=== PATIENT | female | born 1950 | race Caucasian/White ===

== ENCOUNTER 2017-10-01 03:01 | Emergency (ER) | payer MEDICARE, MEDICAID ==
[2017-10-01 03:30] VITALS: BP 116/72
--- NOTE | 2017-10-01 03:47 | EDM.PDOC ---
ED HPI GENERAL MEDICAL PROBLEM - General Chief Complaint: Skin Complaint Stated Complaint: ALL OVER BODY ITCH Time Seen by Provider: 10/01/17 03:34 Source of Information: Reports: Patient, RN Notes Reviewed History Limitations: Reports: No Limitations - History of Present Illness INITIAL COMMENTS - FREE TEXT/NARRATIVE: 67-year-old female presents emergency department day complaint of rash, she states she's had this rash for several months has been quite itchy she was doing a sleep study at night but during the sleep study she felt she could not take it anymore and wanted to see a doctor so she presented to the emergency department for further evaluation denies pain Pain Score (Numeric/FACES): 0 - Related Data Allergies Allergy/AdvReac Type Severity Reaction Status Date / Time diclofenac potassium Allergy unsure Verified 10/01/17 03:10 [From Cataflam] dicyclomine HCl [From Bentyl] Allergy unsure Verified 10/01/17 03:10 paroxetine HCl [From Paxil] Allergy unsure Verified 10/01/17 03:10 Home Meds: Home Meds Aspirin [Ashley Chewable] 81 mg PO DAILY 07/26/13 [History] Calcium Carbonate [Calci-Chew] 500 mg PO BID 07/26/13 [History] Escitalopram [Lexapro] 30 mg PO DAILY 07/26/13 [History] Ibuprofen [Ibuprofen] 800 mg PO DAILY PRN 07/26/13 [History] Multivitamin [Multi Vitamin Daily] 1 each PO DAILY 07/26/13 [History] QUEtiapine Fumarate [Quetiapine Fumarate] 50 mg PO DAILY 07/26/13 [History] QUEtiapine Fumarate [Quetiapine Fumarate] 200 mg PO BEDTIME 07/26/13 [History] metFORMIN [Glucophage] 500 mg PO BID 07/26/13 [History] rOPINIRole HCl [Ropinirole HCl] 2 mg PO QID 07/26/13 [History] busPIRone [Buspar] 20 mg PO TID 02/12/15 [History] Triamcinolone Acetonide [Triamcinolone Acetonide 0.1% Crm] 15 gm TOP TID PRN 01/27 [History] Vitamin E 400 unit PO DAILY 03/18/15 [History] Albuterol Sulfate [Proair Hfa] 2 puff IH Q4H PRN 06/26/16 [History] Moxifloxacin [Vigamox 0.5% Ophth Soln] 1 drop EYEBOTH TID 06/26/16 [History] valACYclovir HCl [Valacyclovir] 500 mg PO DAILY 06/26/16 [History] Past Medical History HEENT History: Reports: Impaired Vision Other HEENT History: dry eyes Cardiovascular History: Reports: Other (See Below) Other Cardiovascular History: hx stress test normal Respiratory History: Reports: COPD Other Respiratory History: uses boyfriends inhaler Gastrointestinal History: Reports: Irritable Bowel Syndrome Genitourinary History: Reports: Urinary Incontinence, UTI, Recurrent 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 OB/BYN History: cysts Musculoskeletal History: Reports: Arthritis, Other (See Below) Other Musculoskeletal History: hip pain Neurological History: Reports: Other (See Below) Other Neuro History: restless legs Psychiatric History: Reports: Addiction, Anxiety, Bipolar, Depression, Panic Attack, Schizophrenia Endocrine/Metabolic History: Reports: Diabetes, Type II Immunologic History: Reports: Other (See Below) Other Immunologic History: rectal herpes Dermatologic History: Reports: Urticaria - Infectious Disease History Infectious Disease History: Reports: Chicken Pox, Measles, Mumps - Past Surgical History Female Surgical History: Reports: Hysterectomy, Salpingo-Oophorectomy Social & Family History - Family History Family Medical History: Noncontributory - Tobacco Use Smoking Status *Q: Current Every Day Smoker Years of Tobacco use: 54 Packs/Tins Daily: 0.7 - Caffeine Use Caffeine Use: Reports: Coffee - Alcohol Use Days Per Week of Alcohol Use: 1 Number of Drinks Per Day: 1 Total Drinks Per Week: 1 - Recreational Drug Use Recreational Drug Use: No ED ROS GENERAL - Review of Systems Review Of Systems: See Below Constitutional: Reports: No Symptoms Respiratory: Reports: No Symptoms Cardiovascular: Reports: No Symptoms Skin: Reports: Pruritis, Rash ED EXAM, SKIN/RASH Exam: See Below Exam Limited By: No Limitations General Appearance: Alert, WD/WN, No Apparent Distress Skin: Warm, Dry, Intact, Normal Color, No Rash Course - Vital Signs Last Recorded V/S: Last Vital Signs Temp 98.0 F 10/01/17 03:29 Pulse 84 10/01/17 03:29 Resp 18 10/01/17 03:29 BP 116/72 10/01/17 03:29 Pulse Ox 92 L 10/01/17 03:29 Departure - Departure Time of Disposition: 03:47 Disposition: Home, Self-Care 01 Condition: Poor Clinical Impression: Rash and nonspecific skin eruption - Discharge Information Referrals: Kwaku Kang MD [Primary Care Provider] - Additional Instructions: Take full course of prednisone, Please followup with your primary care provider in 3-5 days if not better, please call return to the emergency department with worsening of symptoms. - Assessment/Plan Plan: Assessment Acuity = acute Site and laterality = nonspecific rash Etiology = unclear etiology Manifestations = none Location of injury = Home Lab values = none Plan Try prednisone 20 mg once day 5 days follow-up primary care in 3-5 days for reevaluation This note was dictated using [employer] voice recognition software please call with any questions on syntax or fer.
== END 2017-10-01 03:51 | disposition home or self-care (01) ==
LOC: JP.ED 03:01
DX: R21 Rash and other nonspecific skin eruption (principal); J44.9 Chronic obstructive pulmonary disease, unspecified; F41.0 Panic disorder [episodic paroxysmal anxiety]; F31.9 Bipolar disorder, unspecified; E11.9 Type 2 diabetes mellitus without complications; F17.210 Nicotine dependence, cigarettes, uncomplicated; Z79.82 Long term (current) use of aspirin; Z79.899 Other long term (current) drug therapy; Z79.1 Long term (current) use of non-steroidal anti-inflammatories (NSAID); Z79.84 Long term (current) use of oral hypoglycemic drugs; Z88.8 Allergy status to other drugs, medicaments and biological substances
CPT/HCPCS: 99283

== ENCOUNTER 2018-03-04 07:48 | Day surgery (SDC) | payer MEDICARE, MEDICAID ==
[~2018-03-04 07:48] MED LIST: Midazolam 1 MG/ML 2 ML SDV ONE; Propofol 200 MG/20 ML SDV ONE; fentaNYL 100 MCG/2 ML SDV ONE
[2018-03-04] MEDS ORDERED: Lactated Ringers 1,000 ML IV SCH (08:15)
[2018-03-04 12:09] VITALS: BP 121/63
--- NOTE | 2018-03-04 13:16 | OR ---
DATE OF PROCEDURE: 03/04/2018 PREOPERATIVE DIAGNOSIS: Colon cancer screening. POSTOPERATIVE DIAGNOSIS: Unremarkable colonoscopy. PROCEDURE PERFORMED: Colonoscopy to the cecum. SURGEON: Damon Brian MD. ANESTHESIA: IV anesthesia with monitored anesthesia care. INDICATION: This 67-year-old white female is referred for a colonoscopy for colon cancer screening. She says her last colonoscopic exam was done 10 years ago. I counseled her for the procedure including risks and alternatives, and she gave her informed consent to proceed. DESCRIPTION OF PROCEDURE: The patient was placed in the left lateral decubitus position. IV anesthesia was administered by the Anesthesia Service. Time-out was held. A rectal exam was performed, which was unremarkable. The flexible video Olympus colonoscope was introduced through her anus, up her rectum, and out her colon all the way to the cecum. To accomplish this, we did have to apply some abdominal compression. Once the cecum was reached, the scope was slowly withdrawn, examining the mucosa throughout. No mucosal abnormalities were noted. The scope was retroflexed in the rectum with the distal rectum appearing unremarkable. The scope was straightened and removed. She tolerated the procedure well. Damon Brian MD /[id number]
== END 2018-03-04 12:40 | disposition home or self-care (01) ==
LOC: JP.SDS 07:48
PROVIDERS: ATTEND Surgery
DX: Z12.11 Encounter for screening for malignant neoplasm of colon (principal); J44.9 Chronic obstructive pulmonary disease, unspecified; F17.200 Nicotine dependence, unspecified, uncomplicated; F20.9 Schizophrenia, unspecified; Z88.7 Allergy status to serum and vaccine; Z88.8 Allergy status to other drugs, medicaments and biological substances
CPT/HCPCS: G0121; J2250; J2704; J3010; J7120

== ENCOUNTER 2018-12-07 23:08 | Emergency (ER) | payer MEDICARE, MEDICAID ==
--- NOTE | 2018-12-07 23:31 | EDM.PDOC ---
ED HPI GENERAL MEDICAL PROBLEM - General Chief Complaint: ENT Problem Stated Complaint: MED [facility] Time Seen by Provider: 12/07/18 23:24 Source of Information: Reports: Patient, RN Notes Reviewed History Limitations: Reports: No Limitations - History of Present Illness INITIAL COMMENTS - FREE TEXT/NARRATIVE: 68-year-old female presents emergency department today with complaint of nosebleed she does have a history of nosebleed usually in the winter time she was unable to get this stopped denies any lightheadedness Treatments HEALTH CONSULTANT: Reports: Other (see below) Other Treatments HEALTH CONSULTANT: none - Related Data Allergies Allergy/AdvReac Type Severity Reaction Status Date / Time diclofenac potassium Allergy unsure Verified 12/07/18 23:14 [From Cataflam] dicyclomine HCl [From Bentyl] Allergy unsure Verified 12/07/18 23:14 paroxetine HCl [From Paxil] Allergy unsure Verified 12/07/18 23:14 Home Meds: Home Meds Aspirin [Ashley Chewable] 81 mg PO DAILY 07/26/13 [History] Calcium Carbonate [Calci-Chew] 500 mg PO BID 07/26/13 [History] Escitalopram [Lexapro] 30 mg PO DAILY 07/26/13 [History] Ibuprofen 800 mg PO DAILY PRN 07/26/13 [History] Multivitamin [Multi Vitamin Daily] 1 each PO DAILY 07/26/13 [History] QUEtiapine Fumarate [Quetiapine Fumarate] 50 mg PO DAILY 07/26/13 [History] QUEtiapine Fumarate [Quetiapine Fumarate] 200 mg PO BEDTIME 07/26/13 [History] metFORMIN [Glucophage] 500 mg PO BID 07/26/13 [History] rOPINIRole HCl [Ropinirole HCl] 2 mg PO QID 07/26/13 [History] busPIRone [Buspar] 20 mg PO TID 02/12/15 [History] Triamcinolone Acetonide [Triamcinolone Acetonide 0.1% Crm] 15 gm TOP TID PRN 01/27 [History] Vitamin E 400 unit PO DAILY 03/18/15 [History] Albuterol Sulfate [Proair Hfa] 2 puff IH Q4H PRN 06/26/16 [History] Albuterol [Ventolin HFA] 2 puff IH Q4HR PRN 02/28/18 [History] Acetaminophen/HYDROcodone [[place] 325-5 MG] 1 - 2 tab PO Q4H PRN #20 tab [Rx] Calcitonin,[place],Synthetic [Miacalcin] 3.7 ml NS DAILY #1 spray.pump 10/10/18 [ Rx] Past Medical History HEENT History: Reports: Impaired Vision Other HEENT History: dry eyes Cardiovascular History: Reports: Other (See Below) Other Cardiovascular History: hx stress test normal Respiratory History: Reports: COPD Other Respiratory History: uses boyfriends inhaler Gastrointestinal History: Reports: Irritable Bowel Syndrome Genitourinary History: Reports: Urinary Incontinence, UTI, Recurrent 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 Musculoskeletal History: Reports: Arthritis Other Musculoskeletal History: hip pain Neurological History: Reports: Other (See Below) Other Neuro History: restless legs Psychiatric History: Reports: Addiction, Anxiety, Bipolar, Depression, Panic Attack, Schizophrenia Endocrine/Metabolic History: Reports: Diabetes, Type II Immunologic History: Reports: Other (See Below) Other Immunologic History: herpes Dermatologic History: Reports: Urticaria - Infectious Disease History Infectious Disease History: Reports: Chicken Pox - Past Surgical History Female Surgical History: Reports: Hysterectomy, Salpingo-Oophorectomy Social & Family History - Family History Family Medical History: Noncontributory - Tobacco Use Smoking Status *Q: Current Every Day Smoker Years of Tobacco use: 40 Packs/Tins Daily: 1 Second Hand Smoke Exposure: Yes - Caffeine Use Caffeine Use: Reports: Coffee - Recreational Drug Use Recreational Drug Use: No ED ROS ENT - Review of Systems Review Of Systems: See Below HEENT: Reports: Nosebleed Respiratory: Reports: No Symptoms Cardiovascular: Reports: No Symptoms ED EXAM, ENT - Physical Exam Exam: See Below Exam Limited By: No Limitations General Appearance: Alert, WD/WN, No Apparent Distress Nose: Active Bleeding, Dried Blood Mouth/Throat: Normal Gums, Normal Lips, Bleeding ED ENT PROCEDURES - Epistaxis Procedure Indication: Epistaxis Recent anticoagulants/antiplatlets: No Uncontrolled HTN: No Recent septal/nasal surgery: No Site of bleeding: Right Nare Clearing of clots: Patient Blew Nose Anterior Packing: Inflatable Nasal Tampon Posterior packing: Long Nasal Tampon Local Anesthetic Volume: 5cc Complications: No Course - Vital Signs Last Recorded V/S: Last Vital Signs Temp 96.8 F 12/07/18 23:10 Pulse 86 12/07/18 23:10 Resp 12 12/07/18 23:10 BP 130/86 12/07/18 23:10 Pulse Ox 91 L 12/07/18 23:10 Departure - Departure Time of Disposition: 01:49 Disposition: Home, Self-Care 01 Condition: Fair Clinical Impression: Epistaxis - Discharge Information Referrals: PCP,None [Primary Care Provider] - Forms: ED Department Discharge Additional Instructions: Take full course of antibiotics, please follow-up with your primary care in the next 2-3 days for reevaluation and removal of the Rhino Rocket call return to the emergency department worsening of symptoms - Assessment/Plan Plan: Assessment Acuity = acute Site and laterality = epistaxis status post placement of Rhino Rocket Etiology = unknown etiology Manifestations = none Location of injury = Home Lab values = none Plan Placed on prophylactic antibiotics of cephalexin 500 mg by mouth 4 times a day follow-up primary care 2- 3 days for reevaluation This note was dictated using [employer] voice recognition software please call with any questions on syntax or grammar.
[2018-12-07 23:43] VITALS: BP 130/86
== END 2018-12-08 02:30 | disposition home or self-care (01) ==
LOC: JP.ED 23:08
DX: R04.0 Epistaxis (principal); J44.0 Chronic obstructive pulmonary disease with (acute) lower respiratory infection; F31.9 Bipolar disorder, unspecified; F41.9 Anxiety disorder, unspecified; E11.9 Type 2 diabetes mellitus without complications; F17.210 Nicotine dependence, cigarettes, uncomplicated; Z88.8 Allergy status to other drugs, medicaments and biological substances; Z79.82 Long term (current) use of aspirin; Z79.84 Long term (current) use of oral hypoglycemic drugs; Z79.899 Other long term (current) drug therapy
CPT/HCPCS: 30901; 30903; 30905; 99283; 99284-25

== ENCOUNTER → 2019-04-02 | Outpatient (CLI) | payer MEDICARE, MEDICAID ==
[2019-04-02] MEDS: Gadoteridol 279.3 MG/ML 20 ML SDV IV SCH (15:11)
--- NOTE | 2019-04-04 09:58 | CRLMR ---
INDICATION: Abdominal pain. Cirrhosis. Common bile duct dilation. COMPARISON: CT scan of the abdomen and pelvis dated 09 January 2019. TECHNIQUE: Abdominal MRI with T1 in- and out of phase, T2, diffusion weighted, and progressively delayed post-contrast images. Intravenous gadolinium administered. Heavily T2 weighted 2D and 3D MRCP images also performed. FINDINGS: No fatty infiltration of the liver. Nodularity of the liver representing cirrhosis. No focal liver lesions identified. Mild splenomegaly. No focal abnormalities identified in the visualized portions of the spleen, pancreas, adrenal glands, and kidneys. No hydronephrosis. A few prominent lymph nodes in the portacaval and jasbir hepatis regions are unchanged. Dilation of the common bile duct measuring 1.0 cm. No intrahepatic bile duct dilation. No filling defects in the biliary system. Normal size of the main pancreatic duct. Mild edema in the jasbir hepatis is unchanged. IMPRESSION: 1. Cirrhosis. No focal liver lesions identified. 2. A few prominent lymph nodes in the portacaval and jasbir hepatis regions along with mild edema in the jasbir hepatis are unchanged. Recommend follow-up MRI in 6 months to assess for stability. 3. Dilation of the common bile duct which could be secondary to a previously passed stone. No current choledocholithiasis. Dictated by Michael Armenta MD @ Apr 04 2019 9:41AM Signed by Dr. Michael Armenta @ Apr 04 2019 9:58AM
== END ==
LOC: JP.MRI 11:25
PROVIDERS: ATTEND Nurse Practitioner Family
DX: R10.9 Unspecified abdominal pain (principal); K74.69 Other cirrhosis of liver; K76.6 Portal hypertension; R59.9 Enlarged lymph nodes, unspecified; R60.9 Edema, unspecified; K83.8 Other specified diseases of biliary tract
CPT/HCPCS: 74183; A9576; A9579

== ENCOUNTER 2019-07-11 07:21 | Emergency (ER) | payer MEDICARE, MEDICAID ==
[2019-07-11] MEDS ORDERED: Sodium Chloride 0.9% 10 ML Syringe FLUSH PRN (07:44)
[2019-07-11] MEDS ORDERED: Acetaminophen/HYDROcodone 325-5 MG Tab PO ONE (07:44)
[2019-07-11] MEDS ORDERED: Ketorolac 30 MG/ML SDV IVPUSH ONE (07:44)
[2019-07-11] MEDS ORDERED: Albuterol/Ipratropium 3.0-0.5 MG/3 ML Neb Soln NEB ONE (07:46)
--- NOTE | 2019-07-11 07:52 | EDM.PDOC ---
ED HPI GENERAL MEDICAL PROBLEM - General Chief Complaint: Respiratory Problem Stated Complaint: SHORTNESS OF BREATH Time Seen by Provider: 07/11/19 07:40 Source of Information: Reports: Patient, EMS, Old Records History Limitations: Reports: Other (poor historian) - History of Present Illness INITIAL COMMENTS - FREE TEXT/NARRATIVE: 69 yo female smoker presents via EMS today with several days of SOB, pleuritic R anterior chest wall pain and pain in her extrems. She has not seen Dr. Kang , her primary for any of this. Lives alone here in town. Is on home oxygen, she does not know the flow rate. EMS said she was smoking unfiltered cigarettes on their arrival. Does not recall any injury to her chest. Denies or is unaware of a fever at home. Recently finished an antibiotic for a UTI, does not know what it was. Says she has a hx of Hep C, which is why she quit drinking. Onset: Gradual Duration: Day(s):, Constant Location: Reports: Chest, Upper Extremity, Left, Upper Extremity, Right, Lower Extremity, Left, Lower Extremity, Right Quality: Reports: Ache (extrems), Sharp (R ant chest) Severity: Moderate Improves with: Reports: Medication (Take [place] for pain.) Worsens with: Reports: Other (unknown cause) Context: Reports: Other (Has AODM and is a current daily smoker. ) Associated Symptoms: Reports: Chest Pain (R ant chest wall), Shortness of Breath (acute on chronic). 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: Reports: Other (see below) (Takes [place] prn) Generalized Pain Score (Numeric/FACES): 10 - Related Data Allergies Allergy/AdvReac Type Severity Reaction Status Date / Time diclofenac potassium Allergy unsure Verified 07/11/19 07:49 [From Cataflam] dicyclomine HCl [From Bentyl] Allergy unsure Verified 07/11/19 07:49 paroxetine HCl [From Paxil] Allergy unsure Verified 07/11/19 07:49 Home Meds: Home Meds Aspirin [Ashley Chewable] 81 mg PO DAILY 07/26/13 [History] Calcium Carbonate [Calci-Chew] 500 mg PO BID 07/26/13 [History] Escitalopram [Lexapro] 30 mg PO DAILY 07/26/13 [History] Ibuprofen 800 mg PO DAILY PRN 07/26/13 [History] Multivitamin [Multi Vitamin Daily] 1 each PO DAILY 07/26/13 [History] QUEtiapine Fumarate [Quetiapine Fumarate] 50 mg PO DAILY 07/26/13 [History] QUEtiapine Fumarate [Quetiapine Fumarate] 200 mg PO BEDTIME 07/26/13 [History] metFORMIN [Glucophage] 500 mg PO BID 07/26/13 [History] rOPINIRole HCl [Ropinirole HCl] 2 mg PO QID 07/26/13 [History] busPIRone [Buspar] 20 mg PO TID 02/12/15 [History] Triamcinolone Acetonide [Triamcinolone Acetonide 0.1% Crm] 15 gm TOP TID PRN 01/27 [History] Vitamin E 400 unit PO DAILY 03/18/15 [History] Albuterol Sulfate [Proair Hfa] 2 puff IH Q4H PRN 06/26/16 [History] Albuterol [Ventolin HFA] 2 puff IH Q4HR PRN 02/28/18 [History] Acetaminophen/HYDROcodone [[place] 325-5 MG] 1 - 2 tab PO Q4H PRN #20 tab [Rx] Calcitonin,[place],Synthetic [Miacalcin] 3.7 ml NS DAILY #1 spray.pump 10/10/18 [ Rx] Past Medical History HEENT History: Reports: Impaired Vision Other HEENT History: dry eyes Cardiovascular History: Reports: Other (See Below) Other Cardiovascular History: hx stress test normal Respiratory History: Reports: COPD Other Respiratory History: uses boyfriends inhaler Gastrointestinal History: Reports: Irritable Bowel Syndrome Genitourinary History: Reports: Urinary Incontinence, UTI, Recurrent SECURITY ROVER History: Reports: Other SECURITY ROVER History: cysts Musculoskeletal History: Reports: Arthritis Other Musculoskeletal History: hip pain Neurological History: Reports: Other (See Below) Other Neuro History: restless legs Psychiatric History: Reports: Addiction, Anxiety, Bipolar, Depression, Panic Attack, Schizophrenia Endocrine/Metabolic History: Reports: Diabetes, Type II Immunologic History: Reports: Other (See Below) Other Immunologic History: herpes Dermatologic History: Reports: Urticaria - Infectious Disease History Infectious Disease History: Reports: Chicken Pox - Past Surgical History Female Surgical History: Reports: Hysterectomy, Salpingo-Oophorectomy Social & Family History - Family History Family Medical History: Noncontributory - Caffeine Use Caffeine Use: Reports: Coffee ED ROS GENERAL - Review of Systems Review Of Systems: See Below Constitutional: Reports: No Symptoms HEENT: Reports: No Symptoms Respiratory: Reports: Shortness of Breath (acute on chronic), Pleuritic Chest Pain (just below the R breast). Denies: Wheezing, Cough, Sputum, Hemoptysis Cardiovascular: Reports: No Symptoms Endocrine: Reports: No Symptoms GI/Abdominal: Reports: No Symptoms : Reports: No Symptoms Musculoskeletal: Reports: No Symptoms Skin: Reports: No Symptoms Neurological: Reports: Other (hands and feet all hurt) Psychiatric: Reports: No Symptoms ED EXAM, GENERAL - Physical Exam Exam: See Below Exam Limited By: No Limitations General Appearance: Alert, WD/WN, Mild Distress Eye Exam: Bilateral Eye: Normal Inspection Ears: Normal External Exam, Normal Canal, Hearing Grossly Normal, Normal TMs Ear Exam: Bilateral Ear: Auricle Normal, Canal Normal, TM normal Nose: Normal Inspection, No Blood Throat/Mouth: Normal Inspection, Normal Lips, Normal Oropharynx, Normal Voice, No Airway Compromise. No: Normal Teeth (edentulous) Head: Atraumatic, Normocephalic Neck: Normal Inspection Respiratory/Chest: Decreased Breath Sounds, Other (mild tachypnea). No: Chest Non-Tender (tenderness just below the R breast on palpation. ), Wheezing Cardiovascular: Regular Rate, Rhythm, No Edema GI/Abdominal: Normal Bowel Sounds, Non-Tender, No Distention, Other (firm to palpation) Back Exam: Normal Inspection Extremities: Normal Inspection, Normal Range of Motion, No Pedal Edema Neurological: Alert, Oriented, CN II-XII Intact, Normal Cognition, No Motor/ Sensory Deficits Psychiatric: Normal Affect, Anxious Skin Exam: Warm, Dry, Intact, Normal Color, No Rash Course - Vital Signs Last Recorded V/S: Last Vital Signs Temp 36.3 C 07/11/19 07:45 Pulse 96 07/11/19 10:16 Resp 16 07/11/19 10:16 BP 129/71 07/11/19 10:16 Pulse Ox 93 L 07/11/19 10:16 - Orders/Labs/Meds Orders: Active Orders 24 hr Category Date Time Status Oxygen Therapy Adult [Oxygen Therapy, ED] [RC] Care 07/11/19 07:47 Active ASDIRECTED RT Aerosol Therapy [RC] ASDIRECTED Care 07/11/19 07:46 Active Sodium Chloride 0.9% [Normal Saline] 1,000 ml Med 07/11/19 08:45 Active IV ASDIRECTED Sodium Chloride 0.9% [Saline Flush] Med 07/11/19 07:44 Active 10 ml FLUSH ASDIRECTED PRN Saline Lock Insert [OM.PC] Routine Oth 07/11/19 07:44 Ordered Medication Orders Sodium Chloride (Normal Saline) 1,000 mls @ 150 mls/hr IV ASDIRECTED ETTA Last Infusion: 07/11/19 09:33 Dose: 999 mls/hr Admin: 07/11/19 09:04 Dose: 150 mls/hr Sodium Chloride (Saline Flush) 10 ml FLUSH ASDIRECTED PRN PRN Reason: Keep Vein Open Last Admin: 07/11/19 09:37 Dose: 10 ml Labs: Laboratory Tests 07/11/19 07/11/19 07/11/19 Range/Units 07:58 07:58 07:58 WBC 8.5 (4.5-11.0) K/uL RBC 4.00 (3.30-5.50) M/uL Hgb 13.6 (12.0-15.0) g/dL Hct 39.5 (36.0-48.0) % MCV 99 H (80-98) fL MCH 34 H (27-31) pg MCHC 34 (32-36) % Plt Count 101 L (150-400) K/uL D-Dimer, Quantitative 767 H (0.0-400.0) ng/mL Sodium 134 L (140-148) mmol/L Potassium 4.1 (3.6-5.2) mmol/L Chloride 103 (100-108) mmol/L Carbon Dioxide 21 (21-32) mmol/L Anion Gap 14.1 H (5.0-14.0) mmol/L BUN 13 (7-18) mg/dL Creatinine 0.8 (0.6-1.0) mg/dL Est Cr Clr Drug Dosing 54.90 mL/min Estimated GFR (MDRD) > 60 (>60) Glucose 150 H (74-106) mg/dL Calcium 8.8 (8.5-10.1) mg/dL Troponin I (0.000-0.056) ng/mL Urine Color (YELLOW) Urine Appearance (CLEAR) Urine pH (5.0-8.0) Ur Specific [place] (1.008-1.030) Urine Protein (NEGATIVE) mg/dL Urine Glucose (UA) (NEGATIVE) mg/dL Urine Ketones (NEGATIVE) mg/dL Urine Occult Blood (NEGATIVE) Urine Nitrite (NEGATIVE) Urine Bilirubin (NEGATIVE) Urine Urobilinogen (0.2-1.0) EU/dL Ur Leukocyte Esterase (NEGATIVE) Urine RBC (0-5) Urine WBC (0-5) Ur Epithelial Cells Amorphous Sediment Urine Bacteria Urine Mucus 07/11/19 07/11/19 Range/Units 08:16 08:43 WBC (4.5-11.0) K/uL RBC (3.30-5.50) M/uL Hgb (12.0-15.0) g/dL Hct (36.0-48.0) % MCV (80-98) fL MCH (27-31) pg MCHC (32-36) % Plt Count (150-400) K/uL D-Dimer, Quantitative (0.0-400.0) ng/mL Sodium (140-148) mmol/L Potassium (3.6-5.2) mmol/L Chloride (100-108) mmol/L Carbon Dioxide (21-32) mmol/L Anion Gap (5.0-14.0) mmol/L BUN (7-18) mg/dL Creatinine (0.6-1.0) mg/dL Est Cr Clr Drug Dosing mL/min Estimated GFR (MDRD) (>60) Glucose (74-106) mg/dL Calcium (8.5-10.1) mg/dL Troponin I < 0.017 (0.000-0.056) ng/mL Urine Color Yellow (YELLOW) Urine Appearance Slightly cloudy A (CLEAR) Urine pH 5.5 (5.0-8.0) Ur Specific [place] >= 1.030 (1.008-1.030) Urine Protein Negative (NEGATIVE) mg/dL Urine Glucose (UA) Negative (NEGATIVE) mg/dL Urine Ketones Negative (NEGATIVE) mg/dL Urine Occult Blood Trace-intact H (NEGATIVE) Urine Nitrite Negative (NEGATIVE) Urine Bilirubin Negative (NEGATIVE) Urine Urobilinogen 0.2 (0.2-1.0) EU/dL Ur Leukocyte Esterase Negative (NEGATIVE) Urine RBC Not seen (0-5) Urine WBC 0-5 (0-5) Ur Epithelial Cells Few Amorphous Sediment Rare Urine Bacteria Moderate Urine Mucus Many Meds: Medications Generic Name Dose Route Start Last Admin Trade Name Freq PRN Reason Stop Dose Admin Sodium Chloride 1,000 mls @ 150 mls/hr 07/11/19 08:45 07/11/19 09:33 Normal Saline IV 999 mls/hr ASDIRECTED ETTA Infusion Sodium Chloride 10 ml 07/11/19 07:44 07/11/19 09:37 Saline Flush FLUSH 10 ml ASDIRECTED PRN Administration Keep Vein Open Discontinued Medications Generic Name Dose Route Start Last Admin Trade Name Freq PRN Reason Stop Dose Admin Hydrocodone Bitart/Acetaminophen 1 tab 07/11/19 07:44 07/11/19 08:06 [place] 325-5 Mg PO 07/11/19 07:45 1 tab ONETIME ONE Administration Albuterol/Ipratropium 3 ml 07/11/19 07:46 07/11/19 08:12 Duoneb 3.0-0.5 Mg/3 Ml NEB 07/11/19 07:47 3 ml ONETIME ONE Administration Ketorolac Tromethamine 15 mg 07/11/19 07:44 07/11/19 08:11 Toradol IVPUSH 07/11/19 07:45 15 mg ONETIME ONE Administration - Radiology Interpretation Free Text/Narrative:: CXR-IMPRESSION: New mild patchy and linear bibasilar infiltrates, consistent with atelectasis. Crowding of lung markings throughout the rest of the chest from shallow inspiration. Dictated by Osmel Dowell MD @ Jul 11 2019 8:29AM (Electronic Signature) - Re-Assessments/Exams Free Text/Narrative Re-Assessment/Exam: 07/11/19 08:44 Breathing slightly better after her neb. Free Text/Narrative Re-Assessment/Exam: 07/11/19 09:33 Pain less after IV Toradol and [place] 1 po, refusing admission. Will give her a fluid bolus of 1000 ml of NS due to concentrated urine and then if she can get a ride will discharge to home. Departure - Departure Time of Disposition: 10:39 Disposition: Home, Self-Care 01 Condition: Fair Clinical Impression: Rib pain on right side, Tobacco abuse - Discharge Information *PRESCRIPTION DRUG MONITORING PROGRAM REVIEWED*: No *COPY OF PRESCRIPTION DRUG MONITORING REPORT IN PATIENT JEN: No Referrals: PCP,None [Primary Care Provider] - Forms: ED Department Discharge Additional Instructions: Take ibuprofen 400 mg every 6 hrs with food as needed for rib pain. Add [place] if additional pain relief is needed. NO SMOKING. See Dr. Kang for recheck on Sunday, call for an appt. - My Orders Last 24 Hours: My Active Orders 07/11/19 07:44 Sodium Chloride 0.9% [Saline Flush] 10 ml FLUSH ASDIRECTED PRN Saline Lock Insert [OM.PC] Routine 07/11/19 07:46 RT Aerosol Therapy [RC] ASDIRECTED 07/11/19 07:47 Oxygen Therapy Adult [Oxygen Therapy, ED] [RC] ASDIRECTED 07/11/19 08:45 Sodium Chloride 0.9% [Normal Saline] 1,000 ml IV ASDIRECTED - Assessment/Plan Last 24 Hours: My Active Orders 07/11/19 07:44 Sodium Chloride 0.9% [Saline Flush] 10 ml FLUSH ASDIRECTED PRN Saline Lock Insert [OM.PC] Routine 07/11/19 07:46 RT Aerosol Therapy [RC] ASDIRECTED 07/11/19 07:47 Oxygen Therapy Adult [Oxygen Therapy, ED] [RC] ASDIRECTED 07/11/19 08:45 Sodium Chloride 0.9% [Normal Saline] 1,000 ml IV ASDIRECTED
--- NOTE | 2019-07-11 08:35 | CRLCR ---
INDICATION: Shortness of breath COMPARISON: 04/21/2015 FINDINGS: PA and lateral views of the chest were obtained. There is new mild patchy and linear bilateral basilar infiltrates, consistent with atelectasis. The rest of the chest has crowding of lung markings related to shallow inspiration, but no additional infiltrate. There is no sign of a pleural effusion. The heart remains top normal in size. The mediastinum is normal in appearance. The osseous structures are normal in appearance for the patient`s age. IMPRESSION: New mild patchy and linear bibasilar infiltrates, consistent with atelectasis. Crowding of lung markings throughout the rest of the chest from shallow inspiration. Dictated by Osmel Dowell MD @ Jul 11 2019 8:29AM Signed by Dr. Osmel Dowell @ Jul 11 2019 8:34AM
[2019-07-11] MEDS ORDERED: Sodium Chloride 0.9% 1,000 ML IV SCH (08:45)
[2019-07-11 10:17] VITALS: BP 129/71; PULSE 96
== END 2019-07-11 10:47 | disposition home or self-care (01) ==
LOC: JP.ED 07:21
DX: R07.81 Pleurodynia (principal); J45.909 Unspecified asthma, uncomplicated; E11.9 Type 2 diabetes mellitus without complications; F41.9 Anxiety disorder, unspecified; F32.9 Major depressive disorder, single episode, unspecified; F17.210 Nicotine dependence, cigarettes, uncomplicated; Z79.84 Long term (current) use of oral hypoglycemic drugs; Z88.8 Allergy status to other drugs, medicaments and biological substances; Z79.899 Other long term (current) drug therapy; Z79.82 Long term (current) use of aspirin; Z90.710 Acquired absence of both cervix and uterus
CPT/HCPCS: 36415; 71046; 80048; 81001; 84484; 85027; 85379; 94640; 96361; 96374; 99283; 99285-25; A9270-GY; J1885; J7030; J7620-GY

== ENCOUNTER 2019-07-12 15:01 | Inpatient (IN) | payer MEDICARE, MEDICAID ==
--- NOTE | 2019-07-12 19:09 | EDM.PDOC ---
ED HPI GENERAL MEDICAL PROBLEM - General Chief Complaint: General Stated Complaint: GENERAL WEAKNESS, PAIN IN SIDE Time Seen by Provider: 07/12/19 18:51 Source of Information: Reports: Patient, Old Records, RN Notes Reviewed History Limitations: Reports: No Limitations - History of Present Illness INITIAL COMMENTS - FREE TEXT/NARRATIVE: 69-year-old female presents emergency department today complaint of shortness of breath and body aches, she was in the emergency department yesterday for evaluation per her report they wanted to admit her however she declined. Thought to have COPD exacerbation. She states she did get some help from the [facility] provided she admits that she has run out of oxygen at home. Denies any fevers denies any tick exposure - Related Data Allergies Allergy/AdvReac Type Severity Reaction Status Date / Time diclofenac potassium Allergy unsure Verified 07/12/19 18:59 [From Cataflam] dicyclomine HCl [From Bentyl] Allergy unsure Verified 07/12/19 18:59 paroxetine HCl [From Paxil] Allergy unsure Verified 07/12/19 18:59 Home Meds: Home Meds Aspirin [Ashley Chewable] 81 mg PO DAILY 07/26/13 [History] Calcium Carbonate [Calci-Chew] 500 mg PO BID 07/26/13 [History] Escitalopram [Lexapro] 30 mg PO DAILY 07/26/13 [History] Ibuprofen 800 mg PO DAILY PRN 07/26/13 [History] Multivitamin [Multi Vitamin Daily] 1 each PO DAILY 07/26/13 [History] QUEtiapine Fumarate [Quetiapine Fumarate] 50 mg PO DAILY 07/26/13 [History] QUEtiapine Fumarate [Quetiapine Fumarate] 200 mg PO BEDTIME 07/26/13 [History] metFORMIN [Glucophage] 500 mg PO BID 07/26/13 [History] rOPINIRole HCl [Ropinirole HCl] 2 mg PO QID 07/26/13 [History] busPIRone [Buspar] 20 mg PO TID 02/12/15 [History] Triamcinolone Acetonide [Triamcinolone Acetonide 0.1% Crm] 15 gm TOP TID PRN 01/27 [History] Vitamin E 400 unit PO DAILY 03/18/15 [History] Albuterol Sulfate [Proair Hfa] 2 puff IH Q4H PRN 06/26/16 [History] Albuterol [Ventolin HFA] 2 puff IH Q4HR PRN 02/28/18 [History] Acetaminophen/HYDROcodone [Foster 325-5 MG] 1 - 2 tab PO Q4H PRN #20 tab [Rx] Calcitonin,[place],Synthetic [Miacalcin] 3.7 ml NS DAILY #1 spray.pump 10/10/18 [ Rx] Past Medical History HEENT History: Reports: Impaired Vision Other HEENT History: dry eyes Cardiovascular History: Reports: Other (See Below) Other Cardiovascular History: hx stress test normal Respiratory History: Reports: COPD Other Respiratory History: uses boyfriends inhaler Gastrointestinal History: Reports: Hepatitis, Irritable Bowel Syndrome Genitourinary History: Reports: Urinary Incontinence, UTI, Recurrent [employer] [address] [employer] History: Reports: Other [employer] [address] [address] [employer] History: cysts Musculoskeletal History: Reports: Arthritis Other Musculoskeletal History: hip pain Neurological History: Reports: Other (See Below) Other Neuro History: restless legs Psychiatric History: Reports: Addiction, Anxiety, Bipolar, Depression, Panic Attack, Schizophrenia Endocrine/Metabolic History: Reports: Diabetes, Type II Immunologic History: Reports: Other (See Below) Other Immunologic History: herpes Dermatologic History: Reports: Urticaria - Infectious Disease History Infectious Disease History: Reports: Hepatitis C - Past Surgical History Female Surgical History: Reports: Hysterectomy, Salpingo-Oophorectomy Social & Family History - Family History Family Medical History: Noncontributory - Tobacco Use Smoking Status *Q: Current Every Day Smoker Years of Tobacco use: 56 Packs/Tins Daily: 0.5 - Caffeine Use Caffeine Use: Reports: Coffee - Recreational Drug Use Recreational Drug Use: No ED ROS GENERAL - Review of Systems Review Of Systems: See Below Constitutional: Reports: Weakness, Fatigue. Denies: Fever, Chills HEENT: Reports: No Symptoms Respiratory: Reports: Shortness of Breath, Cough. Denies: Sputum Cardiovascular: Reports: Chest Pain, Dyspnea on Exertion GI/Abdominal: Reports: No Symptoms : Reports: No Symptoms Musculoskeletal: Reports: Shoulder Pain, Back Pain Skin: Reports: No Symptoms Neurological: Reports: No Symptoms ED EXAM, GENERAL - Physical Exam Exam: See Below Free Text/Narrative:: General: Female, ill-appearing, alert and oriented x3 HEENT: head is atraumatic normocephalic, eyes pupils equal round reactive to light, sclera clear no conjunctivitis appreciated. Ears tympanic membranes clear and gallardo landmarks and light reflex are present bilaterally canals are clear. Nose no septal deviation, nares are clear, no blood present. Mouth mucosa is dry and pink no erythema or exudate noted in soft palate, tongue is midline uvula is midline, dentition is intact. Neck: Supple no thyromegaly no tracheal deviation. Nodes: Cervical nodes subclavicular nodes nontender no palpable lymphadenopathy noted. Lungs: clear to auscultation bilaterally with symmetrical respirations, no adventitious noise appreciated. CV: Regular rate and rhythm S1 and S2 appreciated no murmurs rubs or gallops noted. Abdomen: Soft, nontender, no palpable masses or organomegaly appreciated, no distention no guarding bowel sounds are present, Neuro: GCS 15 Skin: Warm and dry, intact, petechial lesions appreciated on the feet bilaterally Extremities: +1 pitting edema bilaterally, pedal pulse is +2. Course - Vital Signs Last Recorded V/S: Last Vital Signs Temp 99.1 F 07/12/19 18:58 Pulse 95 07/12/19 18:58 Resp 25 H 07/12/19 18:58 BP 184/85 H 07/12/19 18:58 Pulse Ox 87 L 07/12/19 18:58 - Orders/Labs/Meds Orders: Active Orders 24 hr Category Date Time Status RT Aerosol Therapy [RC] ASDIRECTED Care 07/12/19 19:21 Active Vital Signs [RC] Q1H Care 07/12/19 19:19 Active CULTURE BLOOD [BC] Urgent Lab 07/12/19 19:30 Received CULTURE BLOOD [BC] Urgent Lab 07/12/19 19:35 Received UA W/MICROSCOPIC [URIN] Urgent Lab 07/12/19 19:19 Ordered Iopamidol [Isovue-370 (76%)] Med 07/12/19 19:45 Active 44 ml IV . DIRECTED Lactated Ringers [Ringers, Lactated] 1,000 ml Med 07/12/19 19:30 Active IV ASDIRECTED Sodium Chloride 0.9% [Normal Saline] 74 ml Med 07/12/19 19:45 Active IV ASDIRECTED Blood Culture x2 Reflex Set [OM.PC] Urgent Oth 07/12/19 19:19 Ordered Medication Orders Lactated Ringer's (Ringers, Lactated) 1,000 mls @ 999 mls/hr IV ASDIRECTED [facility] Last Admin: 07/12/19 19:36 Dose: 999 mls/hr Sodium Chloride (Normal Saline) 74 mls @ 3 mls/sec IV ASDIRECTED [facility] Last Admin: 07/12/19 20:43 Dose: 3 mls/sec Iopamidol (Isovue-370 (76%)) 44 ml IV . DIRECTED [facility] Last Admin: 07/12/19 20:44 Dose: 90 ml Labs: Laboratory Tests 07/12/19 07/12/19 07/12/19 Range/Units 19:19 19:19 19:19 WBC 8.2 (4.5-11.0) K/uL RBC 3.88 (3.30-5.50) M/uL Hgb 13.3 (12.0-15.0) g/dL Hct 38.5 (36.0-48.0) % MCV 99 H (80-98) fL MCH 34 H (27-31) pg MCHC 35 (32-36) % Plt Count 105 L (150-400) K/uL Neut % (Auto) 69 H (36-66) % Lymph % (Auto) 20 L (24-44) % [place] % (Auto) 10 H (2-6) % Eos % (Auto) 1 L (2-4) % Baso % (Auto) 0 (0-1) % Puncture Site ABG pH (7.350-7.450) ABG pCO2 (35.0-42.0) mmHg ABG pO2 (75.0-100.0) mmHg ABG HCO3 (22.0-26.0) mmol/L ABG Total CO2 (21.0-25.0) mmol/L ABG O2 Saturation (95.0-98.0) % ABG O2 Content (15.0-23.0) %vol ABG Base Excess mm/L ABG Hemoglobin (12.0-16.0) g/dL ABG Oxyhemoglobin % ABG Carboxyhemoglobin (0.0-1.6) % ABG Methemoglobin % Micky Test O2 Delivery Device Oxygen Flow Rate L Sodium 135 L (140-148) mmol/L Potassium 4.0 (3.6-5.2) mmol/L Chloride 105 (100-108) mmol/L Carbon Dioxide 20 L (21-32) mmol/L Anion Gap 14.0 (5.0-14.0) mmol/L BUN 14 (7-18) mg/dL Creatinine 0.7 (0.6-1.0) mg/dL Est Cr Clr Drug Dosing 41.28 mL/min Estimated GFR (MDRD) > 60 (>60) Glucose 133 H (74-106) mg/dL Lactic Acid 1.8 (0.4-2.0) mmol/L Calcium 8.6 (8.5-10.1) mg/dL Total Bilirubin 1.7 H (0.2-1.0) mg/dL AST 43 H (15-37) U/L ALT 11 L (12-78) U/L Alkaline Phosphatase 123 H (46-116) U/L Troponin I (0.000-0.056) ng/mL C-Reactive Protein 4.44 H (0.0-0.3) mg/dL Total Protein 6.9 (6.4-8.2) g/dL Albumin 3.2 L (3.4-5.0) g/dL Globulin 3.7 H (2.3-3.5) g/dL Albumin/Globulin Ratio 0.9 L (1.2-2.2) Procalcitonin 0.09 ng/mL 07/12/19 07/12/19 Range/Units 19:22 19:24 WBC (4.5-11.0) K/uL RBC (3.30-5.50) M/uL Hgb (12.0-15.0) g/dL Hct (36.0-48.0) % MCV (80-98) fL MCH (27-31) pg MCHC (32-36) % Plt Count (150-400) K/uL Neut % (Auto) (36-66) % Lymph % (Auto) (24-44) % [place] % (Auto) (2-6) % Eos % (Auto) (2-4) % Baso % (Auto) (0-1) % Puncture Site Rt.radial ABG pH 7.448 (7.350-7.450) ABG pCO2 28.0 L (35.0-42.0) mmHg ABG pO2 64.2 L (75.0-100.0) mmHg ABG HCO3 19.1 L (22.0-26.0) mmol/L ABG Total CO2 16.8 L (21.0-25.0) mmol/L ABG O2 Saturation 93.0 L (95.0-98.0) % ABG O2 Content 16.9 (15.0-23.0) %vol ABG Base Excess -3.3 mm/L ABG Hemoglobin 13.3 (12.0-16.0) g/dL ABG Oxyhemoglobin 90.0 % ABG Carboxyhemoglobin 2.7 H (0.0-1.6) % ABG Methemoglobin 0.5 % Micky Test Passed O2 Delivery Device Nasal cannula Oxygen Flow Rate 3 L Sodium (140-148) mmol/L Potassium (3.6-5.2) mmol/L Chloride (100-108) mmol/L Carbon Dioxide (21-32) mmol/L Anion Gap (5.0-14.0) mmol/L BUN (7-18) mg/dL Creatinine (0.6-1.0) mg/dL Est Cr Clr Drug Dosing mL/min Estimated GFR (MDRD) (>60) Glucose (74-106) mg/dL Lactic Acid (0.4-2.0) mmol/L Calcium (8.5-10.1) mg/dL Total Bilirubin (0.2-1.0) mg/dL AST (15-37) U/L ALT (12-78) U/L Alkaline Phosphatase (46-116) U/L Troponin I 0.017 (0.000-0.056) ng/mL C-Reactive Protein (0.0-0.3) mg/dL Total Protein (6.4-8.2) g/dL Albumin (3.4-5.0) g/dL Globulin (2.3-3.5) g/dL Albumin/Globulin Ratio (1.2-2.2) Procalcitonin ng/mL Meds: Medications Generic Name Dose Route Start Last Admin Trade Name Freq PRN Reason Stop Dose Admin Lactated Ringer's 1,000 mls @ 999 mls/hr 07/12/19 19:30 07/12/19 19:36 Ringers, Lactated IV 999 mls/hr ASDIRECTED ETTA Administration Sodium Chloride 74 mls @ 3 mls/sec 07/12/19 19:45 07/12/19 20:43 Normal Saline IV 3 mls/sec ASDIRECTED ETTA Administration Iopamidol 44 ml 07/12/19 19:45 07/12/19 20:44 Isovue-370 (76%) IV 90 ml . DIRECTED ETTA Administration Discontinued Medications Generic Name Dose Route Start Last Admin Trade Name Nicole PRN Reason Stop Dose Admin Albuterol/Ipratropium 3 ml 07/12/19 19:21 07/12/19 19:36 Duoneb 3.0-0.5 Mg/3 Ml NEB 07/12/19 19:22 3 ml ONETIME ONE Administration Ketorolac Tromethamine 30 mg 07/12/19 19:21 07/12/19 19:36 Toradol IVPUSH 07/12/19 19:22 30 mg ONETIME ONE Administration Sodium Chloride 10 ml 07/12/19 19:34 07/12/19 20:43 Saline Flush FLUSH 07/12/19 19:35 10 ml ONETIME ONE Administration Departure - Departure Time of Disposition: 21:43 Disposition: Admitted As Inpatient 66 Condition: Fair Clinical Impression: COPD exacerbation CAP (community acquired pneumonia) Qualifiers: Laterality: right Lung location: lower lobe of lung Qualified Code(s): J18.1 - Lobar pneumonia, unspecified organism - Discharge Information Referrals: Kwaku Kang MD [Primary Care Provider] - Forms: ED Department Discharge - Problem List Review Problem List Initiated/Reviewed/Updated: Yes - My Orders Last 24 Hours: My Active Orders 07/12/19 19:19 Vital Signs [RC] Q1H UA W/MICROSCOPIC [URIN] Urgent Blood Culture x2 Reflex Set [OM.PC] Urgent 07/12/19 19:21 RT Aerosol Therapy [RC] ASDIRECTED 07/12/19 19:30 CULTURE BLOOD [BC] Urgent Lactated Ringers [Ringers, Lactated] 1,000 ml IV ASDIRECTED 07/12/19 19:35 CULTURE BLOOD [BC] Urgent 07/12/19 19:45 Iopamidol [Isovue-370 (76%)] 44 ml IV . DIRECTED Sodium Chloride 0.9% [Normal Saline] 74 ml IV ASDIRECTED - Assessment/Plan Last 24 Hours: My Active Orders 07/12/19 19:19 Vital Signs [RC] Q1H UA W/MICROSCOPIC [URIN] Urgent Blood Culture x2 Reflex Set [OM.PC] Urgent 07/12/19 19:21 RT Aerosol Therapy [RC] ASDIRECTED 07/12/19 19:30 CULTURE BLOOD [BC] Urgent Lactated Ringers [Ringers, Lactated] 1,000 ml IV ASDIRECTED 07/12/19 19:35 CULTURE BLOOD [BC] Urgent 07/12/19 19:45 Iopamidol [Isovue-370 (76%)] 44 ml IV . DIRECTED Sodium Chloride 0.9% [Normal Saline] 74 ml IV ASDIRECTED Plan: Assessment Acuity = acute Site and laterality = COPD exacerbation with right sided pneumonia Etiology = probable bacterial cause Manifestations = hypoxia, dyspnea Location of injury = Home Lab values = CBC unremarkable pH 7.45 PCO2 28.0 PO2 64 bicarbonate 19.1 consistent with chronic primary respiratory alkalosis, sodium low at 135 consistent hyponatremia, lactic acid normal 1.8 total bilirubin elevated 1.7 consistent hyperbilirubinemia AST elevated 43 LT low at 11 a troponin was negative CRP elevated 4.44 pro calcitonin low at 0.09 CT scan was negative for any acute pulmonary embolism however infiltrates are appreciated Plan called an discussed the case with hospitalist at 20:00 kindly agreed to come to the Ed and evaluate the patient for admission This note was dictated using Droplet voice recognition software please call with any questions on syntax or grammar.
[2019-07-12] MEDS ORDERED: Ketorolac 30 MG/ML SDV IVPUSH ONE (19:21)
[2019-07-12] MEDS ORDERED: Albuterol/Ipratropium 3.0-0.5 MG/3 ML Neb Soln NEB ONE (19:21)
[2019-07-12] MEDS ORDERED: Lactated Ringers 1,000 ML IV SCH (19:30)
[2019-07-12] MEDS ORDERED: Iopamidol 755 Mg/ML 100 ML Bottle IV SCH (19:45)
[2019-07-12] MEDS: Sodium Chloride 0.9% 10 ML Syringe FLUSH ONE ×2 (20:18→20:43)
--- NOTE | 2019-07-12 21:20 | CRLCT ---
INDICATION: Hypoxia; elevated D-dimer; abnormal chest x-ray. COMPARISON: Chest radiograph July 11, 2019 and April 21, 2015. TECHNIQUE: CT chest with intravenous contrast; coronal and sagittal reformats. FINDINGS: No CT evidence of pulmonary thromboembolism. Evidence of right-sided pleural effusion. Evidence of pulmonary congestion with thickened interlobular septa bilateral. Infiltrates both lower lobes more on the right . Atelectatic changes and are infiltrates right middle lobe. Abnormal mediastinal and right hilar lymphadenopathy; rule out reactive lymphadenopathy; followup is needed. Limited CT study through the upper abdomen reveals evidence of cirrhotic morphology of the liver and splenomegaly. IMPRESSION: 1. No CT evidence of pulmonary thromboembolism. 2. Pulmonary and infiltrates both lower lobes and right middle lobe. 3. Small right-sided pleural effusion. 4. Mild pulmonary congestion 5. Abnormal mediastinal and right hilar lymphadenopathy; rule out reactive lymphadenopathy. 6. Enlarged cardiac silhouette. 7. Cirrhotic morphology of the liver and splenomegaly. Please note that all CT scans at this facility use dose modulation, iterative reconstruction, and/or weight-based dosing when appropriate to reduce radiation dose to as low as reasonably achievable. Dictated by Maile Briscoe MD @ Jul 12 2019 9:14PM Signed by Dr. Maile Briscoe @ Jul 12 2019 9:18PM
--- NOTE | 2019-07-12 21:46 | PCM.HP.2 ---
H&P History of Present Illness - General Date of Service: 07/12/19 Admit Problem/Dx: Admission Diagnosis/Problem Admission Diagnosis/Problem Pneumonia Source of Information: Patient, Provider History Limitations: Reports: No Limitations - History of Present Illness Initial Comments - Free Text/Narative: CC: I'm weak HPI: Snehal presents to the emergency room today with progressive weakness as well as increasing shortness of breath, cough and subjective fevers. She reports her weakness has been progressing over several weeks but has been more profound over the past several days. She reports feeling short of breath for quite some time but has been more and more shortness of breath over the past few days as well. She is short of breath with any activity and even short of breath at rest. She has been coughing more than usual but has not had much sputum. She reports episodes of chilling as well as some subjective feelings of warmth which she thinks might be fevers but has not measured any temperatures. Appetite has been stable. As far as her weakness is concerned, she feels weak all over the place. Nighttime seems to be the worst for her. Mornings are better but as she goes through the day she becomes more and more week. She's not able to go up and down stairs anymore so she has not been doing her laundry recently. She is not aware of any sick contacts. She did just recently have a urinary tract infection and was on antibiotics for one week. She does complain of intermittent diarrhea but says that it only happens when she takes her lactulose. If she skips the medication she does not have diarrhea. Workup in the emergency room revealed a reassuring laboratory studies. Her C- reactive protein is elevated at 4.48. A CT scan of the chestDid not reveal any evidence for pulmonary embolism. There were infiltrates in the lower lungs as well as the right middle lobe. She has a small right-sided pleural effusion. She will be admitted for management of pneumonia with a COPD exacerbation, hypoxic respiratory failure and weakness. - Related Data Allergies/Adverse Reactions: Allergies Allergy/AdvReac Type Severity Reaction Status Date / Time diclofenac potassium Allergy unsure Verified 07/12/19 18:59 [From Cataflam] dicyclomine HCl [From Bentyl] Allergy unsure Verified 07/12/19 18:59 paroxetine HCl [From Paxil] Allergy unsure Verified 07/12/19 18:59 Home Medications: Home Meds Aspirin [Ashley Chewable] 81 mg PO DAILY 07/26/13 [History] Calcium Carbonate [Calci-Chew] 500 mg PO BID 07/26/13 [History] Escitalopram [Lexapro] 30 mg PO DAILY 07/26/13 [History] Ibuprofen 800 mg PO DAILY PRN 07/26/13 [History] Multivitamin [Multi Vitamin Daily] 1 each PO DAILY 07/26/13 [History] QUEtiapine Fumarate [Quetiapine Fumarate] 50 mg PO DAILY 07/26/13 [History] QUEtiapine Fumarate [Quetiapine Fumarate] 200 mg PO BEDTIME 07/26/13 [History] metFORMIN [Glucophage] 500 mg PO BID 07/26/13 [History] rOPINIRole HCl [Ropinirole HCl] 2 mg PO QID 07/26/13 [History] busPIRone [Buspar] 20 mg PO TID 02/12/15 [History] Triamcinolone Acetonide [Triamcinolone Acetonide 0.1% Crm] 15 gm TOP TID PRN 01/27 [History] Vitamin E 400 unit PO DAILY 03/18/15 [History] Albuterol Sulfate [Proair Hfa] 2 puff IH Q4H PRN 06/26/16 [History] Albuterol [Ventolin HFA] 2 puff IH Q4HR PRN 02/28/18 [History] Acetaminophen/HYDROcodone [[place] 325-5 MG] 1 - 2 tab PO Q4H PRN #20 tab [Rx] Calcitonin,[place],Synthetic [Miacalcin] 3.7 ml NS DAILY #1 spray.pump 10/10/18 [ Rx] Past Medical History HEENT History: Reports: Impaired Vision Other HEENT History: dry eyes Cardiovascular History: Reports: Other (See Below) Other Cardiovascular History: hx stress test normal Respiratory History: Reports: COPD Other Respiratory History: uses boyfriends inhaler Gastrointestinal History: Reports: Hepatitis, Irritable Bowel Syndrome Genitourinary History: Reports: Urinary Incontinence, UTI, Recurrent [employer] History: Reports: Other OB/BYN History: cysts Musculoskeletal History: Reports: Arthritis Other Musculoskeletal History: hip pain Neurological History: Reports: Other (See Below) Other Neuro History: restless legs Psychiatric History: Reports: Addiction, Anxiety, Bipolar, Depression, Panic Attack, Schizophrenia Endocrine/Metabolic History: Reports: Diabetes, Type II Immunologic History: Reports: Other (See Below) Other Immunologic History: herpes Dermatologic History: Reports: Urticaria - Infectious Disease History Infectious Disease History: Reports: Hepatitis C - Past Surgical History Female Surgical History: Reports: Hysterectomy, Salpingo-Oophorectomy Social & Family History - Family History Oncologic: Reports: Breast (sister and mother), Pancreatic (mother), Prostate ( dad and brother) - Tobacco Use Smoking Status *Q: Current Every Day Smoker Years of Tobacco use: 56 Packs/Tins Daily: 0.5 - Caffeine Use Caffeine Use: Reports: Coffee - Alcohol Use Alcohol Use History: No - Recreational Drug Use Recreational Drug Use: No H&P Review of Systems - Review of Systems: Review Of Systems: See Below Free Text/Narrative: A complete 12 point review of systems was obtained. Pertinent positives and negatives are noted in the history of present illness. All other systems were reviewed and were negative except as noted. Exam - Exam Exam: See Below - Vital Signs Vital Signs: Last Vital Signs Temp 37.3 C 07/12/19 18:58 Pulse 95 07/12/19 18:58 Resp 25 H 07/12/19 18:58 BP 184/85 H 07/12/19 18:58 Pulse Ox 87 L 07/12/19 18:58 Weight: 34.473 kg - Exam Quality Assessment: Supplemental Oxygen General: Alert, Oriented, Cooperative. No: Mild Distress HEENT: Conjunctiva Clear. No: Mucosa Moist & [place] (dry), Scleral Icterus Neck: Supple, Trachea Midline. No: Lymphadenopathy, Thyromegaly Lungs: Normal Respiratory Effort, Crackles (both lower lungs), Wheezing (mild to moderate expiratory wheezing and lower lung lopez) Cardiovascular: Regular Rate, Regular Rhythm. No: Systolic Murmur GI/Abdominal Exam: Normal Bowel Sounds, Soft, Non-Tender, No Distention, No Mass. No: Hepatomegaly, Splenomegaly Extremities: No Pedal Edema (on the right), Pedal Edema (mild pitting edema on the left). No: Increased Warmth Peripheral Pulses: 2+: Dorsalis Pedis (L), Dorsalis Pedis (R) Skin: Warm, Dry, Ecchymosis (small bruises scattered across her feet) Neuro Extensive - Mental Status: Alert, Oriented x3, Nl Response to Commands Neuro Extensive - Motor, Sensory, Reflexes: No: Dysarthria, Abnormal Motor, Tremor Psychiatric: Alert, Normal Affect - Patient Data Lab Results Last 24 hrs: Laboratory Results - last 24 hr 07/12/19 07/12/19 07/12/19 Range/Units 19:19 19:19 19:19 WBC 8.2 (4.5-11.0) K/uL RBC 3.88 (3.30-5.50) M/uL Hgb 13.3 (12.0-15.0) g/dL Hct 38.5 (36.0-48.0) % MCV 99 H (80-98) fL MCH 34 H (27-31) pg MCHC 35 (32-36) % Plt Count 105 L (150-400) K/uL Neut % (Auto) 69 H (36-66) % Lymph % (Auto) 20 L (24-44) % [place] % (Auto) 10 H (2-6) % Eos % (Auto) 1 L (2-4) % Baso % (Auto) 0 (0-1) % Puncture Site ABG pH (7.350-7.450) ABG pCO2 (35.0-42.0) mmHg ABG pO2 (75.0-100.0) mmHg ABG HCO3 (22.0-26.0) mmol/L ABG Total CO2 (21.0-25.0) mmol/L ABG O2 Saturation (95.0-98.0) % ABG O2 Content (15.0-23.0) %vol ABG Base Excess mm/L ABG Hemoglobin (12.0-16.0) g/dL ABG Oxyhemoglobin % ABG Carboxyhemoglobin (0.0-1.6) % ABG Methemoglobin % Micky Test O2 Delivery Device Oxygen Flow Rate L Sodium 135 L (140-148) mmol/L Potassium 4.0 (3.6-5.2) mmol/L Chloride 105 (100-108) mmol/L Carbon Dioxide 20 L (21-32) mmol/L Anion Gap 14.0 (5.0-14.0) mmol/L BUN 14 (7-18) mg/dL Creatinine 0.7 (0.6-1.0) mg/dL Est Cr Clr Drug Dosing 41.28 mL/min Estimated GFR (MDRD) > 60 (>60) Glucose 133 H (74-106) mg/dL Lactic Acid 1.8 (0.4-2.0) mmol/L Calcium 8.6 (8.5-10.1) mg/dL Total Bilirubin 1.7 H (0.2-1.0) mg/dL AST 43 H (15-37) U/L ALT 11 L (12-78) U/L Alkaline Phosphatase 123 H (46-116) U/L Troponin I (0.000-0.056) ng/mL C-Reactive Protein 4.44 H (0.0-0.3) mg/dL Total Protein 6.9 (6.4-8.2) g/dL Albumin 3.2 L (3.4-5.0) g/dL Globulin 3.7 H (2.3-3.5) g/dL Albumin/Globulin Ratio 0.9 L (1.2-2.2) Procalcitonin 0.09 ng/mL 07/12/19 07/12/19 Range/Units 19:22 19:24 WBC (4.5-11.0) K/uL RBC (3.30-5.50) M/uL Hgb (12.0-15.0) g/dL Hct (36.0-48.0) % MCV (80-98) fL MCH (27-31) pg MCHC (32-36) % Plt Count (150-400) K/uL Neut % (Auto) (36-66) % Lymph % (Auto) (24-44) % [place] % (Auto) (2-6) % Eos % (Auto) (2-4) % Baso % (Auto) (0-1) % Puncture Site Rt.radial ABG pH 7.448 (7.350-7.450) ABG pCO2 28.0 L (35.0-42.0) mmHg ABG pO2 64.2 L (75.0-100.0) mmHg ABG HCO3 19.1 L (22.0-26.0) mmol/L ABG Total CO2 16.8 L (21.0-25.0) mmol/L ABG O2 Saturation 93.0 L (95.0-98.0) % ABG O2 Content 16.9 (15.0-23.0) %vol ABG Base Excess -3.3 mm/L ABG Hemoglobin 13.3 (12.0-16.0) g/dL ABG Oxyhemoglobin 90.0 % ABG Carboxyhemoglobin 2.7 H (0.0-1.6) % ABG Methemoglobin 0.5 % Micky Test Passed O2 Delivery Device Nasal cannula Oxygen Flow Rate 3 L Sodium (140-148) mmol/L Potassium (3.6-5.2) mmol/L Chloride (100-108) mmol/L Carbon Dioxide (21-32) mmol/L Anion Gap (5.0-14.0) mmol/L BUN (7-18) mg/dL Creatinine (0.6-1.0) mg/dL Est Cr Clr Drug Dosing mL/min Estimated GFR (MDRD) (>60) Glucose (74-106) mg/dL Lactic Acid (0.4-2.0) mmol/L Calcium (8.5-10.1) mg/dL Total Bilirubin (0.2-1.0) mg/dL AST (15-37) U/L ALT (12-78) U/L Alkaline Phosphatase (46-116) U/L Troponin I 0.017 (0.000-0.056) ng/mL C-Reactive Protein (0.0-0.3) mg/dL Total Protein (6.4-8.2) g/dL Albumin (3.4-5.0) g/dL Globulin (2.3-3.5) g/dL Albumin/Globulin Ratio (1.2-2.2) Procalcitonin ng/mL Result Diagrams: 07/12/19 19:19 07/12/19 19:19 Alexx Results Last 24 hrs: Microbiology 07/12/19 19:23 Influenza Type A Antigen Screen - Final Nasal Aspirate, Unspecified NEGATIVE INFLUENZA A VIRUS AG REFERENCE RANGE: NEGATIVE Influenza Type B Antigen Screen - Final NEGATIVE INFLUENZA B VIRUS AG REFERENCE RANGE: NEGATIVE Imaging Impressions Last 24 hrs: CT scan of the chest - images personally reviewed - no evidence for pulmonary embolism. She does have bilateral lower lobe and right middle lobe infiltrates. she has a small right pleural effusion. She does have some mediastinal lymphadenopathy. No obvious mass. *Q Meaningful Use (ADM) - VTE Risk Assess *Q Each Risk Factor Represents 1 Point: Swollen Legs, Current, Obesity ( BMI > 25 kg/m2), Serious lung disease including pneumonia, Abnormal Pulmonary Function ( COPD) Total Score 1 Point Risk Factors: 4 Each Risk Factor Represents 2 Points: Age 60 - 74 Years Total Score 2 Point Risk Factors: 2 Each Risk Factor Represents 3 Points: None Total Score 3 Point Risk Factors: 0 Each Risk Factor Represents 5 Points: None Total Score 5 Point Risk Factors: 0 Venous Thromboembolism Risk Factor Score *Q: 6 - Problem List (1) CAP (community acquired pneumonia) SNOMED Code(s): 326772020 ICD Code: J18.9 - PNEUMONIA, UNSPECIFIED ORGANISM Status: Acute Current Visit: Yes Qualifiers: Laterality: unspecified laterality Qualified Code(s): J18.9 - Pneumonia, unspecified organism (2) COPD exacerbation SNOMED Code(s): 654452892 ICD Code: J44.1 - CHRONIC OBSTRUCTIVE PULMONARY DISEASE W (ACUTE) EXACERBATION Status: Acute Current Visit: Yes (3) Acute respiratory failure with hypoxia SNOMED Code(s): 31838521, 611223492 ICD Code: J96.01 - ACUTE RESPIRATORY FAILURE WITH HYPOXIA Status: Acute Current Visit: Yes (4) Diabetes mellitus type 2 in obese SNOMED Code(s): 90475061 ICD Code: E11.69 - TYPE 2 DIABETES MELLITUS WITH OTHER SPECIFIED COMPLICATION ; E66.9 - OBESITY, UNSPECIFIED Status: Chronic Current Visit: Yes (5) Tobacco abuse SNOMED Code(s): 584556142 ICD Code: Z72.0 - TOBACCO USE Status: Chronic Current Visit: No Problem List Initiated/Reviewed/Updated: Yes Orders Last 24hrs: Active Orders 24 hr Category Date Time Status Patient Status Manage Transfer [TRANSFER] Routine ADT 07/12/19 21:37 Ordered RT Aerosol Therapy [RC] ASDIRECTED Care 07/12/19 19:21 Active Vital Signs [RC] Q1H Care 07/12/19 19:19 Active CULTURE BLOOD [BC] Urgent Lab 07/12/19 19:30 Received CULTURE BLOOD [BC] Urgent Lab 07/12/19 19:35 Received UA W/MICROSCOPIC [URIN] Urgent Lab 07/12/19 19:19 Ordered Iopamidol [Isovue-370 (76%)] Med 07/12/19 19:45 Active 44 ml IV . DIRECTED Lactated Ringers [Ringers, Lactated] 1,000 ml Med 07/12/19 19:30 Active IV ASDIRECTED Sodium Chloride 0.9% [Normal Saline] 74 ml Med 07/12/19 19:45 Active IV ASDIRECTED Blood Culture x2 Reflex Set [OM.PC] Urgent Oth 07/12/19 19:19 Ordered Resuscitation Status Routine Resus Stat 07/12/19 21:39 Ordered Medication Orders Lactated Ringer's (Ringers, Lactated) 1,000 mls @ 999 mls/hr IV ASDIRECTED [facility] Last Admin: 07/12/19 19:36 Dose: 999 mls/hr Sodium Chloride (Normal Saline) 74 mls @ 3 mls/sec IV ASDIRECTED [facility]TTA Last Admin: 07/12/19 20:43 Dose: 3 mls/sec Iopamidol (Isovue-370 (76%)) 44 ml IV . DIRECTED [facility] Last Admin: 07/12/19 20:44 Dose: 90 ml Assessment/Plan Comment:: ASSESSMENT AND PLAN - Bilateral pneumonia - infiltrates noted in both lower lungs. Complicated by acute respiratory failure and hypoxia. She has had recent antibiotics but these were targeted at the urinary tract. She is hypoxic and weak. She would benefit from IV antibiotics and steroids as discussed below. -Ceftriaxone and azithromycin -Nebs scheduled and as needed -Acapella -Supplement oxygen as needed -Follow-up cultures -physical therapy when available for weakness COPD with acute exacerbation - she does have oxygen dependent at baseline. Diffuse wheezing in the setting of pulmonary infection. -IV steroids tonight and prednisone starting tomorrow -Antibiotics as above -Oxygen as above -Nebulizers as above Tobacco dependence - currently smoking about one half pack per day which she says is quite a bit less than usual. She is not interested in quitting at this time. We did spend time talking about the risks of ongoing tobacco use including increased risk for heart disease, vascular disease as well as a variety of cancers. -Nicotine patch -Encourage cessation Type 2 diabetes mellitus - on only metformin at this time. She will be on steroids and I would anticipate a rise in her blood sugars. -Continue metformin -Sliding-scale insulin Maintenance issues - - DVT prophylaxis - mechanical - GI prophylaxis - PPI - Nutrition - consistent carbohydrates - Chaudhary catheter - not indicated CODE STATUS - full code Admission justification - This patient will be admitted for inpatient services and is medically appropriate meeting medical necessity for inpatient admission as outlined in my documentation. I reasonably expect the patient will require inpatient services that span a period time over 2 midnights. I reasonably expect this patient to be discharged or transferred within 96 hours after admission to the [facility]. Disposition - I anticipate discharge home with home care. Patient is not interested in subacute rehabilitation unless absolutely necessary Primary care physician - Dr. Jorge Luis Jennings M.D. - Mortality Measure Prognosis:: Poor
[2019-07-12] MEDS ORDERED: Ibuprofen 600 MG Tab PO PRN (22:19)
[2019-07-12] MEDS ORDERED: Acetaminophen 325 MG Tab PO PRN (22:19)
[2019-07-12] MEDS ORDERED: Albuterol 0.083% 2.5 MG/3 ML Neb Soln NEB PRN (22:19)
[2019-07-12] MEDS ORDERED: guaiFENesin/Dextromethorphan 100-10 MG/5 ML Soln 10 ML Cup PO PRN (22:19)
[2019-07-12] MEDS ORDERED: Ondansetron 4 MG/2 ML SDV IV PRN (22:19)
[2019-07-12] MEDS ORDERED: Ondansetron 4 MG Tab.DIS PO PRN (22:19)
[2019-07-12] MEDS ORDERED: LORazepam 2 MG/ML SDV IVPUSH PRN (22:19)
[2019-07-12] MEDS ORDERED: methylPREDNISolone Sodium Succinate 125 MG/2 ML SDV IVPUSH ONE (22:30)
[2019-07-12] MEDS ORDERED: Azithromycin 500 MG in Sodium Chloride 0.9% 250 ML IV ONE (22:45)
[2019-07-12] MEDS: Sodium Chloride 0.9% 1,000 ML IV SCH (23:10)
[2019-07-12] MEDS: Albuterol/Ipratropium 3.0-0.5 MG/3 ML Neb Soln NEB SCH (23:18)
[2019-07-12] MEDS: Calcium Carbonate 500 MG Tab.Chew PO SCH (23:19)
[2019-07-12] MEDS: rOPINIRole 1 MG Tab PO SCH (23:26)
[2019-07-12] MEDS: QUEtiapine 100 MG Tab PO SCH (23:26)
[2019-07-13] MEDS: cefTRIAXone 1 GM in Sodium Chloride 0.9% 50 ML IV SCH ×2 (00:23→23:00)
[2019-07-13] MEDS: Albuterol/Ipratropium 3.0-0.5 MG/3 ML Neb Soln NEB SCH ×4 (07:44→22:57)
[2019-07-13] MEDS: rOPINIRole 1 MG Tab PO SCH ×4 (09:02→21:47)
[2019-07-13] MEDS: Insulin Lispro 100 Unit/ML 3 ML KwikPen SUBCUT SCH ×4 (09:05→21:48)
[2019-07-13] MEDS: predniSONE 20 MG Tab PO SCH ×2 (09:07→15:53)
[2019-07-13] MEDS: Pantoprazole 40 MG Tab.CR PO SCH (09:07)
[2019-07-13] MEDS: busPIRone 10 MG Tab PO SCH ×3 (09:08→21:47)
[2019-07-13] MEDS: metFORMIN 500 MG Tab PO SCH ×2 (09:08→17:10)
[2019-07-13] MEDS: Aspirin 81 MG Tab.Chew PO SCH (09:08)
[2019-07-13] MEDS: Lactobacillus Rhamnosus GG (Probiotic) Cap PO SCH ×2 (09:09→21:47)
[2019-07-13] MEDS: Lactulose Soln 10 GM/15 ML 15 ML UD Cup PO SCH ×2 (09:09→21:47)
[2019-07-13] MEDS: Nicotine 14 MG/24 Hr Patch TRDERM SCH (09:09)
[2019-07-13] MEDS: Calcium Carbonate 500 MG Tab.Chew PO SCH ×2 (09:10→21:47)
[2019-07-13] MEDS: Escitalopram 10 MG Tab PO SCH (09:10)
[2019-07-13] MEDS: QUEtiapine 25 MG Tab PO SCH (09:10)
--- NOTE | 2019-07-13 10:09 | PCM.PN ---
- General Info Date of Service: 07/13/19 Subjective Update: There were no acute events overnight. Patient slept well. She still feels fatigued and weak this morning. She still feels short of breath though this is better than yesterday. Right sided lower chest pain has improved but not resolved. Appetite was good this morning. She does continue to require supplemental oxygen. No fevers overnight. Functional Status: Reports: Pain Controlled, Tolerating Diet - Review of Systems General: Reports: Weakness Pulmonary: Reports: Shortness of Breath - Patient Data Vitals - Most Recent: Last Vital Signs Temp 35.7 C 07/13/19 03:58 Pulse 76 07/13/19 08:00 Resp 23 H 07/13/19 08:00 BP 108/51 L 07/13/19 08:00 Pulse Ox 94 L 07/13/19 08:00 Weight - Most Recent: 84.64 kg I&O - Last 24 Hours: Intake & Output 07/12/19 07/13/19 07/13/19 22:59 06:59 14:59 Intake Total 861 Output Total 600 Balance 861 -600 Lab Results Last 24 Hours: Laboratory Results - last 24 hr 07/12/19 07/12/19 07/12/19 Range/Units 19:19 19:19 19:19 WBC 8.2 (4.5-11.0) K/uL RBC 3.88 (3.30-5.50) M/uL Hgb 13.3 (12.0-15.0) g/dL Hct 38.5 (36.0-48.0) % MCV 99 H (80-98) fL MCH 34 H (27-31) pg MCHC 35 (32-36) % Plt Count 105 L (150-400) K/uL Neut % (Auto) 69 H (36-66) % Lymph % (Auto) 20 L (24-44) % [place] % (Auto) 10 H (2-6) % Eos % (Auto) 1 L (2-4) % Baso % (Auto) 0 (0-1) % Puncture Site ABG pH (7.350-7.450) ABG pCO2 (35.0-42.0) mmHg ABG pO2 (75.0-100.0) mmHg ABG HCO3 (22.0-26.0) mmol/L ABG Total CO2 (21.0-25.0) mmol/L ABG O2 Saturation (95.0-98.0) % ABG O2 Content (15.0-23.0) %vol ABG Base Excess mm/L ABG Hemoglobin (12.0-16.0) g/dL ABG Oxyhemoglobin % ABG Carboxyhemoglobin (0.0-1.6) % ABG Methemoglobin % Micky Test O2 Delivery Device Oxygen Flow Rate L Sodium 135 L (140-148) mmol/L Potassium 4.0 (3.6-5.2) mmol/L Chloride 105 (100-108) mmol/L Carbon Dioxide 20 L (21-32) mmol/L Anion Gap 14.0 (5.0-14.0) mmol/L BUN 14 (7-18) mg/dL Creatinine 0.7 (0.6-1.0) mg/dL Est Cr Clr Drug Dosing 41.28 mL/min Estimated GFR (MDRD) > 60 (>60) Glucose 133 H (74-106) mg/dL Lactic Acid 1.8 (0.4-2.0) mmol/L Calcium 8.6 (8.5-10.1) mg/dL Total Bilirubin 1.7 H (0.2-1.0) mg/dL AST 43 H (15-37) U/L ALT 11 L (12-78) U/L Alkaline Phosphatase 123 H (46-116) U/L Troponin I (0.000-0.056) ng/mL C-Reactive Protein 4.44 H (0.0-0.3) mg/dL Total Protein 6.9 (6.4-8.2) g/dL Albumin 3.2 L (3.4-5.0) g/dL Globulin 3.7 H (2.3-3.5) g/dL Albumin/Globulin Ratio 0.9 L (1.2-2.2) Procalcitonin 0.09 ng/mL Urine Color (YELLOW) Urine Appearance (CLEAR) Urine pH (5.0-8.0) Ur Specific [place] (1.008-1.030) Urine Protein (NEGATIVE) mg/dL Urine Glucose (UA) (NEGATIVE) mg/dL Urine Ketones (NEGATIVE) mg/dL Urine Occult Blood (NEGATIVE) Urine Nitrite (NEGATIVE) Urine Bilirubin (NEGATIVE) Urine Urobilinogen (0.2-1.0) EU/dL Ur Leukocyte Esterase (NEGATIVE) Urine RBC (0-5) Urine WBC (0-5) Ur Epithelial Cells Amorphous Sediment Urine Bacteria Urine Mucus 07/12/19 07/12/19 07/12/19 Range/Units 19:22 19:24 22:10 WBC (4.5-11.0) K/uL RBC (3.30-5.50) M/uL Hgb (12.0-15.0) g/dL Hct (36.0-48.0) % MCV (80-98) fL MCH (27-31) pg MCHC (32-36) % Plt Count (150-400) K/uL Neut % (Auto) (36-66) % Lymph % (Auto) (24-44) % [place] % (Auto) (2-6) % Eos % (Auto) (2-4) % Baso % (Auto) (0-1) % Puncture Site Rt.radial ABG pH 7.448 (7.350-7.450) ABG pCO2 28.0 L (35.0-42.0) mmHg ABG pO2 64.2 L (75.0-100.0) mmHg ABG HCO3 19.1 L (22.0-26.0) mmol/L ABG Total CO2 16.8 L (21.0-25.0) mmol/L ABG O2 Saturation 93.0 L (95.0-98.0) % ABG O2 Content 16.9 (15.0-23.0) %vol ABG Base Excess -3.3 mm/L ABG Hemoglobin 13.3 (12.0-16.0) g/dL ABG Oxyhemoglobin 90.0 % ABG Carboxyhemoglobin 2.7 H (0.0-1.6) % ABG Methemoglobin 0.5 % Micky Test Passed O2 Delivery Device Nasal cannula Oxygen Flow Rate 3 L Sodium (140-148) mmol/L Potassium (3.6-5.2) mmol/L Chloride (100-108) mmol/L Carbon Dioxide (21-32) mmol/L Anion Gap (5.0-14.0) mmol/L BUN (7-18) mg/dL Creatinine (0.6-1.0) mg/dL Est Cr Clr Drug Dosing mL/min Estimated GFR (MDRD) (>60) Glucose (74-106) mg/dL Lactic Acid (0.4-2.0) mmol/L Calcium (8.5-10.1) mg/dL Total Bilirubin (0.2-1.0) mg/dL AST (15-37) U/L ALT (12-78) U/L Alkaline Phosphatase (46-116) U/L Troponin I 0.017 (0.000-0.056) ng/mL C-Reactive Protein (0.0-0.3) mg/dL Total Protein (6.4-8.2) g/dL Albumin (3.4-5.0) g/dL Globulin (2.3-3.5) g/dL Albumin/Globulin Ratio (1.2-2.2) Procalcitonin ng/mL Urine Color Yellow (YELLOW) Urine Appearance Slightly cloudy A (CLEAR) Urine pH 5.5 (5.0-8.0) Ur Specific [place] 1.025 (1.008-1.030) Urine Protein Negative (NEGATIVE) mg/dL Urine Glucose (UA) Normal (NEGATIVE) mg/dL Urine Ketones Negative (NEGATIVE) mg/dL Urine Occult Blood Negative (NEGATIVE) Urine Nitrite Negative (NEGATIVE) Urine Bilirubin Small (NEGATIVE) Urine Urobilinogen 0.2 (0.2-1.0) EU/dL Ur Leukocyte Esterase Negative (NEGATIVE) Urine RBC 0-5 (0-5) Urine WBC 0-5 (0-5) Ur Epithelial Cells Moderate Amorphous Sediment Not seen Urine Bacteria Few Urine Mucus Few 07/13/19 07/13/19 Range/Units 06:02 06:02 WBC 4.7 (4.5-11.0) K/uL RBC 3.60 (3.30-5.50) M/uL Hgb 12.2 (12.0-15.0) g/dL Hct 36.4 (36.0-48.0) % MCV 101 H (80-98) fL MCH 34 H (27-31) pg MCHC 34 (32-36) % Plt Count 91 L (150-400) K/uL Neut % (Auto) (36-66) % Lymph % (Auto) (24-44) % [place] % (Auto) (2-6) % Eos % (Auto) (2-4) % Baso % (Auto) (0-1) % Puncture Site ABG pH (7.350-7.450) ABG pCO2 (35.0-42.0) mmHg ABG pO2 (75.0-100.0) mmHg ABG HCO3 (22.0-26.0) mmol/L ABG Total CO2 (21.0-25.0) mmol/L ABG O2 Saturation (95.0-98.0) % ABG O2 Content (15.0-23.0) %vol ABG Base Excess mm/L ABG Hemoglobin (12.0-16.0) g/dL ABG Oxyhemoglobin % ABG Carboxyhemoglobin (0.0-1.6) % ABG Methemoglobin % Micky Test O2 Delivery Device Oxygen Flow Rate L Sodium 140 (140-148) mmol/L Potassium 4.7 (3.6-5.2) mmol/L Chloride 111 H (100-108) mmol/L Carbon Dioxide 21 (21-32) mmol/L Anion Gap 12.7 (5.0-14.0) mmol/L BUN 18 (7-18) mg/dL Creatinine 0.8 (0.6-1.0) mg/dL Est Cr Clr Drug Dosing 54.90 mL/min Estimated GFR (MDRD) > 60 (>60) Glucose 162 H (74-106) mg/dL Lactic Acid (0.4-2.0) mmol/L Calcium 8.4 L (8.5-10.1) mg/dL Total Bilirubin (0.2-1.0) mg/dL AST (15-37) U/L ALT (12-78) U/L Alkaline Phosphatase (46-116) U/L Troponin I (0.000-0.056) ng/mL C-Reactive Protein (0.0-0.3) mg/dL Total Protein (6.4-8.2) g/dL Albumin (3.4-5.0) g/dL Globulin (2.3-3.5) g/dL Albumin/Globulin Ratio (1.2-2.2) Procalcitonin ng/mL Urine Color (YELLOW) Urine Appearance (CLEAR) Urine pH (5.0-8.0) Ur Specific [place] (1.008-1.030) Urine Protein (NEGATIVE) mg/dL Urine Glucose (UA) (NEGATIVE) mg/dL Urine Ketones (NEGATIVE) mg/dL Urine Occult Blood (NEGATIVE) Urine Nitrite (NEGATIVE) Urine Bilirubin (NEGATIVE) Urine Urobilinogen (0.2-1.0) EU/dL Ur Leukocyte Esterase (NEGATIVE) Urine RBC (0-5) Urine WBC (0-5) Ur Epithelial Cells Amorphous Sediment Urine Bacteria Urine Mucus Alexx Results Last 24 Hours: Microbiology 07/12/19 19:23 Influenza Type A Antigen Screen - Final Nasal Aspirate, Unspecified NEGATIVE INFLUENZA A VIRUS AG REFERENCE RANGE: NEGATIVE Influenza Type B Antigen Screen - Final NEGATIVE INFLUENZA B VIRUS AG REFERENCE RANGE: NEGATIVE Med Orders - Current: Current Medications Acetaminophen (Tylenol) 650 mg PO Q4H PRN PRN Reason: Pain (Mild 1-3)/fever Hydrocodone Bitart/Acetaminophen ([place] 325-5 Mg) 1 tab PO Q4H PRN PRN Reason: Pain Albuterol (Proventil Neb Soln) 2.5 mg NEB Q4H PRN PRN Reason: Shortness Of Breath/wheezing Albuterol/Ipratropium (Duoneb 3.0-0.5 Mg/3 Ml) 3 ml NEB QIDRT [facility] Last Admin: 07/13/19 07:44 Dose: 3 ml Aspirin (Aspirin) 81 mg PO DAILY [facility] Last Admin: 07/13/19 09:08 Dose: 81 mg Azithromycin (Zithromax) 500 mg PO BEDTIME [facility] Buspirone HCl (Buspar) 20 mg PO TID [facility] Last Admin: 07/13/19 09:08 Dose: 20 mg Calcium Carbonate/Glycine (Tums) 500 mg PO BID [facility] Last Admin: 07/13/19 09:10 Dose: 500 mg Escitalopram Oxalate (Lexapro) 30 mg PO DAILY [facility] Last Admin: 07/13/19 09:10 Dose: 30 mg Guaifenesin/Dextromethorphan (Robitussin Dm) 10 ml PO Q4H PRN PRN Reason: Cough Ceftriaxone Sodium 1 gm/ (Sodium Chloride) 50 mls @ 100 mls/hr IV Q24H [facility] Last Admin: 07/13/19 00:23 Dose: 100 mls/hr Sodium Chloride (Normal Saline) 1,000 mls @ 100 mls/hr IV ASDIRECTED [facility] Last Admin: 07/12/19 23:10 Dose: 100 mls/hr Ibuprofen (Motrin) 600 mg PO Q6H PRN PRN Reason: Pain/Fever Insulin Human Lispro (Humalog) 0 unit SUBCUT QIDACANDBED [facility]; Protocol Last Admin: 07/13/19 09:05 Dose: 1 unit Lactobacillus Rhamnosus (Culturelle) 1 cap PO BID [facility] Last Admin: 07/13/19 09:09 Dose: 1 cap Lactulose (Chronulac) 10 gm PO BID [facility] Last Admin: 07/13/19 09:09 Dose: 10 gm Lorazepam (Ativan) 0.5 mg IVPUSH Q4H PRN PRN Reason: Nausea/Vomiting Melatonin (Melatonin) 9 mg PO BEDTIME [facility] Metformin HCl (Glucophage) 500 mg PO BIDMEALS [facility] Last Admin: 07/13/19 09:08 Dose: 500 mg Nicotine (Habitrol) 14 mg TRDERM DAILY [facility] Last Admin: 07/13/19 09:09 Dose: 14 mg Ondansetron HCl (Zofran Odt) 4 mg PO Q6H PRN PRN Reason: Nausea able to take PO Ondansetron HCl (Zofran) 4 mg IV Q6H PRN PRN Reason: Nausea/Vomiting Pantoprazole Sodium (Protonix) 40 mg PO DAILY@0730 [facility] Last Admin: 07/13/19 09:07 Dose: 40 mg Prednisone (Prednisone) 20 mg PO BIDAC [facility] Last Admin: 07/13/19 09:07 Dose: 20 mg Quetiapine Fumarate (Seroquel) 50 mg PO DAILY [facility] Last Admin: 07/13/19 09:10 Dose: 50 mg Quetiapine Fumarate (Seroquel) 200 mg PO BEDTIME [facility] Last Admin: 07/12/19 23:26 Dose: 200 mg Ropinirole HCl (Requip) 2 mg PO QID [facility] Last Admin: 07/13/19 09:11 Dose: 2 mg Discontinued Medications Albuterol/Ipratropium (Duoneb 3.0-0.5 Mg/3 Ml) 3 ml NEB ONETIME ONE Stop: 07/12/19 19:22 Last Admin: 07/12/19 19:36 Dose: 3 ml Lactated Ringer's (Ringers, Lactated) 1,000 mls @ 999 mls/hr IV ASDIRECTED [facility] Last Admin: 07/12/19 19:36 Dose: 999 mls/hr Sodium Chloride (Normal Saline) 74 mls @ 3 mls/sec IV ASDIRECTED [facility] Last Admin: 07/12/19 20:43 Dose: 3 mls/sec Azithromycin 500 mg/ Sodium (Chloride) 250 mls @ 250 mls/hr IV ONETIME ONE Stop: 07/12/19 23:44 Last Admin: 07/12/19 23:18 Dose: 250 mls/hr Iopamidol (Isovue-370 (76%)) 44 ml IV . DIRECTED [facility] Last Admin: 07/12/19 20:44 Dose: 90 ml Ketorolac Tromethamine (Toradol) 30 mg IVPUSH ONETIME ONE Stop: 07/12/19 19:22 Last Admin: 07/12/19 19:36 Dose: 30 mg Methylprednisolone Sodium Succinate (Solu-Medrol) 125 mg IVPUSH ONETIME ONE Stop: 07/12/19 22:31 Last Admin: 07/12/19 23:19 Dose: 125 mg Sodium Chloride (Saline Flush) 10 ml FLUSH ONETIME ONE Stop: 07/12/19 19:35 Last Admin: 07/12/19 20:43 Dose: 10 ml - Exam Quality Assessment: Supplemental Oxygen General: Alert, Oriented, Cooperative, No Acute Distress Lungs: Normal Respiratory Effort, Crackles (both bases). No: Wheezing Cardiovascular: Regular Rate, Regular Rhythm, Murmurs GI/Abdominal Exam: Soft, No Distention Extremities: Pedal Edema. No: Increased Warmth Skin: Warm, Dry Psy/Mental Status: Alert, Normal Affect - Problem List & Annotations (1) CAP (community acquired pneumonia) SNOMED Code(s): 142750574 Code(s): J18.9 - PNEUMONIA, UNSPECIFIED ORGANISM Status: Acute Current Visit: Yes Qualifiers: Laterality: unspecified laterality Qualified Code(s): J18.9 - Pneumonia, unspecified organism (2) COPD exacerbation SNOMED Code(s): 184940700 Code(s): J44.1 - CHRONIC OBSTRUCTIVE PULMONARY DISEASE W (ACUTE) EXACERBATION Status: Acute Current Visit: Yes (3) Acute respiratory failure with hypoxia SNOMED Code(s): 18962650, 617944489 Code(s): J96.01 - ACUTE RESPIRATORY FAILURE WITH HYPOXIA Status: Acute Current Visit: Yes (4) Diabetes mellitus type 2 in obese SNOMED Code(s): 99808657 Code(s): E11.69 - TYPE 2 DIABETES MELLITUS WITH OTHER SPECIFIED COMPLICATION ; E66.9 - OBESITY, UNSPECIFIED Status: Chronic Current Visit: Yes (5) Tobacco abuse SNOMED Code(s): 961982337 Code(s): Z72.0 - TOBACCO USE Status: Chronic Current Visit: No - Problem List Review Problem List Initiated/Reviewed/Updated: Yes - My Orders Last 24 Hours: My Active Orders 07/12/19 21:39 Resuscitation Status Routine 07/12/19 22:19 Patient Status [ADT] Routine Antiembolic Devices [RC] .Routine Communication Order [RC] PRN Communication Order [RC] PRN Diabetes Education [RC] Click to Edit Intake and Output [RC] QSHIFT Notify Provider Vital Signs [RC] ASDIRECTED Notify Provider [RC] PRN Oxygen Therapy [RC] PRN RT Aerosol Therapy [RC] ASDIRECTED Up With Assistance [RC] ASDIRECTED VTE/DVT Education [RC] Per Unit Routine Vital Signs [RC] Q4H CULTURE RESPIRATORY + SMEAR [RM] Routine Acetaminophen [Tylenol] 650 mg PO Q4H PRN Acetaminophen/HYDROcodone [[place] 325-5 MG] 1 tab PO Q4H PRN Albuterol [Proventil Neb Soln] 2.5 mg NEB Q4H PRN Albuterol/Ipratropium [DuoNeb 3.0-0.5 MG/3 ML] 3 ml NEB QIDRT Dextromethorphan/guaiFENesin [Robitussin DM] 10 ml PO Q4H PRN Ibuprofen [Motrin] 600 mg PO Q6H PRN LORazepam [Ativan] 0.5 mg IVPUSH Q4H PRN Ondansetron [Zofran ODT] 4 mg PO Q6H PRN Ondansetron [Zofran] 4 mg IV Q6H PRN Sodium Chloride 0.9% [Normal Saline] 1,000 ml IV ASDIRECTED Antiembolic Hose [OM.PC] Routine RT Acapella [RESPCARE] Routine 07/12/19 22:45 Calcium Carbonate [Tums] 500 mg PO BID 07/12/19 23:00 QUEtiapine [SEROquel] 200 mg PO BEDTIME rOPINIRole [Requip] 2 mg PO QID 07/12/19 23:30 cefTRIAXone [Rocephin] 1 gm Sodium Chloride 0.9% [Normal Saline] 50 ml IV Q24H 07/13/19 07:00 Insulin Lispro [HumaLOG] See Protocol SUBCUT QIDACANDBED 07/13/19 07:30 Pantoprazole [ProTONIX] 40 mg PO DAILY@0730 predniSONE 20 mg PO BIDAC 07/13/19 08:00 Ambulate [RC] QID metFORMIN [Glucophage] 500 mg PO BIDMEALS 07/13/19 09:00 Aspirin 81 mg PO DAILY Escitalopram [Lexapro] 30 mg PO DAILY Lactobacillus Rhamnosus GG [Culturelle] 1 cap PO BID Lactulose [Chronulac] 10 gm PO BID Nicotine [Habitrol] 14 mg TRDERM DAILY QUEtiapine [SEROquel] 50 mg PO DAILY busPIRone [Buspar] 20 mg PO TID 07/13/19 21:00 Azithromycin [Zithromax] 500 mg PO BEDTIME Melatonin 9 mg PO BEDTIME 07/14/19 05:00 BASIC METABOLIC PANEL,BMP [CHEM] Timed CBC W/O DIFF,HEMOGRAM [HEME] Timed (1) MAGNESIUM [CHEM] Timed 07/14/19 07:00 PT Evaluation and Treatment [CONS] Routine 07/14/19 07:30 GLUCOSE POC LAB TO COLLECT [POC] QIDACANDBED 07/14/19 11:30 GLUCOSE POC LAB TO COLLECT [POC] QIDACANDBED 07/14/19 16:30 GLUCOSE POC LAB TO COLLECT [POC] QIDACANDBED 07/14/19 21:00 GLUCOSE POC LAB TO COLLECT [POC] QIDACANDBED 07/15/19 07:30 GLUCOSE POC LAB TO COLLECT [POC] QIDACANDBED 07/15/19 11:30 GLUCOSE POC LAB TO COLLECT [POC] QIDACANDBED 07/15/19 16:30 GLUCOSE POC LAB TO COLLECT [POC] QIDACANDBED 07/15/19 21:00 GLUCOSE POC LAB TO COLLECT [POC] QIDACANDBED 07/16/19 07:30 GLUCOSE POC LAB TO COLLECT [POC] QIDACANDBED 07/16/19 11:30 GLUCOSE POC LAB TO COLLECT [POC] QIDACANDBED 07/16/19 16:30 GLUCOSE POC LAB TO COLLECT [POC] QIDACANDBED 07/16/19 21:00 GLUCOSE POC LAB TO COLLECT [POC] QIDACANDBED 07/17/19 07:30 GLUCOSE POC LAB TO COLLECT [POC] QIDACANDBED 07/17/19 11:30 GLUCOSE POC LAB TO COLLECT [POC] QIDACANDBED 07/17/19 16:30 GLUCOSE POC LAB TO COLLECT [POC] QIDACANDBED 07/17/19 21:00 GLUCOSE POC LAB TO COLLECT [POC] QIDACANDBED 07/18/19 07:30 GLUCOSE POC LAB TO COLLECT [POC] QIDACANDBED 07/18/19 11:30 GLUCOSE POC LAB TO COLLECT [POC] QIDACANDBED - Plan Plan:: ASSESSMENT AND PLAN - Bilateral pneumonia - infiltrates noted in both lower lungs. Still hypoxic and short of breath but looking and feeling better. Tolerating current antibiotics. No fevers overnight. -Ceftriaxone and azithromycin -Nebs scheduled and as needed -Acapella -Supplement oxygen as needed -Follow-up cultures -physical therapy when available for weakness COPD with acute exacerbation - she does have oxygen dependent at baseline. Still some mild wheezing but exam improving. -Start prednisone today -Antibiotics as above -Oxygen as above -Nebulizers as above Tobacco dependence - currently smoking about one half pack per day which she says is quite a bit less than usual. She is not interested in quitting at this time. We did spend time talking about the risks of ongoing tobacco use including increased risk for heart disease, vascular disease as well as a variety of cancers. -Nicotine patch -Encourage cessation Type 2 diabetes mellitus - on only metformin at this time. Mild elevation in blood sugars while on steroids. -Continue metformin -Sliding-scale insulin Maintenance issues - - DVT prophylaxis - mechanical - GI prophylaxis - PPI - Nutrition - consistent carbohydrates Disposition - I anticipate discharge home with home care ([facility]). Patient is not interested in subacute rehabilitation unless absolutely necessary Primary care physician - Dr. Jorge Luis Jennings M.D.
[2019-07-13] MEDS: Sodium Chloride 0.9% 1,000 ML IV SCH ×2 (10:41→21:13)
[2019-07-13] MEDS: Acetaminophen/HYDROcodone 325-5 MG Tab PO PRN ×2 (11:37→17:20)
[2019-07-13] MEDS: Azithromycin 250 MG Tab PO SCH (21:47)
[2019-07-13] MEDS: Melatonin 3 MG Tab PO SCH (21:47)
[2019-07-13] MEDS: QUEtiapine 100 MG Tab PO SCH (21:48)
[2019-07-14] MEDS: rOPINIRole 1 MG Tab PO SCH ×4 (06:26→21:00)
[2019-07-14] MEDS: Albuterol/Ipratropium 3.0-0.5 MG/3 ML Neb Soln NEB SCH ×4 (07:06→20:55)
[2019-07-14] MEDS: Pantoprazole 40 MG Tab.CR PO SCH (07:46)
[2019-07-14] MEDS: predniSONE 20 MG Tab PO SCH ×2 (07:46→16:49)
[2019-07-14] MEDS: metFORMIN 500 MG Tab PO SCH ×2 (07:46→16:49)
[2019-07-14] MEDS: Insulin Lispro 100 Unit/ML 3 ML KwikPen SUBCUT SCH ×4 (07:47→21:02)
[2019-07-14] MEDS: Aspirin 81 MG Tab.Chew PO SCH (08:55)
[2019-07-14] MEDS: Nicotine 14 MG/24 Hr Patch TRDERM SCH (08:56)
[2019-07-14] MEDS: busPIRone 10 MG Tab PO SCH ×3 (08:56→20:46)
[2019-07-14] MEDS: Lactulose Soln 10 GM/15 ML 15 ML UD Cup PO SCH ×2 (08:56→20:49)
[2019-07-14] MEDS: Lactobacillus Rhamnosus GG (Probiotic) Cap PO SCH ×2 (08:56→20:47)
[2019-07-14] MEDS: Escitalopram 10 MG Tab PO SCH (08:57)
[2019-07-14] MEDS: QUEtiapine 25 MG Tab PO SCH (08:59)
[2019-07-14] MEDS: Calcium Carbonate 500 MG Tab.Chew PO SCH ×2 (09:00→20:48)
[2019-07-14] MEDS: Magnesium Oxide 400 MG Tab PO SCH ×2 (09:00→20:47)
[2019-07-14] MEDS ORDERED: Magnesium Sulfate/Water 2 GM in Premix Bag 1 BAG IV ONE (09:00)
--- NOTE | 2019-07-14 13:28 | PCM.PN ---
- General Info Date of Service: 07/14/19 Subjective Update: Ms. Cadet has been stable since yesterday, continues to report shortness of breath and productive cough. Vital signs have been stable and she is remained afebrile. Functional Status: Reports: Tolerating Diet, Ambulating, Urinating - Review of Systems General: Reports: Weakness. Denies: Fever, Chills Pulmonary: Reports: Shortness of Breath, Cough, Sputum, Wheezing. Denies: Pleuritic Chest Pain, Hemoptysis Cardiovascular: Reports: Dyspnea on Exertion, Edema. Denies: Chest Pain, Palpitations, Orthopnea, PND, Lightheadedness Gastrointestinal: Reports: No Symptoms - Patient Data Vitals - Most Recent: Last Vital Signs Temp 96.6 F 07/14/19 11:00 Pulse 66 07/14/19 11:00 Resp 18 07/14/19 11:00 BP 109/52 L 07/14/19 11:00 Pulse Ox 93 L 07/14/19 11:00 Weight - Most Recent: 186 lb 9.588 oz I&O - Last 24 Hours: Intake & Output 07/13/19 07/14/19 07/14/19 22:59 06:59 14:59 Intake Total 2045 460 Balance 2045 460 Lab Results Last 24 Hours: Laboratory Results - last 24 hr 07/14/19 07/14/19 Range/Units 05:43 05:43 WBC 10.7 (4.5-11.0) K/uL RBC 3.28 L (3.30-5.50) M/uL Hgb 11.0 L (12.0-15.0) g/dL Hct 33.5 L (36.0-48.0) % MCV 102 H (80-98) fL MCH 34 H (27-31) pg MCHC 33 (32-36) % Plt Count 111 L (150-400) K/uL Sodium 142 (140-148) mmol/L Potassium 5.0 (3.6-5.2) mmol/L Chloride 112 H (100-108) mmol/L Carbon Dioxide 21 (21-32) mmol/L Anion Gap 14.0 (5.0-14.0) mmol/L BUN 29 H D (7-18) mg/dL Creatinine 0.8 (0.6-1.0) mg/dL Est Cr Clr Drug Dosing 54.90 mL/min Estimated GFR (MDRD) > 60 (>60) Glucose 137 H (74-106) mg/dL Calcium 8.7 (8.5-10.1) mg/dL Magnesium 1.7 L (1.8-2.4) mg/dL Alexx Results Last 24 Hours: Microbiology 07/12/19 19:30 Aerobic Blood Culture - Preliminary Blood - Venous - Iv Start NO GROWTH AFTER 1 DAY Anaerobic Blood Culture - Preliminary NO GROWTH AFTER 1 DAY 07/12/19 19:35 Aerobic Blood Culture - Preliminary Blood - Arm, Left NO GROWTH AFTER 1 DAY Anaerobic Blood Culture - Preliminary NO GROWTH AFTER 1 DAY Med Orders - Current: Current Medications Acetaminophen (Tylenol) 650 mg PO Q4H PRN PRN Reason: Pain (Mild 1-3)/fever Hydrocodone Bitart/Acetaminophen ([place] 325-5 Mg) 1 tab PO Q4H PRN PRN Reason: Pain Last Admin: 07/13/19 17:20 Dose: 1 tab Albuterol (Proventil Neb Soln) 2.5 mg NEB Q4H PRN PRN Reason: Shortness Of Breath/wheezing Albuterol/Ipratropium (Duoneb 3.0-0.5 Mg/3 Ml) 3 ml NEB QIDRT [facility] Last Admin: 07/14/19 10:46 Dose: 3 ml Aspirin (Aspirin) 81 mg PO DAILY [facility] Last Admin: 07/14/19 08:55 Dose: 81 mg Azithromycin (Zithromax) 500 mg PO BEDTIME [facility] Last Admin: 07/13/19 21:47 Dose: 500 mg Buspirone HCl (Buspar) 20 mg PO TID [facility] Last Admin: 07/14/19 08:56 Dose: 20 mg Calcium Carbonate/Glycine (Tums) 500 mg PO BID [facility] Last Admin: 07/14/19 09:00 Dose: 500 mg Escitalopram Oxalate (Lexapro) 30 mg PO DAILY [facility] Last Admin: 07/14/19 08:57 Dose: 30 mg Furosemide (Lasix) 20 mg IVPUSH NOW ONE Stop: 07/14/19 13:26 Guaifenesin/Dextromethorphan (Robitussin Dm) 10 ml PO Q4H PRN PRN Reason: Cough Ceftriaxone Sodium 1 gm/ (Sodium Chloride) 50 mls @ 100 mls/hr IV Q24H [facility] Last Admin: 07/13/19 23:00 Dose: 100 mls/hr Ibuprofen (Motrin) 600 mg PO Q6H PRN PRN Reason: Pain/Fever Insulin Human Lispro (Humalog) 0 unit SUBCUT QIDACANDBED [facility]; Protocol Last Admin: 07/14/19 11:31 Dose: Not Given Lactobacillus Rhamnosus (Culturelle) 1 cap PO BID [facility] Last Admin: 07/14/19 08:56 Dose: 1 cap Lactulose (Chronulac) 10 gm PO BID [facility] Last Admin: 07/14/19 08:56 Dose: 10 gm Lorazepam (Ativan) 0.5 mg IVPUSH Q4H PRN PRN Reason: Nausea/Vomiting Magnesium Oxide (Magnesium Oxide) 400 mg PO BID [facility] Last Admin: 07/14/19 09:00 Dose: 400 mg Melatonin (Melatonin) 9 mg PO BEDTIME [facility] Last Admin: 07/13/19 21:47 Dose: 9 mg Metformin HCl (Glucophage) 500 mg PO BIDMEALS [facility] Last Admin: 07/14/19 07:46 Dose: 500 mg Nicotine (Habitrol) 14 mg TRDERM DAILY [facility] Last Admin: 07/14/19 08:56 Dose: 14 mg Ondansetron HCl (Zofran Odt) 4 mg PO Q6H PRN PRN Reason: Nausea able to take PO Ondansetron HCl (Zofran) 4 mg IV Q6H PRN PRN Reason: Nausea/Vomiting Pantoprazole Sodium (Protonix) 40 mg PO DAILY@0730 [facility] Last Admin: 07/14/19 07:46 Dose: 40 mg Prednisone (Prednisone) 20 mg PO BIDAC [facility] Last Admin: 07/14/19 07:46 Dose: 20 mg Quetiapine Fumarate (Seroquel) 50 mg PO DAILY [facility] Last Admin: 07/14/19 08:59 Dose: 50 mg Quetiapine Fumarate (Seroquel) 200 mg PO BEDTIME [facility] Last Admin: 07/13/19 21:48 Dose: 200 mg Ropinirole HCl (Requip) 2 mg PO QID [facility] Last Admin: 07/14/19 10:43 Dose: 2 mg Discontinued Medications Albuterol/Ipratropium (Duoneb 3.0-0.5 Mg/3 Ml) 3 ml NEB ONETIME ONE Stop: 07/12/19 19:22 Last Admin: 07/12/19 19:36 Dose: 3 ml Lactated Ringer's (Ringers, Lactated) 1,000 mls @ 999 mls/hr IV ASDIRECTED [facility] Last Admin: 07/12/19 19:36 Dose: 999 mls/hr Sodium Chloride (Normal Saline) 74 mls @ 3 mls/sec IV ASDIRECTED [facility] Last Admin: 07/12/19 20:43 Dose: 3 mls/sec Azithromycin 500 mg/ Sodium (Chloride) 250 mls @ 250 mls/hr IV ONETIME ONE Stop: 07/12/19 23:44 Last Admin: 07/12/19 23:18 Dose: 250 mls/hr Sodium Chloride (Normal Saline) 1,000 mls @ 100 mls/hr IV ASDIRECTED [facility] Last Admin: 07/13/19 21:13 Dose: 100 mls/hr Magnesium Sulfate 2 gm/ Premix 50 mls @ 25 mls/hr IV ONETIME ONE Stop: 07/14/19 10:59 Last Admin: 07/14/19 09:01 Dose: 25 mls/hr Iopamidol (Isovue-370 (76%)) 44 ml IV . DIRECTED [facility] Last Admin: 07/12/19 20:44 Dose: 90 ml Ketorolac Tromethamine (Toradol) 30 mg IVPUSH ONETIME ONE Stop: 07/12/19 19:22 Last Admin: 07/12/19 19:36 Dose: 30 mg Methylprednisolone Sodium Succinate (Solu-Medrol) 125 mg IVPUSH ONETIME ONE Stop: 07/12/19 22:31 Last Admin: 07/12/19 23:19 Dose: 125 mg Sodium Chloride (Saline Flush) 10 ml FLUSH ONETIME ONE Stop: 07/12/19 19:35 Last Admin: 07/12/19 20:43 Dose: 10 ml - Exam Quality Assessment: DVT Prophylaxis General: Alert, Cooperative, Mild Distress Lungs: Decreased Breath Sounds, Wheezing. No: Rales, Rhonchi, Rub Cardiovascular: Regular Rate, Regular Rhythm, No Murmurs GI/Abdominal Exam: Soft, Non-Tender, No Organomegaly, No Distention Extremities: Non-Tender, Pedal Edema - Problem List Review Problem List Initiated/Reviewed/Updated: Yes - My Orders Last 24 Hours: My Active Orders 07/14/19 09:00 Magnesium Oxide 400 mg PO BID 07/14/19 13:23 Convert IV to Saline Lock [OM.PC] Routine 07/14/19 13:25 Furosemide [Lasix] 20 mg IVPUSH NOW ONE 07/15/19 07:30 GLUCOSE POC LAB TO COLLECT [POC] QIDACANDBED 07/15/19 11:30 GLUCOSE POC LAB TO COLLECT [POC] QIDACANDBED 07/15/19 16:30 GLUCOSE POC LAB TO COLLECT [POC] QIDACANDBED 07/15/19 21:00 GLUCOSE POC LAB TO COLLECT [POC] QIDACANDBED 07/16/19 07:30 GLUCOSE POC LAB TO COLLECT [POC] QIDACANDBED 07/16/19 11:30 GLUCOSE POC LAB TO COLLECT [POC] QIDACANDBED 07/16/19 16:30 GLUCOSE POC LAB TO COLLECT [POC] QIDACANDBED 07/16/19 21:00 GLUCOSE POC LAB TO COLLECT [POC] QIDACANDBED 07/17/19 07:30 GLUCOSE POC LAB TO COLLECT [POC] QIDACANDBED 07/17/19 11:30 GLUCOSE POC LAB TO COLLECT [POC] QIDACANDBED 07/17/19 16:30 GLUCOSE POC LAB TO COLLECT [POC] QIDACANDBED 07/17/19 21:00 GLUCOSE POC LAB TO COLLECT [POC] QIDACANDBED 07/18/19 07:30 GLUCOSE POC LAB TO COLLECT [POC] QIDACANDBED 07/18/19 11:30 GLUCOSE POC LAB TO COLLECT [POC] QIDACANDBED 07/18/19 16:30 GLUCOSE POC LAB TO COLLECT [POC] QIDACANDBED 07/18/19 21:00 GLUCOSE POC LAB TO COLLECT [POC] QIDACANDBED 07/19/19 07:30 GLUCOSE POC LAB TO COLLECT [POC] QIDACANDBED 07/19/19 11:30 GLUCOSE POC LAB TO COLLECT [POC] QIDACANDBED 07/19/19 16:30 GLUCOSE POC LAB TO COLLECT [POC] QIDACANDBED 07/19/19 21:00 GLUCOSE POC LAB TO COLLECT [POC] QIDACANDBED 07/20/19 07:30 GLUCOSE POC LAB TO COLLECT [POC] QIDACANDBED 07/20/19 11:30 GLUCOSE POC LAB TO COLLECT [POC] QIDACANDBED 07/20/19 16:30 GLUCOSE POC LAB TO COLLECT [POC] QIDACANDBED 07/20/19 21:00 GLUCOSE POC LAB TO COLLECT [POC] QIDACANDBED 07/21/19 07:30 GLUCOSE POC LAB TO COLLECT [POC] QIDACANDBED 07/21/19 11:30 GLUCOSE POC LAB TO COLLECT [POC] QIDACANDBED 07/21/19 16:30 GLUCOSE POC LAB TO COLLECT [POC] QIDACANDBED - Plan Plan:: ASSESSMENT AND PLAN - Bilateral pneumonia - infiltrates noted in both lower lungs. Improved over the last 24 hours with less shortness of breath, persistent productive cough. -Ceftriaxone and azithromycin -Nebs scheduled and as needed -Acapella -Supplement oxygen as needed -Follow-up cultures -physical therapy when available for weakness COPD with acute exacerbation - she does have oxygen dependent at baseline. Still some mild wheezing but exam improving. -Continue prednisone -Antibiotics as above -Oxygen as above -Nebulizers as above Tobacco dependence - currently smoking about one half pack per day which she says is quite a bit less than usual. -Nicotine patch -Encourage cessation Type 2 diabetes mellitus - on only metformin at this time. Mild elevation in blood sugars while on steroids. -Continue metformin -Sliding-scale insulin Maintenance issues - - DVT prophylaxis - mechanical - GI prophylaxis - PPI - Nutrition - consistent carbohydrates Disposition - I anticipate discharge home with home care ([facility]). Patient is not interested in subacute rehabilitation unless absolutely necessary Primary care physician - Dr. Kang
[2019-07-14] MEDS ORDERED: Furosemide 20 MG/2 ML VIAL IV ONE (13:30)
[2019-07-14] MEDS: Acetaminophen/HYDROcodone 325-5 MG Tab PO PRN ×2 (15:10→21:21)
[2019-07-14] MEDS: QUEtiapine 100 MG Tab PO SCH (20:48)
[2019-07-14] MEDS: Melatonin 3 MG Tab PO SCH (20:48)
[2019-07-14] MEDS: Azithromycin 250 MG Tab PO SCH (20:49)
[2019-07-14] MEDS: cefTRIAXone 1 GM in Sodium Chloride 0.9% 50 ML IV SCH (23:37)
[2019-07-15] MEDS: rOPINIRole 1 MG Tab PO SCH ×2 (05:49→09:57)
[2019-07-15] MEDS: Albuterol/Ipratropium 3.0-0.5 MG/3 ML Neb Soln NEB SCH ×2 (07:18→10:51)
[2019-07-15] MEDS: metFORMIN 500 MG Tab PO SCH (07:20)
[2019-07-15] MEDS: predniSONE 20 MG Tab PO SCH (07:20)
[2019-07-15] MEDS: Pantoprazole 40 MG Tab.CR PO SCH (07:20)
[2019-07-15] MEDS: Insulin Lispro 100 Unit/ML 3 ML KwikPen SUBCUT SCH ×2 (07:23→12:10)
[2019-07-15] MEDS: Acetaminophen/HYDROcodone 325-5 MG Tab PO PRN (08:27)
[2019-07-15] MEDS: Magnesium Oxide 400 MG Tab PO SCH (08:28)
[2019-07-15] MEDS: Lactobacillus Rhamnosus GG (Probiotic) Cap PO SCH (08:28)
[2019-07-15] MEDS: Escitalopram 10 MG Tab PO SCH (08:28)
[2019-07-15] MEDS: Lactulose Soln 10 GM/15 ML 15 ML UD Cup PO SCH (08:28)
[2019-07-15] MEDS: busPIRone 10 MG Tab PO SCH (08:28)
[2019-07-15] MEDS: QUEtiapine 25 MG Tab PO SCH (08:29)
[2019-07-15] MEDS: Aspirin 81 MG Tab.Chew PO SCH (08:29)
[2019-07-15] MEDS: Calcium Carbonate 500 MG Tab.Chew PO SCH (08:29)
[2019-07-15] MEDS: Nicotine 14 MG/24 Hr Patch TRDERM SCH (08:29)
[2019-07-15 11:04] VITALS: BP 110/60; PULSE 71
--- NOTE | 2019-07-15 13:31 | PCM.DCSUM1 ---
Discharge Summary - Hospital Course Brief History: Ms. Cadet is a 69-year-old woman who was admitted through the emergency department with shortness of breath, cough, and hypoxia, secondary to bilateral pneumonia and COPD exacerbation. - Discharge Data Discharge Date: 07/15/19 Discharge Disposition: Home, Self-Care 01 Condition: Fair - Referral to Home Health Primary Care Physician: Kwaku Kang MD - Discharge Diagnosis/Problem(s) (1) Acute respiratory failure with hypoxia SNOMED Code(s): 47501986, 341641955 ICD Code: J96.01 - ACUTE RESPIRATORY FAILURE WITH HYPOXIA Status: Acute Current Visit: Yes (2) CAP (community acquired pneumonia) SNOMED Code(s): 051374864 ICD Code: J18.9 - PNEUMONIA, UNSPECIFIED ORGANISM Status: Acute Current Visit: Yes Qualifiers: Laterality: unspecified laterality Qualified Code(s): J18.9 - Pneumonia, unspecified organism (3) COPD exacerbation SNOMED Code(s): 294279507 ICD Code: J44.1 - CHRONIC OBSTRUCTIVE PULMONARY DISEASE W (ACUTE) EXACERBATION Status: Acute Current Visit: Yes (4) Diabetes mellitus type 2 in obese SNOMED Code(s): 74133847 ICD Code: E11.69 - TYPE 2 DIABETES MELLITUS WITH OTHER SPECIFIED COMPLICATION ; E66.9 - OBESITY, UNSPECIFIED Status: Chronic Current Visit: Yes - Patient Summary/Data Consults: Consultations 07/14/19 07:00 PT Evaluation and Treatment [CONS] Routine Please Evaluate and Treat. PT Reason for Consult: Strengthening This query below is only for informational purposes and is not editable. Hospital Course: Ms. Cadet presented to the emergency room with progressive weakness as well as increasing shortness of breath, cough and subjective fevers. She reports her weakness has been progressing over several weeks but has been more profound over the past several days. She is short of breath with any activity and even short of breath at rest. She has been coughing more than usual but has not had much sputum. She reports episodes of chilling as well as some subjective feelings of warmth which she thinks might be fevers but has not measured any temperatures. Appetite has been stable. As far as her weakness is concerned, she feels weak all over the place. Nighttime seems to be the worst for her. Mornings are better but as she goes through the day she becomes more and more week. She's not able to go up and down stairs anymore so she has not been doing her laundry recently. She is not aware of any sick contacts. She did just recently have a urinary tract infection and was on antibiotics for one week. She does complain of intermittent diarrhea but says that it only happens when she takes her lactulose. If she skips the medication she does not have diarrhea. Workup in the emergency room revealed a reassuring laboratory studies. Her C-reactive protein is elevated at 4.48. A CT scan of the chest did not reveal any evidence for pulmonary embolism. There were infiltrates in the lower lungs as well as the right middle lobe. She has a small right-sided pleural effusion. She will be admitted for management of pneumonia with a COPD exacerbation, hypoxic respiratory failure and weakness. On admission she was started with IV antibiotic therapy with Rocephin and azithromycin, after blood cultures been obtained. She was given IV fluids for hydration and nebulizer therapy as needed. Over the next few days of hospitalization she improved significantly but was not yet back to baseline by the time of discharge. She will be discharged home on an additional 4 days of oral antibiotic therapy with Omnicef. Activity will be as tolerated and she will resume her usual diabetic diet. Follow-up appointment will be scheduled with her primary care provider within one week. - Patient Instructions Diet: Usual Diet as Tolerated Activity: As Tolerated Other/Special Instructions: Please schedule follow-up appointment with primary care provider within one week. - Discharge Plan *PRESCRIPTION DRUG MONITORING PROGRAM REVIEWED*: Not Applicable *COPY OF PRESCRIPTION DRUG MONITORING REPORT IN PATIENT JEN: Not Applicable Prescriptions/Med Rec: Cefdinir [Omnicef] 300 mg PO BID #8 cap Lactobacillus Rhamnosus GG [Culturelle] 1 cap PO BID #60 cap Home Medications: Home Meds Aspirin [[place] Chewable Aspirin] 81 mg PO DAILY 07/26/13 [History] Calcium Carbonate [Calci-Chew] 500 mg PO BID 07/26/13 [History] Escitalopram [Lexapro] 30 mg PO DAILY 07/26/13 [History] Ibuprofen 800 mg PO DAILY PRN 07/26/13 [History] Multivitamin [Multi-Vitamin Daily] 1 each PO DAILY 07/26/13 [History] QUEtiapine Fumarate [Quetiapine Fumarate] 50 mg PO DAILY 07/26/13 [History] QUEtiapine Fumarate [Quetiapine Fumarate] 200 mg PO BEDTIME 07/26/13 [History] metFORMIN [Glucophage] 500 mg PO BID 07/26/13 [History] rOPINIRole HCl [Ropinirole HCl] 2 mg PO QID 07/26/13 [History] busPIRone [Buspar] 20 mg PO TID 02/12/15 [History] Triamcinolone Acetonide [Triamcinolone Acetonide 0.1% Crm] 15 gm TOP TID PRN 01/27 [History] Vitamin E 400 unit PO DAILY 03/18/15 [History] Albuterol Sulfate [Proair Hfa] 2 puff IH Q4H PRN 06/26/16 [History] Albuterol [Ventolin HFA] 2 puff IH Q4HR PRN 02/28/18 [History] Acetaminophen/HYDROcodone [[place] 325-5 MG] 1 - 2 tab PO Q4H PRN #20 tab [Rx] Calcitonin,[place],Synthetic [Miacalcin] 3.7 ml NS DAILY #1 spray.pump 10/10/18 [ Rx] Cefdinir [Omnicef] 300 mg PO BID #8 cap 07/15/19 [Rx] Lactobacillus Rhamnosus GG [Culturelle] 1 cap PO BID #60 cap 07/15/19 [Rx] Oxygen Therapy Mode: Nasal Cannula Oxygen Flow Rate (L/min): 2 Patient Handouts: Chronic Obstructive Pulmonary Disease, [id number], Community-Acquired Pneumonia, Adult, [id number] Referrals: Kwaku Kang MD [Primary Care Provider] - 07/23/19 1:30 pm (Please arrive 15 minutes early to register for your appointment.) - Discharge Summary/Plan Comment DC Time >30 min.: No - Patient Data Vitals - Most Recent: Last Vital Signs Temp 95.2 F L 07/15/19 10:59 Pulse 71 07/15/19 10:59 Resp 18 07/15/19 10:59 BP 110/60 07/15/19 10:59 Pulse Ox 95 07/15/19 10:59 Weight - Most Recent: 186 lb 9.588 oz I&O - Last 24 hours: Intake & Output 07/14/19 07/15/19 07/15/19 22:59 06:59 14:59 Intake Total 940 Output Total 1400 650 Balance -1400 290 [place] Results - Last 24 hrs: Microbiology 07/12/19 19:30 Aerobic Blood Culture - Preliminary Blood - Venous - Iv Start NO GROWTH AFTER 2 DAYS Anaerobic Blood Culture - Preliminary NO GROWTH AFTER 2 DAYS 07/12/19 19:35 Aerobic Blood Culture - Preliminary Blood - Arm, Left NO GROWTH AFTER 2 DAYS Anaerobic Blood Culture - Preliminary NO GROWTH AFTER 2 DAYS Med Orders - Current: Current Medications Acetaminophen (Tylenol) 650 mg PO Q4H PRN PRN Reason: Pain (Mild 1-3)/fever Hydrocodone Bitart/Acetaminophen ([place] 325-5 Mg) 1 tab PO Q4H PRN PRN Reason: Pain Last Admin: 07/15/19 08:27 Dose: 1 tab Albuterol (Proventil Neb Soln) 2.5 mg NEB Q4H PRN PRN Reason: Shortness Of Breath/wheezing Albuterol/Ipratropium (Duoneb 3.0-0.5 Mg/3 Ml) 3 ml NEB QIDRT [facility] Last Admin: 07/15/19 10:51 Dose: 3 ml Aspirin (Aspirin) 81 mg PO DAILY [facility] Last Admin: 07/15/19 08:29 Dose: 81 mg Azithromycin (Zithromax) 500 mg PO BEDTIME [facility] Last Admin: 07/14/19 20:49 Dose: 500 mg Buspirone HCl (Buspar) 20 mg PO TID [facility] Last Admin: 07/15/19 08:28 Dose: 20 mg Calcium Carbonate/Glycine (Tums) 500 mg PO BID [facility] Last Admin: 07/15/19 08:29 Dose: 500 mg Escitalopram Oxalate (Lexapro) 30 mg PO DAILY [facility] Last Admin: 07/15/19 08:28 Dose: 30 mg Guaifenesin/Dextromethorphan (Robitussin Dm) 10 ml PO Q4H PRN PRN Reason: Cough Ceftriaxone Sodium 1 gm/ (Sodium Chloride) 50 mls @ 100 mls/hr IV Q24H [facility] Last Admin: 07/14/19 23:37 Dose: 100 mls/hr Ibuprofen (Motrin) 600 mg PO Q6H PRN PRN Reason: Pain/Fever Insulin Human Lispro (Humalog) 0 unit SUBCUT QIDACANDBED [facility]; Protocol Last Admin: 07/15/19 12:10 Dose: Not Given Lactobacillus Rhamnosus (Culturelle) 1 cap PO BID [facility] Last Admin: 07/15/19 08:28 Dose: 1 cap Lactulose (Chronulac) 10 gm PO BID [facility] Last Admin: 07/15/19 08:28 Dose: 10 gm Lorazepam (Ativan) 0.5 mg IVPUSH Q4H PRN PRN Reason: Nausea/Vomiting Magnesium Oxide (Magnesium Oxide) 400 mg PO BID [facility] Last Admin: 07/15/19 08:28 Dose: 400 mg Melatonin (Melatonin) 9 mg PO BEDTIME [facility] Last Admin: 07/14/19 20:48 Dose: 9 mg Metformin HCl (Glucophage) 500 mg PO BIDMEALS [facility] Last Admin: 07/15/19 07:20 Dose: 500 mg Nicotine (Habitrol) 14 mg TRDERM DAILY [facility] Last Admin: 07/15/19 08:29 Dose: 14 mg Ondansetron HCl (Zofran Odt) 4 mg PO Q6H PRN PRN Reason: Nausea able to take PO Ondansetron HCl (Zofran) 4 mg IV Q6H PRN PRN Reason: Nausea/Vomiting Pantoprazole Sodium (Protonix) 40 mg PO DAILY@0730 [facility] Last Admin: 07/15/19 07:20 Dose: 40 mg Prednisone (Prednisone) 20 mg PO BIDAC [facility] Last Admin: 07/15/19 07:20 Dose: 20 mg Quetiapine Fumarate (Seroquel) 50 mg PO DAILY [facility] Last Admin: 07/15/19 08:29 Dose: 50 mg Quetiapine Fumarate (Seroquel) 200 mg PO BEDTIME [facility] Last Admin: 07/14/19 20:48 Dose: 200 mg Ropinirole HCl (Requip) 2 mg PO QID [facility] Last Admin: 07/15/19 09:57 Dose: 2 mg Discontinued Medications Albuterol/Ipratropium (Duoneb 3.0-0.5 Mg/3 Ml) 3 ml NEB ONETIME ONE Stop: 07/12/19 19:22 Last Admin: 07/12/19 19:36 Dose: 3 ml Furosemide (Lasix) 20 mg IV ONETIME ONE Stop: 07/14/19 13:31 Last Admin: 07/14/19 13:52 Dose: 20 mg Lactated Ringer's (Ringers, Lactated) 1,000 mls @ 999 mls/hr IV ASDIRECTED [facility] Last Admin: 07/12/19 19:36 Dose: 999 mls/hr Sodium Chloride (Normal Saline) 74 mls @ 3 mls/sec IV ASDIRECTED [facility] Last Admin: 07/12/19 20:43 Dose: 3 mls/sec Azithromycin 500 mg/ Sodium (Chloride) 250 mls @ 250 mls/hr IV ONETIME ONE Stop: 07/12/19 23:44 Last Admin: 07/12/19 23:18 Dose: 250 mls/hr Sodium Chloride (Normal Saline) 1,000 mls @ 100 mls/hr IV ASDIRECTED [facility] Last Admin: 07/13/19 21:13 Dose: 100 mls/hr Magnesium Sulfate 2 gm/ Premix 50 mls @ 25 mls/hr IV ONETIME ONE Stop: 07/14/19 10:59 Last Admin: 07/14/19 09:01 Dose: 25 mls/hr Iopamidol (Isovue-370 (76%)) 44 ml IV . DIRECTED [facility] Last Admin: 07/12/19 20:44 Dose: 90 ml Ketorolac Tromethamine (Toradol) 30 mg IVPUSH ONETIME ONE Stop: 07/12/19 19:22 Last Admin: 07/12/19 19:36 Dose: 30 mg Methylprednisolone Sodium Succinate (Solu-Medrol) 125 mg IVPUSH ONETIME ONE Stop: 07/12/19 22:31 Last Admin: 07/12/19 23:19 Dose: 125 mg Sodium Chloride (Saline Flush) 10 ml FLUSH ONETIME ONE Stop: 07/12/19 19:35 Last Admin: 07/12/19 20:43 Dose: 10 ml - Exam Quality Assessment: Reports: DVT Prophylaxis General: Reports: Alert, Oriented, Cooperative, No Acute Distress Lungs: Reports: Normal Respiratory Effort, Decreased Breath Sounds. Denies: Rales, Rhonchi, Wheezing Cardiovascular: Reports: Regular Rate, Regular Rhythm, No Murmurs GI/Abdominal Exam: Soft, Non-Tender, No Organomegaly, No Distention Extremities: Non-Tender, Pedal Edema
== END 2019-07-15 14:09 | disposition home or self-care (01) | DRG 193 ==
LOC: JP.ED 15:01 → JP.ICU 21:37 → JP.MS 07-13 13:30
PROVIDERS: ADMIT Internal Medicine; ATTEND Hospitalist
DX: J18.9 Pneumonia, unspecified organism (principal); J96.01 Acute respiratory failure with hypoxia; R53.1 Weakness; R06.02 Shortness of breath; J44.1 Chronic obstructive pulmonary disease with (acute) exacerbation; J44.0 Chronic obstructive pulmonary disease with (acute) lower respiratory infection; M19.90 Unspecified osteoarthritis, unspecified site; F31.9 Bipolar disorder, unspecified; F41.0 Panic disorder [episodic paroxysmal anxiety]; F17.200 Nicotine dependence, unspecified, uncomplicated; E11.9 Type 2 diabetes mellitus without complications; F20.9 Schizophrenia, unspecified; F17.210 Nicotine dependence, cigarettes, uncomplicated; E66.9 Obesity, unspecified; Z79.82 Long term (current) use of aspirin; Z79.84 Long term (current) use of oral hypoglycemic drugs; Z79.899 Other long term (current) drug therapy; Z87.440 Personal history of urinary (tract) infections; Z90.710 Acquired absence of both cervix and uterus; Z71.6 Tobacco abuse counseling; Z88.6 Allergy status to analgesic agent; Z88.8 Allergy status to other drugs, medicaments and biological substances; Z68.33 Body mass index [BMI] 33.0-33.9, adult
CPT/HCPCS: 36415; 36600; 71275; 80048; 80053; 81001; 82803; 82962; 83605; 83735; 84145; 84484; 85025; 85027; 86140; 87040; 87804; 87804-59; 94640; 94667; 96361; 96374; 97110-GP; 97162-GP; 97530-GP; 97535-GP; 99285; 99285-25; A9270-GY; J0456; J0696; J1815; J1885; J1940; J2930; J3475; J7030; J7050; J7120; J7620-GY; Q9967

== ENCOUNTER 2019-08-22 06:39 | Emergency (ER) | payer MEDICARE, MEDICAID ==
[2019-08-22 06:53] VITALS: BP 121/57; PULSE 106
[2019-08-22] MEDS ORDERED: oxyCODONE 5 MG Tab PO ONE (07:23)
[2019-08-22] MEDS ORDERED: Acetaminophen 325 MG Tab PO ONE (07:24)
--- NOTE | 2019-08-22 07:37 | EDM.PDOC ---
ED HPI GENERAL MEDICAL PROBLEM - General Chief Complaint: Back Pain or Injury Stated Complaint: BACK PAIN RESTLESS LEGS Time Seen by Provider: 08/22/19 07:10 Source of Information: Reports: Patient History Limitations: Reports: No Limitations - History of Present Illness INITIAL COMMENTS - FREE TEXT/NARRATIVE: 69 yo with hx of chronic reza pain, restless leg, COPD, schizophrenia presents with concerns of low back pain, restless leg She reports that she was up this AM with exacerbation of her lower back pain This had led to more restless leg. She reports that she was recently in walk-in clinic, her requip was stopped, she is not sure what medicine was substituted for this. The pain is an ache, primarily in the lower back, no radiation No fevers/chills, no weakness in the extremities, no incontinence, no saddle anesthesia. Back Pain Score (Numeric/FACES): 10 - Related Data Allergies Allergy/AdvReac Type Severity Reaction Status Date / Time diclofenac potassium Allergy unsure Verified 08/22/19 06:51 [From Cataflam] dicyclomine HCl [From Bentyl] Allergy unsure Verified 08/22/19 06:51 paroxetine HCl [From Paxil] Allergy unsure Verified 08/22/19 06:51 Home Meds: Home Meds Aspirin [[place]ley Chewable Aspirin] 81 mg PO DAILY 07/26/13 [History] Calcium Carbonate [Calci-Chew] 500 mg PO BID 07/26/13 [History] Escitalopram [Lexapro] 30 mg PO DAILY 07/26/13 [History] Multivitamin [Multi-Vitamin Daily] 1 each PO DAILY 07/26/13 [History] QUEtiapine Fumarate [Quetiapine Fumarate] 50 mg PO DAILY 07/26/13 [History] QUEtiapine Fumarate [Quetiapine Fumarate] 400 mg PO BEDTIME 07/26/13 [History] metFORMIN [Glucophage] 500 mg PO BID 07/26/13 [History] busPIRone [Buspar] 20 mg PO TID 02/12/15 [History] Triamcinolone Acetonide [Triamcinolone Acetonide 0.1% Crm] 15 gm TOP TID PRN 01/27 [History] Vitamin E 400 unit PO DAILY 03/18/15 [History] Albuterol [Ventolin HFA] 2 puff IH Q4HR PRN 02/28/18 [History] Calcitonin,[place],Synthetic [Miacalcin] 3.7 ml NS DAILY #1 spray.pump 10/10/18 [ Rx] Lactobacillus Rhamnosus GG [Culturelle] 1 cap PO BID #60 cap 07/15/19 [Rx] Acetaminophen/HYDROcodone [[place] 325-5 MG] 1 tab PO Q6H PRN 08/22/19 [History] Cholecalciferol (Vitamin D3) [Vitamin D] 1 tab PO WEEKLY 08/22/19 [History] Folic Acid 1 tab PO DAILY 08/22/19 [History] Furosemide [Lasix] 1 tab PO DAILY 08/22/19 [History] Ketoconazole [Nizoral 2% Crm] 1 dose TOP BID 08/22/19 [History] Lactulose 30 ml PO DAILY 08/22/19 [History] Loratadine [Claritin] 1 tab PO DAILY 08/22/19 [History] Magnesium Malate 1 tab PO DAILY 08/22/19 [History] Mupirocin Oint [Bactroban Oint] 1 dose TOP BID 08/22/19 [History] Naproxen 1 tab PO BID 08/22/19 [History] Nicotine [Nicotrol] 1 puff INH ASDIRECTED 08/22/19 [History] Pramipexole Di-HCl [Mirapex] 1 tab PO TID 08/22/19 [History] Thiamine [Vitamin B-1] 1 tab PO DAILY 08/22/19 [History] valACYclovir HCl [Valtrex] 1 tab PO DAILY 08/22/19 [History] Past Medical History HEENT History: Reports: Impaired Vision Other HEENT History: dry eyes Cardiovascular History: Reports: Other (See Below) Other Cardiovascular History: hx stress test normal Respiratory History: Reports: COPD Other Respiratory History: uses boyfriends inhaler Gastrointestinal History: Reports: Hepatitis, Irritable Bowel Syndrome Genitourinary History: Reports: Urinary Incontinence, UTI, Recurrent 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: Reports: Other 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: cysts Musculoskeletal History: Reports: Arthritis Other Musculoskeletal History: hip pain Neurological History: Reports: Other (See Below) Other Neuro History: restless legs Psychiatric History: Reports: Addiction, Anxiety, Bipolar, Depression, Panic Attack, Schizophrenia Endocrine/Metabolic History: Reports: Diabetes, Type II Immunologic History: Reports: Other (See Below) Other Immunologic History: herpes Dermatologic History: Reports: Urticaria - Infectious Disease History Infectious Disease History: Reports: Chicken Pox, Measles, Mumps - Past Surgical History Female Surgical History: Reports: Hysterectomy, Salpingo-Oophorectomy Social & Family History - Family History Family Medical History: Noncontributory Oncologic: Reports: Breast, Pancreatic, Prostate - Tobacco Use Smoking Status *Q: Current Every Day Smoker Years of Tobacco use: 20 Packs/Tins Daily: 0.5 - Caffeine Use Caffeine Use: Reports: Coffee - Recreational Drug Use Recreational Drug Use: No ED ROS GENERAL - Review of Systems Review Of Systems: See Below Constitutional: Reports: No Symptoms HEENT: Reports: No Symptoms Respiratory: Reports: No Symptoms Cardiovascular: Reports: No Symptoms Endocrine: Reports: No Symptoms GI/Abdominal: Reports: No Symptoms : Reports: No Symptoms Musculoskeletal: Reports: Back Pain Skin: Reports: No Symptoms Neurological: Reports: No Symptoms Psychiatric: Reports: No Symptoms Hematologic/Lymphatic: Reports: No Symptoms Immunologic: Reports: No Symptoms ED EXAM, UPPER BACK/NECK PAIN - Physical Exam Exam: See Below Exam Limited By: No Limitations General Appearance: Alert, No Apparent Distress Ears Exam: Normal External Exam Nose Exam: Normal Inspection Throat/Mouth Exam: Normal Inspection Head Exam: Atraumatic, Normocephalic Neck Exam: Non-Tender, Full Range of Motion Cardiovascular/Respiratory: Regular Rate, Rhythm, No Respiratory Distress GI/Abdominal: Soft, No Distention Back Exam: Normal Inspection. 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 No: Abnormal Gait Psychiatric: Normal Affect Skin Exam: Normal Color Lymphatic: No Adenopathy Course - Vital Signs Last Recorded V/S: Last Vital Signs Temp 35.5 C 08/22/19 06:52 Pulse 106 H 08/22/19 06:52 Resp 16 08/22/19 06:52 BP 121/57 L 08/22/19 06:52 Pulse Ox 91 L 08/22/19 06:52 - Orders/Labs/Meds Meds: Medications Discontinued Medications Generic Name Dose Route Start Last Admin Trade Name Freq PRN Reason Stop Dose Admin Acetaminophen 650 mg 08/22/19 07:24 Tylenol PO 08/22/19 07:25 NOW ONE Oxycodone HCl 5 mg 08/22/19 07:23 Oxycodone PO 08/22/19 07:24 ONETIME ONE - Re-Assessments/Exams Free Text/Narrative Re-Assessment/Exam: 69 yo hx of low back pain, restless presents with exacerbation of these symptoms She has known degenerative low back pain, no red flag symptoms today She reports some recent changes in restless leg meds but not sure what she is currently taking. We looked in her [facility] chart but unable to determine her current meds. I am not comfortable making any med changes without clarification what she is currently on. Additionally believe this would be best done by PCP who can follow -up with her. Treated her with a single oxycodone + apap in the ED. Referral placed to PCP clinic 08/22/19 07:48 Departure - Departure Time of Disposition: 07:33 Disposition: Home, Self-Care 01 Clinical Impression: Restless leg Back pain Qualifiers: Back pain location: low back pain Chronicity: chronic Back pain laterality: midline Sciatica presence: unspecified whether sciatica present Qualified Code(s ): M54.5 - Low back pain - Discharge Information Instructions: Restless Legs Syndrome Referrals: Kwaku Kang MD [Primary Care Provider] - Forms: ED Department Discharge Additional Instructions: Please follow up with Dr Kang to go through your medications for restless leg - it is important that you bring all of your medications to review with Dr Kang.
== END 2019-08-22 07:51 | disposition home or self-care (01) ==
LOC: JP.ED 06:39
DX: G25.81 Restless legs syndrome (principal); J44.9 Chronic obstructive pulmonary disease, unspecified; E11.9 Type 2 diabetes mellitus without complications; F41.9 Anxiety disorder, unspecified; F32.9 Major depressive disorder, single episode, unspecified; F17.210 Nicotine dependence, cigarettes, uncomplicated; Z88.8 Allergy status to other drugs, medicaments and biological substances; Z88.6 Allergy status to analgesic agent; Z79.82 Long term (current) use of aspirin
CPT/HCPCS: 99283; A9270

== ENCOUNTER 2019-08-22 09:32 | Emergency (ER) | payer MEDICARE, MEDICAID ==
--- NOTE | 2019-08-22 09:45 | EDM.PDOC ---
ED HPI GENERAL MEDICAL PROBLEM - General Stated Complaint: CAME BACK RESTLESS LEGS Time Seen by Provider: 08/22/19 09:35 Source of Information: Reports: Patient History Limitations: Reports: No Limitations - History of Present Illness INITIAL COMMENTS - FREE TEXT/NARRATIVE: This is a 69 yo who was seen in ED earlier this morning for restless leg and chronic back pain. She was treated symptomatically with 5 mg of oxycodone and apap. She went outside to smoke and then over to PT since discharge. At PT she was too sleepy to participate in PT, couldn't find a ride home, so brought back to the ER. She reports that she is just too sleepy after being up all night with back/leg pain to do PT today. She did run out of her O2 (carries canister). No new medical concerns. - Related Data Allergies Allergy/AdvReac Type Severity Reaction Status Date / Time diclofenac potassium Allergy unsure Verified 08/22/19 06:51 [From Cataflam] dicyclomine HCl [From Bentyl] Allergy unsure Verified 08/22/19 06:51 paroxetine HCl [From Paxil] Allergy unsure Verified 08/22/19 06:51 Home Meds: Home Meds Aspirin [[place]ley Chewable Aspirin] 81 mg PO DAILY 07/26/13 [History] Calcium Carbonate [Calci-Chew] 500 mg PO BID 07/26/13 [History] Escitalopram [Lexapro] 30 mg PO DAILY 07/26/13 [History] Multivitamin [Multi-Vitamin Daily] 1 each PO DAILY 07/26/13 [History] QUEtiapine Fumarate [Quetiapine Fumarate] 50 mg PO DAILY 07/26/13 [History] QUEtiapine Fumarate [Quetiapine Fumarate] 400 mg PO BEDTIME 07/26/13 [History] metFORMIN [Glucophage] 500 mg PO BID 07/26/13 [History] busPIRone [Buspar] 20 mg PO TID 02/12/15 [History] Triamcinolone Acetonide [Triamcinolone Acetonide 0.1% Crm] 15 gm TOP TID PRN 01/27 [History] Vitamin E 400 unit PO DAILY 03/18/15 [History] Albuterol [Ventolin HFA] 2 puff IH Q4HR PRN 02/28/18 [History] Calcitonin,[place],Synthetic [Miacalcin] 3.7 ml NS DAILY #1 spray.pump 10/10/18 [ Rx] Lactobacillus Rhamnosus GG [Culturelle] 1 cap PO BID #60 cap 07/15/19 [Rx] Acetaminophen/HYDROcodone [[place] 325-5 MG] 1 tab PO Q6H PRN 08/22/19 [History] Cholecalciferol (Vitamin D3) [Vitamin D] 1 tab PO WEEKLY 08/22/19 [History] Folic Acid 1 tab PO DAILY 08/22/19 [History] Furosemide [Lasix] 1 tab PO DAILY 08/22/19 [History] Ketoconazole [Nizoral 2% Crm] 1 dose TOP BID 08/22/19 [History] Lactulose 30 ml PO DAILY 08/22/19 [History] Loratadine [Claritin] 1 tab PO DAILY 08/22/19 [History] Magnesium Malate 1 tab PO DAILY 08/22/19 [History] Mupirocin Oint [Bactroban Oint] 1 dose TOP BID 08/22/19 [History] Naproxen 1 tab PO BID 08/22/19 [History] Nicotine [Nicotrol] 1 puff INH ASDIRECTED 08/22/19 [History] Pramipexole Di-HCl [Mirapex] 1 tab PO TID 08/22/19 [History] Thiamine [Vitamin B-1] 1 tab PO DAILY 08/22/19 [History] valACYclovir HCl [Valtrex] 1 tab PO DAILY 08/22/19 [History] Past Medical History HEENT History: Reports: Impaired Vision Other HEENT History: dry eyes Cardiovascular History: Reports: Other (See Below) Other Cardiovascular History: hx stress test normal Respiratory History: Reports: COPD Other Respiratory History: uses boyfriends inhaler Gastrointestinal History: Reports: Hepatitis, Irritable Bowel Syndrome Genitourinary History: Reports: Urinary Incontinence, UTI, Recurrent 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 LOCOMOTIVE History: cysts Musculoskeletal History: Reports: Arthritis Other Musculoskeletal History: hip pain Neurological History: Reports: Other (See Below) Other Neuro History: restless legs Psychiatric History: Reports: Addiction, Anxiety, Bipolar, Depression, Panic Attack, Schizophrenia Endocrine/Metabolic History: Reports: Diabetes, Type II Immunologic History: Reports: Other (See Below) Other Immunologic History: herpes Dermatologic History: Reports: Urticaria - Infectious Disease History Infectious Disease History: Reports: Chicken Pox, Measles, Mumps - Past Surgical History Female Surgical History: Reports: Hysterectomy, Salpingo-Oophorectomy Social & Family History - Family History Family Medical History: Noncontributory Oncologic: Reports: Breast, Pancreatic, Prostate - Caffeine Use Caffeine Use: Reports: Coffee ED ROS GENERAL - Review of Systems Review Of Systems: See Below Constitutional: Reports: Other (tired) HEENT: Reports: No Symptoms Respiratory: Reports: No Symptoms Cardiovascular: Reports: No Symptoms Endocrine: Reports: No Symptoms GI/Abdominal: Reports: No Symptoms : Reports: No Symptoms Musculoskeletal: Reports: No Symptoms Skin: Reports: No Symptoms Neurological: Reports: No Symptoms Psychiatric: Reports: No Symptoms Hematologic/Lymphatic: Reports: No Symptoms ED EXAM, GENERAL - Physical Exam Exam: See Below Exam Limited By: No Limitations General Appearance: Alert, No Apparent Distress, Other (sleeping in wheel chair , awakens to voice and denies concerns) Ears: Normal External Exam Nose: Normal Inspection Throat/Mouth: Normal Inspection Head: Atraumatic Neck: Normal Inspection Respiratory/Chest: No Respiratory Distress Cardiovascular: Regular Rate, Rhythm GI/Abdominal: Soft, No Distention Extremities: Normal Inspection Neurological: Alert, Oriented Psychiatric: Normal Affect Skin Exam: Warm, Dry Course - Vital Signs Last Recorded V/S: Last Vital Signs Temp 36.8 C 08/22/19 09:39 Pulse 85 08/22/19 09:39 Resp 16 08/22/19 09:39 BP 88/39 L 08/22/19 09:39 Pulse Ox 95 08/22/19 09:39 - Re-Assessments/Exams Free Text/Narrative Re-Assessment/Exam: 69 yo seen in ED earlier this am for back pain and restless leg now back to ED from PT appointment for somnolence, inability to find ride home. Reports that she is just tired from being up all night with chronic pain, which is now well controlled after oxycodone She is on narcotics at home, received 5 mg of oxycodone earlier this AM, would be unusual for this to be OD from this. She is out of home O2. We will put her on the monitor for a bit while arranging ride to ensure she is safe to get home without supplemental O2. This will give some time to follow mental status as well. 08/22/19 09:47 Free Text/Narrative Re-Assessment/Exam: Observed in ED. O2 sats on RA 89%, safe for transport home Awakens and asking to leave 08/22/19 11:55 Departure - Departure Time of Disposition: 11:55 Disposition: Home, Self-Care 01 Clinical Impression: Somnolence - Discharge Information Referrals: Kwaku Kang MD [Primary Care Provider] - Forms: ED Department Discharge Additional Instructions: As we talked about earlier this morning, follow up with Dr Kang for your back pain and restless leg. Make sure you take all your medications to this appointment.
[2019-08-22 09:48] VITALS: BP 88/39; PULSE 85
== END 2019-08-22 13:19 | disposition home or self-care (01) ==
LOC: JP.ED 09:32
DX: R40.0 Somnolence (principal); J44.9 Chronic obstructive pulmonary disease, unspecified; E11.9 Type 2 diabetes mellitus without complications; F41.9 Anxiety disorder, unspecified; F32.9 Major depressive disorder, single episode, unspecified; Z79.82 Long term (current) use of aspirin; Z79.84 Long term (current) use of oral hypoglycemic drugs
CPT/HCPCS: 99282

== ENCOUNTER 2019-10-16 15:08 | Emergency (ER) | payer MEDICARE, MEDICAID ==
[2019-10-16 15:18] VITALS: BP 132/71; PULSE 101
[2019-10-16] MEDS ORDERED: Ketorolac 60 MG/2 ML SDV IM ONE (16:05)
[2019-10-16] MEDS ORDERED: Ondansetron 4 MG Tab.DIS PO ONE (16:09)
[2019-10-16] MEDS ORDERED: LORazepam 0.5 MG Tab PO ONE (16:10)
--- NOTE | 2019-10-16 16:13 | EDM.PDOC ---
ED HPI GENERAL MEDICAL PROBLEM - General Chief Complaint: General Stated Complaint: MEDICAL [facility]IA [facility] Time Seen by Provider: 10/16/19 15:58 Source of Information: Reports: Patient, RN Notes Reviewed History Limitations: Reports: No Limitations - History of Present Illness INITIAL COMMENTS - FREE TEXT/NARRATIVE: 69-year-old female presents emergency department today complaint of body aches all over, she states she felt fine yesterday was able to clean her house and have her [place] decorations picked up however she awoke this morning around 9 :00 severe pain all of her muscles lower extremity and upper extremity arms are so painful she cannot touch them or move them. She also admits to chest pain shortness of breath nausea vomiting constipation. Did see her primary care yesterday who started on antibiotics for a urinary tract infection however she does not know what antibiotic it is and is only taken 1 days dose general Pain Score (Numeric/FACES): 8 - Related Data Allergies Allergy/AdvReac Type Severity Reaction Status Date / Time diclofenac potassium Allergy unsure Verified 10/16/19 15:28 [From Cataflam] dicyclomine HCl [From Bentyl] Allergy unsure Verified 10/16/19 15:28 paroxetine HCl [From Paxil] Allergy unsure Verified 10/16/19 15:28 sulfamethoxazole Allergy Other Verified 10/16/19 18:23 [From Bactrim] trimethoprim [From Bactrim] Allergy Other Verified 10/16/19 18:23 Home Meds: Home Meds Aspirin [Ashley Chewable Aspirin] 81 mg PO DAILY 07/26/13 [History] Calcium Carbonate [Calci-Chew] 500 mg PO BID 07/26/13 [History] Escitalopram [Lexapro] 30 mg PO DAILY 07/26/13 [History] Multivitamin [Multi-Vitamin Daily] 1 each PO DAILY 07/26/13 [History] QUEtiapine Fumarate [Quetiapine Fumarate] 50 mg PO DAILY 07/26/13 [History] QUEtiapine Fumarate [Quetiapine Fumarate] 400 mg PO BEDTIME 07/26/13 [History] metFORMIN [Glucophage] 500 mg PO BID 07/26/13 [History] busPIRone [Buspar] 20 mg PO TID 02/12/15 [History] Triamcinolone Acetonide [Triamcinolone Acetonide 0.1% Crm] 15 gm TOP TID PRN 01/27 [History] Vitamin E 400 unit PO DAILY 03/18/15 [History] Albuterol [Ventolin HFA] 2 puff IH Q4HR PRN 02/28/18 [History] Calcitonin,[employer],Synthetic [Miacalcin] 3.7 ml NS DAILY #1 spray.pump 10/10/18 [ Rx] Lactobacillus Rhamnosus GG [Culturelle] 1 cap PO BID #60 cap 07/15/19 [Rx] Acetaminophen/HYDROcodone [[place] 325-5 MG] 1 tab PO Q6H PRN 08/22/19 [History] Cholecalciferol (Vitamin D3) [Vitamin D] 1 tab PO WEEKLY 08/22/19 [History] Folic Acid 1 tab PO DAILY 08/22/19 [History] Furosemide [Lasix] 1 tab PO DAILY 08/22/19 [History] Ketoconazole [Nizoral 2% Crm] 1 dose TOP BID 08/22/19 [History] Lactulose 30 ml PO DAILY 08/22/19 [History] Loratadine [Claritin] 1 tab PO DAILY 08/22/19 [History] Magnesium Malate 1 tab PO DAILY 08/22/19 [History] Mupirocin Oint [Bactroban Oint] 1 dose TOP BID 08/22/19 [History] Naproxen 1 tab PO BID 08/22/19 [History] Nicotine [Nicotrol] 1 puff INH ASDIRECTED 08/22/19 [History] Pramipexole Di-HCl [Mirapex] 1 tab PO TID 08/22/19 [History] Thiamine [Vitamin B-1] 1 tab PO DAILY 08/22/19 [History] valACYclovir HCl [Valtrex] 1 tab PO DAILY 08/22/19 [History] Past Medical History HEENT History: Reports: Impaired Vision Other HEENT History: dry eyes Cardiovascular History: Reports: Other (See Below) Other Cardiovascular History: hx stress test normal Respiratory History: Reports: COPD Other Respiratory History: uses boyfriends inhaler Gastrointestinal History: Reports: Hepatitis, Irritable Bowel Syndrome Genitourinary History: Reports: Urinary Incontinence, UTI, Recurrent CODER History: Reports: Other CODER History: cysts Musculoskeletal History: Reports: Arthritis Other Musculoskeletal History: hip pain Neurological History: Reports: Other (See Below) Other Neuro History: restless legs Psychiatric History: Reports: Addiction, Anxiety, Bipolar, Depression, Panic Attack, Schizophrenia Endocrine/Metabolic History: Reports: Diabetes, Type II Immunologic History: Reports: Other (See Below) Other Immunologic History: herpes Dermatologic History: Reports: Urticaria - Infectious Disease History Infectious Disease History: Reports: Chicken Pox, Measles, Mumps - Past Surgical History Female Surgical History: Reports: Hysterectomy, Salpingo-Oophorectomy Social & Family History - Family History Family Medical History: Noncontributory Oncologic: Reports: Breast, Pancreatic, Prostate - Tobacco Use Smoking Status *Q: Current Every Day Smoker Years of Tobacco use: 56 Packs/Tins Daily: 1 - Caffeine Use Caffeine Use: Reports: Coffee ED ROS GENERAL - Review of Systems Review Of Systems: See Below Constitutional: Reports: Weakness HEENT: Reports: No Symptoms Respiratory: Reports: Shortness of Breath Cardiovascular: Reports: Chest Pain GI/Abdominal: Reports: Nausea : Reports: No Symptoms Musculoskeletal: Reports: Muscle Pain Skin: Reports: No Symptoms Neurological: Reports: No Symptoms Psychiatric: Reports: Anxiety ED EXAM, GENERAL - Physical Exam Exam: See Below Exam Limited By: No Limitations General Appearance: Alert, Mild Distress Respiratory/Chest: No Respiratory Distress, Lungs Clear, Normal Breath Sounds, No Accessory Muscle Use, Chest Non-Tender Cardiovascular: Regular Rate, Rhythm, No Murmur GI/Abdominal: Soft, Non-Tender Extremities: Normal Inspection, Normal Range of Motion, No Pedal Edema, Other Course - Vital Signs Last Recorded V/S: Last Vital Signs Temp 98.9 F 10/16/19 15:29 Pulse 101 H 10/16/19 15:29 Resp 16 10/16/19 15:29 BP 132/71 10/16/19 15:29 Pulse Ox 92 L 10/16/19 15:29 - Orders/Labs/Meds Orders: Active Orders 24 hr Category Date Time Status CULTURE URINE [RM] Urgent Lab 10/16/19 18:15 Received Labs: Laboratory Tests 10/16/19 10/16/19 10/16/19 Range/Units 16:04 16:10 16:10 WBC 11.3 H (4.5-11.0) K/uL RBC 3.97 (3.30-5.50) M/uL Hgb 11.8 L (12.0-15.0) g/dL Hct 35.6 L (36.0-48.0) % MCV 90 (80-98) fL MCH 30 (27-31) pg MCHC 33 (32-36) % Plt Count 111 L (150-400) K/uL Neut % (Auto) 88 H (36-66) % Lymph % (Auto) 8 L (24-44) % [place] % (Auto) 3 (2-6) % Eos % (Auto) 0 L (2-4) % Baso % (Auto) 0 (0-1) % Sodium (140-148) mmol/L Potassium (3.6-5.2) mmol/L Chloride (100-108) mmol/L Carbon Dioxide (21-32) mmol/L Anion Gap (5.0-14.0) mmol/L BUN (7-18) mg/dL Creatinine (0.6-1.0) mg/dL Est Cr Clr Drug Dosing mL/min Estimated GFR (MDRD) (>60) Glucose (74-106) mg/dL Lactic Acid 2.8 H (0.4-2.0) mmol/L Calcium (8.5-10.1) mg/dL Total Bilirubin (0.2-1.0) mg/dL AST (15-37) U/L ALT (12-78) U/L Alkaline Phosphatase (46-116) U/L Ammonia (11-32) mmol/L Creatine Kinase 83 (26-192) U/L Troponin I (0.000-0.056) ng/mL Total Protein (6.4-8.2) g/dL Albumin (3.4-5.0) g/dL Globulin (2.3-3.5) g/dL Albumin/Globulin Ratio (1.2-2.2) TSH, Ultra Sensitive (0.358-3.740) uIU/mL Urine Color (YELLOW) Urine Appearance (CLEAR) Urine pH (5.0-8.0) Ur Specific [place] (1.008-1.030) Urine Protein (NEGATIVE) mg/dL Urine Glucose (UA) (NEGATIVE) mg/dL Urine Ketones (NEGATIVE) mg/dL Urine Occult Blood (NEGATIVE) Urine Nitrite (NEGATIVE) Urine Bilirubin (NEGATIVE) Urine Urobilinogen (0.2-1.0) EU/dL Ur Leukocyte Esterase (NEGATIVE) Urine RBC (0-5) Urine WBC (0-5) Ur Epithelial Cells Amorphous Sediment Urine Bacteria Urine Mucus Urine Opiates Screen (NEGATIVE) Ur Oxycodone Screen (NEGATIVE) Urine Methadone Screen (NEGATIVE) Ur Propoxyphene Screen (NEGATIVE) Ur Barbiturates Screen (NEGATIVE) Ur Tricyclics Screen (NEGATIVE) Ur Phencyclidine Scrn (NEGATIVE) Ur Amphetamine Screen (NEGATIVE) U Methamphetamines Scrn (NEGATIVE) Urine MDMA Screen (NEGATIVE) U Benzodiazepines Scrn (NEGATIVE) U Cocaine Metab Screen (NEGATIVE) U Marijuana (THC) Screen (NEGATIVE) Ethyl Alcohol mg/dL 10/16/19 10/16/19 10/16/19 Range/Units 16:10 16:10 16:10 WBC (4.5-11.0) K/uL RBC (3.30-5.50) M/uL Hgb (12.0-15.0) g/dL Hct (36.0-48.0) % MCV (80-98) fL MCH (27-31) pg MCHC (32-36) % Plt Count (150-400) K/uL Neut % (Auto) (36-66) % Lymph % (Auto) (24-44) % [place] % (Auto) (2-6) % Eos % (Auto) (2-4) % Baso % (Auto) (0-1) % Sodium 132 L (140-148) mmol/L Potassium 4.4 (3.6-5.2) mmol/L Chloride 100 (100-108) mmol/L Carbon Dioxide 23 (21-32) mmol/L Anion Gap 13.4 (5.0-14.0) mmol/L BUN 27 H (7-18) mg/dL Creatinine 1.1 H (0.6-1.0) mg/dL Est Cr Clr Drug Dosing 41.68 mL/min Estimated GFR (MDRD) 49 L (>60) Glucose 138 H (74-106) mg/dL Lactic Acid (0.4-2.0) mmol/L Calcium 8.8 (8.5-10.1) mg/dL Total Bilirubin 0.7 D (0.2-1.0) mg/dL AST 27 (15-37) U/L ALT 16 (12-78) U/L Alkaline Phosphatase 119 H (46-116) U/L Ammonia 19 (11-32) mmol/L Creatine Kinase (26-192) U/L Troponin I < 0.017 (0.000-0.056) ng/mL Total Protein 6.5 (6.4-8.2) g/dL Albumin 3.2 L (3.4-5.0) g/dL Globulin 3.3 (2.3-3.5) g/dL Albumin/Globulin Ratio 1.0 L (1.2-2.2) TSH, Ultra Sensitive 1.650 (0.358-3.740) uIU/mL Urine Color (YELLOW) Urine Appearance (CLEAR) Urine pH (5.0-8.0) Ur Specific [place] (1.008-1.030) Urine Protein (NEGATIVE) mg/dL Urine Glucose (UA) (NEGATIVE) mg/dL Urine Ketones (NEGATIVE) mg/dL Urine Occult Blood (NEGATIVE) Urine Nitrite (NEGATIVE) Urine Bilirubin (NEGATIVE) Urine Urobilinogen (0.2-1.0) EU/dL Ur Leukocyte Esterase (NEGATIVE) Urine RBC (0-5) Urine WBC (0-5) Ur Epithelial Cells Amorphous Sediment Urine Bacteria Urine Mucus Urine Opiates Screen (NEGATIVE) Ur Oxycodone Screen (NEGATIVE) Urine Methadone Screen (NEGATIVE) Ur Propoxyphene Screen (NEGATIVE) Ur Barbiturates Screen (NEGATIVE) Ur Tricyclics Screen (NEGATIVE) Ur Phencyclidine Scrn (NEGATIVE) Ur Amphetamine Screen (NEGATIVE) U Methamphetamines Scrn (NEGATIVE) Urine MDMA Screen (NEGATIVE) U Benzodiazepines Scrn (NEGATIVE) U Cocaine Metab Screen (NEGATIVE) U Marijuana (THC) Screen (NEGATIVE) Ethyl Alcohol < 3 mg/dL 10/16/19 10/16/19 Range/Units 17:51 17:51 WBC (4.5-11.0) K/uL RBC (3.30-5.50) M/uL Hgb (12.0-15.0) g/dL Hct (36.0-48.0) % MCV (80-98) fL MCH (27-31) pg MCHC (32-36) % Plt Count (150-400) K/uL Neut % (Auto) (36-66) % Lymph % (Auto) (24-44) % [place] % (Auto) (2-6) % Eos % (Auto) (2-4) % Baso % (Auto) (0-1) % Sodium (140-148) mmol/L Potassium (3.6-5.2) mmol/L Chloride (100-108) mmol/L Carbon Dioxide (21-32) mmol/L Anion Gap (5.0-14.0) mmol/L BUN (7-18) mg/dL Creatinine (0.6-1.0) mg/dL Est Cr Clr Drug Dosing mL/min Estimated GFR (MDRD) (>60) Glucose (74-106) mg/dL Lactic Acid (0.4-2.0) mmol/L Calcium (8.5-10.1) mg/dL Total Bilirubin (0.2-1.0) mg/dL AST (15-37) U/L ALT (12-78) U/L Alkaline Phosphatase (46-116) U/L Ammonia (11-32) mmol/L Creatine Kinase (26-192) U/L Troponin I (0.000-0.056) ng/mL Total Protein (6.4-8.2) g/dL Albumin (3.4-5.0) g/dL Globulin (2.3-3.5) g/dL Albumin/Globulin Ratio (1.2-2.2) TSH, Ultra Sensitive (0.358-3.740) uIU/mL Urine Color [place] A (YELLOW) Urine Appearance Clear (CLEAR) Urine pH 5.5 (5.0-8.0) Ur Specific [place] >= 1.030 (1.008-1.030) Urine Protein Negative (NEGATIVE) mg/dL Urine Glucose (UA) Negative (NEGATIVE) mg/dL Urine Ketones Negative (NEGATIVE) mg/dL Urine Occult Blood Negative (NEGATIVE) Urine Nitrite Negative (NEGATIVE) Urine Bilirubin Small H (NEGATIVE) Urine Urobilinogen 0.2 (0.2-1.0) EU/dL Ur Leukocyte Esterase Small H (NEGATIVE) Urine RBC 5-10 H (0-5) Urine WBC 20-30 H (0-5) Ur Epithelial Cells Many Amorphous Sediment Many Urine Bacteria Few Urine Mucus Not seen Urine Opiates Screen Negative (NEGATIVE) Ur Oxycodone Screen Negative (NEGATIVE) Urine Methadone Screen Negative (NEGATIVE) Ur Propoxyphene Screen Negative (NEGATIVE) Ur Barbiturates Screen Negative (NEGATIVE) Ur Tricyclics Screen Presumptive positive H (NEGATIVE) Ur Phencyclidine Scrn Negative (NEGATIVE) Ur Amphetamine Screen Negative (NEGATIVE) U Methamphetamines Scrn Negative (NEGATIVE) Urine MDMA Screen Negative (NEGATIVE) U Benzodiazepines Scrn Presumptive positive H (NEGATIVE) U Cocaine Metab Screen Negative (NEGATIVE) U Marijuana (THC) Screen Negative (NEGATIVE) Ethyl Alcohol mg/dL Meds: Medications Discontinued Medications Generic Name Dose Route Start Last Admin Trade Name Freq PRN Reason Stop Dose Admin Ketorolac Tromethamine 60 mg 10/16/19 16:05 10/16/19 16:13 Toradol IM 10/16/19 16:06 60 mg ONETIME ONE Administration Lorazepam 0.5 mg 10/16/19 16:10 10/16/19 16:22 Ativan PO 10/16/19 16:11 0.5 mg ONETIME ONE Administration Ondansetron HCl 4 mg 10/16/19 16:09 10/16/19 16:22 Zofran Odt PO 10/16/19 16:10 4 mg ONETIME ONE Administration Departure - Departure Time of Disposition: 18:28 Disposition: Home, Self-Care 01 Condition: Fair Clinical Impression: UTI, Urinary tract infectious disease - Discharge Information Instructions: Urinary Tract Infection, Adult, [id number] Referrals: PCP,None [Primary Care Provider] - Forms: ED Department Discharge Additional Instructions: Stop the antibiotics of Bactrim, start the new antibiotic of Macrobid, please followup with your primary care provider in 3-5 days if not better, please call return to the emergency department with worsening of symptoms. Sepsis Event Note - Evaluation Sepsis Screening Result: No Definite Risk - Focused Exam Vital Signs: Vital Signs Temp Pulse Resp BP Pulse Ox 10/16/19 15:29 98.9 F 101 H 16 132/71 92 L 10/16/19 15:14 98.9 F 101 H 16 132/71 90 L Date Exam was Performed: 10/16/19 Time Exam was Performed: 18:25 - My Orders Last 24 Hours: My Active Orders 10/16/19 18:15 CULTURE URINE [RM] Urgent - Assessment/Plan Last 24 Hours: My Active Orders 10/16/19 18:15 CULTURE URINE [RM] Urgent Plan: Assessment Acuity = acute Site and laterality = myalgias complicated patient with known history of urinary tract infection Etiology = myalgias probably related to allergic response to Bactrim Manifestations = none Location of injury = Home Lab values = CBC unremarkable creatinine elevated 1.1 consistent with acute renal failure stage T3a lactic acid elevated 2.8 consistent lactic acidosis urinalysis reveals 5-10 RBCs consistent with a hematuria 20-30 WBCs consistent with pyuria Plan Myalgias is a listed side effect of Bactrim I believe she had a reaction to this therefore stopped that medication she started on Macrobid 1 tab p.o. twice daily x7 days she will follow-up with primary care 3 to 5 days if not better This note was dictated using [employer] voice recognition software please call with any questions on syntax or grammar.
--- NOTE | 2019-10-16 16:56 | CRLCR ---
INDICATION: Shortness of breath TECHNIQUE: Chest 2 views. COMPARISON: 08/30/2009 FINDINGS: Cardiovascular and mediastinum: Heart size and vasculature are normal in caliber and appearance. Mediastinum is within normal limits. Lungs and pleural spaces: Lower lobe atelectasis. No sign of infiltrate or mass. No sign of pleural effusion. No pneumothorax. Bones and soft tissues: No significant findings. IMPRESSION: No acute pulmonary or cardiac abnormalities. Left lower lobe atelectasis. Dictated by Kwaku Huggins MD @ 10/16/2019 4:54:53 PM Dictated by: Kwaku Huggins MD @ 10/16/2019 16:55:09 (Electronically Signed)
== END 2019-10-16 18:50 | disposition home or self-care (01) ==
LOC: JP.ED 15:08
DX: N39.0 Urinary tract infection, site not specified (principal); J44.9 Chronic obstructive pulmonary disease, unspecified; M19.90 Unspecified osteoarthritis, unspecified site; F32.9 Major depressive disorder, single episode, unspecified; F41.0 Panic disorder [episodic paroxysmal anxiety]; F17.210 Nicotine dependence, cigarettes, uncomplicated; Z88.2 Allergy status to sulfonamides; Z88.8 Allergy status to other drugs, medicaments and biological substances; Z88.1 Allergy status to other antibiotic agents; Z79.82 Long term (current) use of aspirin; Z79.84 Long term (current) use of oral hypoglycemic drugs; Z79.899 Other long term (current) drug therapy
CPT/HCPCS: 36415; 71046; 80053; 80305-QW; 81001; 82140; 82550; 83605; 84443; 84484; 85025; 87086; 87804; 87804-59; 96372; 99283; 99284-25; A9270-GY; G0480; J1885

== ENCOUNTER 2019-10-17 12:39 | Inpatient (IN) | payer MEDICARE, MEDICAID ==
[2019-10-17] MEDS ORDERED: Sodium Chloride 0.9% 1,000 ML IV ONE (13:35)
--- NOTE | 2019-10-17 13:54 | EDM.PDOC ---
ED HPI GENERAL MEDICAL PROBLEM - General Chief Complaint: General Stated Complaint: [facility] Time Seen by Provider: 10/17/19 13:35 Source of Information: Reports: Patient, Old Records, RN History Limitations: Reports: No Limitations - History of Present Illness INITIAL COMMENTS - FREE TEXT/NARRATIVE: 69 yo female presents via EMS due to dry mouth, weakness, and mild SOB. Use oxygen at home and didn't get this en route to the ER. Has felt chilled at times. Is being tx'd for a UTI, currently with Macrodantin. When she was here yesterday she complained of muscle cramps felt to be due to the Bactrim she was given through the clinic for a UTI so this was stopped and Macrodantin given. It is not clear if she has even started this new med yet. Has some R auricular pain now. Has known COPD. A CXR yesterday showed atelectasis. Onset: Gradual Duration: Day(s):, Getting Worse Location: Reports: Face (R ear), Chest, Pelvis (UTI) Quality: Reports: Ache (R outer ear) Severity: Mild Improves with: Reports: None Worsens with: Reports: Other (time) Context: Reports: Other (see HPI) Associated Symptoms: Reports: Cough, Fever/Chills (not sure about fever), Malaise, Shortness of Breath (acute on chronic), Weakness (generalized). 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 Denies: Breathing Treatments Bilateral Leg Pain Score (Numeric/FACES): 4 Bilateral Arm Pain Score (Numeric/FACES): 4 - Related Data Allergies Allergy/AdvReac Type Severity Reaction Status Date / Time diclofenac potassium Allergy Mild unsure Verified 10/17/19 13:00 [From Cataflam] dicyclomine HCl [From Bentyl] Allergy Mild unsure Verified 10/17/19 13:00 paroxetine HCl [From Paxil] Allergy Mild unsure Verified 10/17/19 13:00 sulfamethoxazole Allergy Other Verified 10/17/19 13:00 [From Bactrim] trimethoprim [From Bactrim] Allergy Other Verified 10/17/19 13:00 Home Meds: Home Meds Aspirin [[place]ley Chewable Aspirin] 81 mg PO DAILY 07/26/13 [History] Calcium Carbonate [Calci-Chew] 500 mg PO BID 07/26/13 [History] Escitalopram [Lexapro] 20 mg PO DAILY 07/26/13 [History] Multivitamin [Multi-Vitamin Daily] 1 each PO DAILY 07/26/13 [History] QUEtiapine Fumarate [Quetiapine Fumarate] 400 mg PO BEDTIME 07/26/13 [History] metFORMIN [Glucophage] 500 mg PO BID 07/26/13 [History] busPIRone [Buspar] 20 mg PO TID 02/12/15 [History] Triamcinolone Acetonide [Triamcinolone Acetonide 0.1% Crm] 15 gm TOP TID PRN 01/27 [History] Vitamin E 400 unit PO DAILY 03/18/15 [History] Albuterol [Ventolin HFA] 2 puff IH Q4HR PRN 02/28/18 [History] Calcitonin,[place],Synthetic [Miacalcin] 3.7 ml NS DAILY #1 spray.pump 10/10/18 [ Rx] Cholecalciferol (Vitamin D3) [Vitamin D] 1 tab PO WEEKLY 08/22/19 [History] Folic Acid 1 tab PO DAILY 08/22/19 [History] Furosemide [Lasix] 1 tab PO DAILY 08/22/19 [History] Lactulose 30 ml PO DAILY 08/22/19 [History] Mupirocin Oint [Bactroban Oint] 1 dose TOP BID 08/22/19 [History] Naproxen 1 tab PO BID PRN 08/22/19 [History] valACYclovir HCl [Valtrex] 500 mg PO DAILY 08/22/19 [History] Acetaminophen/HYDROcodone [[place] 325-5 MG] 1 tab PO Q4H PRN 10/17/19 [History] Loperamide [Imodium] 2 mg PO BID PRN 10/17/19 [History] rOPINIRole [Requip] 2 mg PO QID 10/17/19 [History] Diazepam [Valium] 5 mg PO DAILY PRN 10/18/19 [History] Menthol/Camphor [Sarna Anti-Itch] 1 gm TOP DAILY PRN 10/18/19 [History] Past Medical History HEENT History: Reports: Impaired Vision Other HEENT History: dry eyes Cardiovascular History: Reports: Other (See Below) Other Cardiovascular History: hx stress test normal Respiratory History: Reports: COPD Other Respiratory History: uses boyfriends inhaler Gastrointestinal History: Reports: Hepatitis, Irritable Bowel Syndrome Genitourinary History: Reports: Urinary Incontinence, UTI, Recurrent CONTROL SYSTEMS ENGINEER History: Reports: Other CONTROL SYSTEMS ENGINEER History: cysts Musculoskeletal History: Reports: Arthritis Other Musculoskeletal History: hip pain Neurological History: Reports: Other (See Below) Other Neuro History: restless legs Psychiatric History: Reports: Addiction, Anxiety, Bipolar, Depression, Panic Attack, Schizophrenia Endocrine/Metabolic History: Reports: Diabetes, Type II Immunologic History: Reports: Other (See Below) Other Immunologic History: herpes Dermatologic History: Reports: Urticaria - Infectious Disease History Infectious Disease History: Reports: Hepatitis C - Past Surgical History Female Surgical History: Reports: Hysterectomy, Salpingo-Oophorectomy Social & Family History - Family History Family Medical History: Noncontributory Oncologic: Reports: Breast, Pancreatic, Prostate - Tobacco Use Smoking Status *Q: Current Every Day Smoker Years of Tobacco use: 50 Packs/Tins Daily: 1 Used Tobacco, but Quit: No - Caffeine Use Caffeine Use: Reports: Coffee, Soda - Recreational Drug Use Recreational Drug Use: No ED ROS GENERAL - Review of Systems Review Of Systems: See Below Constitutional: Reports: Chills, Malaise, Weakness, Fatigue. Denies: Diaphoresis HEENT: Reports: Ear Pain (right), Other (dry mouth). Denies: Dental Pain, Eye Pain, Nosebleed, Nose Pain, Rhinitis, Throat Pain, Vertigo Respiratory: Reports: Shortness of Breath (acute on chronic), Cough. Denies: Wheezing, Sputum, Hemoptysis Cardiovascular: Reports: Dyspnea on Exertion, Lightheadedness. Denies: Claudication, Palpitations Endocrine: Reports: No Symptoms GI/Abdominal: Reports: No Symptoms : Reports: Dysuria, Urgency. Denies: Flank Pain, Frequency, Hematuria Musculoskeletal: Reports: No Symptoms Skin: Reports: No Symptoms Neurological: Reports: Dizziness (with standing, not vertigo), Difficulty Walking (due to light-headedness), Weakness (generalized). Denies: Numbness, Trouble Speaking Psychiatric: Reports: No Symptoms ED EXAM, GENERAL - Physical Exam Exam: See Below Exam Limited By: No Limitations General Appearance: Alert, WD/WN, Mild Distress Eye Exam: Bilateral Eye: Normal Inspection Ears: Normal External Exam, Normal Canal, Hearing Grossly Normal, Normal TMs, Other (R auricle is well, ? from something she has been putting on the ear. ) Ear Exam: Bilateral Ear: Auricle Normal, Canal Normal, TM normal Nose: Normal Inspection, No Blood Throat/Mouth: Normal Lips, Normal Oropharynx, Normal Voice, No Airway Compromise , Other (tongue very dry) Head: Atraumatic, Normocephalic Neck: Normal Inspection Respiratory/Chest: No Respiratory Distress, No Accessory Muscle Use, Decreased Breath Sounds, Rales (at both bases. ) Cardiovascular: Regular Rate, Rhythm, No Edema GI/Abdominal: Normal Bowel Sounds, Soft, Non-Tender, No Distention Back Exam: Normal Inspection. No: CVA Tenderness (R), CVA Tenderness (L) Extremities: Normal Inspection, Normal Range of Motion, Non-Tender, No Pedal Edema Neurological: Alert, Oriented, CN II-XII Intact, Normal Cognition, No Motor/ Sensory Deficits Psychiatric: Normal Affect, Normal Mood Skin Exam: Warm, Dry, Intact, Normal Color, No Rash Course - Vital Signs Text/Narrative:: Dr. Jennings called @ 1370. Last Recorded V/S: Last Vital Signs Temp 36.7 C 10/20/19 14:47 Pulse 73 10/20/19 14:47 Resp 18 10/20/19 14:47 BP 141/68 H 10/20/19 14:47 Pulse Ox 93 L 10/20/19 15:00 - Orders/Labs/Meds Orders: Medication Orders Acetaminophen (Tylenol) 650 mg PO Q4H PRN PRN Reason: Pain (Mild 1-3)/fever Hydrocodone Bitart/Acetaminophen ([place] 325-5 Mg) 1 tab PO Q4H PRN PRN Reason: Pain Last Admin: 10/20/19 15:32 Dose: 1 tab Admin: 10/20/19 04:43 Dose: 1 tab Admin: 10/20/19 00:24 Dose: 1 tab Admin: 10/18/19 01:26 Dose: 1 tab Admin: 10/17/19 19:00 Dose: 1 tab Albuterol (Proventil Neb Soln) 2.5 mg NEB Q4H PRN PRN Reason: Shortness Of Breath/wheezing Aspirin (Aspirin) 81 mg PO DAILY ETTA Last Admin: 10/20/19 09:19 Dose: 81 mg Admin: 10/19/19 09:00 Dose: 81 mg Admin: 10/18/19 09:25 Dose: 81 mg Azithromycin (Zithromax) 500 mg PO Q24H [facility] Last Admin: 10/20/19 16:55 Dose: 500 mg Admin: 10/19/19 17:12 Dose: 500 mg Admin: 10/18/19 17:44 Dose: 500 mg Benzonatate (Tessalon Perles) 100 mg PO TID PRN PRN Reason: Cough Buspirone HCl (Buspar) 20 mg PO TID [facility] Last Admin: 10/20/19 13:42 Dose: 20 mg Admin: 10/20/19 09:20 Dose: 20 mg Admin: 10/19/19 21:16 Dose: 20 mg Admin: 10/19/19 15:03 Dose: 20 mg Admin: 10/18/19 09:25 Dose: 20 mg Escitalopram Oxalate (Lexapro) 20 mg PO DAILY [facility] Last Admin: 10/20/19 09:22 Dose: 20 mg Admin: 10/19/19 09:02 Dose: 20 mg Admin: 10/18/19 09:26 Dose: 20 mg Folic Acid (Folic Acid) 1 mg PO DAILY [facility] Last Admin: 10/20/19 09:21 Dose: 1 mg Admin: 10/19/19 09:02 Dose: 1 mg Admin: 10/18/19 09:26 Dose: 1 mg Furosemide (Lasix) 40 mg PO DAILY [facility] Last Admin: 10/20/19 09:33 Dose: 40 mg Admin: 10/19/19 10:20 Dose: 40 mg Ibuprofen (Motrin) 600 mg PO Q6H PRN PRN Reason: Pain/Fever Last Admin: 10/19/19 10:20 Dose: 600 mg Lactobacillus Rhamnosus (Culturelle) 1 cap PO BID [facility] Last Admin: 10/20/19 09:20 Dose: 1 cap Admin: 10/19/19 21:16 Dose: 1 cap Admin: 10/19/19 09:01 Dose: 1 cap Admin: 10/18/19 20:15 Dose: 1 cap Admin: 10/18/19 09:24 Dose: 1 cap Admin: 10/17/19 20:57 Dose: 1 cap Lorazepam (Ativan) 0.5 mg IVPUSH Q4H PRN PRN Reason: Nausea/Vomiting Last Admin: 10/20/19 02:13 Dose: 0.5 mg Admin: 10/17/19 23:53 Dose: 0.5 mg Magnesium Hydroxide (Milk Of Magnesia) 30 ml PO Q12H PRN PRN Reason: Constipation Melatonin (Melatonin) 9 mg PO BEDTIME [facility] Last Admin: 10/19/19 21:16 Dose: 9 mg Admin: 10/18/19 20:15 Dose: 9 mg Admin: 10/17/19 20:57 Dose: 9 mg Metformin HCl (Glucophage) 500 mg PO BIDMEALS [facility] Last Admin: 10/20/19 16:55 Dose: 500 mg Admin: 10/20/19 09:19 Dose: 500 mg Admin: 10/19/19 17:13 Dose: 500 mg Admin: 10/19/19 08:52 Dose: 500 mg Admin: 10/18/19 17:43 Dose: 500 mg Admin: 10/18/19 09:30 Dose: 500 mg Nystatin (Nystop) 0 gm TOP TID [facility] Last Admin: 10/20/19 13:42 Dose: Not Given Admin: 10/20/19 09:23 Dose: 1 applic Admin: 10/19/19 21:17 Dose: 1 applic Admin: 10/19/19 15:03 Dose: 1 applic Admin: 10/19/19 09:00 Dose: 1 applic Admin: 10/18/19 20:15 Dose: 1 applic Admin: 10/18/19 14:40 Dose: 1 applic Admin: 10/18/19 09:27 Dose: 1 applic Ondansetron HCl (Zofran Odt) 4 mg PO Q6H PRN PRN Reason: Nausea able to take PO Ondansetron HCl (Zofran) 4 mg IV Q6H PRN PRN Reason: Nausea/Vomiting Prednisone (Prednisone) 20 mg PO DAILY [facility] Stop: 10/21/19 09:01 Last Admin: 10/20/19 09:23 Dose: 20 mg Admin: 10/19/19 15:02 Dose: 20 mg Quetiapine Fumarate 100 mg/ (Quetiapine Fumarate 300 mg) 400 mg PO BEDTIME [facility] Last Admin: 10/19/19 21:16 Dose: 400 mg Admin: 10/18/19 20:15 Dose: 400 mg Ropinirole HCl (Requip) 2 mg PO QID [facility] Last Admin: 10/20/19 15:31 Dose: 2 mg Admin: 10/20/19 09:20 Dose: 2 mg Admin: 10/20/19 06:02 Dose: 2 mg Admin: 10/19/19 21:16 Dose: 2 mg Admin: 10/19/19 15:04 Dose: 2 mg Admin: 10/19/19 09:02 Dose: 2 mg Admin: 10/19/19 06:02 Dose: Not Given Admin: 10/19/19 01:15 Dose: 2 mg Admin: 10/18/19 16:44 Dose: 2 mg Admin: 10/18/19 11:35 Dose: 2 mg Senna/Docusate Sodium (Senna Plus) 1 tab PO BID PRN PRN Reason: Constipation Last Admin: 10/19/19 09:08 Dose: 1 tab Thiamine HCl (Vitamin B-1) 100 mg PO DAILY [facility] Last Admin: 10/20/19 09:20 Dose: 100 mg Admin: 10/19/19 09:01 Dose: 100 mg Admin: 10/18/19 09:29 Dose: 100 mg Triamcinolone Acetonide (Triamcinolone Acetonide 0.1% Crm) 0 gm TOP BID PRN PRN Reason: Rash Valacyclovir HCl (Valtrex) 500 mg PO DAILY [facility] Last Admin: 10/20/19 09:24 Dose: 500 mg Admin: 10/19/19 09:01 Dose: 500 mg Admin: 10/18/19 10:56 Dose: 500 mg Labs: Laboratory Tests 10/17/19 10/17/19 10/17/19 Range/Units 13:48 13:48 13:48 WBC 9.4 (4.5-11.0) K/uL RBC 4.03 (3.30-5.50) M/uL Hgb 11.8 L (12.0-15.0) g/dL Hct 36.0 (36.0-48.0) % MCV 89 (80-98) fL MCH 29 (27-31) pg MCHC 33 (32-36) % Plt Count 113 L (150-400) K/uL Sodium 133 L (140-148) mmol/L Potassium 4.5 (3.6-5.2) mmol/L Chloride 100 (100-108) mmol/L Carbon Dioxide 23 (21-32) mmol/L Anion Gap 14.5 H (5.0-14.0) mmol/L BUN 35 H (7-18) mg/dL Creatinine 1.2 H (0.6-1.0) mg/dL Est Cr Clr Drug Dosing 36.60 mL/min Estimated GFR (MDRD) 45 L (>60) Glucose 133 H (74-106) mg/dL Lactic Acid 2.9 H (0.4-2.0) mmol/L Calcium 9.0 (8.5-10.1) mg/dL Meds: Medications Generic Name Dose Route Start Last Admin Trade Name Freq PRN Reason Stop Dose Admin Acetaminophen 650 mg 10/17/19 18:13 Tylenol PO Q4H PRN Pain (Mild 1-3)/fever Hydrocodone Bitart/Acetaminophen 1 tab 10/17/19 18:13 10/20/19 15:32 [place] 325-5 Mg PO 1 tab Q4H PRN Administration Pain Albuterol 2.5 mg 10/17/19 18:13 Proventil Neb Soln NEB Q4H PRN Shortness Of Breath/wheezing Aspirin 81 mg 10/18/19 09:00 10/20/19 09:19 Aspirin PO 81 mg DAILY ETTA Administration Azithromycin 500 mg 10/18/19 17:00 10/20/19 16:55 Zithromax PO 500 mg Q24H ETTA Administration Benzonatate 100 mg 10/17/19 18:13 Tessalon Perles PO TID PRN Cough Buspirone HCl 20 mg 10/18/19 09:00 10/20/19 13:42 Buspar PO 20 mg TID ETTA Administration Escitalopram Oxalate 20 mg 10/18/19 09:00 10/20/19 09:22 Lexapro PO 20 mg DAILY ETTA Administration Folic Acid 1 mg 10/18/19 09:00 10/20/19 09:21 Folic Acid PO 1 mg DAILY ETTA Administration Furosemide 40 mg 10/19/19 09:45 10/20/19 09:33 Lasix PO 40 mg DAILY ETTA Administration Ibuprofen 600 mg 10/17/19 18:13 10/19/19 10:20 Motrin PO 600 mg Q6H PRN Administration Pain/Fever Lactobacillus Rhamnosus 1 cap 10/17/19 21:00 10/20/19 09:20 Culturelle PO 1 cap BID ETTA Administration Lorazepam 0.5 mg 10/17/19 18:13 10/20/19 02:13 Ativan IVPUSH 0.5 mg Q4H PRN Administration Nausea/Vomiting Magnesium Hydroxide 30 ml 10/17/19 18:13 Milk Of Magnesia PO Q12H PRN Constipation Melatonin 9 mg 10/17/19 21:00 10/19/19 21:16 Melatonin PO 9 mg BEDTIME ETTA Administration Metformin HCl 500 mg 10/18/19 08:30 10/20/19 16:55 Glucophage PO 500 mg BIDMEALS ETTA Administration Nystatin 0 gm 10/18/19 09:00 10/20/19 13:42 Nystop TOP Not Given TID ETTA Ondansetron HCl 4 mg 10/17/19 18:13 Zofran Odt PO Q6H PRN Nausea able to take PO Ondansetron HCl 4 mg 10/17/19 18:13 Zofran IV Q6H PRN Nausea/Vomiting Prednisone 20 mg 10/19/19 13:30 10/20/19 09:23 Prednisone PO 10/21/19 09:01 20 mg DAILY ETTA Administration Quetiapine Fumarate 100 mg/ 400 mg 10/18/19 21:00 10/19/19 21:16 Quetiapine Fumarate 300 mg PO 400 mg BEDTIME ETTA Administration Ropinirole HCl 2 mg 10/18/19 10:00 10/20/19 15:31 Requip PO 2 mg QID ETTA Administration Senna/Docusate Sodium 1 tab 10/17/19 18:13 10/19/19 09:08 Senna Plus PO 1 tab BID PRN Administration Constipation Thiamine HCl 100 mg 10/18/19 09:00 10/20/19 09:20 Vitamin B-1 PO 100 mg DAILY ETTA Administration Triamcinolone Acetonide 0 gm 10/20/19 15:58 Triamcinolone Acetonide 0.1% Crm TOP BID PRN Rash Valacyclovir HCl 500 mg 10/18/19 10:00 10/20/19 09:24 Valtrex PO 500 mg DAILY ETTA Administration Discontinued Medications Generic Name Dose Route Start Last Admin Trade Name Freq PRN Reason Stop Dose Admin Albuterol/Ipratropium 3 ml 10/17/19 15:40 10/17/19 16:15 Duoneb 3.0-0.5 Mg/3 Ml NEB 10/17/19 15:41 3 ml ONETIME ONE Administration Aspirin 81 mg 10/17/19 15:39 10/17/19 16:15 Aspirin PO 10/17/19 15:40 81 mg ONETIME ONE Administration Azithromycin 500 mg 10/17/19 18:13 10/17/19 19:01 Zithromax PO 500 mg Q24H ETTA Administration Buspirone HCl 20 mg 10/17/19 21:00 10/17/19 20:57 Buspar PO 20 mg TID ETTA Administration Diazepam 5 mg 10/17/19 21:00 10/18/19 09:35 Valium. PO 5 mg TID TETA Administration Furosemide 40 mg 10/19/19 16:59 10/19/19 17:14 Lasix PO 10/19/19 17:00 40 mg ONETIME ONE Administration Sodium Chloride 1,000 mls @ 1,000 mls/hr 10/17/19 13:35 10/17/19 13:54 Normal Saline IV 10/17/19 14:34 1,000 mls/hr .BOLUS ONE Administration Sodium Chloride 1,000 mls @ 500 mls/hr 10/17/19 15:00 10/17/19 15:08 Normal Saline IV 500 mls/hr ASDIRECTED ETTA Administration Ceftriaxone Sodium 1 gm/ 50 mls @ 100 mls/hr 10/17/19 18:13 10/17/19 19:02 Sodium Chloride IV 100 mls/hr Q24H ETTA Administration Sodium Chloride 1,000 mls @ 125 mls/hr 10/17/19 18:13 10/18/19 11:38 Normal Saline IV 125 mls/hr ASDIRECTED ETTA Administration Ceftriaxone Sodium 1 gm/ 50 mls @ 100 mls/hr 10/18/19 17:30 10/19/19 17:10 Sodium Chloride IV 100 mls/hr Q24H ETTA Administration Metformin HCl 500 mg 10/17/19 15:39 10/17/19 16:15 Glucophage PO 10/17/19 15:40 500 mg ONETIME ONE Administration Non-Formulary Medication 1 tab 10/17/19 21:00 10/17/19 22:18 Pramipexole Di-Hcl [Mirapex] PO Not Given TID ETTA Non-Formulary Medication 400 mg 10/17/19 21:00 01/03/20 22:00 Quetiapine Fumarate [Quetiapine Fumarate] PO Not Given BEDTIME ETTA Non-Formulary Medication 2 mg 10/17/19 22:00 10/18/19 07:41 Ropinirole [Requip] PO Not Given QID ETTA Nystatin 1 gm 10/17/19 21:00 10/17/19 20:57 Nystop TOP Not Given TID [facility] Pramipexole Dihydrochloride 0.125 mg 10/17/19 21:30 10/18/19 14:45 Mirapex PO Not Given TID ETTA Quetiapine Fumarate Confirm 10/17/19 21:48 10/17/19 21:59 Seroquel Administered 10/17/19 21:49 400 mg Dose Administration 400 mg .ROUTE .STK-MED ONE Ropinirole HCl Confirm 10/17/19 21:47 10/17/19 21:59 Requip Administered 10/17/19 21:48 2 mg Dose Administration 2 mg .ROUTE .STK-MED ONE - Radiology Interpretation Free Text/Narrative:: CXR- IMPRESSION: Unremarkable chest. Dictated by: Kwaku Huggins MD @ 10/17/2019 15:46:57 Departure - Departure Time of Disposition: 17:05 Disposition: Admitted As Inpatient 66 Condition: Fair Clinical Impression: Weakness, Dehydration COPD (chronic obstructive pulmonary disease) Qualifiers: COPD type: unspecified COPD Qualified Code(s): J44.9 - Chronic obstructive pulmonary disease, unspecified UTI (urinary tract infection) Qualifiers: Urinary tract infection type: site unspecified Hematuria presence: without hematuria Qualified Code(s): N39.0 - Urinary tract infection, site not specified - Discharge Information *PRESCRIPTION DRUG MONITORING PROGRAM REVIEWED*: No *COPY OF PRESCRIPTION DRUG MONITORING REPORT IN PATIENT JEN: No Sepsis Event Note - Evaluation Sepsis Screening Result: No Definite Risk - Focused Exam Date Exam was Performed: 10/20/19 Time Exam was Performed: 18:09
[2019-10-17] MEDS ORDERED: Sodium Chloride 0.9% 1,000 ML IV SCH (15:00)
[2019-10-17] MEDS ORDERED: Aspirin 81 MG Tab.Chew PO ONE (15:39)
[2019-10-17] MEDS ORDERED: metFORMIN 500 MG Tab PO ONE (15:39)
[2019-10-17] MEDS ORDERED: Albuterol/Ipratropium 3.0-0.5 MG/3 ML Neb Soln NEB ONE (15:40)
--- NOTE | 2019-10-17 15:49 | CRLCR ---
INDICATION: hypoxia, rales both bases, cough TECHNIQUE: Chest 2 views. COMPARISON: 10/16/17 FINDINGS: Cardiovascular and mediastinum: Heart size and vasculature are normal in caliber and appearance. Mediastinum is within normal limits. Lungs and pleural spaces: Lungs are clear. No sign of infiltrate or mass. No sign of pleural effusion. No pneumothorax. Bones and soft tissues: No significant findings. IMPRESSION: Unremarkable chest. Dictated by: Kwaku Huggins MD @ 10/17/2019 15:46:57 (Electronically Signed)
--- NOTE | 2019-10-17 17:56 | PCM.HP.2 ---
H&P History of Present Illness - General Date of Service: 10/17/19 Admit Problem/Dx: Admission Diagnosis/Problem Admission Diagnosis/Problem Acute cystitis without hematuria Source of Information: Patient, Provider History Limitations: Reports: No Limitations - History of Present Illness Initial Comments - Free Text/Narative: CC: I'm so weak HPI: Snehal presents to the emergency room today with pain in her arms and her legs as well as generalized this. She has been treated for urinary tract infection but continues to feel weak. Yesterday she was switched from Bactrim to nitrofurantoin but after taking only 1 dose she had worsening pain in her arms and her legs. This is a moderate achy muscle pain that radiates throughout pretty much all of her muscles in her body but arms and legs are the most intense. She has been using pain pills without much improvement. Strength is steadily declining and she has a great deal of difficulty even standing up out of her wheelchair. She was so weak that she had trouble getting out of her bed this morning. She has had some chills but no obvious fevers. Appetite has been okay. She does have some nausea but reports this is her usual. No recent change in bowel or bladder habits. She feels a little more short of breath than usual. She is not coughing much. She has not been sleeping well because of the pains. No significant urinary symptoms at this time. She does report some itching in her right ear. She also reports a itchy rash underneath her pannus. Work-up in the emergency room revealed significant dehydration. Patient is extremely weak and unable to stand. She has been getting worse despite outpatient antibiotic therapy and will be admitted for hydration and management of a persistent urinary tract infection as well as generalized weakness and possible upper respiratory infection. - Related Data Allergies/Adverse Reactions: Allergies Allergy/AdvReac Type Severity Reaction Status Date / Time diclofenac potassium Allergy Mild unsure Verified 10/17/19 13:00 [From Cataflam] dicyclomine HCl [From Bentyl] Allergy Mild unsure Verified 10/17/19 13:00 paroxetine HCl [From Paxil] Allergy Mild unsure Verified 10/17/19 13:00 sulfamethoxazole Allergy Other Verified 10/17/19 13:00 [From Bactrim] trimethoprim [From Bactrim] Allergy Other Verified 10/17/19 13:00 Home Medications: Home Meds Aspirin [Ashley Chewable Aspirin] 81 mg PO DAILY 07/26/13 [History] Calcium Carbonate [Calci-Chew] 500 mg PO BID 07/26/13 [History] Escitalopram [Lexapro] 20 mg PO DAILY 07/26/13 [History] Multivitamin [Multi-Vitamin Daily] 1 each PO DAILY 07/26/13 [History] QUEtiapine Fumarate [Quetiapine Fumarate] 800 mg PO BEDTIME 07/26/13 [History] metFORMIN [Glucophage] 500 mg PO BID 07/26/13 [History] busPIRone [Buspar] 20 mg PO TID 02/12/15 [History] Triamcinolone Acetonide [Triamcinolone Acetonide 0.1% Crm] 15 gm TOP TID PRN 01/27 [History] Vitamin E 400 unit PO DAILY 03/18/15 [History] Albuterol [Ventolin HFA] 2 puff IH Q4HR PRN 02/28/18 [History] Calcitonin,[place],Synthetic [Miacalcin] 3.7 ml NS DAILY #1 spray.pump 10/10/18 [ Rx] Lactobacillus Rhamnosus GG [Culturelle] 1 cap PO BID #60 cap 07/15/19 [Rx] Acetaminophen/HYDROcodone [Forest 325-5 MG] 1 tab PO Q6H PRN 08/22/19 [History] Cholecalciferol (Vitamin D3) [Vitamin D] 1 tab PO WEEKLY 08/22/19 [History] Folic Acid 1 tab PO DAILY 08/22/19 [History] Furosemide [Lasix] 1 tab PO DAILY 08/22/19 [History] Ketoconazole [Nizoral 2% Crm] 1 dose TOP BID 08/22/19 [History] Lactulose 30 ml PO DAILY 08/22/19 [History] Loratadine [Claritin] 1 tab PO DAILY 08/22/19 [History] Magnesium Malate 1 tab PO DAILY 08/22/19 [History] Mupirocin Oint [Bactroban Oint] 1 dose TOP BID 08/22/19 [History] Naproxen 1 tab PO BID 08/22/19 [History] Pramipexole Di-HCl [Mirapex] 1 tab PO TID 08/22/19 [History] Thiamine [Vitamin B-1] 1 tab PO DAILY 08/22/19 [History] valACYclovir HCl [Valtrex] 1 tab PO DAILY 08/22/19 [History] Acetaminophen/HYDROcodone [Forest 325-5 MG] 1 tab PO Q4H PRN 10/17/19 [History] Loperamide [Imodium] 2 mg PO BID PRN 10/17/19 [History] Menthol/Camphor [Sarna Anti-Itch] 1 applic TOP ASDIRECTED 10/17/19 [History] Neomyc/Colist/Hydrocort/Thonzn [Cortisporin-Tc Ear Suspension] 10 ml OT DAILY [History] diazePAM [Valium] 5 mg PO TID 10/17/19 [History] rOPINIRole [Requip] 2 mg PO QID 10/17/19 [History] Past Medical History HEENT History: Reports: Impaired Vision Other HEENT History: dry eyes Cardiovascular History: Reports: Other (See Below) Other Cardiovascular History: hx stress test normal Respiratory History: Reports: COPD Other Respiratory History: uses boyfriends inhaler Gastrointestinal History: Reports: Hepatitis, Irritable Bowel Syndrome Genitourinary History: Reports: Urinary Incontinence, UTI, Recurrent [employer] History: Reports: Other OB/BYN History: cysts Musculoskeletal History: Reports: Arthritis Other Musculoskeletal History: hip pain Neurological History: Reports: Other (See Below) Other Neuro History: restless legs Psychiatric History: Reports: Addiction, Anxiety, Bipolar, Depression, Panic Attack, Schizophrenia Endocrine/Metabolic History: Reports: Diabetes, Type II Immunologic History: Reports: Other (See Below) Other Immunologic History: herpes Dermatologic History: Reports: Urticaria - Infectious Disease History Infectious Disease History: Reports: Hepatitis C - Past Surgical History Female Surgical History: Reports: Hysterectomy, Salpingo-Oophorectomy Social & Family History - Family History Family Medical History: Noncontributory Oncologic: Reports: Breast, Pancreatic, Prostate - Tobacco Use Smoking Status *Q: Current Every Day Smoker Years of Tobacco use: 50 Packs/Tins Daily: 1 Used Tobacco, but Quit: No - Caffeine Use Caffeine Use: Reports: Coffee, Soda - Recreational Drug Use Recreational Drug Use: No H&P Review of Systems - Review of Systems: Review Of Systems: See Below Free Text/Narrative: A complete 12 point review of systems was obtained. Pertinent positives and negatives are noted in the history of present illness. All other systems were reviewed and were negative except as noted. Exam - Exam Exam: See Below - Vital Signs Vital Signs: Last Vital Signs Temp 35.5 C 10/17/19 13:07 Pulse 106 H 10/17/19 13:07 Resp 18 10/17/19 13:07 BP 142/63 H 10/17/19 13:07 Pulse Ox 89 L 10/17/19 13:07 Weight: 80.286 kg - Exam Quality Assessment: Supplemental Oxygen General: Alert, Oriented, Cooperative. No: Mild Distress HEENT: Conjunctiva Clear, TMs Clear. No: Mucosa Moist & [place] (dry), Scleral Icterus Neck: Supple, Trachea Midline. No: Lymphadenopathy Lungs: Clear to Auscultation, Normal Respiratory Effort. No: Wheezing Cardiovascular: Regular Rate, Regular Rhythm, Systolic Murmur GI/Abdominal Exam: Normal Bowel Sounds, Soft, Non-Tender, No Distention Back Exam: Normal Inspection. No: Full Range of Motion Extremities: Pedal Edema. No: Increased Warmth Skin: Warm, Dry Neuro Extensive - Mental Status: Alert, Oriented x3, Nl Response to Commands Neuro Extensive - Motor, Sensory, Reflexes: No: Dysarthria, Abnormal Motor, Tremor Psychiatric: Alert, Normal Affect - Patient Data Lab Results Last 24 hrs: Laboratory Results - last 24 hr 10/17/19 10/17/19 10/17/19 Range/Units 13:48 13:48 13:48 WBC 9.4 (4.5-11.0) K/uL RBC 4.03 (3.30-5.50) M/uL Hgb 11.8 L (12.0-15.0) g/dL Hct 36.0 (36.0-48.0) % MCV 89 (80-98) fL MCH 29 (27-31) pg MCHC 33 (32-36) % Plt Count 113 L (150-400) K/uL Sodium 133 L (140-148) mmol/L Potassium 4.5 (3.6-5.2) mmol/L Chloride 100 (100-108) mmol/L Carbon Dioxide 23 (21-32) mmol/L Anion Gap 14.5 H (5.0-14.0) mmol/L BUN 35 H (7-18) mg/dL Creatinine 1.2 H (0.6-1.0) mg/dL Est Cr Clr Drug Dosing 36.60 mL/min Estimated GFR (MDRD) 45 L (>60) Glucose 133 H (74-106) mg/dL Lactic Acid 2.9 H (0.4-2.0) mmol/L Calcium 9.0 (8.5-10.1) mg/dL Result Diagrams: 10/17/19 13:48 10/17/19 13:48 Imaging Impressions Last 24 hrs: CXR - images personally reviewed - lungs clear with no mass, infiltrate or effusion. Sepsis Event Note - Evaluation Sepsis Screening Result: No Definite Risk - Focused Exam Vital Signs: Vital Signs Temp Pulse Resp BP Pulse Ox 10/17/19 13:07 35.5 C 106 H 18 142/63 H 89 L Date Exam was Performed: 10/17/19 Time Exam was Performed: 18:14 *Q Meaningful Use (ADM) - VTE Risk Assess *Q Each Risk Factor Represents 1 Point: Swollen Legs, Current, Obesity ( BMI > 25 kg/m2), Abnormal Pulmonary Function (COPD) Total Score 1 Point Risk Factors: 3 Each Risk Factor Represents 2 Points: Age 60 - 74 Years Total Score 2 Point Risk Factors: 2 Each Risk Factor Represents 3 Points: None Total Score 3 Point Risk Factors: 0 Each Risk Factor Represents 5 Points: None Total Score 5 Point Risk Factors: 0 Venous Thromboembolism Risk Factor Score *Q: 5 - Problem List (1) Acute cystitis without hematuria SNOMED Code(s): 80135248 ICD Code: N30.00 - ACUTE CYSTITIS WITHOUT HEMATURIA Status: Acute Current Visit: Yes (2) Weakness SNOMED Code(s): 89136501 ICD Code: R53.1 - WEAKNESS Status: Acute Current Visit: Yes (3) Dehydration SNOMED Code(s): 33050414 ICD Code: E86.0 - DEHYDRATION Status: Acute Current Visit: Yes (4) COPD (chronic obstructive pulmonary disease) SNOMED Code(s): 49969525 ICD Code: J44.9 - CHRONIC OBSTRUCTIVE PULMONARY DISEASE, UNSPECIFIED Status : Acute Current Visit: Yes Qualifiers: COPD type: unspecified COPD Qualified Code(s): J44.9 - Chronic obstructive pulmonary disease, unspecified (5) Diabetes mellitus type 2 in obese SNOMED Code(s): 08325943 ICD Code: E11.69 - TYPE 2 DIABETES MELLITUS WITH OTHER SPECIFIED COMPLICATION ; E66.9 - OBESITY, UNSPECIFIED Status: Chronic Current Visit: No (6) RLS (restless legs syndrome) SNOMED Code(s): 74218077 ICD Code: G25.81 - RESTLESS LEGS SYNDROME Status: Chronic Current Visit: No (7) Bipolar disorder SNOMED Code(s): 36826692 ICD Code: F31.9 - BIPOLAR DISORDER, UNSPECIFIED Status: Chronic Current Visit: Yes Qualifiers: Active/Remission status: remission status unspecified Qualified Code(s): F31.9 - Bipolar disorder, unspecified Problem List Initiated/Reviewed/Updated: Yes Orders Last 24hrs: Active Orders 24 hr Category Date Time Status Patient Status Manage Transfer [TRANSFER] Routine ADT 10/17/19 17:41 Ordered RT Aerosol Therapy [RC] ASDIRECTED Care 10/17/19 15:40 Active Sodium Chloride 0.9% [Normal Saline] 1,000 ml Med 10/17/19 15:00 Active IV ASDIRECTED Resuscitation Status Routine Resus Stat 10/17/19 17:45 Ordered Medication Orders Sodium Chloride (Normal Saline) 1,000 mls @ 500 mls/hr IV ASDIRECTED ETTA Last Admin: 10/17/19 15:08 Dose: 500 mls/hr Assessment/Plan Comment:: ASSESSMENT AND PLAN - Acute cystitis without hematuria-main manifestation is generalized weakness and complicated by significant dehydration. This seems to be getting worse despite 2 different outpatient antibiotics. Lactic acid is elevated but I think it is related to dehydration rather than sepsis. Possible component of interstitial nephritis from recent Bactrim use. -Ceftriaxone -Urine culture -IV fluids -Physical therapy COPD-more short of breath than usual, no evidence for pneumonia. She is chronically on oxygen and is slightly hypoxic despite usual amount of supplemental oxygen. There may be a mild component of underlying bronchitis but cough not dramatically different than usual. -Azithromycin -Nebs -Supplement oxygen Type 2 diabetes mellitus-controlled with metformin. -Continue metformin Bipolar disorder-no behavior issues at this time. Continue home medications- Maintenance issues - - DVT prophylaxis -SCDs - GI prophylaxis -not indicated - Nutrition -consistent carbohydrate - Chaudhary catheter -not indicated CODE STATUS -patient wishes to be full code Admission justification -this patient will be admitted for inpatient services and is medically appropriate meeting medical necessity for inpatient admission as outlined in my documentation. I reasonably expect the patient will require inpatient services that span a period time over 2 midnights. I reasonably expect this patient to be discharged or transferred within 96 hours after admission to the [facility]. Worsening despite outpatient antibiotic therapy. Disposition - I would anticipate discharge home with continued home care services after the hospital stay Primary care physician -Dr. Jorge Luis Jennings M.D. - Mortality Measure Prognosis:: Good
[2019-10-17] MEDS ORDERED: Ibuprofen 600 MG Tab PO PRN (18:13)
[2019-10-17] MEDS ORDERED: Ondansetron 4 MG/2 ML SDV IV PRN (18:13)
[2019-10-17] MEDS ORDERED: Albuterol 0.083% 2.5 MG/3 ML Neb Soln NEB PRN (18:13)
[2019-10-17] MEDS ORDERED: Magnesium Hydroxide 400 MG/5 ML Susp 30 ML Cup PO PRN (18:13)
[2019-10-17] MEDS ORDERED: cefTRIAXone 1 GM in Sodium Chloride 0.9% 50 ML IV SCH (18:13)
[2019-10-17] MEDS ORDERED: Ondansetron 4 MG Tab.DIS PO PRN (18:13)
[2019-10-17] MEDS ORDERED: Azithromycin 250 MG Tab PO SCH (18:13)
[2019-10-17] MEDS ORDERED: Acetaminophen 325 MG Tab PO PRN (18:13)
[2019-10-17] MEDS ORDERED: Benzonatate 100 MG Cap PO PRN (18:13)
[2019-10-17] MEDS: Sodium Chloride 0.9% 1,000 ML IV SCH (18:55)
[2019-10-17] MEDS: Acetaminophen/HYDROcodone 325-5 MG Tab PO PRN (19:00)
[2019-10-17] MEDS: Diazepam 5 MG Tab PO SCH (20:57)
[2019-10-17] MEDS: Melatonin 3 MG Tab PO SCH (20:57)
[2019-10-17] MEDS: Lactobacillus Rhamnosus GG (Probiotic) Cap PO SCH (20:57)
[2019-10-17] MEDS ORDERED: Nystatin Topical Powder 15 GM Bottle TOP SCH (21:00)
[2019-10-17] MEDS ORDERED: busPIRone 5 MG Tab PO SCH (21:00)
[2019-10-17] MEDS ORDERED: QUETIAPINE FUMARATE 400 MG PO SCH (21:00)
[2019-10-17] MEDS ORDERED: PRAMIPEXOLE DI HCL PO SCH (21:00)
[2019-10-17] MEDS ORDERED: rOPINIRole 1 MG Tab ONE (21:47)
[2019-10-17] MEDS ORDERED: QUEtiapine 100 MG Tab ONE (21:48)
[2019-10-17] MEDS: Pramipexole 0.25 MG Tab PO SCH (21:56)
[2019-10-17] MEDS: ROPINIROLE 2 MG PO SCH (22:00)
[2019-10-17] MEDS: LORazepam 2 MG/ML SDV IVPUSH PRN (23:53)
[2019-10-18] MEDS: Acetaminophen/HYDROcodone 325-5 MG Tab PO PRN (01:26)
[2019-10-18] MEDS ORDERED: metFORMIN 500 MG Tab PO SCH (07:30)
[2019-10-18] MEDS: ROPINIROLE 2 MG PO SCH (07:41)
[2019-10-18] MEDS ORDERED: VALACYCLOVIR HCL PO SCH (09:00)
[2019-10-18] MEDS: Lactobacillus Rhamnosus GG (Probiotic) Cap PO SCH ×2 (09:24→20:15)
[2019-10-18] MEDS: busPIRone 10 MG Tab PO SCH (09:25)
[2019-10-18] MEDS: Aspirin 81 MG Tab.Chew PO SCH (09:25)
[2019-10-18] MEDS: Escitalopram 20 MG Tab PO SCH (09:26)
[2019-10-18] MEDS: Pramipexole 0.25 MG Tab PO SCH ×3 (09:26→14:45)
[2019-10-18] MEDS: Folic Acid 1 MG Tab PO SCH (09:26)
[2019-10-18] MEDS: Nystatin Topical Powder 15 GM Bottle TOP SCH ×3 (09:27→20:15)
[2019-10-18] MEDS: Thiamine 100 MG Tab PO SCH (09:29)
[2019-10-18] MEDS: metFORMIN 500 MG Tab PO SCH ×2 (09:30→17:43)
[2019-10-18] MEDS: Diazepam 5 MG Tab PO SCH (09:35)
[2019-10-18] MEDS: valACYclovir 1,000 MG Tab PO SCH (10:56)
[2019-10-18] MEDS: rOPINIRole 1 MG Tab PO SCH ×2 (11:35→16:44)
--- NOTE | 2019-10-18 11:37 | PCM.PN ---
- General Info Date of Service: 10/18/19 Subjective Update: No acute events overnight. Patient is fairly somnolent this morning and wonders if she had too many sleep medications. We did check ABGs and ammonia which were both unremarkable other than mild hypoxia. She continues to complain of pain and cramping in her legs. Still very weak. Appetite was good last night. - Review of Systems General: Reports: Weakness Neurological: Reports: Trouble Speaking Psychiatric: Reports: Other (lethargic ) - Patient Data Vitals - Most Recent: Last Vital Signs Temp 36.6 C 10/18/19 07:51 Pulse 95 10/18/19 07:51 Resp 18 10/18/19 07:51 BP 110/63 10/18/19 07:51 Pulse Ox 92 L 10/18/19 09:18 Weight - Most Recent: 80.286 kg I&O - Last 24 Hours: Intake & Output 10/17/19 10/18/19 10/18/19 22:59 06:59 14:59 Intake Total 720 1400 Output Total 300 600 Balance 420 1400 -600 Lab Results Last 24 Hours: Laboratory Results - last 24 hr 10/17/19 10/17/19 10/17/19 Range/Units 13:48 13:48 13:48 WBC 9.4 (4.5-11.0) K/uL RBC 4.03 (3.30-5.50) M/uL Hgb 11.8 L (12.0-15.0) g/dL Hct 36.0 (36.0-48.0) % MCV 89 (80-98) fL MCH 29 (27-31) pg MCHC 33 (32-36) % Plt Count 113 L (150-400) K/uL Sodium 133 L (140-148) mmol/L Potassium 4.5 (3.6-5.2) mmol/L Chloride 100 (100-108) mmol/L Carbon Dioxide 23 (21-32) mmol/L Anion Gap 14.5 H (5.0-14.0) mmol/L BUN 35 H (7-18) mg/dL Creatinine 1.2 H (0.6-1.0) mg/dL Est Cr Clr Drug Dosing 36.60 mL/min Estimated GFR (MDRD) 45 L (>60) Glucose 133 H (74-106) mg/dL Lactic Acid 2.9 H (0.4-2.0) mmol/L Calcium 9.0 (8.5-10.1) mg/dL 10/18/19 10/18/19 10/18/19 Range/Units 04:15 04:15 04:15 WBC 4.3 L (4.5-11.0) K/uL RBC 3.50 (3.30-5.50) M/uL Hgb 10.2 L (12.0-15.0) g/dL Hct 31.7 L (36.0-48.0) % MCV 91 (80-98) fL MCH 29 (27-31) pg MCHC 32 (32-36) % Plt Count 86 L (150-400) K/uL Sodium 135 L (140-148) mmol/L Potassium 4.1 (3.6-5.2) mmol/L Chloride 104 (100-108) mmol/L Carbon Dioxide 22 (21-32) mmol/L Anion Gap 13.1 (5.0-14.0) mmol/L BUN 28 H (7-18) mg/dL Creatinine 0.8 (0.6-1.0) mg/dL Est Cr Clr Drug Dosing 54.90 mL/min Estimated GFR (MDRD) > 60 (>60) Glucose 129 H (74-106) mg/dL Lactic Acid 1.7 (0.4-2.0) mmol/L Calcium 8.2 L (8.5-10.1) mg/dL Med Orders - Current: Current Medications Acetaminophen (Tylenol) 650 mg PO Q4H PRN PRN Reason: Pain (Mild 1-3)/fever Hydrocodone Bitart/Acetaminophen ([facility] 325-5 Mg) 1 tab PO Q4H PRN PRN Reason: Pain Last Admin: 10/18/19 01:26 Dose: 1 tab Albuterol (Proventil Neb Soln) 2.5 mg NEB Q4H PRN PRN Reason: Shortness Of Breath/wheezing Aspirin (Aspirin) 81 mg PO DAILY [facility] Last Admin: 10/18/19 09:25 Dose: 81 mg Azithromycin (Zithromax) 500 mg PO Q24H [facility] Benzonatate (Tessalon Perles) 100 mg PO TID PRN PRN Reason: Cough Buspirone HCl (Buspar) 20 mg PO TID [facility] Last Admin: 10/18/19 09:25 Dose: 20 mg Escitalopram Oxalate (Lexapro) 20 mg PO DAILY [facility] Last Admin: 10/18/19 09:26 Dose: 20 mg Folic Acid (Folic Acid) 1 mg PO DAILY [facility] Last Admin: 10/18/19 09:26 Dose: 1 mg Sodium Chloride (Normal Saline) 1,000 mls @ 125 mls/hr IV ASDIRECTED [facility] Last Admin: 10/17/19 18:55 Dose: 125 mls/hr Ceftriaxone Sodium 1 gm/ (Sodium Chloride) 50 mls @ 100 mls/hr IV Q24H [facility] Ibuprofen (Motrin) 600 mg PO Q6H PRN PRN Reason: Pain/Fever Lactobacillus Rhamnosus (Culturelle) 1 cap PO BID [facility] Last Admin: 10/18/19 09:24 Dose: 1 cap Lorazepam (Ativan) 0.5 mg IVPUSH Q4H PRN PRN Reason: Nausea/Vomiting Last Admin: 10/17/19 23:53 Dose: 0.5 mg Magnesium Hydroxide (Milk Of Magnesia) 30 ml PO Q12H PRN PRN Reason: Constipation Melatonin (Melatonin) 9 mg PO BEDTIME [facility] Last Admin: 10/17/19 20:57 Dose: 9 mg Metformin HCl (Glucophage) 500 mg PO BIDMEALS [facility] Last Admin: 10/18/19 09:30 Dose: 500 mg Nystatin (Nystop) 0 gm TOP TID [facility] Last Admin: 10/18/19 09:27 Dose: 1 applic Ondansetron HCl (Zofran Odt) 4 mg PO Q6H PRN PRN Reason: Nausea able to take PO Ondansetron HCl (Zofran) 4 mg IV Q6H PRN PRN Reason: Nausea/Vomiting Pramipexole Dihydrochloride (Mirapex) 0.125 mg PO TID [facility] Last Admin: 10/18/19 09:26 Dose: 0.125 mg Quetiapine Fumarate 100 mg/ (Quetiapine Fumarate 300 mg) 400 mg PO BEDTIME [facility] Ropinirole HCl (Requip) 2 mg PO QID [facility] Last Admin: 10/18/19 11:35 Dose: 2 mg Senna/Docusate Sodium (Senna Plus) 1 tab PO BID PRN PRN Reason: Constipation Thiamine HCl (Vitamin B-1) 100 mg PO DAILY [facility] Last Admin: 10/18/19 09:29 Dose: 100 mg Valacyclovir HCl (Valtrex) 500 mg PO DAILY [facility] Last Admin: 10/18/19 10:56 Dose: 500 mg Discontinued Medications Albuterol/Ipratropium (Duoneb 3.0-0.5 Mg/3 Ml) 3 ml NEB ONETIME ONE Stop: 10/17/19 15:41 Last Admin: 10/17/19 16:15 Dose: 3 ml Aspirin (Aspirin) 81 mg PO ONETIME ONE Stop: 10/17/19 15:40 Last Admin: 10/17/19 16:15 Dose: 81 mg Azithromycin (Zithromax) 500 mg PO Q24H [facility] Last Admin: 10/17/19 19:01 Dose: 500 mg Buspirone HCl (Buspar) 20 mg PO TID [facility] Last Admin: 10/17/19 20:57 Dose: 20 mg Diazepam (Valium.) 5 mg PO TID [facility] Last Admin: 10/18/19 09:35 Dose: 5 mg Sodium Chloride (Normal Saline) 1,000 mls @ 1,000 mls/hr IV .BOLUS ONE Stop: 10/17/19 14:34 Last Admin: 10/17/19 13:54 Dose: 1,000 mls/hr Sodium Chloride (Normal Saline) 1,000 mls @ 500 mls/hr IV ASDIRECTED [facility] Last Admin: 10/17/19 15:08 Dose: 500 mls/hr Ceftriaxone Sodium 1 gm/ (Sodium Chloride) 50 mls @ 100 mls/hr IV Q24H [facility] Last Admin: 10/17/19 19:02 Dose: 100 mls/hr Metformin HCl (Glucophage) 500 mg PO ONETIME ONE Stop: 10/17/19 15:40 Last Admin: 10/17/19 16:15 Dose: 500 mg Non-Formulary Medication (Pramipexole Di-Hcl [Mirapex]) 1 tab PO TID [facility] Last Admin: 10/17/19 22:18 Dose: Not Given Non-Formulary Medication (Quetiapine Fumarate [Quetiapine Fumarate]) 400 mg PO BEDTIME [facility] Last Admin: 10/17/19 22:00 Dose: Not Given Non-Formulary Medication (Ropinirole [Requip]) 2 mg PO QID [facility] Last Admin: 10/18/19 07:41 Dose: Not Given Nystatin (Nystop) 1 gm TOP TID ETTA Last Admin: 10/17/19 20:57 Dose: Not Given Quetiapine Fumarate (Seroquel) Confirm Administered Dose 400 mg .ROUTE .[employer]-MED ONE Stop: 10/17/19 21:49 Last Admin: 10/17/19 21:59 Dose: 400 mg Ropinirole HCl (Requip) Confirm Administered Dose 2 mg .ROUTE .[employer] Stop: 10/17/19 21:48 Last Admin: 10/17/19 21:59 Dose: 2 mg - Exam Quality Assessment: Supplemental Oxygen General: Alert, Oriented, Cooperative, No Acute Distress Lungs: Normal Respiratory Effort, Wheezing (mild end exp left lower lung ) Cardiovascular: Regular Rate, Regular Rhythm GI/Abdominal Exam: Soft, No Distention Extremities: Pedal Edema. No: Increased Warmth Skin: Warm, Dry Psy/Mental Status: Alert. No: Agitated, Other (lethargic ) Sepsis Event Note - Evaluation Sepsis Screening Result: No Definite Risk - Focused Exam Vital Signs: Vital Signs Temp Pulse Resp BP Pulse Ox Pulse Ox 10/18/19 09:18 92 L 10/18/19 07:51 36.6 C 95 18 110/63 95 Date Exam was Performed: 10/18/19 Time Exam was Performed: 13:59 - Problem List & Annotations (1) Acute cystitis without hematuria SNOMED Code(s): 38691288 Code(s): N30.00 - ACUTE CYSTITIS WITHOUT HEMATURIA Status: Acute Current Visit: Yes (2) Weakness SNOMED Code(s): 76529943 Code(s): R53.1 - WEAKNESS Status: Acute Current Visit: Yes (3) Dehydration SNOMED Code(s): 39825727 Code(s): E86.0 - DEHYDRATION Status: Acute Current Visit: Yes (4) COPD (chronic obstructive pulmonary disease) SNOMED Code(s): 13058676 Code(s): J44.9 - CHRONIC OBSTRUCTIVE PULMONARY DISEASE, UNSPECIFIED Status : Acute Current Visit: Yes Qualifiers: COPD type: unspecified COPD Qualified Code(s): J44.9 - Chronic obstructive pulmonary disease, unspecified (5) Diabetes mellitus type 2 in obese SNOMED Code(s): 80935505 Code(s): E11.69 - TYPE 2 DIABETES MELLITUS WITH OTHER SPECIFIED COMPLICATION ; E66.9 - OBESITY, UNSPECIFIED Status: Chronic Current Visit: No (6) RLS (restless legs syndrome) SNOMED Code(s): 30531503 Code(s): G25.81 - RESTLESS LEGS SYNDROME Status: Chronic Current Visit: No (7) Bipolar disorder SNOMED Code(s): 02607449 Code(s): F31.9 - BIPOLAR DISORDER, UNSPECIFIED Status: Chronic Current Visit: Yes Qualifiers: Active/Remission status: remission status unspecified Qualified Code(s): F31.9 - Bipolar disorder, unspecified - Problem List Review Problem List Initiated/Reviewed/Updated: Yes - My Orders Last 24 Hours: My Active Orders 10/17/19 17:45 Resuscitation Status Routine 10/17/19 18:13 Patient Status [ADT] Routine Antiembolic Devices [RC] .Routine Notify Provider Vital Signs [RC] ASDIRECTED Oxygen Therapy [RC] PRN RT Aerosol Therapy [RC] ASDIRECTED Up With Assistance [RC] ASDIRECTED VTE/DVT Education [RC] Per Unit Routine Acetaminophen [Tylenol] 650 mg PO Q4H PRN Acetaminophen/HYDROcodone [[facility] 325-5 MG] 1 tab PO Q4H PRN Albuterol [Proventil Neb Soln] 2.5 mg NEB Q4H PRN Benzonatate [Tessalon Perles] 100 mg PO TID PRN Docusate Sodium/Sennosides [Senna Plus] 1 tab PO BID PRN Ibuprofen [Motrin] 600 mg PO Q6H PRN LORazepam [Ativan] 0.5 mg IVPUSH Q4H PRN Magnesium Hydroxide [Milk of Magnesia] 30 ml PO Q12H PRN Ondansetron [Zofran ODT] 4 mg PO Q6H PRN Ondansetron [Zofran] 4 mg IV Q6H PRN Sodium Chloride 0.9% [Normal Saline] 1,000 ml IV ASDIRECTED Sequential Compression Device [OM.PC] Routine 10/17/19 19:49 CULTURE URINE [RM] Routine 10/17/19 21:00 Lactobacillus Rhamnosus GG [Culturelle] 1 cap PO BID Melatonin 9 mg PO BEDTIME 10/17/19 21:30 Pramipexole [Mirapex] 0.125 mg PO TID 10/17/19 Dinner Consistent Carbohydrate Diet [DIET] 10/18/19 07:00 PT Evaluation and Treatment [CONS] Routine 10/18/19 08:30 metFORMIN [Glucophage] 500 mg PO BIDMEALS 10/18/19 09:00 Aspirin 81 mg PO DAILY Escitalopram [Lexapro] 20 mg PO DAILY Folic Acid 1 mg PO DAILY Nystatin [Nystop] 0 gm TOP TID Thiamine [Vitamin B-1] 100 mg PO DAILY busPIRone [Buspar] 20 mg PO TID 10/18/19 10:00 rOPINIRole [Requip] 2 mg PO QID valACYclovir [Valtrex] 500 mg PO DAILY 10/18/19 17:00 Azithromycin [Zithromax] 500 mg PO Q24H 10/18/19 17:30 cefTRIAXone [Rocephin] 1 gm Sodium Chloride 0.9% [Normal Saline] 50 ml IV Q24H 10/18/19 21:00 Quetiapine [Seroquel] 400 mg PO BEDTIME 10/19/19 05:00 CBC W/O DIFF,HEMOGRAM [HEME] Timed (1) COMPREHENSIVE METABOLIC PN,CMP [CHEM] Timed - Plan Plan:: ASSESSMENT AND PLAN - Acute cystitis without hematuria-main manifestation is generalized weakness and complicated by significant dehydration. Vitals stable. Culture pending. -Ceftriaxone -Follow-up urine culture -IV fluids -Physical therapy Somnolence-to many sedating medications are the likely culprit here. We have asked the home care folks to provide a list of her current medications for comparison. Sedating medications will be on hold until she perks up. COPD-more short of breath than usual, no evidence for pneumonia. She is chronically on oxygen and is slightly hypoxic despite usual amount of supplemental oxygen. There may be a mild component of underlying bronchitis but cough not dramatically different than usual. -Azithromycin -Nebs -Supplement oxygen Type 2 diabetes mellitus-controlled with metformin. -Continue metformin Bipolar disorder-no behavior issues at this time. Continue home medications- Maintenance issues - - DVT prophylaxis -SCDs - GI prophylaxis -not indicated - Nutrition -consistent carbohydrate - Chaudhary catheter -not indicated Disposition - I would anticipate discharge home with continued home care services after the hospital stay Primary care physician -Dr. Jorge Luis Jennings M.D.
[2019-10-18] MEDS: Sodium Chloride 0.9% 1,000 ML IV SCH (11:38)
[2019-10-18] MEDS: cefTRIAXone 1 GM in Sodium Chloride 0.9% 50 ML IV SCH (16:50)
[2019-10-18] MEDS: Azithromycin 250 MG Tab PO SCH (17:44)
[2019-10-18] MEDS: Melatonin 3 MG Tab PO SCH (20:15)
[2019-10-18] MEDS: QUETIAPINE PO SCH ×2 (20:15)
[2019-10-19] MEDS: rOPINIRole 1 MG Tab PO SCH ×5 (01:15→21:16)
[2019-10-19] MEDS: metFORMIN 500 MG Tab PO SCH ×2 (08:52→17:13)
[2019-10-19] MEDS: Aspirin 81 MG Tab.Chew PO SCH (09:00)
[2019-10-19] MEDS: Nystatin Topical Powder 15 GM Bottle TOP SCH ×3 (09:00→21:17)
[2019-10-19] MEDS: valACYclovir 1,000 MG Tab PO SCH (09:01)
[2019-10-19] MEDS: Thiamine 100 MG Tab PO SCH (09:01)
[2019-10-19] MEDS: Lactobacillus Rhamnosus GG (Probiotic) Cap PO SCH ×2 (09:01→21:16)
[2019-10-19] MEDS: Escitalopram 20 MG Tab PO SCH (09:02)
[2019-10-19] MEDS: Folic Acid 1 MG Tab PO SCH (09:02)
[2019-10-19] MEDS: Furosemide 40 MG Tab PO SCH (10:20)
[2019-10-19] MEDS: predniSONE 20 MG Tab PO SCH (15:02)
[2019-10-19] MEDS: busPIRone 10 MG Tab PO SCH ×2 (15:03→21:16)
--- NOTE | 2019-10-19 15:56 | PCM.PN ---
- General Info Date of Service: 10/19/19 Subjective Update: There were no acute events overnight. She thinks her breathing feels better today. No abdominal pain or nausea. Leg cramping is better but she complains of bilateral knee pain, especially when standing. This seems to be a little worse today. Hands are puffy today and a little bit sore from the swelling. Vital signs have been stable. - Review of Systems General: Reports: Weakness. Denies: Fever Musculoskeletal: Reports: Joint Pain (Both knees) - Patient Data Vitals - Most Recent: Last Vital Signs Temp 36.2 C 10/19/19 12:17 Pulse 84 10/19/19 12:17 Resp 14 10/19/19 12:17 BP 117/62 10/19/19 12:17 Pulse Ox 90 L 10/19/19 12:17 Weight - Most Recent: 80.286 kg I&O - Last 24 Hours: Intake & Output 10/19/19 10/19/19 10/19/19 06:59 14:59 22:59 Intake Total 120 760 Output Total 700 800 100 Balance -580 -40 -100 Lab Results Last 24 Hours: Laboratory Results - last 24 hr 10/19/19 10/19/19 Range/Units 04:24 04:24 WBC 4.4 L (4.5-11.0) K/uL RBC 3.35 (3.30-5.50) M/uL Hgb 9.7 L (12.0-15.0) g/dL Hct 30.6 L (36.0-48.0) % MCV 91 (80-98) fL MCH 29 (27-31) pg MCHC 32 (32-36) % Plt Count 110 L (150-400) K/uL Sodium 137 L (140-148) mmol/L Potassium 3.8 (3.6-5.2) mmol/L Chloride 107 (100-108) mmol/L Carbon Dioxide 21 (21-32) mmol/L Anion Gap 12.8 (5.0-14.0) mmol/L BUN 18 (7-18) mg/dL Creatinine 0.6 (0.6-1.0) mg/dL Est Cr Clr Drug Dosing 73.20 mL/min Estimated GFR (MDRD) > 60 (>60) Glucose 93 (74-106) mg/dL Calcium 8.4 L (8.5-10.1) mg/dL Total Bilirubin 0.5 (0.2-1.0) mg/dL AST 42 H (15-37) U/L ALT 14 (12-78) U/L Alkaline Phosphatase 83 (46-116) U/L Total Protein 5.2 L (6.4-8.2) g/dL Albumin 2.3 L (3.4-5.0) g/dL Globulin 2.9 (2.3-3.5) g/dL Albumin/Globulin Ratio 0.8 L (1.2-2.2) Alexx Results Last 24 Hours: Microbiology 10/17/19 19:49 Urine Culture - Preliminary Urine, Clean Catch MIXED POSITIVE OMKAR DAY 1 Med Orders - Current: Current Medications Acetaminophen (Tylenol) 650 mg PO Q4H PRN PRN Reason: Pain (Mild 1-3)/fever Hydrocodone Bitart/Acetaminophen ([place] 325-5 Mg) 1 tab PO Q4H PRN PRN Reason: Pain Last Admin: 10/18/19 01:26 Dose: 1 tab Albuterol (Proventil Neb Soln) 2.5 mg NEB Q4H PRN PRN Reason: Shortness Of Breath/wheezing Aspirin (Aspirin) 81 mg PO DAILY [facility] Last Admin: 10/19/19 09:00 Dose: 81 mg Azithromycin (Zithromax) 500 mg PO Q24H [facility] Last Admin: 10/18/19 17:44 Dose: 500 mg Benzonatate (Tessalon Perles) 100 mg PO TID PRN PRN Reason: Cough Buspirone HCl (Buspar) 20 mg PO TID [facility] Last Admin: 10/19/19 15:03 Dose: 20 mg Escitalopram Oxalate (Lexapro) 20 mg PO DAILY [facility] Last Admin: 10/19/19 09:02 Dose: 20 mg Folic Acid (Folic Acid) 1 mg PO DAILY [facility] Last Admin: 10/19/19 09:02 Dose: 1 mg Furosemide (Lasix) 40 mg PO DAILY [facility] Last Admin: 10/19/19 10:20 Dose: 40 mg Ceftriaxone Sodium 1 gm/ (Sodium Chloride) 50 mls @ 100 mls/hr IV Q24H [facility] Last Admin: 10/18/19 16:50 Dose: 100 mls/hr Ibuprofen (Motrin) 600 mg PO Q6H PRN PRN Reason: Pain/Fever Last Admin: 10/19/19 10:20 Dose: 600 mg Lactobacillus Rhamnosus (Culturelle) 1 cap PO BID [facility] Last Admin: 10/19/19 09:01 Dose: 1 cap Lorazepam (Ativan) 0.5 mg IVPUSH Q4H PRN PRN Reason: Nausea/Vomiting Last Admin: 10/17/19 23:53 Dose: 0.5 mg Magnesium Hydroxide (Milk Of Magnesia) 30 ml PO Q12H PRN PRN Reason: Constipation Melatonin (Melatonin) 9 mg PO BEDTIME [facility] Last Admin: 10/18/19 20:15 Dose: 9 mg Metformin HCl (Glucophage) 500 mg PO BIDMEALS [facility] Last Admin: 10/19/19 08:52 Dose: 500 mg Nystatin (Nystop) 0 gm TOP TID [facility] Last Admin: 10/19/19 15:03 Dose: 1 applic Ondansetron HCl (Zofran Odt) 4 mg PO Q6H PRN PRN Reason: Nausea able to take PO Ondansetron HCl (Zofran) 4 mg IV Q6H PRN PRN Reason: Nausea/Vomiting Prednisone (Prednisone) 20 mg PO DAILY [facility] Stop: 10/21/19 09:01 Last Admin: 10/19/19 15:02 Dose: 20 mg Quetiapine Fumarate 100 mg/ (Quetiapine Fumarate 300 mg) 400 mg PO BEDTIME [facility] Last Admin: 10/18/19 20:15 Dose: 400 mg Ropinirole HCl (Requip) 2 mg PO QID [facility] Last Admin: 10/19/19 15:04 Dose: 2 mg Senna/Docusate Sodium (Senna Plus) 1 tab PO BID PRN PRN Reason: Constipation Last Admin: 10/19/19 09:08 Dose: 1 tab Thiamine HCl (Vitamin B-1) 100 mg PO DAILY [facility] Last Admin: 10/19/19 09:01 Dose: 100 mg Valacyclovir HCl (Valtrex) 500 mg PO DAILY [facility] Last Admin: 10/19/19 09:01 Dose: 500 mg Discontinued Medications Albuterol/Ipratropium (Duoneb 3.0-0.5 Mg/3 Ml) 3 ml NEB ONETIME ONE Stop: 10/17/19 15:41 Last Admin: 10/17/19 16:15 Dose: 3 ml Aspirin (Aspirin) 81 mg PO ONETIME ONE Stop: 10/17/19 15:40 Last Admin: 10/17/19 16:15 Dose: 81 mg Azithromycin (Zithromax) 500 mg PO Q24H [facility] Last Admin: 10/17/19 19:01 Dose: 500 mg Buspirone HCl (Buspar) 20 mg PO TID [facility] Last Admin: 10/17/19 20:57 Dose: 20 mg Diazepam (Valium.) 5 mg PO TID [facility] Last Admin: 10/18/19 09:35 Dose: 5 mg Sodium Chloride (Normal Saline) 1,000 mls @ 1,000 mls/hr IV .BOLUS ONE Stop: 10/17/19 14:34 Last Admin: 10/17/19 13:54 Dose: 1,000 mls/hr Sodium Chloride (Normal Saline) 1,000 mls @ 500 mls/hr IV ASDIRECTED [facility] Last Admin: 10/17/19 15:08 Dose: 500 mls/hr Ceftriaxone Sodium 1 gm/ (Sodium Chloride) 50 mls @ 100 mls/hr IV Q24H [facility] Last Admin: 10/17/19 19:02 Dose: 100 mls/hr Sodium Chloride (Normal Saline) 1,000 mls @ 125 mls/hr IV ASDIRECTED [facility] Last Admin: 10/18/19 11:38 Dose: 125 mls/hr Metformin HCl (Glucophage) 500 mg PO ONETIME ONE Stop: 10/17/19 15:40 Last Admin: 10/17/19 16:15 Dose: 500 mg Non-Formulary Medication (Pramipexole Di-Hcl [Mirapex]) 1 tab PO TID [facility] Last Admin: 10/17/19 22:18 Dose: Not Given Non-Formulary Medication (Quetiapine Fumarate [Quetiapine Fumarate]) 400 mg PO BEDTIME [facility] Last Admin: 10/17/19 22:00 Dose: Not Given Non-Formulary Medication (Ropinirole [Requip]) 2 mg PO QID [facility] Last Admin: 10/18/19 07:41 Dose: Not Given Nystatin (Nystop) 1 gm TOP TID [facility] Last Admin: 10/17/19 20:57 Dose: Not Given Pramipexole Dihydrochloride (Mirapex) 0.125 mg PO TID [facility] Last Admin: 10/18/19 14:45 Dose: Not Given Quetiapine Fumarate (Seroquel) Confirm Administered Dose 400 mg .ROUTE .[employer]-MED ONE Stop: 10/17/19 21:49 Last Admin: 10/17/19 21:59 Dose: 400 mg Ropinirole HCl (Requip) Confirm Administered Dose 2 mg .ROUTE .[employer]MED ONE Stop: 10/17/19 21:48 Last Admin: 10/17/19 21:59 Dose: 2 mg - Exam Quality Assessment: Supplemental Oxygen General: Alert, Oriented, Cooperative, No Acute Distress Lungs: Clear to Auscultation, Normal Respiratory Effort Cardiovascular: Regular Rate, Regular Rhythm GI/Abdominal Exam: Soft, No Distention Extremities: Pedal Edema, Increased Warmth (Both knees, mild), Other (Mild swelling of both hands) Skin: Warm, Dry Psy/Mental Status: Alert, Normal Affect Sepsis Event Note - Evaluation Sepsis Screening Result: No Definite Risk - Focused Exam Vital Signs: Vital Signs Temp Pulse Resp BP BP Pulse Ox Pulse Ox 10/19/19 12:17 36.2 C 84 14 117/62 90 L 10/19/19 09:00 92 L 10/19/19 08:38 36.2 C 88 20 116/90 Date Exam was Performed: 10/19/19 Time Exam was Performed: 15:54 - Problem List & Annotations (1) Acute cystitis without hematuria SNOMED Code(s): 83169474 Code(s): N30.00 - ACUTE CYSTITIS WITHOUT HEMATURIA Status: Acute Current Visit: Yes (2) Weakness SNOMED Code(s): 46220954 Code(s): R53.1 - WEAKNESS Status: Acute Current Visit: Yes (3) Dehydration SNOMED Code(s): 43320198 Code(s): E86.0 - DEHYDRATION Status: Acute Current Visit: Yes (4) COPD (chronic obstructive pulmonary disease) SNOMED Code(s): 58119252 Code(s): J44.9 - CHRONIC OBSTRUCTIVE PULMONARY DISEASE, UNSPECIFIED Status : Acute Current Visit: Yes Qualifiers: COPD type: unspecified COPD Qualified Code(s): J44.9 - Chronic obstructive pulmonary disease, unspecified (5) Diabetes mellitus type 2 in obese SNOMED Code(s): 76904082 Code(s): E11.69 - TYPE 2 DIABETES MELLITUS WITH OTHER SPECIFIED COMPLICATION ; E66.9 - OBESITY, UNSPECIFIED Status: Chronic Current Visit: No (6) RLS (restless legs syndrome) SNOMED Code(s): 43565455 Code(s): G25.81 - RESTLESS LEGS SYNDROME Status: Chronic Current Visit: No (7) Bipolar disorder SNOMED Code(s): 13694724 Code(s): F31.9 - BIPOLAR DISORDER, UNSPECIFIED Status: Chronic Current Visit: Yes Qualifiers: Active/Remission status: remission status unspecified Qualified Code(s): F31.9 - Bipolar disorder, unspecified - Problem List Review Problem List Initiated/Reviewed/Updated: Yes - My Orders Last 24 Hours: My Active Orders 10/18/19 17:00 Azithromycin [Zithromax] 500 mg PO Q24H 10/18/19 17:30 cefTRIAXone [Rocephin] 1 gm Sodium Chloride 0.9% [Normal Saline] 50 ml IV Q24H 10/18/19 21:00 Quetiapine [Seroquel] 400 mg PO BEDTIME 10/19/19 09:42 Convert IV to Saline Lock [OM.PC] Routine 10/19/19 09:45 Furosemide [Lasix] 40 mg PO DAILY 10/19/19 13:30 predniSONE 20 mg PO DAILY 10/20/19 05:00 BASIC METABOLIC PANEL,BMP [CHEM] Timed CBC W/O DIFF,HEMOGRAM [HEME] Timed (1) - Plan Plan:: ASSESSMENT AND PLAN - Acute cystitis without hematuria-main manifestation is generalized weakness and complicated by significant dehydration. Vitals stable. Culture still pending. -Ceftriaxone -Follow-up urine culture -IV fluids -Physical therapy tomorrow morning Possible pseudogout-swelling of both knees with warmth and tenderness. She was recently on Bactrim and had some renal insufficiency which could have triggered this. -Prednisone 20 mg daily for 3 days COPD-more short of breath than usual, no evidence for pneumonia. She is chronically on oxygen and is slightly hypoxic despite usual amount of supplemental oxygen. There may be a mild component of underlying bronchitis but cough not dramatically different than usual. -Azithromycin x5 days -Nebs -Supplement oxygen Type 2 diabetes mellitus-controlled with metformin. -Continue metformin Bipolar disorder-no behavior issues at this time. Continue home medications- Maintenance issues - - DVT prophylaxis -SCDs - GI prophylaxis -not indicated - Nutrition -consistent carbohydrate - Chaudhary catheter -not indicated Disposition - I would anticipate discharge home with continued home care services after the hospital stay Primary care physician -Dr. Jorge Luis Jennings M.D.
[2019-10-19] MEDS ORDERED: Furosemide 40 MG Tab PO ONE (16:59)
[2019-10-19] MEDS: cefTRIAXone 1 GM in Sodium Chloride 0.9% 50 ML IV SCH (17:10)
[2019-10-19] MEDS: Azithromycin 250 MG Tab PO SCH (17:12)
[2019-10-19] MEDS: Melatonin 3 MG Tab PO SCH (21:16)
[2019-10-19] MEDS: QUETIAPINE PO SCH ×2 (21:16)
[2019-10-20] MEDS: Acetaminophen/HYDROcodone 325-5 MG Tab PO PRN ×3 (00:24→15:32)
[2019-10-20] MEDS: LORazepam 2 MG/ML SDV IVPUSH PRN (02:13)
[2019-10-20] MEDS: rOPINIRole 1 MG Tab PO SCH ×4 (06:02→22:40)
[2019-10-20] MEDS: Aspirin 81 MG Tab.Chew PO SCH (09:19)
[2019-10-20] MEDS: metFORMIN 500 MG Tab PO SCH ×2 (09:19→16:55)
[2019-10-20] MEDS: Thiamine 100 MG Tab PO SCH (09:20)
[2019-10-20] MEDS: Lactobacillus Rhamnosus GG (Probiotic) Cap PO SCH ×2 (09:20→22:39)
[2019-10-20] MEDS: busPIRone 10 MG Tab PO SCH ×3 (09:20→22:39)
[2019-10-20] MEDS: Folic Acid 1 MG Tab PO SCH (09:21)
[2019-10-20] MEDS: Escitalopram 20 MG Tab PO SCH (09:22)
[2019-10-20] MEDS: Nystatin Topical Powder 15 GM Bottle TOP SCH ×2 (09:23→13:42)
[2019-10-20] MEDS: predniSONE 20 MG Tab PO SCH (09:23)
[2019-10-20] MEDS: valACYclovir 1,000 MG Tab PO SCH (09:24)
[2019-10-20] MEDS: Furosemide 40 MG Tab PO SCH (09:33)
--- NOTE | 2019-10-20 15:21 | PCM.PN ---
- General Info Date of Service: 10/20/19 Subjective Update: Ms. Cadet continues to experience significant knee pain. Signs have remained stable and she has been afebrile. Very sleepy and lethargic this morning, did not sleep much during the night. Functional Status: Reports: Tolerating Diet, Urinating - Review of Systems General: Reports: Weakness. Denies: Fever, Chills Pulmonary: Reports: No Symptoms Cardiovascular: Reports: No Symptoms Gastrointestinal: Reports: No Symptoms Genitourinary: Reports: No Symptoms - Patient Data Vitals - Most Recent: Last Vital Signs Temp 98.0 F 10/20/19 14:47 Pulse 73 10/20/19 14:47 Resp 18 10/20/19 14:47 BP 141/68 H 10/20/19 14:47 Pulse Ox 93 L 10/20/19 15:00 Weight - Most Recent: 177 lb I&O - Last 24 Hours: Intake & Output 10/20/19 10/20/19 10/20/19 06:59 14:59 22:59 Intake Total 640 1680 Output Total 1550 2250 Balance -910 -570 Lab Results Last 24 Hours: Laboratory Results - last 24 hr 10/20/19 10/20/19 Range/Units 05:54 05:54 WBC 4.4 L (4.5-11.0) K/uL RBC 3.32 (3.30-5.50) M/uL Hgb 9.4 L (12.0-15.0) g/dL Hct 30.1 L (36.0-48.0) % MCV 91 (80-98) fL MCH 28 (27-31) pg MCHC 31 L (32-36) % Plt Count 126 L (150-400) K/uL Sodium 139 L (140-148) mmol/L Potassium 3.7 (3.6-5.2) mmol/L Chloride 107 (100-108) mmol/L Carbon Dioxide 23 (21-32) mmol/L Anion Gap 12.7 (5.0-14.0) mmol/L BUN 17 (7-18) mg/dL Creatinine 0.8 (0.6-1.0) mg/dL Est Cr Clr Drug Dosing 54.90 mL/min Estimated GFR (MDRD) > 60 (>60) Glucose 168 H (74-106) mg/dL Calcium 8.3 L (8.5-10.1) mg/dL Alexx Results Last 24 Hours: Microbiology 10/17/19 19:49 Urine Culture - Final Urine, Clean Catch MIXED POSITIVE HERNANDO DAY 2 Med Orders - Current: Current Medications Acetaminophen (Tylenol) 650 mg PO Q4H PRN PRN Reason: Pain (Mild 1-3)/fever Hydrocodone Bitart/Acetaminophen ([place] 325-5 Mg) 1 tab PO Q4H PRN PRN Reason: Pain Last Admin: 10/20/19 04:43 Dose: 1 tab Albuterol (Proventil Neb Soln) 2.5 mg NEB Q4H PRN PRN Reason: Shortness Of Breath/wheezing Aspirin (Aspirin) 81 mg PO DAILY [facility] Last Admin: 10/20/19 09:19 Dose: 81 mg Azithromycin (Zithromax) 500 mg PO Q24H [facility] Last Admin: 10/19/19 17:12 Dose: 500 mg Benzonatate (Tessalon Perles) 100 mg PO TID PRN PRN Reason: Cough Buspirone HCl (Buspar) 20 mg PO TID [facility] Last Admin: 10/20/19 13:42 Dose: 20 mg Escitalopram Oxalate (Lexapro) 20 mg PO DAILY [facility] Last Admin: 10/20/19 09:22 Dose: 20 mg Folic Acid (Folic Acid) 1 mg PO DAILY [facility] Last Admin: 10/20/19 09:21 Dose: 1 mg Furosemide (Lasix) 40 mg PO DAILY [facility] Last Admin: 10/20/19 09:33 Dose: 40 mg Ibuprofen (Motrin) 600 mg PO Q6H PRN PRN Reason: Pain/Fever Last Admin: 10/19/19 10:20 Dose: 600 mg Lactobacillus Rhamnosus (Culturelle) 1 cap PO BID [facility] Last Admin: 10/20/19 09:20 Dose: 1 cap Lorazepam (Ativan) 0.5 mg IVPUSH Q4H PRN PRN Reason: Nausea/Vomiting Last Admin: 10/20/19 02:13 Dose: 0.5 mg Magnesium Hydroxide (Milk Of Magnesia) 30 ml PO Q12H PRN PRN Reason: Constipation Melatonin (Melatonin) 9 mg PO BEDTIME [facility] Last Admin: 10/19/19 21:16 Dose: 9 mg Metformin HCl (Glucophage) 500 mg PO BIDMEALS [facility] Last Admin: 10/20/19 09:19 Dose: 500 mg Nystatin (Nystop) 0 gm TOP TID [facility] Last Admin: 10/20/19 13:42 Dose: Not Given Ondansetron HCl (Zofran Odt) 4 mg PO Q6H PRN PRN Reason: Nausea able to take PO Ondansetron HCl (Zofran) 4 mg IV Q6H PRN PRN Reason: Nausea/Vomiting Prednisone (Prednisone) 20 mg PO DAILY [facility] Stop: 10/21/19 09:01 Last Admin: 10/20/19 09:23 Dose: 20 mg Quetiapine Fumarate 100 mg/ (Quetiapine Fumarate 300 mg) 400 mg PO BEDTIME [facility] Last Admin: 10/19/19 21:16 Dose: 400 mg Ropinirole HCl (Requip) 2 mg PO QID [facility] Last Admin: 10/20/19 09:20 Dose: 2 mg Senna/Docusate Sodium (Senna Plus) 1 tab PO BID PRN PRN Reason: Constipation Last Admin: 10/19/19 09:08 Dose: 1 tab Thiamine HCl (Vitamin B-1) 100 mg PO DAILY [facility] Last Admin: 10/20/19 09:20 Dose: 100 mg Valacyclovir HCl (Valtrex) 500 mg PO DAILY [facility] Last Admin: 10/20/19 09:24 Dose: 500 mg Discontinued Medications Albuterol/Ipratropium (Duoneb 3.0-0.5 Mg/3 Ml) 3 ml NEB ONETIME ONE Stop: 10/17/19 15:41 Last Admin: 10/17/19 16:15 Dose: 3 ml Aspirin (Aspirin) 81 mg PO ONETIME ONE Stop: 10/17/19 15:40 Last Admin: 10/17/19 16:15 Dose: 81 mg Azithromycin (Zithromax) 500 mg PO Q24H [facility] Last Admin: 10/17/19 19:01 Dose: 500 mg Buspirone HCl (Buspar) 20 mg PO TID [facility] Last Admin: 10/17/19 20:57 Dose: 20 mg Diazepam (Valium.) 5 mg PO TID [facility] Last Admin: 10/18/19 09:35 Dose: 5 mg Furosemide (Lasix) 40 mg PO ONETIME ONE Stop: 10/19/19 17:00 Last Admin: 10/19/19 17:14 Dose: 40 mg Sodium Chloride (Normal Saline) 1,000 mls @ 1,000 mls/hr IV .BOLUS ONE Stop: 10/17/19 14:34 Last Admin: 10/17/19 13:54 Dose: 1,000 mls/hr Sodium Chloride (Normal Saline) 1,000 mls @ 500 mls/hr IV ASDIRECTED [facility] Last Admin: 10/17/19 15:08 Dose: 500 mls/hr Ceftriaxone Sodium 1 gm/ (Sodium Chloride) 50 mls @ 100 mls/hr IV Q24H [facility] Last Admin: 10/17/19 19:02 Dose: 100 mls/hr Sodium Chloride (Normal Saline) 1,000 mls @ 125 mls/hr IV ASDIRECTED [facility] Last Admin: 10/18/19 11:38 Dose: 125 mls/hr Ceftriaxone Sodium 1 gm/ (Sodium Chloride) 50 mls @ 100 mls/hr IV Q24H [facility] Last Admin: 10/19/19 17:10 Dose: 100 mls/hr Metformin HCl (Glucophage) 500 mg PO ONETIME ONE Stop: 10/17/19 15:40 Last Admin: 10/17/19 16:15 Dose: 500 mg Non-Formulary Medication (Pramipexole Di-Hcl [Mirapex]) 1 tab PO TID [facility] Last Admin: 10/17/19 22:18 Dose: Not Given Non-Formulary Medication (Quetiapine Fumarate [Quetiapine Fumarate]) 400 mg PO BEDTIME [facility] Last Admin: 10/17/19 22:00 Dose: Not Given Non-Formulary Medication (Ropinirole [Requip]) 2 mg PO QID [facility] Last Admin: 10/18/19 07:41 Dose: Not Given Nystatin (Nystop) 1 gm TOP TID [facility] Last Admin: 10/17/19 20:57 Dose: Not Given Pramipexole Dihydrochloride (Mirapex) 0.125 mg PO TID [facility] Last Admin: 10/18/19 14:45 Dose: Not Given Quetiapine Fumarate (Seroquel) Confirm Administered Dose 400 mg .ROUTE .STK-MED ONE Stop: 10/17/19 21:49 Last Admin: 10/17/19 21:59 Dose: 400 mg Ropinirole HCl (Requip) Confirm Administered Dose 2 mg .ROUTE .STK-MED ONE Stop: 10/17/19 21:48 Last Admin: 10/17/19 21:59 Dose: 2 mg - Exam Quality Assessment: DVT Prophylaxis General: Mild Distress, Lethargic Lungs: Clear to Auscultation, Normal Respiratory Effort Cardiovascular: Regular Rate, Regular Rhythm, No Murmurs GI/Abdominal Exam: Soft, Non-Tender, No Organomegaly, No Distention Extremities: Non-Tender, No Pedal Edema Sepsis Event Note - Evaluation Sepsis Screening Result: No Definite Risk - Focused Exam Vital Signs: Vital Signs Temp Pulse Resp BP Pulse Ox Pulse Ox 10/20/19 15:00 93 L 10/20/19 14:47 98.0 F 73 18 141/68 H 94 L 10/20/19 10:36 97.2 F 73 18 116/60 93 L 10/20/19 07:15 97.3 F 76 16 110/52 L 93 L Date Exam was Performed: 10/20/19 Time Exam was Performed: 15:18 - Problem List Review Problem List Initiated/Reviewed/Updated: Yes - Plan Plan:: ASSESSMENT AND PLAN - Acute cystitis without hematuria-culture growing only mixed hernando, no acute infection -Discontinue ceftriaxone Possible pseudogout-swelling of both knees with warmth and tenderness. She was recently on Bactrim and had some renal insufficiency which could have triggered this. No significant improvement noted in joint symptoms with prednisone after 1 day of treatment. -Prednisone 20 mg daily for 3 days COPD-more short of breath than usual, no evidence for pneumonia. She is chronically on oxygen and is slightly hypoxic despite usual amount of supplemental oxygen. There may be a mild component of underlying bronchitis but cough not dramatically different than usual. -Azithromycin x5 days -Nebs -Supplement oxygen Type 2 diabetes mellitus-controlled with metformin. -Continue metformin Bipolar disorder-no behavior issues at this time. Continue home medications- Maintenance issues - - DVT prophylaxis -SCDs - GI prophylaxis -not indicated - Nutrition -consistent carbohydrate - Chaudhary catheter -not indicated Disposition - I would anticipate discharge home with continued home care services after the hospital stay Primary care physician -Dr. Kang
[2019-10-20] MEDS ORDERED: Triamcinolone Acetonide 0.1% Crm 15 GM Tube TOP PRN (15:58)
[2019-10-20] MEDS: Azithromycin 250 MG Tab PO SCH (16:55)
[2019-10-20] MEDS: Melatonin 3 MG Tab PO SCH (22:39)
[2019-10-20] MEDS: QUETIAPINE PO SCH ×2 (22:41)
[2019-10-21] MEDS: rOPINIRole 1 MG Tab PO SCH ×2 (05:46→11:00)
[2019-10-21] MEDS: metFORMIN 500 MG Tab PO SCH (08:03)
[2019-10-21] MEDS: busPIRone 10 MG Tab PO SCH ×2 (08:05→14:23)
[2019-10-21] MEDS: Aspirin 81 MG Tab.Chew PO SCH (08:05)
[2019-10-21] MEDS: Lactobacillus Rhamnosus GG (Probiotic) Cap PO SCH (08:06)
[2019-10-21] MEDS: Folic Acid 1 MG Tab PO SCH (08:06)
[2019-10-21] MEDS: Escitalopram 20 MG Tab PO SCH (08:06)
[2019-10-21] MEDS: predniSONE 20 MG Tab PO SCH (08:06)
[2019-10-21] MEDS: Furosemide 40 MG Tab PO SCH (08:06)
[2019-10-21] MEDS: valACYclovir 1,000 MG Tab PO SCH (08:07)
[2019-10-21] MEDS: Thiamine 100 MG Tab PO SCH (08:08)
[2019-10-21] MEDS ORDERED: Nystatin Topical Powder 15 GM Bottle TOP SCH (09:00)
[2019-10-21 11:09] VITALS: PULSE 78
[2019-10-21 13:11] VITALS: BP 124/63
--- NOTE | 2019-10-21 14:14 | PCM.DCSUM1 ---
Discharge Summary - Hospital Course Brief History: Ms. Cadet is a 69-year-old woman who was admitted through the emergency department with weakness, shortness of breath, and knee pain secondary to COPD exacerbation with bronchitis and worsening of osteoarthritis of both knees. - Discharge Data Discharge Date: 10/21/19 Discharge Disposition: Home, Self-Care 01 Condition: Good - Referral to Home Health Primary Care Physician: PCP None - Discharge Diagnosis/Problem(s) (1) COPD exacerbation SNOMED Code(s): 906513472 ICD Code: J44.1 - CHRONIC OBSTRUCTIVE PULMONARY DISEASE W (ACUTE) EXACERBATION Status: Acute Current Visit: Yes (2) Weakness SNOMED Code(s): 97150366 ICD Code: R53.1 - WEAKNESS Status: Acute Current Visit: Yes (3) Dehydration SNOMED Code(s): 37138765 ICD Code: E86.0 - DEHYDRATION Status: Acute Current Visit: Yes (4) Bipolar disorder SNOMED Code(s): 49033041 ICD Code: F31.9 - BIPOLAR DISORDER, UNSPECIFIED Status: Chronic Current Visit: Yes Qualifiers: Active/Remission status: remission status unspecified Qualified Code(s): F31.9 - Bipolar disorder, unspecified (5) Diabetes mellitus type 2 in obese SNOMED Code(s): 72916044 ICD Code: E11.69 - TYPE 2 DIABETES MELLITUS WITH OTHER SPECIFIED COMPLICATION ; E66.9 - OBESITY, UNSPECIFIED Status: Chronic Current Visit: No (6) Osteoarthritis of knees, bilateral SNOMED Code(s): 085844416968444 ICD Code: M17.0 - BILATERAL PRIMARY OSTEOARTHRITIS OF KNEE Status: Acute Current Visit: Yes - Patient Summary/Data Consults: Consultations 10/18/19 07:00 PT Evaluation and Treatment [CONS] Routine Please Evaluate and Treat. PT Reason for Consult: Strengthening This query below is only for informational purposes and is not editable. Hospital Course: Ms. Cadet presented to the emergency room with pain in her arms and her legs as well as generalized wekness. She has been treated for urinary tract infection but continues to feel weak. Yesterday she was switched from Bactrim to nitrofurantoin but after taking only 1 dose she had worsening pain in her arms and her legs. This is a moderate achy muscle pain that radiates throughout pretty much all of her muscles in her body but arms and legs are the most intense. She has been using pain pills without much improvement. Strength is steadily declining and she has a great deal of difficulty even standing up out of her wheelchair. She was so weak that she had trouble getting out of her bed this morning. She has had some chills but no obvious fevers. Appetite has been okay. She does have some nausea but reports this is her usual. No recent change in bowel or bladder habits. She feels a little more short of breath than usual. She is not coughing much. She has not been sleeping well because of the pains. No significant urinary symptoms at this time. She does report some itching in her right ear. She also reports a itchy rash underneath her pannus. Work-up in the emergency room revealed significant dehydration. Patient is extremely weak and unable to stand. She has been getting worse despite outpatient antibiotic therapy and will be admitted for hydration and management of a persistent urinary tract infection as well as generalized weakness and possible upper respiratory infection. On admission urinalysis was felt to be consistent with ongoing infection. Urine culture was obtained and she was started on IV antibiotic therapy with ceftriaxone. She was also felt to have a component of COPD exacerbation and probable underlying bronchitis, this was treated with oral azithromycin. During hospitalization urine culture came back growing only mixed hernando, she was felt to not have a true bladder infection and the ceftriaxone was discontinued. By the time of discharge she had completed a course of oral azithromycin. Generalized musculoskeletal pain was felt to be consistent with a reaction to recent antibiotic therapy with Bactrim. Knee pain worsened during hospitalization and she was felt to have a possible episode of pseudogout. She was treated with oral prednisone and knee pain did improve modestly prior to discharge. She gives a history of chronic knee pain limiting mobility over the past few years. Likely that she does have underlying significant osteoarthritis of both knees. Outpatient orthopedic consult will be scheduled for after discharge. Follow-up appointment will be scheduled with her primary care provider within 1 week. She will receive home care services including home physical therapy and occupational therapy after discharge. - Patient Instructions Diet: Diabetic Diet Activity: As Tolerated Other/Special Instructions: Please schedule follow-up appointment with primary care provider within 1 week. Please schedule orthopedic consult with Dr. Zaragoza for management of osteoarthritis, both knees. - Discharge Plan *PRESCRIPTION DRUG MONITORING PROGRAM REVIEWED*: No *COPY OF PRESCRIPTION DRUG MONITORING REPORT IN PATIENT JEN: No Home Medications: Home Meds Aspirin [[place] Chewable Aspirin] 81 mg PO DAILY 07/26/13 [History] Calcium Carbonate [Calci-Chew] 500 mg PO BID 07/26/13 [History] Escitalopram [Lexapro] 20 mg PO DAILY 07/26/13 [History] Multivitamin [Multi-Vitamin Daily] 1 each PO DAILY 07/26/13 [History] QUEtiapine Fumarate [Quetiapine Fumarate] 400 mg PO BEDTIME 07/26/13 [History] metFORMIN [Glucophage] 500 mg PO BID 07/26/13 [History] busPIRone [Buspar] 20 mg PO TID 02/12/15 [History] Triamcinolone Acetonide [Triamcinolone Acetonide 0.1% Crm] 15 gm TOP TID PRN 01/27 [History] Vitamin E 400 unit PO DAILY 03/18/15 [History] Albuterol [Ventolin HFA] 2 puff IH Q4HR PRN 02/28/18 [History] Calcitonin,[place],Synthetic [Miacalcin] 3.7 ml NS DAILY #1 spray.pump 10/10/18 [ Rx] Cholecalciferol (Vitamin D3) [Vitamin D] 1 tab PO WEEKLY 08/22/19 [History] Folic Acid 1 tab PO DAILY 08/22/19 [History] Furosemide [Lasix] 1 tab PO DAILY 08/22/19 [History] Lactulose 30 ml PO DAILY 08/22/19 [History] Mupirocin Oint [Bactroban Oint] 1 dose TOP BID 08/22/19 [History] Naproxen 1 tab PO BID PRN 08/22/19 [History] valACYclovir HCl [Valtrex] 500 mg PO DAILY 08/22/19 [History] Acetaminophen/HYDROcodone [[place] 325-5 MG] 1 tab PO Q4H PRN 10/17/19 [History] Loperamide [Imodium] 2 mg PO BID PRN 10/17/19 [History] rOPINIRole [Requip] 2 mg PO QID 10/17/19 [History] Diazepam [Valium] 5 mg PO DAILY PRN 10/18/19 [History] Menthol/Camphor [Sarna Anti-Itch] 1 gm TOP DAILY PRN 10/18/19 [History] Referrals: Kwaku Kang MD [Physician] - 10/28/19 1:30 pm (Please arrive 15 minutes early to register for your appointment.) Neo Zaragoza MD [Physician] - 10/28/19 3:00 pm (Pleae register for your appointment at 2:15. You will have XRays of both knees at 2:[address] Zaragoza at 3:00) - Discharge Summary/Plan Comment DC Time >30 min.: No - Patient Data Vitals - Most Recent: Last Vital Signs Temp 97.9 F 10/21/19 11:00 Pulse 78 10/21/19 11:00 Resp 18 10/21/19 11:00 BP 126/60 10/21/19 11:00 Pulse Ox 98 10/21/19 11:00 Weight - Most Recent: 177 lb I&O - Last 24 hours: Intake & Output 10/20/19 10/21/19 10/21/19 22:59 06:59 14:59 Intake Total 540 540 Output Total 1150 1500 Balance -610 -960 Lab Results - Last 24 hrs: Laboratory Results - last 24 hr 10/21/19 10/21/19 Range/Units 05:20 05:20 WBC 6.2 (4.5-11.0) K/uL RBC 3.55 (3.30-5.50) M/uL Hgb 10.6 L (12.0-15.0) g/dL Hct 31.7 L (36.0-48.0) % MCV 89 (80-98) fL MCH 30 (27-31) pg MCHC 33 (32-36) % Plt Count 140 L (150-400) K/uL Neut % (Auto) 47 (36-66) % Lymph % (Auto) 40 (24-44) % [place]bert % (Auto) 10 H (2-6) % Eos % (Auto) 3 (2-4) % Baso % (Auto) 0 (0-1) % Sodium 139 L (140-148) mmol/L Potassium 3.6 (3.6-5.2) mmol/L Chloride 106 (100-108) mmol/L Carbon Dioxide 28 (21-32) mmol/L Anion Gap 8.6 (5.0-14.0) mmol/L BUN 21 H (7-18) mg/dL Creatinine 0.7 (0.6-1.0) mg/dL Est Cr Clr Drug Dosing 62.74 mL/min Estimated GFR (MDRD) > 60 (>60) Glucose 91 (74-106) mg/dL Calcium 8.8 (8.5-10.1) mg/dL Med Orders - Current: Current Medications Acetaminophen (Tylenol) 650 mg PO Q4H PRN PRN Reason: Pain (Mild 1-3)/fever Hydrocodone Bitart/Acetaminophen ([place] 325-5 Mg) 1 tab PO Q4H PRN PRN Reason: Pain Last Admin: 10/20/19 15:32 Dose: 1 tab Albuterol (Proventil Neb Soln) 2.5 mg NEB Q4H PRN PRN Reason: Shortness Of Breath/wheezing Aspirin (Aspirin) 81 mg PO DAILY [facility] Last Admin: 10/21/19 08:05 Dose: 81 mg Azithromycin (Zithromax) 500 mg PO Q24H [facility] Last Admin: 10/20/19 16:55 Dose: 500 mg Benzonatate (Tessalon Perles) 100 mg PO TID PRN PRN Reason: Cough Buspirone HCl (Buspar) 20 mg PO TID [facility] Last Admin: 10/21/19 08:05 Dose: 20 mg Escitalopram Oxalate (Lexapro) 20 mg PO DAILY [facility] Last Admin: 10/21/19 08:06 Dose: 20 mg Folic Acid (Folic Acid) 1 mg PO DAILY [facility] Last Admin: 10/21/19 08:06 Dose: 1 mg Furosemide (Lasix) 40 mg PO DAILY [facility] Last Admin: 10/21/19 08:06 Dose: 40 mg Ibuprofen (Motrin) 600 mg PO Q6H PRN PRN Reason: Pain/Fever Last Admin: 10/19/19 10:20 Dose: 600 mg Lactobacillus Rhamnosus (Culturelle) 1 cap PO BID [facility] Last Admin: 10/21/19 08:06 Dose: 1 cap Lorazepam (Ativan) 0.5 mg IVPUSH Q4H PRN PRN Reason: Nausea/Vomiting Last Admin: 10/20/19 02:13 Dose: 0.5 mg Magnesium Hydroxide (Milk Of Magnesia) 30 ml PO Q12H PRN PRN Reason: Constipation Melatonin (Melatonin) 9 mg PO BEDTIME [facility] Last Admin: 01/06/20 22:39 Dose: 9 mg Metformin HCl (Glucophage) 500 mg PO BIDMEALS [facility] Last Admin: 10/21/19 08:03 Dose: 500 mg Nystatin (Nystop) 0 gm TOP TID [facility] Ondansetron HCl (Zofran Odt) 4 mg PO Q6H PRN PRN Reason: Nausea able to take PO Ondansetron HCl (Zofran) 4 mg IV Q6H PRN PRN Reason: Nausea/Vomiting Quetiapine Fumarate 100 mg/ (Quetiapine Fumarate 300 mg) 400 mg PO BEDTIME [facility] Last Admin: 10/20/19 22:41 Dose: 400 mg Ropinirole HCl (Requip) 2 mg PO QID [facility] Last Admin: 10/21/19 11:00 Dose: 2 mg Senna/Docusate Sodium (Senna Plus) 1 tab PO BID PRN PRN Reason: Constipation Last Admin: 10/21/19 05:47 Dose: 1 tab Thiamine HCl (Vitamin B-1) 100 mg PO DAILY [facility] Last Admin: 10/21/19 08:08 Dose: 100 mg Triamcinolone Acetonide (Triamcinolone Acetonide 0.1% Crm) 0 gm TOP BID PRN PRN Reason: Rash Last Admin: 10/20/19 23:45 Dose: 1 applic Valacyclovir HCl (Valtrex) 500 mg PO DAILY [facility] Last Admin: 10/21/19 08:07 Dose: 500 mg Discontinued Medications Albuterol/Ipratropium (Duoneb 3.0-0.5 Mg/3 Ml) 3 ml NEB ONETIME ONE Stop: 10/17/19 15:41 Last Admin: 10/17/19 16:15 Dose: 3 ml Aspirin (Aspirin) 81 mg PO ONETIME ONE Stop: 10/17/19 15:40 Last Admin: 10/17/19 16:15 Dose: 81 mg Azithromycin (Zithromax) 500 mg PO Q24H [facility] Last Admin: 10/17/19 19:01 Dose: 500 mg Buspirone HCl (Buspar) 20 mg PO TID [facility] Last Admin: 10/17/19 20:57 Dose: 20 mg Diazepam (Valium.) 5 mg PO TID [facility] Last Admin: 10/18/19 09:35 Dose: 5 mg Furosemide (Lasix) 40 mg PO ONETIME ONE Stop: 10/19/19 17:00 Last Admin: 10/19/19 17:14 Dose: 40 mg Sodium Chloride (Normal Saline) 1,000 mls @ 1,000 mls/hr IV .BOLUS ONE Stop: 10/17/19 14:34 Last Admin: 10/17/19 13:54 Dose: 1,000 mls/hr Sodium Chloride (Normal Saline) 1,000 mls @ 500 mls/hr IV ASDIRECTED [facility] Last Admin: 10/17/19 15:08 Dose: 500 mls/hr Ceftriaxone Sodium 1 gm/ (Sodium Chloride) 50 mls @ 100 mls/hr IV Q24H [facility] Last Admin: 10/17/19 19:02 Dose: 100 mls/hr Sodium Chloride (Normal Saline) 1,000 mls @ 125 mls/hr IV ASDIRECTED [facility] Last Admin: 10/18/19 11:38 Dose: 125 mls/hr Ceftriaxone Sodium 1 gm/ (Sodium Chloride) 50 mls @ 100 mls/hr IV Q24H [facility] Last Admin: 10/19/19 17:10 Dose: 100 mls/hr Metformin HCl (Glucophage) 500 mg PO ONETIME ONE Stop: 10/17/19 15:40 Last Admin: 10/17/19 16:15 Dose: 500 mg Non-Formulary Medication (Pramipexole Di-Hcl [Mirapex]) 1 tab PO TID [facility] Last Admin: 10/17/19 22:18 Dose: Not Given Non-Formulary Medication (Quetiapine Fumarate [Quetiapine Fumarate]) 400 mg PO BEDTIME [facility] Last Admin: 10/17/19 22:00 Dose: Not Given Non-Formulary Medication (Ropinirole [Requip]) 2 mg PO QID [facility] Last Admin: 10/18/19 07:41 Dose: Not Given Nystatin (Nystop) 1 gm TOP TID [facility] Last Admin: 10/17/19 20:57 Dose: Not Given Nystatin (Nystop) 0 gm TOP TID [facility] Last Admin: 10/20/19 13:42 Dose: Not Given Pramipexole Dihydrochloride (Mirapex) 0.125 mg PO TID [facility] Last Admin: 10/18/19 14:45 Dose: Not Given Prednisone (Prednisone) 20 mg PO DAILY [facility] Stop: 10/21/19 09:01 Last Admin: 10/21/19 08:06 Dose: 20 mg Quetiapine Fumarate (Seroquel) Confirm Administered Dose 400 mg .ROUTE .STK-MED ONE Stop: 10/17/19 21:49 Last Admin: 10/17/19 21:59 Dose: 400 mg Ropinirole HCl (Requip) Confirm Administered Dose 2 mg .ROUTE .STK-MED ONE Stop: 10/17/19 21:48 Last Admin: 10/17/19 21:59 Dose: 2 mg - Exam Quality Assessment: Reports: DVT Prophylaxis General: Reports: Alert, Oriented, Cooperative, Mild Distress Lungs: Reports: Normal Respiratory Effort, Decreased Breath Sounds. Denies: Rales, Rhonchi, Rub, Wheezing Cardiovascular: Reports: Regular Rate, Regular Rhythm, No Murmurs GI/Abdominal Exam: Soft, Non-Tender, No Organomegaly, No Distention Extremities: Non-Tender, No Pedal Edema, Other (Joint pain both knees)
== END 2019-10-21 14:50 | disposition home or self-care (01) | DRG 690 ==
LOC: JP.ED 12:39 → JP.MS 18:13
PROVIDERS: ADMIT Internal Medicine; ATTEND Hospitalist
DX: N39.0 Urinary tract infection, site not specified (principal); N30.00 Acute cystitis without hematuria; J44.9 Chronic obstructive pulmonary disease, unspecified; R53.1 Weakness; J44.1 Chronic obstructive pulmonary disease with (acute) exacerbation; H04.129 Dry eye syndrome of unspecified lacrimal gland; K58.9 Irritable bowel syndrome, unspecified; R32 Unspecified urinary incontinence; M19.90 Unspecified osteoarthritis, unspecified site; F32.9 Major depressive disorder, single episode, unspecified; M17.0 Bilateral primary osteoarthritis of knee; E86.0 Dehydration; E11.9 Type 2 diabetes mellitus without complications; Z86.19 Personal history of other infectious and parasitic diseases; F31.9 Bipolar disorder, unspecified; F17.200 Nicotine dependence, unspecified, uncomplicated; Z88.1 Allergy status to other antibiotic agents; Z88.2 Allergy status to sulfonamides; Z88.8 Allergy status to other drugs, medicaments and biological substances; G25.81 Restless legs syndrome; R09.02 Hypoxemia; Z79.899 Other long term (current) drug therapy; H54.7 Unspecified visual loss; F41.9 Anxiety disorder, unspecified; F20.9 Schizophrenia, unspecified; F17.210 Nicotine dependence, cigarettes, uncomplicated; M11.262 Other chondrocalcinosis, left knee; M11.261 Other chondrocalcinosis, right knee; E11.69 Type 2 diabetes mellitus with other specified complication; R21 Rash and other nonspecific skin eruption; Z79.82 Long term (current) use of aspirin; Z79.51 Long term (current) use of inhaled steroids; Z79.84 Long term (current) use of oral hypoglycemic drugs; Z79.2 Long term (current) use of antibiotics; Z90.710 Acquired absence of both cervix and uterus; Z90.721 Acquired absence of ovaries, unilateral; Z90.79 Acquired absence of other genital organ(s); Z99.81 Dependence on supplemental oxygen
CPT/HCPCS: 36415; 36600; 71046; 80048; 80053; 82140; 82803; 83605; 85025; 85027; 87086; 94640; 96360; 96361; 97110-GP; 97116-GP; 97162-GP; 97530-GP; 99284; 99285-25; A9270-GY; J0696; J2060; J7030; J7050; J7620-GY

== ENCOUNTER 2020-03-15 15:45 | Emergency (ER) | payer MEDICARE, MEDICAID ==
[2020-03-15 16:15] VITALS: BP 108/53; PULSE 93
--- NOTE | 2020-03-15 17:01 | EDM.PDOC ---
ED HPI GENERAL MEDICAL PROBLEM - General Chief Complaint: Respiratory Problem Stated Complaint: SOB Time Seen by Provider: 03/15/20 16:20 Source of Information: Reports: Patient History Limitations: Reports: No Limitations - History of Present Illness INITIAL COMMENTS - FREE TEXT/NARRATIVE: 69-year-old female with chronic obstructive pulmonary disease, continues to smoke fairly heavily, who is been having increasing shortness of breath over the past several weeks. She is concerned she may have been exposed to COVID. Cough is not significantly productive, she has had no fevers. She wears 3 L of oxygen at home on a regular basis, she lives independently. She is having significant arthritic pain, a small amount of increased ankle edema. No real significant changes in her symptoms over the past few days, they just been slowly progressively bothering her. She is also due for a recheck of CBC and CMP according to her cancellation clerk. She has an EGD scheduled coming up in a week and a half. She is interested in getting a COVID test. Onset: Gradual Duration: Week(s): (Several weeks) Associated Symptoms: Reports: Cough, Malaise, Nausea/Vomiting (Occasional, waxing and waning), Shortness of Breath, Weakness. Denies: Fever/Chills - Related Data Allergies Allergy/AdvReac Type Severity Reaction Status Date / Time diclofenac potassium Allergy Mild unsure Verified 03/15/20 16:07 [From Cataflam] dicyclomine HCl [From Bentyl] Allergy Mild unsure Verified 03/15/20 16:07 paroxetine HCl [From Paxil] Allergy Mild unsure Verified 03/15/20 16:07 sulfamethoxazole Allergy Other Verified 03/15/20 16:07 [From Bactrim] trimethoprim [From Bactrim] Allergy Other Verified 03/15/20 16:07 Home Meds: Home Meds Aspirin [Ashley Chewable Aspirin] 81 mg PO DAILY 07/26/13 [History] Calcium Carbonate [Calci-Chew] 500 mg PO BID 07/26/13 [History] Escitalopram [Lexapro] 20 mg PO DAILY 07/26/13 [History] metFORMIN [Glucophage] 500 mg PO BID 07/26/13 [History] busPIRone [Buspar] 20 mg PO TID 02/12/15 [History] Triamcinolone Acetonide [Triamcinolone Acetonide 0.1% Crm] 15 gm TOP TID PRN 01/27 [History] Vitamin E 400 unit PO DAILY 03/18/15 [History] Albuterol [Ventolin HFA] 2 puff IH Q4HR PRN 02/28/18 [History] Calcitonin,[place],Synthetic [Miacalcin] 3.7 ml NS DAILY #1 spray.pump 10/10/18 [ Rx] Cholecalciferol (Vitamin D3) [Vitamin D] 1 tab PO WEEKLY 08/22/19 [History] Folic Acid 1 tab PO DAILY 08/22/19 [History] Furosemide [Lasix] 1 tab PO DAILY 08/22/19 [History] Lactulose 30 ml PO DAILY 08/22/19 [History] Mupirocin Oint [Bactroban Oint] 1 dose TOP BID 08/22/19 [History] Naproxen 1 tab PO BID PRN 08/22/19 [History] valACYclovir HCl [Valtrex] 500 mg PO DAILY 08/22/19 [History] Acetaminophen/HYDROcodone [[place] 325-5 MG] 1 - 2 tab PO Q6HR PRN 10/17/19 [ History] Loperamide [Imodium] 2 mg PO BID PRN 10/17/19 [History] rOPINIRole [Requip] 2 mg PO QID 10/17/19 [History] Menthol/Camphor [Sarna Anti-Itch] 1 gm TOP DAILY PRN 10/18/19 [History] Ciclopirox/Urea/Camph/Men/Euc [Ciclopirox 8% Treatment Kit] 34.6 ml TP DAILY [History] QUEtiapine [SEROquel] 1 - 2 tab PO BEDTIME 10/29/19 [History] Past Medical History HEENT History: Reports: Impaired Vision Other HEENT History: dry eyes Cardiovascular History: Reports: Other (See Below) Other Cardiovascular History: hx stress test normal Respiratory History: Reports: COPD, SOB, Other (See Below) Other Respiratory History: O2 home, CPAP Gastrointestinal History: Reports: Hepatitis, Irritable Bowel Syndrome Genitourinary History: Reports: Urinary Incontinence, UTI, Recurrent 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 L foot pain Neurological History: Reports: Other (See Below) Other Neuro History: restless legs Psychiatric History: Reports: Addiction, Anxiety, Bipolar, Depression, Panic Attack, Schizophrenia Endocrine/Metabolic History: Reports: Diabetes, Type II, Obesity/BMI 30+ Immunologic History: Reports: Other (See Below) Other Immunologic History: herpes Dermatologic History: Reports: Urticaria - Infectious Disease History Infectious Disease History: Reports: Chicken Pox, Hepatitis C, Measles, Mumps - Past Surgical History Head Surgeries/Procedures: Reports: None HEENT Surgical History: Reports: None Cardiovascular Surgical History: Reports: None Respiratory Surgical History: Reports: None GI Surgical History: Reports: None Female Surgical History: Reports: Hysterectomy, Salpingo-Oophorectomy Endocrine Surgical History: Reports: None Neurological Surgical History: Reports: None Musculoskeletal Surgical History: Reports: None Dermatological Surgical History: Reports: None Social & Family History - Family History Family Medical History: Noncontributory Oncologic: Reports: Breast, Pancreatic, Prostate - Tobacco Use Smoking Status *Q: Current Every Day Smoker Years of Tobacco use: 53 Packs/Tins Daily: 0.7 Used Tobacco, but Quit: No Second Hand Smoke Exposure: Yes - Caffeine Use Caffeine Use: Reports: Coffee - Recreational Drug Use Recreational Drug Use: No ED ROS GENERAL - Review of Systems Review Of Systems: See Below Constitutional: Reports: Malaise, Weakness. Denies: Fever, Chills HEENT: Reports: No Symptoms. Denies: Throat Pain Respiratory: Reports: Shortness of Breath, Cough, Sputum (Minimal) Cardiovascular: Denies: Chest Pain GI/Abdominal: Reports: Nausea, Vomiting Musculoskeletal: Reports: Other (Chronic ankle and toe pain) Skin: Reports: No Symptoms Neurological: Denies: Dizziness, Headache ED EXAM, GENERAL - Physical Exam Exam: See Below Exam Limited By: No Limitations General Appearance: Alert, No Apparent Distress Eye Exam: Bilateral Eye: Normal Inspection Head: Atraumatic Neck: Non-Tender Respiratory/Chest: Lungs Clear Cardiovascular: Regular Rate, Rhythm Extremities: Other (Some chronic appearing swelling of the ankles, slightly worse on the left.) Neurological: Alert, Oriented, No Motor/Sensory Deficits Psychiatric: Normal Affect, Normal Mood Skin Exam: Warm, Dry Course - Vital Signs Last Recorded V/S: Last Vital Signs Temp 97.8 F 03/15/20 16:11 Pulse 93 03/15/20 16:11 Resp 16 03/15/20 16:11 BP 108/53 L 03/15/20 16:11 Pulse Ox 93 L 03/15/20 16:11 - Orders/Labs/Meds Orders: Active Orders 24 hr Category Date Time Status Chest 2V [CR] Routine Exams 03/15/20 16:27 Taken CORONAVIRUS COVID-19, [facility] Stat Lab 03/15/20 17:04 Received Labs: Laboratory Tests 03/15/20 03/15/20 Range/Units 16:44 16:50 WBC 6.1 (4.5-11.0) K/uL RBC 4.18 (3.30-5.50) M/uL Hgb 12.6 D (12.0-15.0) g/dL Hct 38.7 (36.0-48.0) % MCV 93 (80-98) fL MCH 30 (27-31) pg MCHC 33 (32-36) % Plt Count 153 (150-400) K/uL Neut % (Auto) 50 (36-66) % Lymph % (Auto) 32 (24-44) % [place] % (Auto) 12 H (2-6) % Eos % (Auto) 5 H (2-4) % Baso % (Auto) 1 (0-1) % Sodium 144 (140-148) mmol/L Potassium 4.3 (3.6-5.2) mmol/L Chloride 108 (100-108) mmol/L Carbon Dioxide 26 (21-32) mmol/L Anion Gap 9.8 (5.0-14.0) mmol/L BUN 24 H (7-18) mg/dL Creatinine 0.8 (0.6-1.0) mg/dL Est Cr Clr Drug Dosing 54.90 mL/min Estimated GFR (MDRD) > 60 (>60) Glucose 144 H (74-106) mg/dL Calcium 8.6 (8.5-10.1) mg/dL Total Bilirubin 0.4 (0.2-1.0) mg/dL AST 26 (15-37) U/L ALT 17 (12-78) U/L Alkaline Phosphatase 160 H D (46-116) U/L Total Protein 6.6 (6.4-8.2) g/dL Albumin 3.6 (3.4-5.0) g/dL Globulin 3.0 (2.3-3.5) g/dL Albumin/Globulin Ratio 1.2 (1.2-2.2) - Re-Assessments/Exams Free Text/Narrative Re-Assessment/Exam: 03/15/20 17:01 A 2 view chest x-ray showed no acute findings, stable COPD changes. CBC and CMP were obtained, as well as a COVID 19 test. 03/15/20 17:14 CBC and CMP are relatively normal, white count is normal. Because of her COPD and worsening symptoms, especially with her smoking she was covered for chronic bronchitis with a course of Zithromax and we will be in touch with her with her COVID-19 test when available. She can return if worsening. Departure - Departure Time of Disposition: 17:26 Disposition: Home, Self-Care 01 Clinical Impression: COPD exacerbation Chronic bronchitis Qualifiers: Chronic bronchitis type: simple Qualified Code(s): J41.0 - Simple chronic bronchitis - Discharge Information Instructions: Chronic Bronchitis, Adult Referrals: Kwaku Kang MD [Primary Care Provider] - Forms: ED Department Discharge Care Plan Goals: Continue your current medications and take course of antibiotic as prescribed. Try to reduce smoking if possible, and recheck next week if not improving satisfactorily. Return sooner if worsening despite treatment. Sepsis Event Note - Evaluation Sepsis Screening Result: No Definite Risk - Focused Exam Date Exam was Performed: 03/16/20 Time Exam was Performed: 07:10 - My Orders Last 24 Hours: My Active Orders 03/15/20 16:27 Chest 2V [CR] Routine 03/15/20 17:04 CORONAVIRUS COVID-19, [facility] Stat - Assessment/Plan Last 24 Hours: My Active Orders 03/15/20 16:27 Chest 2V [CR] Routine 03/15/20 17:04 CORONAVIRUS COVID-19, [facility]ON Stat
--- NOTE | 2020-03-16 09:24 | CR ---
CHEST: 2 view CLINICAL HISTORY:Dyspnea COMPARISON:October 2019 FINDINGS: Heart is mildly enlarged. Pulmonary vascularity is normal. There are atherosclerotic changes in the aorta. No infiltrate effusion or pneumothorax is seen. There is improved aeration at the lung bases since prior study Impression: Mild cardiomegaly No acute cardiopulmonary process.
== END 2020-03-15 17:26 | disposition home or self-care (01) ==
LOC: JP.ED 15:45
DX: J44.1 Chronic obstructive pulmonary disease with (acute) exacerbation (principal); M19.90 Unspecified osteoarthritis, unspecified site; F31.9 Bipolar disorder, unspecified; F41.9 Anxiety disorder, unspecified; E11.9 Type 2 diabetes mellitus without complications; E66.9 Obesity, unspecified; F17.210 Nicotine dependence, cigarettes, uncomplicated; Z20.828 Contact with and (suspected) exposure to other viral communicable diseases; Z88.2 Allergy status to sulfonamides; Z79.82 Long term (current) use of aspirin; Z79.84 Long term (current) use of oral hypoglycemic drugs; Z79.899 Other long term (current) drug therapy
CPT/HCPCS: 36415; 71046; 80053; 85025; 99285; U0002; 99283

== ENCOUNTER 2020-03-16 12:51 | Emergency (ER) | payer MEDICARE, MEDICAID ==
[2020-03-16 13:41] VITALS: BP 139/85; PULSE 108
--- NOTE | 2020-03-16 14:10 | CR ---
Abdomen 2V AP Flat Upright CLINICAL HISTORY: Pain FINDINGS: No free air is identified. Small intestinal configuration is nonacute. There is some fecal retention throughout the colon. IMPRESSION: Nonacute intestinal gas pattern Fecal retention
--- NOTE | 2020-03-16 14:38 | EDM.PDOC ---
ED HPI GENERAL MEDICAL PROBLEM - General Chief Complaint: General Stated Complaint: ABD PAIN FROM MEDS Time Seen by Provider: 03/16/20 13:50 Source of Information: Reports: Patient History Limitations: Reports: No Limitations - History of Present Illness INITIAL COMMENTS - FREE TEXT/NARRATIVE: 69-year-old female with some right upper quadrant abdominal discomfort and chest wall pain off and on for several weeks, but since she took her first dose of Zithromax yesterday she is convinced that it is caused an increase in her pain. Onset: Unknown/Unsure Associated Symptoms: Reports: Chest Pain (Right anterior intermittent chest discomfort), Cough, Fever/Chills, Shortness of Breath - Related Data Allergies Allergy/AdvReac Type Severity Reaction Status Date / Time diclofenac potassium Allergy Mild unsure Verified 03/16/20 13:43 [From Cataflam] dicyclomine HCl [From Bentyl] Allergy Mild unsure Verified 03/16/20 13:43 paroxetine HCl [From Paxil] Allergy Mild unsure Verified 03/16/20 13:43 sulfamethoxazole Allergy Other Verified 03/16/20 13:43 [From Bactrim] trimethoprim [From Bactrim] Allergy Other Verified 03/16/20 13:43 Home Meds: Home Meds Aspirin [Ashley Chewable Aspirin] 81 mg PO DAILY 07/26/13 [History] Calcium Carbonate [Calci-Chew] 500 mg PO BID 07/26/13 [History] Escitalopram [Lexapro] 20 mg PO DAILY 07/26/13 [History] metFORMIN [Glucophage] 500 mg PO BID 07/26/13 [History] busPIRone [Buspar] 20 mg PO TID 02/12/15 [History] Triamcinolone Acetonide [Triamcinolone Acetonide 0.1% Crm] 15 gm TOP TID PRN 01/27 [History] Vitamin E 400 unit PO DAILY 03/18/15 [History] Albuterol [Ventolin HFA] 2 puff IH Q4HR PRN 02/28/18 [History] Calcitonin,[place],Synthetic [Miacalcin] 3.7 ml NS DAILY #1 spray.pump 10/10/18 [ Rx] Cholecalciferol (Vitamin D3) [Vitamin D] 1 tab PO WEEKLY 08/22/19 [History] Folic Acid 1 tab PO DAILY 08/22/19 [History] Furosemide [Lasix] 1 tab PO DAILY 08/22/19 [History] Lactulose 30 ml PO DAILY 08/22/19 [History] Mupirocin Oint [Bactroban Oint] 1 dose TOP BID 08/22/19 [History] Naproxen 1 tab PO BID PRN 08/22/19 [History] valACYclovir HCl [Valtrex] 500 mg PO DAILY 08/22/19 [History] Acetaminophen/HYDROcodone [[place] 325-5 MG] 1 - 2 tab PO Q6HR PRN 10/17/19 [ History] Loperamide [Imodium] 2 mg PO BID PRN 10/17/19 [History] rOPINIRole [Requip] 2 mg PO QID 10/17/19 [History] Menthol/Camphor [Sarna Anti-Itch] 1 gm TOP DAILY PRN 10/18/19 [History] Ciclopirox/Urea/Camph/Men/Euc [Ciclopirox 8% Treatment Kit] 34.6 ml TP DAILY [History] QUEtiapine [SEROquel] 1 - 2 tab PO BEDTIME 10/29/19 [History] Past Medical History HEENT History: Reports: Impaired Vision Other HEENT History: dry eyes Cardiovascular History: Reports: Other (See Below) Other Cardiovascular History: hx stress test normal Respiratory History: Reports: COPD, SOB, Other (See Below) Other Respiratory History: O2 home, CPAP Gastrointestinal History: Reports: Hepatitis, Irritable Bowel Syndrome Genitourinary History: Reports: Urinary Incontinence, UTI, Recurrent 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 L foot pain Neurological History: Reports: Other (See Below) Other Neuro History: restless legs Psychiatric History: Reports: Addiction, Anxiety, Bipolar, Depression, Panic Attack, Schizophrenia Endocrine/Metabolic History: Reports: Diabetes, Type II, Obesity/BMI 30+ Immunologic History: Reports: Other (See Below) Other Immunologic History: herpes Dermatologic History: Reports: Urticaria - Infectious Disease History Infectious Disease History: Reports: Chicken Pox, Hepatitis C, Measles, Mumps - Past Surgical History Head Surgeries/Procedures: Reports: None HEENT Surgical History: Reports: None Cardiovascular Surgical History: Reports: None Respiratory Surgical History: Reports: None GI Surgical History: Reports: None Female Surgical History: Reports: Hysterectomy, Salpingo-Oophorectomy Endocrine Surgical History: Reports: None Neurological Surgical History: Reports: None Musculoskeletal Surgical History: Reports: None Dermatological Surgical History: Reports: None Social & Family History - Family History Family Medical History: Noncontributory Oncologic: Reports: Breast, Pancreatic, Prostate - Tobacco Use Smoking Status *Q: Current Every Day Smoker Years of Tobacco use: 45 Packs/Tins Daily: 1 Used Tobacco, but Quit: No - Caffeine Use Caffeine Use: Reports: Coffee ED ROS GENERAL - Review of Systems Review Of Systems: See Below Constitutional: Reports: Fever, Chills, Malaise HEENT: Denies: Throat Pain Respiratory: Reports: Shortness of Breath, Cough. Denies: Wheezing Cardiovascular: Reports: Chest Pain GI/Abdominal: Reports: Abdominal Pain, Nausea. Denies: Constipation, Diarrhea, Vomiting Skin: Denies: Bruising Neurological: Denies: Confusion, Dizziness Psychiatric: Reports: Anxiety ED EXAM, GENERAL - Physical Exam Exam: See Below Exam Limited By: No Limitations General Appearance: Alert, No Apparent Distress Eye Exam: Bilateral Eye: Normal Inspection Respiratory/Chest: No Respiratory Distress, Lungs Clear, Other (Lung sounds are the same as yesterday's exam.) Cardiovascular: Regular Rate, Rhythm Course - Vital Signs Last Recorded V/S: Last Vital Signs Temp 97.1 F 03/16/20 13:41 Pulse 108 H 03/16/20 13:41 Resp 16 03/16/20 13:41 BP 139/85 03/16/20 13:41 Pulse Ox 91 L 03/16/20 13:41 - Re-Assessments/Exams Free Text/Narrative Re-Assessment/Exam: 03/16/20 17:01 A 2 view abdominal x-ray was obtained which shows no significant stool, no acute findings such as air-fluid levels or obstruction. Patient actually continued to seem comfortable. I tried to encourage her to finish her Zithromax but she refused and wanted to be on a different antibiotic. We called [facility] pharmacy and the last antibiotic she took was Bactrim and tolerated it well. She was placed on 7 days of oral Bactrim. Departure - Departure Time of Disposition: 14:45 Disposition: Home, Self-Care 01 Clinical Impression: Bronchitis Abdominal pain Qualifiers: Abdominal location: right upper quadrant Qualified Code(s): R10.11 - Right upper quadrant pain - Discharge Information Instructions: Antibiotic Medicine, Adult, [id number] Referrals: PCP,None [Primary Care Provider] - Forms: ED Department Discharge Care Plan Goals: Stop Zithromax and start Bactrim twice daily for 7 days. Recheck next week if not improving satisfactorily. Continue your other medications. Sepsis Event Note - Evaluation Sepsis Screening Result: No Definite Risk - Focused Exam Vital Signs: Vital Signs Temp Pulse Resp BP Pulse Ox 03/16/20 13:41 97.1 F 108 H 16 139/85 91 L 03/16/20 13:40 97.1 F 108 H 16 139/85 91 L Date Exam was Performed: 03/16/20 Time Exam was Performed: 16:56
== END 2020-03-16 14:45 | disposition home or self-care (01) ==
LOC: JP.ED 12:51
DX: R10.11 Right upper quadrant pain (principal); J40 Bronchitis, not specified as acute or chronic; M19.90 Unspecified osteoarthritis, unspecified site; F41.9 Anxiety disorder, unspecified; F32.9 Major depressive disorder, single episode, unspecified; E11.9 Type 2 diabetes mellitus without complications; E66.9 Obesity, unspecified; Z68.31 Body mass index [BMI] 31.0-31.9, adult; F17.210 Nicotine dependence, cigarettes, uncomplicated; Z88.8 Allergy status to other drugs, medicaments and biological substances; Z88.2 Allergy status to sulfonamides; Z79.82 Long term (current) use of aspirin; Z79.84 Long term (current) use of oral hypoglycemic drugs; Z79.899 Other long term (current) drug therapy
CPT/HCPCS: 74019; 74019-26; 99283; 99284-25

== ENCOUNTER 2020-03-18 22:48 | Inpatient (IN) | payer MEDICARE, MEDICAID ==
--- NOTE | 2020-03-18 23:12 | EDM.PDOC ---
ED HPI GENERAL MEDICAL PROBLEM - General Chief Complaint: General Stated Complaint: [facility] Time Seen by Provider: 03/18/20 23:12 Source of Information: Reports: Patient History Limitations: Reports: No Limitations - History of Present Illness INITIAL COMMENTS - FREE TEXT/NARRATIVE: pt arrived with sob, cough and alot of body aches. She has a temp of over 100. She has been chilling. Pt states she had pneumonia in Dec. She does have pain under her diaphrams. She is not vomiting but appears on the dry side. 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 Bilateral Knee Pain Score (Numeric/FACES): 8 - Related Data Allergies Allergy/AdvReac Type Severity Reaction Status Date / Time diclofenac potassium Allergy Mild unsure Verified 03/18/20 22:53 [From Cataflam] dicyclomine HCl [From Bentyl] Allergy Mild unsure Verified 03/18/20 22:53 paroxetine HCl [From Paxil] Allergy Mild unsure Verified 03/18/20 22:53 sulfamethoxazole Allergy Other Verified 03/18/20 22:53 [From Bactrim] trimethoprim [From Bactrim] Allergy Other Verified 03/18/20 22:53 Home Meds: Home Meds Aspirin [Ashley Chewable Aspirin] 81 mg PO DAILY 07/26/13 [History] Calcium Carbonate [Calci-Chew] 500 mg PO BID 07/26/13 [History] Escitalopram [Lexapro] 20 mg PO DAILY 07/26/13 [History] metFORMIN [Glucophage] 500 mg PO BID 07/26/13 [History] busPIRone [Buspar] 20 mg PO TID 02/12/15 [History] Triamcinolone Acetonide [Triamcinolone Acetonide 0.1% Crm] 15 gm TOP TID PRN 01/27 [History] Vitamin E 400 unit PO DAILY 03/18/15 [History] Albuterol [Ventolin HFA] 2 puff IH Q4HR PRN 02/28/18 [History] Calcitonin,[place],Synthetic [Miacalcin] 3.7 ml NS DAILY #1 spray.pump 10/10/18 [ Rx] Folic Acid 1 tab PO DAILY 11/08/19 [History] Furosemide [Lasix] 1 tab PO DAILY 08/22/19 [History] Lactulose 30 ml PO DAILY 08/22/19 [History] Mupirocin Oint [Bactroban Oint] 1 dose TOP BID 08/22/19 [History] Naproxen 1 tab PO BID PRN 08/22/19 [History] valACYclovir HCl [Valtrex] 500 mg PO DAILY 08/22/19 [History] Acetaminophen/HYDROcodone [Chester 325-5 MG] 1 - 2 tab PO Q6HR PRN 10/17/19 [ History] Loperamide [Imodium] 2 mg PO BID PRN 10/17/19 [History] rOPINIRole [Requip] 2 mg PO QID 10/17/19 [History] Menthol/Camphor [Sarna Anti-Itch] 1 gm TOP DAILY PRN 10/18/19 [History] Ciclopirox/Urea/Camph/Men/Euc [Ciclopirox 8% Treatment Kit] 34.6 ml TP DAILY [History] QUEtiapine [SEROquel] 1 - 2 tab PO BEDTIME 10/29/19 [History] Sulfamethoxazole/Trimethoprim [Sulfamethoxazole-Tmp Ds Tablet] 1 each PO BID 03/03 [History] Vitamin D3 10785 50,000 unit PO WEEKLY 03/19/20 [History] Past Medical History HEENT History: Reports: Impaired Vision Other HEENT History: dry eyes Cardiovascular History: Reports: Other (See Below) Other Cardiovascular History: hx stress test normal Respiratory History: Reports: COPD, SOB, Other (See Below) Other Respiratory History: O2 home, CPAP Gastrointestinal History: Reports: Hepatitis, Irritable Bowel Syndrome Genitourinary History: Reports: Urinary Incontinence, UTI, Recurrent 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 L foot pain Neurological History: Reports: Other (See Below) Other Neuro History: restless legs Psychiatric History: Reports: Addiction, Anxiety, Bipolar, Depression, Panic Attack, Schizophrenia Endocrine/Metabolic History: Reports: Diabetes, Type II, Obesity/BMI 30+ Immunologic History: Reports: Other (See Below) Other Immunologic History: herpes Dermatologic History: Reports: Urticaria - Infectious Disease History Infectious Disease History: Reports: Chicken Pox - Past Surgical History Head Surgeries/Procedures: Reports: None HEENT Surgical History: Reports: None Cardiovascular Surgical History: Reports: None Respiratory Surgical History: Reports: None GI Surgical History: Reports: None Female Surgical History: Reports: Hysterectomy, Salpingo-Oophorectomy Endocrine Surgical History: Reports: None Neurological Surgical History: Reports: None Musculoskeletal Surgical History: Reports: None Dermatological Surgical History: Reports: None Social & Family History - Family History Family Medical History: Noncontributory Oncologic: Reports: Breast, Pancreatic, Prostate - Tobacco Use Smoking Status *Q: Current Every Day Smoker Years of Tobacco use: 56 Packs/Tins Daily: 1 - Caffeine Use Caffeine Use: Reports: Coffee, Soda - Recreational Drug Use Recreational Drug Use: No ED ROS GENERAL - Review of Systems Review Of Systems: See Below Constitutional: Reports: Fever, Chills, Malaise, Weakness, Decreased Appetite HEENT: Reports: No Symptoms Respiratory: Reports: Shortness of Breath, Cough Cardiovascular: Reports: No Symptoms Endocrine: Reports: No Symptoms GI/Abdominal: Reports: No Symptoms : Reports: No Symptoms Musculoskeletal: Reports: No Symptoms Skin: Reports: No Symptoms ED EXAM, GENERAL - Physical Exam Exam: See Below Free Text/Narrative:: pt has generalized joint pain, she feelsob and feels sick all over. Exam Limited By: No Limitations General Appearance: Alert, Anxious, Mild Distress, Moderate Distress Ears: Normal TMs Nose: Normal Inspection Throat/Mouth: Normal Inspection Head: Atraumatic Neck: Other Respiratory/Chest: No Respiratory Distress, Other (pt does have a cough. Covid test was done and will not be back until Sunday from [facility]. ) Cardiovascular: Regular Rate, Rhythm, Tachycardia GI/Abdominal: Soft, Non-Tender (Female) Exam: Deferred Rectal (Female) Exam: Deferred Back Exam: Normal Inspection Extremities: Normal Inspection, Other Neurological: Alert, Oriented, Normal Cognition Psychiatric: Normal Affect, Anxious Course - Vital Signs Last Recorded V/S: Last Vital Signs Temp 36.9 C 03/19/20 14:07 Pulse 112 H 03/19/20 14:07 Resp 18 03/19/20 14:07 BP 110/49 L 03/19/20 14:07 Pulse Ox 87 L 03/19/20 14:07 - Orders/Labs/Meds Orders: Active Orders 24 hr Category Date Time Status CULTURE BLOOD [BC] Urgent Lab 03/19/20 03:00 Received CULTURE BLOOD [BC] Urgent Lab 03/19/20 03:13 Received Blood Culture x2 Reflex Set [OM.PC] Urgent Oth 03/19/20 02:52 Ordered Medication Orders Acetaminophen (Tylenol) 650 mg PO Q4H PRN PRN Reason: Pain (Mild 1-3)/fever Hydrocodone Bitart/Acetaminophen (Chester 325-5 Mg) 1 tab PO Q4H PRN PRN Reason: Pain (moderate 4-6) Last Admin: 03/19/20 14:26 Dose: 1 tab Admin: 03/19/20 04:46 Dose: 1 tab Albuterol (Ventolin Hfa) 0 gm INH Q4H PRN PRN Reason: Shortness of Breath Aspirin (Aspirin) 81 mg PO DAILY [facility] Last Admin: 03/19/20 08:15 Dose: 81 mg Azithromycin (Zithromax) 500 mg PO DAILY [facility] Last Admin: 03/19/20 08:17 Dose: 500 mg Benzonatate (Tessalon Perles) 100 mg PO TID PRN PRN Reason: Cough Buspirone HCl (Buspar) 20 mg PO TID [facility] Last Admin: 03/19/20 14:27 Dose: 20 mg Admin: 03/19/20 08:15 Dose: 20 mg Calcium Carbonate/Glycine (Tums) 500 mg PO BID [facility] Last Admin: 03/19/20 08:16 Dose: 500 mg Cholecalciferol (Vitamin D3) 50,000 unit PO Th@0900 [facility] Escitalopram Oxalate (Lexapro) 20 mg PO DAILY [facility] Last Admin: 03/19/20 08:16 Dose: 20 mg Folic Acid (Folic Acid) 1 mg PO DAILY [facility] Last Admin: 03/19/20 08:16 Dose: 1 mg Furosemide (Lasix) 40 mg PO DAILY [facility] Last Admin: 03/19/20 08:16 Dose: 40 mg Guaifenesin/Dextromethorphan (Robitussin Dm) 10 ml PO Q4H PRN PRN Reason: Cough Ceftriaxone Sodium 1 gm/ (Sodium Chloride) 50 mls @ 100 mls/hr IV Q24H [facility] Last Admin: 03/19/20 04:49 Dose: 100 mls/hr Ketorolac Tromethamine (Toradol) 15 mg IVPUSH Q6H PRN PRN Reason: Pain (moderate 4-6) Stop: 03/24/20 10:00 Last Admin: 03/19/20 10:27 Dose: 15 mg Lactulose (Chronulac) 20 gm PO DAILY [facility] Last Admin: 03/19/20 08:16 Dose: 20 gm Loperamide HCl (Imodium) 2 mg PO BID PRN PRN Reason: Diarrhea Metformin HCl (Glucophage) 500 mg PO BIDAC [facility] Last Admin: 03/19/20 17:07 Dose: 500 mg Admin: 03/19/20 08:14 Dose: 500 mg Mupirocin (Bactroban Oint) 0 gm TOP BID [facility] Last Admin: 03/19/20 08:15 Dose: 1 applic (Ciclopirox/Urea/Camph/Men/Euc [ Ciclopirox 8% Treatment Ki 0 ml TP DAILY [facility] Last Admin: 03/19/20 14:18 Dose: Not Given (Menthol/Camphor [ Sarna Anti-Itch] 1 Gm) 0 gm TOP DAILY PRN PRN Reason: Itching Ondansetron HCl (Zofran) 4 mg IV Q4H PRN PRN Reason: Nausea/Vomiting Quetiapine Fumarate (Seroquel) 200 - 400 mg PO BEDTIME [facility] Ropinirole HCl (Requip) 2 mg PO QID [facility] Last Admin: 03/19/20 17:07 Dose: 2 mg Admin: 03/19/20 10:29 Dose: 2 mg Admin: 03/19/20 05:56 Dose: 2 mg Triamcinolone Acetonide (Triamcinolone Acetonide 0.1% Crm) 15 gm TOP TID PRN PRN Reason: Itching Last Admin: 03/19/20 08:15 Dose: 1 applic Valacyclovir HCl (Valtrex) 500 mg PO DAILY [facility] Last Admin: 03/19/20 08:16 Dose: 500 mg Vitamin E (Vitamin E) 400 units PO DAILY [facility] Last Admin: 03/19/20 08:16 Dose: 400 units Labs: Laboratory Tests 03/18/20 03/18/20 03/18/20 Range/Units 23:11 23:20 23:32 WBC 11.2 H (4.5-11.0) K/uL RBC 4.38 (3.30-5.50) M/uL Hgb 13.4 (12.0-15.0) g/dL Hct 39.8 (36.0-48.0) % MCV 91 (80-98) fL MCH 31 (27-31) pg MCHC 34 (32-36) % Plt Count 140 L (150-400) K/uL Neut % (Auto) 88 H (36-66) % Lymph % (Auto) 8 L (24-44) % [place] % (Auto) 4 (2-6) % Eos % (Auto) 0 L (2-4) % Baso % (Auto) 0 (0-1) % D-Dimer, Quantitative (0.0-400.0) ng/mL Sodium 137 L (140-148) mmol/L Potassium 4.0 (3.6-5.2) mmol/L Chloride 101 (100-108) mmol/L Carbon Dioxide 27 (21-32) mmol/L Anion Gap 13.0 (5.0-14.0) mmol/L BUN 24 H (7-18) mg/dL Creatinine 1.2 H (0.6-1.0) mg/dL Est Cr Clr Drug Dosing 41.42 mL/min Estimated GFR (MDRD) 45 L (>60) Glucose 161 H (74-106) mg/dL Lactic Acid (0.4-2.0) mmol/L Calcium 9.0 (8.5-10.1) mg/dL Total Bilirubin 1.1 H D (0.2-1.0) mg/dL AST 26 (15-37) U/L ALT 16 (12-78) U/L Alkaline Phosphatase 152 H (46-116) U/L C-Reactive Protein (0.0-0.3) mg/dL Total Protein 6.6 (6.4-8.2) g/dL Albumin 3.5 (3.4-5.0) g/dL Globulin 3.1 (2.3-3.5) g/dL Albumin/Globulin Ratio 1.1 L (1.2-2.2) Urine Color Yellow (YELLOW) Urine Appearance Clear (CLEAR) Urine pH 5.5 (5.0-8.0) Ur Specific [place] >= 1.030 (1.008-1.030) Urine Protein Negative (NEGATIVE) mg/dL Urine Glucose (UA) Negative (NEGATIVE) mg/dL Urine Ketones Negative (NEGATIVE) mg/dL Urine Occult Blood Negative (NEGATIVE) Urine Nitrite Negative (NEGATIVE) Urine Bilirubin Negative (NEGATIVE) Urine Urobilinogen 0.2 (0.2-1.0) EU/dL Ur Leukocyte Esterase Negative (NEGATIVE) Urine RBC Not seen (0-5) Urine WBC 0-5 (0-5) Ur Epithelial Cells Few Amorphous Sediment Few Urine Bacteria Not seen Urine Mucus Not seen 03/19/20 03/19/20 03/19/20 Range/Units 00:08 00:08 03:13 WBC (4.5-11.0) K/uL RBC (3.30-5.50) M/uL Hgb (12.0-15.0) g/dL Hct (36.0-48.0) % MCV (80-98) fL MCH (27-31) pg MCHC (32-36) % Plt Count (150-400) K/uL Neut % (Auto) (36-66) % Lymph % (Auto) (24-44) % [place] % (Auto) (2-6) % Eos % (Auto) (2-4) % Baso % (Auto) (0-1) % D-Dimer, Quantitative 926 H (0.0-400.0) ng/mL Sodium (140-148) mmol/L Potassium (3.6-5.2) mmol/L Chloride (100-108) mmol/L Carbon Dioxide (21-32) mmol/L Anion Gap (5.0-14.0) mmol/L BUN (7-18) mg/dL Creatinine (0.6-1.0) mg/dL Est Cr Clr Drug Dosing mL/min Estimated GFR (MDRD) (>60) Glucose (74-106) mg/dL Lactic Acid 2.5 H (0.4-2.0) mmol/L Calcium (8.5-10.1) mg/dL Total Bilirubin (0.2-1.0) mg/dL AST (15-37) U/L ALT (12-78) U/L Alkaline Phosphatase (46-116) U/L C-Reactive Protein 0.43 H (0.0-0.3) mg/dL Total Protein (6.4-8.2) g/dL Albumin (3.4-5.0) g/dL Globulin (2.3-3.5) g/dL Albumin/Globulin Ratio (1.2-2.2) Urine Color (YELLOW) Urine Appearance (CLEAR) Urine pH (5.0-8.0) Ur Specific [place] (1.008-1.030) Urine Protein (NEGATIVE) mg/dL Urine Glucose (UA) (NEGATIVE) mg/dL Urine Ketones (NEGATIVE) mg/dL Urine Occult Blood (NEGATIVE) Urine Nitrite (NEGATIVE) Urine Bilirubin (NEGATIVE) Urine Urobilinogen (0.2-1.0) EU/dL Ur Leukocyte Esterase (NEGATIVE) Urine RBC (0-5) Urine WBC (0-5) Ur Epithelial Cells Amorphous Sediment Urine Bacteria Urine Mucus Meds: Medications Generic Name Dose Route Start Last Admin Trade Name Freq PRN Reason Stop Dose Admin Acetaminophen 650 mg 03/19/20 03:42 Tylenol PO Q4H PRN Pain (Mild 1-3)/fever Hydrocodone Bitart/Acetaminophen 1 tab 03/19/20 03:42 03/19/20 14:26 [place] 325-5 Mg PO 1 tab Q4H PRN Administration Pain (moderate 4-6) Albuterol 0 gm 03/19/20 03:56 Ventolin Hfa INH Q4H PRN Shortness of Breath Aspirin 81 mg 03/19/20 09:00 03/19/20 08:15 Aspirin PO 81 mg DAILY ETTA Administration Azithromycin 500 mg 03/19/20 09:00 03/19/20 08:17 Zithromax PO 500 mg DAILY ETTA Administration Benzonatate 100 mg 03/19/20 13:42 Tessalon Perles PO TID PRN Cough Buspirone HCl 20 mg 03/19/20 09:00 03/19/20 14:27 Buspar PO 20 mg TID ETTA Administration Calcium Carbonate/Glycine 500 mg 03/19/20 09:00 03/19/20 08:16 Tums PO 500 mg BID ETTA Administration Cholecalciferol 50,000 unit 03/25/20 09:00 Vitamin D3 PO Th@0900 [facility] Escitalopram Oxalate 20 mg 03/19/20 09:00 03/19/20 08:16 Lexapro PO 20 mg DAILY ETTA Administration Folic Acid 1 mg 03/19/20 09:00 03/19/20 08:16 Folic Acid PO 1 mg DAILY ETTA Administration Furosemide 40 mg 03/19/20 09:00 03/19/20 08:16 Lasix PO 40 mg DAILY ETTA Administration Guaifenesin/Dextromethorphan 10 ml 03/19/20 13:42 Robitussin Dm PO Q4H PRN Cough Ceftriaxone Sodium 1 gm/ 50 mls @ 100 mls/hr 03/19/20 04:00 03/19/20 04:49 Sodium Chloride IV 100 mls/hr Q24H ETTA Administration Ketorolac Tromethamine 15 mg 03/19/20 10:00 03/19/20 10:27 Toradol IVPUSH 03/24/20 10:00 15 mg Q6H PRN Administration Pain (moderate 4-6) Lactulose 20 gm 03/19/20 09:00 03/19/20 08:16 Chronulac PO 20 gm DAILY ETTA Administration Loperamide HCl 2 mg 03/19/20 03:56 Imodium PO BID PRN Diarrhea Metformin HCl 500 mg 03/19/20 07:30 03/19/20 17:07 Glucophage PO 500 mg BIDAC ETTA Administration Mupirocin 0 gm 03/19/20 09:00 03/19/20 08:15 Bactroban Oint TOP 1 applic BID ETTA Administration (Ciclopirox/Urea/ 0 ml 03/19/20 09:00 03/19/20 14:18 Camph/Men/Euc [ TP Not Given Ciclopirox 8% DAILY ETTA Treatment Ki (Menthol/Camphor [ 0 gm 03/19/20 03:56 Sarna Anti-Itch] 1 TOP Gm) DAILY PRN Itching Ondansetron HCl 4 mg 03/19/20 03:42 Zofran IV Q4H PRN Nausea/Vomiting Quetiapine Fumarate 200 - 400 mg 03/19/20 21:00 Seroquel PO BEDTIME ETTA Ropinirole HCl 2 mg 03/19/20 06:00 03/19/20 17:07 Requip PO 2 mg QID ETTA Administration Triamcinolone Acetonide 15 gm 03/19/20 03:56 03/19/20 08:15 Triamcinolone Acetonide 0.1% Crm TOP 1 applic TID PRN Administration Itching Valacyclovir HCl 500 mg 03/19/20 09:00 03/19/20 08:16 Valtrex PO 500 mg DAILY ETTA Administration Vitamin E 400 units 03/19/20 09:00 03/19/20 08:16 Vitamin E PO 400 units DAILY ETTA Administration Discontinued Medications Generic Name Dose Route Start Last Admin Trade Name Nicole PRN Reason Stop Dose Admin Acetaminophen 650 mg 03/19/20 00:06 03/19/20 00:20 Tylenol PO 03/19/20 00:07 650 mg NOW ONE Administration Sodium Chloride 1,000 mls @ 200 mls/hr 03/19/20 00:15 03/19/20 00:20 Normal Saline IV 200 mls/hr ASDIRECTED ETTA Administration Sodium Chloride 100 mls @ 4 mls/sec 03/19/20 01:00 03/19/20 01:17 Normal Saline IV 03/19/20 01:01 4 mls/sec ASDIRECTED STA Administration Sodium Chloride 1,000 mls @ 125 mls/hr 03/19/20 03:45 Normal Saline IV ASDIRECTED ETTA Iopamidol 100 ml 03/19/20 00:59 03/19/20 01:17 Isovue-370 (76%) IV 03/19/20 01:00 100 ml . DIRECTED STA Administration Ketorolac Tromethamine 30 mg 03/19/20 00:06 03/19/20 00:20 Toradol IVPUSH 03/19/20 00:07 30 mg ONETIME ONE Administration Methylprednisolone Sodium Succinate 125 mg 03/19/20 14:00 03/19/20 14:26 Solu-Medrol IVPUSH 03/19/20 14:01 125 mg ONETIME ONE Administration - Re-Assessments/Exams Free Text/Narrative Re-Assessment/Exam: 03/19/20 02:36 cat scan of the chest did show evidence of infiltrates, viral pneumonia verus edema. Pt does have a temp. Departure - Departure Time of Disposition: 01:00 Disposition: Admitted As Inpatient 66 Condition: Fair Clinical Impression: Viral pneumonia, COVID-19 virus test result unknown - Discharge Information Sepsis Event Note - Evaluation Sepsis Screening Result: No Definite Risk - Focused Exam Date Exam was Performed: 03/19/20 Time Exam was Performed: 18:48 - My Orders Last 24 Hours: My Active Orders 03/19/20 02:52 Blood Culture x2 Reflex Set [OM.PC] Urgent 03/19/20 03:00 CULTURE BLOOD [BC] Urgent 03/19/20 03:13 CULTURE BLOOD [BC] Urgent - Assessment/Plan Last 24 Hours: My Active Orders 03/19/20 02:52 Blood Culture x2 Reflex Set [OM.PC] Urgent 03/19/20 03:00 CULTURE BLOOD [BC] Urgent 03/19/20 03:13 CULTURE BLOOD [BC] Urgent
[2020-03-19] MEDS ORDERED: Acetaminophen 325 MG Tab PO ONE (00:06)
[2020-03-19] MEDS ORDERED: Ketorolac 30 MG/ML SDV IVPUSH ONE (00:06)
[2020-03-19] MEDS ORDERED: Sodium Chloride 0.9% 1,000 ML IV SCH ×2 (00:15→03:45)
[2020-03-19] MEDS ORDERED: Iopamidol 755 Mg/ML 100 ML Bottle IV STA (00:59)
[2020-03-19] MEDS ORDERED: Sodium Chloride 0.9% 100 ML IV STA (01:00)
--- NOTE | 2020-03-19 02:13 | CRLCT ---
INDICATION: Shortness of breath and cough TECHNIQUE: CT chest PE was acquired with 100 cc Isovue 370 intravenous contrast. COMPARISON: Chest CT 07/12/2019 FINDINGS: Heart and vasculature: Contrast opacification of the pulmonary arterial tree is adequate. No sign of pulmonary embolism. Moderate atherosclerotic calcification without thoracic aortic aneurysm. No pericardial effusion. Lungs and pleural: No pleural effusion or pneumothorax. Depending ground-glass opacities within both lungs with scattered areas of discoid atelectasis. Vascular distention with mild interlobular septal thickening lung bases. Lymph nodes/mediastinum: Right hilar lymph nodes measure 14 millimeters in short axis. Chest wall: No masses. Upper abdomen: Cirrhotic morphology of the liver with splenomegaly. Bones: Unremarkable for age. IMPRESSION: 1. No evidence of pulmonary embolus. 2. Vascular distention with mild interlobular septal thickening in the lung bases. Differential includes minimal pulmonary edema, viral pneumonia or pneumonitis. 3. Cirrhotic morphology of the liver and splenomegaly. Please note that all CT scans at this facility use dose modulation, iterative reconstruction, and/or weight-based dosing when appropriate to reduce radiation dose to as low as reasonably achievable. Dictated by Mohan Mei MD @ Mar 19 2020 2:05AM Signed by Dr. Mohan Mei @ Mar 19 2020 2:12AM
[2020-03-19] MEDS ORDERED: Acetaminophen 325 MG Tab PO PRN (03:42)
[2020-03-19] MEDS ORDERED: Ondansetron 4 MG/2 ML SDV IV PRN (03:42)
[2020-03-19] MEDS ORDERED: Loperamide 2 MG Cap PO PRN (03:56)
[2020-03-19] MEDS ORDERED: Albuterol 8 GM Inhaler INH PRN (03:56)
[2020-03-19] MEDS: Acetaminophen/HYDROcodone 325-5 MG Tab PO PRN ×3 (04:46→20:57)
[2020-03-19] MEDS: cefTRIAXone 1 GM in Sodium Chloride 0.9% 50 ML IV SCH (04:49)
[2020-03-19] MEDS: rOPINIRole 1 MG Tab PO SCH ×4 (05:56→20:59)
[2020-03-19] MEDS: metFORMIN 500 MG Tab PO SCH ×2 (08:14→17:07)
[2020-03-19] MEDS: Aspirin 81 MG Tab.Chew PO SCH (08:15)
[2020-03-19] MEDS: Mupirocin Oint 22 GM Tube TOP SCH ×2 (08:15→20:57)
[2020-03-19] MEDS: Triamcinolone Acetonide 0.1% Crm 15 GM Tube TOP PRN ×2 (08:15→20:59)
[2020-03-19] MEDS: busPIRone 10 MG Tab PO SCH ×3 (08:15→20:59)
[2020-03-19] MEDS: Calcium Carbonate 500 MG Tab.Chew PO SCH ×2 (08:16→20:59)
[2020-03-19] MEDS: Escitalopram 20 MG Tab PO SCH (08:16)
[2020-03-19] MEDS: Vitamin E (dl-alpha-tocopherol acetate) 400 Unit Cap PO SCH (08:16)
[2020-03-19] MEDS: Furosemide 40 MG Tab PO SCH (08:16)
[2020-03-19] MEDS: Folic Acid 1 MG Tab PO SCH (08:16)
[2020-03-19] MEDS: Lactulose Soln 10 GM/15 ML 15 ML UD Cup PO SCH (08:16)
[2020-03-19] MEDS: valACYclovir 1,000 MG Tab PO SCH (08:16)
[2020-03-19] MEDS: Azithromycin 250 MG Tab PO SCH (08:17)
--- NOTE | 2020-03-19 09:06 | HP ---
CHIEF COMPLAINT: Shortness of breath with cough, fever. HISTORY OF PRESENT ILLNESS: A 69-year-old who was in earlier in the week, I believe a couple of times for suspected bronchitis. I believe she was on an antibiotic earlier in the week and then it was changed to Bactrim, but her breathing became worse with more shortness of breath. She has had a productive cough with elizondo sputum. She has had fever and chills and states that her arms and legs feel weak and now ache. She states that she has lost her sense of taste and smell. She has not done any traveling. No known exposure to anybody with COVID-19. She has had nausea with vomiting. She does have chronic diarrhea, but is on lactulose for liver disease, and she has had diarrhea chronically since going on this. She denied any chest pain. PAST MEDICAL HISTORY: 1. Paranoid schizophrenia. 2. Hepatitis. 3. Irritable bowel syndrome. 4. Urinary incontinence with recurrent UTI. 5. Arthritis. 6. Restless legs syndrome. 7. Anxiety, bipolar disorder. 8. Type 2 diabetes mellitus. 9. History of urticaria. 10.Hysterectomy with salpingo-oophorectomy. SOCIAL HISTORY: She still smokes. No alcohol use. FAMILY HISTORY: Apparently with breast, pancreatic and prostate cancer. REVIEW OF SYSTEMS: Denies headache. No vision trouble. No sore throat or runny nose. She has had productive cough with shortness of breath, nausea with vomiting, diarrhea. She has lost her taste and smell she states. She has had problems with swelling in her legs. She has had chronic urticaria and itching problems, which are not different than baseline for her. No neurologic complaints other than above. OBJECTIVE: VITAL SIGNS: Temp 37.8, now it is 36.7. Pulse 105, now 94. Blood pressure 119/49, respiratory rate 16, O2 saturation 93% on 2 L per nasal cannula. GENERAL: The patient is a little bit confused, but pretty much her baseline with her paranoid schizophrenia. I have seen her a number of times in the past. HEENT: Pharynx is clear. NECK: Supple. No adenopathy, thyromegaly, JVD, carotid bruits. LUNGS: Sounds clear but slightly decreased in the bases. HEART: Regular without murmurs. ABDOMEN: Soft. She did have some epigastric discomfort. No mass, organomegaly palpated. No distention. EXTREMITIES: She does have edema to the upper tibia bilaterally with some mild erythema. She does have significant varicose veins, right side worse than left. No pain reproduced with palpation of her legs. SKIN: As above. NEUROLOGIC: Cranial nerves II through XII grossly intact. She does not look like she is in any respiratory distress at this time. LABORATORY DATA AND IMAGING: COVID test earlier in the week is pending. Apparently, the results may not be back until Sunday, 2 days from now. Apparently, they were doing a stat test, that they were going to send it to [place]. White count 11.2, hemoglobin 13.4, platelets 140,000 with 88% neutrophils, 8% lymphocytes, 4% monocytes. D-dimer was 926, which was elevated. Sodium 137, potassium 4.0, chloride 101, BUN 24, creatinine 1.2, glucose 161. Lactic acid was elevated at 2.5. Liver functions; alkaline phosphatase was elevated at 152, bilirubin was slightly high at 1.1, but otherwise unremarkable. C-reactive protein 0.43, which was slightly elevated. Urinalysis was unremarkable. CT scan of her chest showed no evidence of pulmonary embolism. Did show vascular distension and mild intralobar septal thickening of the lung bases. Differential, minimal pulmonary edema. viral pneumonia versus pneumonia, cirrhotic morphology of the liver, splenomegaly. Blood cultures are pending. ASSESSMENT: 1. Pneumonia. We will admit her inpatient. Anticipate more than 2 midnight stays. Will start her on Zithromax and Rocephin for bacterial pneumonia. Question viral pneumonia and COVID testing is pending. We will admit her to isolation. O2 as needed. Transfer care to the hospitalist service in the morning. 2. Paranoid schizophrenia with bipolar disorder and anxiety. 3. Hepatitis C with chronic liver disease, on lactulose contributing to her diarrhea. 4. Type 2 diabetes mellitus. 5. Other medical problems as listed above. Kwaku Kang MD /[id number]
[2020-03-19] MEDS ORDERED: Ketorolac 30 MG/ML SDV IVPUSH PRN (10:00)
--- NOTE | 2020-03-19 10:19 | CR ---
CHEST: 2 view CLINICAL HISTORY:SOB COMPARISON:03/15/2020 FINDINGS: The heart is borderline enlarged. Pulmonary vascularity is normal. There is mild generalized interstitial prominence. This is exaggerated by less than optimal inspiration. There are no effusions. There are atherosclerotic changes in the aorta. IMPRESSION: Mild cardiomegaly Mild chronic lung field changes No acute cardiac pulmonary process or significant change since prior study
[2020-03-19] MEDS ORDERED: Benzonatate 100 MG Cap PO PRN (13:42)
[2020-03-19] MEDS ORDERED: guaiFENesin/Dextromethorphan 100-10 MG/5 ML Soln 10 ML Cup PO PRN (13:42)
[2020-03-19] MEDS ORDERED: methylPREDNISolone Sodium Succinate 125 MG/2 ML SDV IVPUSH ONE (14:00)
[2020-03-19] MEDS: EUC TP SCH (14:18)
[2020-03-19] MEDS: MEN TP SCH (14:18)
[2020-03-19] MEDS: CICLOPIROX TP SCH (14:18)
[2020-03-19] MEDS: CAMPH TP SCH (14:18)
[2020-03-19] MEDS: UREA TP SCH (14:18)
[2020-03-19] MEDS ORDERED: Nicotine Polacrilex 2 MG Gum CHEW PRN (19:44)
[2020-03-19] MEDS ORDERED: QUEtiapine 100 MG Tab PO SCH (21:00)
[2020-03-20] MEDS: cefTRIAXone 1 GM in Sodium Chloride 0.9% 50 ML IV SCH (03:13)
[2020-03-20] MEDS: rOPINIRole 1 MG Tab PO SCH ×2 (05:24→11:20)
[2020-03-20] MEDS: metFORMIN 500 MG Tab PO SCH (08:06)
[2020-03-20] MEDS: busPIRone 10 MG Tab PO SCH (08:06)
[2020-03-20] MEDS: Folic Acid 1 MG Tab PO SCH (08:06)
[2020-03-20] MEDS: Aspirin 81 MG Tab.Chew PO SCH (08:06)
[2020-03-20] MEDS: Escitalopram 20 MG Tab PO SCH (08:07)
[2020-03-20] MEDS: Azithromycin 250 MG Tab PO SCH (08:07)
[2020-03-20] MEDS: Vitamin E (dl-alpha-tocopherol acetate) 400 Unit Cap PO SCH (08:07)
[2020-03-20] MEDS: valACYclovir 1,000 MG Tab PO SCH (08:07)
[2020-03-20] MEDS: Furosemide 40 MG Tab PO SCH (08:07)
[2020-03-20] MEDS: Calcium Carbonate 500 MG Tab.Chew PO SCH (08:07)
[2020-03-20] MEDS: Lactulose Soln 10 GM/15 ML 15 ML UD Cup PO SCH (08:15)
[2020-03-20] MEDS: CAMPH TP SCH (08:16)
[2020-03-20] MEDS: UREA TP SCH (08:16)
[2020-03-20] MEDS: Mupirocin Oint 22 GM Tube TOP SCH (08:16)
[2020-03-20] MEDS: EUC TP SCH (08:16)
[2020-03-20] MEDS: CICLOPIROX TP SCH (08:16)
[2020-03-20] MEDS: MEN TP SCH (08:16)
--- NOTE | 2020-03-20 11:17 | PCM.PN ---
- General Info Date of Service: 03/20/20 Subjective Update: No acute events overnight. Muscle pain is improving and her arm strength is better today than yesterday. Shortness of breath is better. Occasional cough with some sputum. No fevers. No abdominal pain or nausea. She has been walking around in her room without significant limitation. Cultures are negative so far. Functional Status: Reports: Pain Controlled, Tolerating Diet - Review of Systems General: Denies: Fever - Patient Data Vitals - Most Recent: Last Vital Signs Temp 36.8 C 03/20/20 07:00 Pulse 86 03/20/20 07:00 Resp 20 03/20/20 07:00 BP 106/49 L 03/20/20 07:00 Pulse Ox 93 L 03/20/20 07:00 Weight - Most Recent: 80.286 kg I&O - Last 24 Hours: Intake & Output 03/19/20 03/20/20 03/20/20 22:59 06:59 14:59 Intake Total 940 550 Output Total 550 Balance 390 550 Lab Results Last 24 Hours: Laboratory Results - last 24 hr 03/20/20 03/20/20 Range/Units 04:15 04:15 WBC 8.1 (4.5-11.0) K/uL RBC 3.74 (3.30-5.50) M/uL Hgb 11.1 L D (12.0-15.0) g/dL Hct 34.1 L (36.0-48.0) % MCV 91 (80-98) fL MCH 30 (27-31) pg MCHC 33 (32-36) % Plt Count 112 L (150-400) K/uL Sodium 134 L (140-148) mmol/L Potassium 4.6 (3.6-5.2) mmol/L Chloride 102 (100-108) mmol/L Carbon Dioxide 26 (21-32) mmol/L Anion Gap 10.6 (5.0-14.0) mmol/L BUN 31 H (7-18) mg/dL Creatinine 1.1 H (0.6-1.0) mg/dL Est Cr Clr Drug Dosing 41.68 mL/min Estimated GFR (MDRD) 49 L (>60) Glucose 161 H (74-106) mg/dL Calcium 8.5 (8.5-10.1) mg/dL [place] Results Last 24 Hours: Microbiology 03/19/20 03:00 Aerobic Blood Culture - Preliminary Blood - Venous NO GROWTH AFTER 1 DAY Anaerobic Blood Culture - Preliminary NO GROWTH AFTER 1 DAY 03/19/20 03:13 Aerobic Blood Culture - Preliminary Blood - Venous - Lab Draw NO GROWTH AFTER 1 DAY Anaerobic Blood Culture - Preliminary NO GROWTH AFTER 1 DAY Med Orders - Current: Current Medications Acetaminophen (Tylenol) 650 mg PO Q4H PRN PRN Reason: Pain (Mild 1-3)/fever Hydrocodone Bitart/Acetaminophen ([place] 325-5 Mg) 1 tab PO Q4H PRN PRN Reason: Pain (moderate 4-6) Last Admin: 03/19/20 20:57 Dose: 1 tab Albuterol (Ventolin Hfa) 0 gm INH Q4H PRN PRN Reason: Shortness of Breath Aspirin (Aspirin) 81 mg PO DAILY [facility] Last Admin: 03/20/20 08:06 Dose: 81 mg Azithromycin (Zithromax) 500 mg PO DAILY [facility] Last Admin: 03/20/20 08:07 Dose: 500 mg Benzonatate (Tessalon Perles) 100 mg PO TID PRN PRN Reason: Cough Buspirone HCl (Buspar) 20 mg PO TID [facility] Last Admin: 03/20/20 08:06 Dose: 20 mg Calcium Carbonate/Glycine (Tums) 500 mg PO BID [facility] Last Admin: 03/20/20 08:07 Dose: 500 mg Cholecalciferol (Vitamin D3) 50,000 unit PO Th@0900 [facility] Escitalopram Oxalate (Lexapro) 20 mg PO DAILY [facility] Last Admin: 03/20/20 08:07 Dose: 20 mg Folic Acid (Folic Acid) 1 mg PO DAILY [facility] Last Admin: 03/20/20 08:06 Dose: 1 mg Furosemide (Lasix) 40 mg PO DAILY [facility] Last Admin: 03/20/20 08:07 Dose: 40 mg Guaifenesin/Dextromethorphan (Robitussin Dm) 10 ml PO Q4H PRN PRN Reason: Cough Ketorolac Tromethamine (Toradol) 15 mg IVPUSH Q6H PRN PRN Reason: Pain (moderate 4-6) Stop: 03/24/20 10:00 Last Admin: 03/19/20 10:27 Dose: 15 mg Lactulose (Chronulac) 20 gm PO DAILY [facility] Last Admin: 03/20/20 08:15 Dose: 20 gm Loperamide HCl (Imodium) 2 mg PO BID PRN PRN Reason: Diarrhea Metformin HCl (Glucophage) 500 mg PO BIDAC [facility] Last Admin: 03/20/20 08:06 Dose: 500 mg Methylprednisolone Sodium Succinate (Solu-Medrol) 62.5 mg IVPUSH ONETIME ONE Stop: 03/20/20 12:01 Mupirocin (Bactroban Oint) 0 gm TOP BID [facility] Last Admin: 03/20/20 08:16 Dose: Not Given Nicotine Polacrilex (Nicorelief) 4 mg CHEW Q2H PRN PRN Reason: Other Last Admin: 03/19/20 20:57 Dose: 4 mg (Ciclopirox/Urea/Camph/Men/Euc [ Ciclopirox 8% Treatment Ki 0 ml TP DAILY [facility] Last Admin: 03/20/20 08:16 Dose: Not Given (Menthol/Camphor [ Sarna Anti-Itch] 1 Gm) 0 gm TOP DAILY PRN PRN Reason: Itching Ondansetron HCl (Zofran) 4 mg IV Q4H PRN PRN Reason: Nausea/Vomiting Quetiapine Fumarate (Seroquel) 200 - 400 mg PO BEDTIME [facility] Last Admin: 03/19/20 21:00 Dose: 200 mg Ropinirole HCl (Requip) 2 mg PO QID [facility] Last Admin: 03/20/20 05:24 Dose: 2 mg Triamcinolone Acetonide (Triamcinolone Acetonide 0.1% Crm) 15 gm TOP TID PRN PRN Reason: Itching Last Admin: 03/19/20 20:59 Dose: 1 applic Valacyclovir HCl (Valtrex) 500 mg PO DAILY [facility] Last Admin: 03/20/20 08:07 Dose: 500 mg Vitamin E (Vitamin E) 400 units PO DAILY [facility] Last Admin: 03/20/20 08:07 Dose: 400 units Discontinued Medications Acetaminophen (Tylenol) 650 mg PO NOW ONE Stop: 03/19/20 00:07 Last Admin: 03/19/20 00:20 Dose: 650 mg Sodium Chloride (Normal Saline) 1,000 mls @ 200 mls/hr IV ASDIRECTED [facility] Last Admin: 03/19/20 00:20 Dose: 200 mls/hr Sodium Chloride (Normal Saline) 100 mls @ 4 mls/sec IV ASDIRECTED STA Stop: 03/19/20 01:01 Last Admin: 03/19/20 01:17 Dose: 4 mls/sec Sodium Chloride (Normal Saline) 1,000 mls @ 125 mls/hr IV ASDIRECTED [facility] Ceftriaxone Sodium 1 gm/ (Sodium Chloride) 50 mls @ 100 mls/hr IV Q24H [facility] Last Admin: 03/20/20 03:13 Dose: 100 mls/hr Iopamidol (Isovue-370 (76%)) 100 ml IV . DIRECTED STA Stop: 03/19/20 01:00 Last Admin: 03/19/20 01:17 Dose: 100 ml Ketorolac Tromethamine (Toradol) 30 mg IVPUSH ONETIME ONE Stop: 03/19/20 00:07 Last Admin: 03/19/20 00:20 Dose: 30 mg Methylprednisolone Sodium Succinate (Solu-Medrol) 125 mg IVPUSH ONETIME ONE Stop: 03/19/20 14:01 Last Admin: 03/19/20 14:26 Dose: 125 mg - Exam Quality Assessment: Supplemental Oxygen General: Alert, Oriented, Cooperative, No Acute Distress Lungs: Clear to Auscultation, Normal Respiratory Effort. No: Wheezing Cardiovascular: Regular Rate, Regular Rhythm GI/Abdominal Exam: Soft, No Distention Extremities: No Pedal Edema Skin: Warm, Dry Psy/Mental Status: Alert, Normal Affect Sepsis Event Note - Evaluation Sepsis Screening Result: No Definite Risk - Focused Exam Vital Signs: Vital Signs Temp Pulse Resp BP Pulse Ox Pulse Ox 03/20/20 07:00 36.8 C 86 20 106/49 L 93 L 03/20/20 03:42 90 L 03/20/20 03:19 36.4 C 92 22 H 122/55 L 91 L Date Exam was Performed: 03/20/20 Time Exam was Performed: 11:37 - Problem List Review Problem List Initiated/Reviewed/Updated: Yes - My Orders Last 24 Hours: My Active Orders 03/19/20 13:30 Convert IV to Saline Lock [OM.PC] Routine 03/19/20 13:42 Benzonatate [Tessalon Perles] 100 mg PO TID PRN Dextromethorphan/guaiFENesin [Robitussin DM] 10 ml PO Q4H PRN 03/20/20 12:00 methylPREDNISolone Sod Succ [Solu-MEDROL] 62.5 mg IVPUSH ONETIME ONE 03/21/20 09:00 Cefdinir [Omnicef] 300 mg PO BID - Plan Plan:: ASSESSMENT AND PLAN - Bilateral pneumonia-complicated by acute on chronic respiratory failure. Unclear if viral or bacterial. She is improving with current therapy. Viral seems to be most suspicious at this time. -Continue azithromycin and start cefdinir in the morning -Second dose of steroids today -Nebulizers -Follow-up cultures -Supplement oxygen Oxygen dependent COPD-patient normally uses oxygen [id number] at home. No strong evidence for exacerbation at this time with no significant wheezing. -Management as above Paranoid schizophrenia/bipolar disorder-chronic mental health issues are stable. Tobacco dependence-still smoking. No interest in quitting. -Encourage cessation -Nicotine gum as needed Maintenance issues - - DVT prophylaxis -patient is ambulatory in her room and this should provide adequate DVT prophylaxis - GI prophylaxis -not indicated - Nutrition -regular diet - Chaudhary catheter -not indicated Disposition -I would anticipate discharge home after the hospital stay, possibly tomorrow if stable overnight Schuyler Jennings M.D.
[2020-03-20 11:42] VITALS: BP 101/44; PULSE 92
[2020-03-20] MEDS ORDERED: methylPREDNISolone Sodium Succinate 125 MG/2 ML SDV IVPUSH ONE (12:00)
--- NOTE | 2020-03-20 12:48 | PCM.DCSUM1 ---
Discharge Summary - Hospital Course Brief History: 69-year-old female with history of oxygen dependent COPD, paranoid schizophrenia and bipolar disorder as well as tobacco dependence who presented with shortness of breath cough, weakness and myalgias. She was admitted for management of a bilateral lower lung pneumonia. Diagnosis: Stroke: No - Discharge Data Discharge Date: 03/20/20 Discharge Disposition: Home, Self-Care 01 Condition: Good - Referral to Home Health Primary Care Physician: PCP None - Discharge Diagnosis/Problem(s) (1) Bilateral pneumonia SNOMED Code(s): 418590684 ICD Code: J18.9 - PNEUMONIA, UNSPECIFIED ORGANISM Status: Acute Current Visit: Yes Qualifiers: Pneumonia type: due to unspecified organism Lung location: lower lobe of lung Qualified Code(s): J18.9 - Pneumonia, unspecified organism (2) Tobacco abuse SNOMED Code(s): 683569242 ICD Code: Z72.0 - TOBACCO USE Status: Chronic Current Visit: No (3) COPD (chronic obstructive pulmonary disease) SNOMED Code(s): 31352157 ICD Code: J44.9 - CHRONIC OBSTRUCTIVE PULMONARY DISEASE, UNSPECIFIED Status : Chronic Current Visit: No Qualifiers: COPD type: unspecified COPD Qualified Code(s): J44.9 - Chronic obstructive pulmonary disease, unspecified - Patient Summary/Data Hospital Course: Snehal presented to the emergency room with cough, shortness of breath, myalgias and weakness. Work-up in the emergency room was suggestive of a bilateral lower lobe pneumonia based on CT scan imaging. There is no evidence for pulmonary embolism. She had a mild leukocytosis and low fever. It was unclear if this was viral or bacterial but viral was thought to be most likely. She was empirically started on antibiotics and admitted to the hospital for further management. Later in the morning after admission she felt a little better but still had significant myalgias and weakness. She did receive a dose of steroids. We continued the antibiotic coverage with ceftriaxone and azithromycin. By the morning after admission she was feeling a fair amount better. Her muscle pains were quite a bit better. She was back to her usual amount of oxygen. She did not have any wheezing. She has been up and walking around. Her appetite has been good. Initially she was thinking she would stay 1 more night but later in the day felt quite a bit better and was hoping to go home especially because she would not have any transportation the following day. She has been afebrile and is back to her usual amount of oxygen. I do believe she is safe for outpatient management at this point. We will complete a short course of antibiotics since she is responding well to the current level of treatment. She did get a second dose of steroids on the day of discharge but these will not be continued since she does not have significant wheezing at this time. Follow-up as scheduled with her primary care later in the week. - Patient Instructions Diet: Diabetic Diet Activity: As Tolerated Showering/Bathing: May Shower Notify Provider of: Fever, Increased Pain Other/Special Instructions: 1. You were in the hospital for management of a bilateral lower lung pneumonia. It is not entirely clear if this is viral or bacterial but you are improving with the current therapy. I do recommend that we complete a course of antibiotic therapy. Please take a azithromycin 500 mg once daily for 3 doses starting tomorrow morning. Also please take cefdinir 300 mg twice daily for 3 days starting tomorrow morning. Continue to use your oxygen as previously prescribed. Increase your activity as tolerated slowly over the next few days. 2. Continue your usual home medications as previously prescribed. 3. Follow up with Dr. Kang as scheduled. - Discharge Plan *PRESCRIPTION DRUG MONITORING PROGRAM REVIEWED*: Not Applicable *COPY OF PRESCRIPTION DRUG MONITORING REPORT IN PATIENT JEN: Not Applicable Prescriptions/Med Rec: Azithromycin 500 mg PO DAILY #3 tablet Cefdinir 300 mg PO BID #6 capsule Home Medications: Home Meds Aspirin [[place] Chewable Aspirin] 81 mg PO DAILY 07/26/13 [History] Calcium Carbonate [Calci-Chew] 500 mg PO BID 07/26/13 [History] Escitalopram [Lexapro] 20 mg PO DAILY 07/26/13 [History] metFORMIN [Glucophage] 500 mg PO BID 07/26/13 [History] busPIRone [Buspar] 20 mg PO TID 02/12/15 [History] Triamcinolone Acetonide [Triamcinolone Acetonide 0.1% Crm] 15 gm TOP TID PRN 01/27 [History] Vitamin E 400 unit PO DAILY 03/18/15 [History] Albuterol [Ventolin HFA] 2 puff IH Q4HR PRN 02/28/18 [History] Calcitonin,[place],Synthetic [Miacalcin] 3.7 ml NS DAILY #1 spray.pump 10/10/18 [ Rx] Folic Acid 1 tab PO DAILY 08/22/19 [History] Furosemide [Lasix] 1 tab PO DAILY 08/22/19 [History] Lactulose 30 ml PO DAILY 08/22/19 [History] Mupirocin Oint [Bactroban Oint] 1 dose TOP BID 08/22/19 [History] Naproxen 1 tab PO BID PRN 08/22/19 [History] valACYclovir HCl [Valtrex] 500 mg PO DAILY 08/22/19 [History] Acetaminophen/HYDROcodone [[place] 325-5 MG] 1 - 2 tab PO Q6HR PRN 10/17/19 [ History] Loperamide [Imodium] 2 mg PO BID PRN 10/17/19 [History] rOPINIRole [Requip] 2 mg PO QID 10/17/19 [History] Menthol/Camphor [Sarna Anti-Itch] 1 gm TOP DAILY PRN 10/18/19 [History] Ciclopirox/Urea/Camph/Men/Euc [Ciclopirox 8% Treatment Kit] 34.6 ml TP DAILY [History] QUEtiapine [SEROquel] 1 - 2 tab PO BEDTIME 10/29/19 [History] Sulfamethoxazole/Trimethoprim [Sulfamethoxazole-Tmp Ds Tablet] 1 each PO BID 03/03 [History] Vitamin D3 03968 50,000 unit PO WEEKLY 03/19/20 [History] Azithromycin 500 mg PO DAILY #3 tablet 03/20/20 [Rx] Cefdinir 300 mg PO BID #6 capsule 03/20/20 [Rx] Oxygen Therapy Mode: Nasal Cannula Patient Handouts: Community-Acquired Pneumonia, Adult, [id number] Referrals: Kwaku Kang MD [Physician] - 03/25/20 1:30 pm (Please arrive 15 minutes early to register for your appointment.) - Discharge Summary/Plan Comment DC Time >30 min.: No - Patient Data Vitals - Most Recent: Last Vital Signs Temp 36.6 C 03/20/20 11:00 Pulse 92 03/20/20 11:00 Resp 20 03/20/20 11:00 BP 101/44 L 03/20/20 11:00 Pulse Ox 96 03/20/20 11:00 Weight - Most Recent: 80.286 kg I&O - Last 24 hours: Intake & Output 03/19/20 03/20/20 03/20/20 22:59 06:59 14:59 Intake Total 940 550 Output Total 550 Balance 390 550 Lab Results - Last 24 hrs: Laboratory Results - last 24 hr 03/20/20 03/20/20 Range/Units 04:15 04:15 WBC 8.1 (4.5-11.0) K/uL RBC 3.74 (3.30-5.50) M/uL Hgb 11.1 L D (12.0-15.0) g/dL Hct 34.1 L (36.0-48.0) % MCV 91 (80-98) fL MCH 30 (27-31) pg MCHC 33 (32-36) % Plt Count 112 L (150-400) K/uL Sodium 134 L (140-148) mmol/L Potassium 4.6 (3.6-5.2) mmol/L Chloride 102 (100-108) mmol/L Carbon Dioxide 26 (21-32) mmol/L Anion Gap 10.6 (5.0-14.0) mmol/L BUN 31 H (7-18) mg/dL Creatinine 1.1 H (0.6-1.0) mg/dL Est Cr Clr Drug Dosing 41.68 mL/min Estimated GFR (MDRD) 49 L (>60) Glucose 161 H (74-106) mg/dL Calcium 8.5 (8.5-10.1) mg/dL [place] Results - Last 24 hrs: Microbiology 03/19/20 03:00 Aerobic Blood Culture - Preliminary Blood - Venous NO GROWTH AFTER 1 DAY Anaerobic Blood Culture - Preliminary NO GROWTH AFTER 1 DAY 03/19/20 03:13 Aerobic Blood Culture - Preliminary Blood - Venous - Lab Draw NO GROWTH AFTER 1 DAY Anaerobic Blood Culture - Preliminary NO GROWTH AFTER 1 DAY Med Orders - Current: Current Medications Acetaminophen (Tylenol) 650 mg PO Q4H PRN PRN Reason: Pain (Mild 1-3)/fever Hydrocodone Bitart/Acetaminophen ([place] 325-5 Mg) 1 tab PO Q4H PRN PRN Reason: Pain (moderate 4-6) Last Admin: 03/19/20 20:57 Dose: 1 tab Albuterol (Ventolin Hfa) 0 gm INH Q4H PRN PRN Reason: Shortness of Breath Aspirin (Aspirin) 81 mg PO DAILY [facility] Last Admin: 03/20/20 08:06 Dose: 81 mg Azithromycin (Zithromax) 500 mg PO DAILY [facility] Last Admin: 03/20/20 08:07 Dose: 500 mg Benzonatate (Tessalon Perles) 100 mg PO TID PRN PRN Reason: Cough Buspirone HCl (Buspar) 20 mg PO TID [facility] Last Admin: 03/20/20 08:06 Dose: 20 mg Calcium Carbonate/Glycine (Tums) 500 mg PO BID [facility] Last Admin: 03/20/20 08:07 Dose: 500 mg Cefdinir (Omnicef) 300 mg PO BID [facility] Cholecalciferol (Vitamin D3) 50,000 unit PO Th@0900 [facility] Escitalopram Oxalate (Lexapro) 20 mg PO DAILY [facility] Last Admin: 03/20/20 08:07 Dose: 20 mg Folic Acid (Folic Acid) 1 mg PO DAILY [facility] Last Admin: 03/20/20 08:06 Dose: 1 mg Furosemide (Lasix) 40 mg PO DAILY [facility] Last Admin: 03/20/20 08:07 Dose: 40 mg Guaifenesin/Dextromethorphan (Robitussin Dm) 10 ml PO Q4H PRN PRN Reason: Cough Ketorolac Tromethamine (Toradol) 15 mg IVPUSH Q6H PRN PRN Reason: Pain (moderate 4-6) Stop: 03/24/20 10:00 Last Admin: 03/19/20 10:27 Dose: 15 mg Lactulose (Chronulac) 20 gm PO DAILY [facility] Last Admin: 03/20/20 08:15 Dose: 20 gm Loperamide HCl (Imodium) 2 mg PO BID PRN PRN Reason: Diarrhea [facility] Last Admin: 03/20/20 08:06 Dose: 500 mg Mupirocin (Bactroban Oint) 0 gm TOP BID [facility] Last Admin: 03/20/20 08:16 Dose: Not Given Nicotine Polacrilex (Nicorelief) 4 mg CHEW Q2H PRN PRN Reason: Other Last Admin: 03/19/20 20:57 Dose: 4 mg (Ciclopirox/Urea/Camph/Men/Euc [ Ciclopirox 8% Treatment Ki 0 ml TP DAILY [facility] Last Admin: 03/20/20 08:16 Dose: Not Given (Menthol/Camphor [ Sarna Anti-Itch] 1 Gm) 0 gm TOP DAILY PRN PRN Reason: Itching Ondansetron HCl (Zofran) 4 mg IV Q4H PRN PRN Reason: Nausea/Vomiting Quetiapine Fumarate (Seroquel) 200 - 400 mg PO BEDTIME [facility] Last Admin: 03/19/20 21:00 Dose: 200 mg Ropinirole HCl (Requip) 2 mg PO QID [facility] Last Admin: 03/20/20 11:20 Dose: 2 mg Triamcinolone Acetonide (Triamcinolone Acetonide 0.1% Crm) 15 gm TOP TID PRN PRN Reason: Itching Last Admin: 03/19/20 20:59 Dose: 1 applic Valacyclovir HCl (Valtrex) 500 mg PO DAILY [facility] Last Admin: 03/20/20 08:07 Dose: 500 mg Vitamin E (Vitamin E) 400 units PO DAILY [facility] Last Admin: 03/20/20 08:07 Dose: 400 units Discontinued Medications Acetaminophen (Tylenol) 650 mg PO NOW ONE Stop: 03/19/20 00:07 Last Admin: 03/19/20 00:20 Dose: 650 mg Sodium Chloride (Normal Saline) 1,000 mls @ 200 mls/hr IV ASDIRECTED [facility] Last Admin: 03/19/20 00:20 Dose: 200 mls/hr Sodium Chloride (Normal Saline) 100 mls @ 4 mls/sec IV ASDIRECTED [facility] Stop: 03/19/20 01:01 Last Admin: 03/19/20 01:17 Dose: 4 mls/sec Sodium Chloride (Normal Saline) 1,000 mls @ 125 mls/hr IV ASDIRECTED [facility] Ceftriaxone Sodium 1 gm/ (Sodium Chloride) 50 mls @ 100 mls/hr IV Q24H [facility] Last Admin: 03/20/20 03:13 Dose: 100 mls/hr Iopamidol (Isovue-370 (76%)) 100 ml IV . DIRECTED [facility] Stop: 03/19/20 01:00 Last Admin: 03/19/20 01:17 Dose: 100 ml Ketorolac Tromethamine (Toradol) 30 mg IVPUSH ONETIME ONE Stop: 03/19/20 00:07 Last Admin: 03/19/20 00:20 Dose: 30 mg Methylprednisolone Sodium Succinate (Solu-Medrol) 125 mg IVPUSH ONETIME ONE Stop: 03/19/20 14:01 Last Admin: 03/19/20 14:26 Dose: 125 mg Methylprednisolone Sodium Succinate (Solu-Medrol) 62.5 mg IVPUSH ONETIME ONE Stop: 03/20/20 12:01 Last Admin: 03/20/20 12:25 Dose: 62.5 mg
[2020-03-21] MEDS ORDERED: Cefdinir 300 MG Cap PO SCH (09:00)
[2020-03-25] MEDS ORDERED: Cholecalciferol (Vitamin D3) 50,000 Unit Cap PO SCH (09:00)
== END 2020-03-20 13:23 | disposition home or self-care (01) | DRG 193 ==
LOC: JP.ED 22:48 → JP.MS 03-19 03:42
PROVIDERS: ADMIT Family Medicine; ATTEND Internal Medicine
DX: J12.9 Viral pneumonia, unspecified (principal); J96.20 Acute and chronic respiratory failure, unspecified whether with hypoxia or hypercapnia; H54.7 Unspecified visual loss; H04.129 Dry eye syndrome of unspecified lacrimal gland; J44.9 Chronic obstructive pulmonary disease, unspecified; K58.9 Irritable bowel syndrome, unspecified; J44.0 Chronic obstructive pulmonary disease with (acute) lower respiratory infection; R32 Unspecified urinary incontinence; G25.81 Restless legs syndrome; Z90.710 Acquired absence of both cervix and uterus; F20.0 Paranoid schizophrenia; Z88.2 Allergy status to sulfonamides; Z20.828 Contact with and (suspected) exposure to other viral communicable diseases; F41.9 Anxiety disorder, unspecified; Z99.81 Dependence on supplemental oxygen; F31.9 Bipolar disorder, unspecified; M19.90 Unspecified osteoarthritis, unspecified site; F17.200 Nicotine dependence, unspecified, uncomplicated; E11.9 Type 2 diabetes mellitus without complications; B19.20 Unspecified viral hepatitis C without hepatic coma; K76.1 Chronic passive congestion of liver; Z88.1 Allergy status to other antibiotic agents; Z88.8 Allergy status to other drugs, medicaments and biological substances; Z79.82 Long term (current) use of aspirin; Z79.899 Other long term (current) drug therapy; Z71.6 Tobacco abuse counseling
CPT/HCPCS: 36415 ×2; 71046 ×2; 71275; 80053; 81001; 83605; 85025; 85379; 86140; 87040 ×2; 96374; 99284; 99285; A9270; J1885; J7030; J7050; Q9967; 80048; 85027; J0696; J2930

== ENCOUNTER 2020-03-21 12:42 | Emergency (ER) | payer MEDICARE, MEDICAID ==
[2020-03-21 13:07] VITALS: BP 127/67; PULSE 87
--- NOTE | 2020-03-21 14:02 | EDM.PDOC ---
ED HPI GENERAL MEDICAL PROBLEM - General Chief Complaint: General Stated Complaint: WEAKNESS Time Seen by Provider: 03/21/20 13:10 Source of Information: Reports: Patient History Limitations: Reports: No Limitations - History of Present Illness INITIAL COMMENTS - FREE TEXT/NARRATIVE: 69-year-old female who was just discharged from the hospital yesterday morning for weakness and pneumonia, returns today because of continued weakness and generalized body aches. No fevers or chills, no significant shortness of breath , denies nausea or vomiting. Complaints are very generalized, nonspecific. She does not think she should have left the hospital so soon. Onset: Unknown/Unsure Duration: Week(s): (Symptoms have been ongoing for several weeks) Associated Symptoms: Reports: Other (Intermittent chest discomfort, right arm discomfort and right arm numbness) Generalized Pain Score (Numeric/FACES): 9 - Related Data Allergies Allergy/AdvReac Type Severity Reaction Status Date / Time diclofenac potassium Allergy Mild unsure Verified 03/21/20 12:56 [From Cataflam] dicyclomine HCl [From Bentyl] Allergy Mild unsure Verified 03/21/20 12:56 paroxetine HCl [From Paxil] Allergy Mild unsure Verified 03/21/20 12:56 sulfamethoxazole Allergy Other Verified 03/21/20 12:56 [From Bactrim] trimethoprim [From Bactrim] Allergy Other Verified 03/21/20 12:56 Home Meds: Home Meds Aspirin [[place]ley Chewable Aspirin] 81 mg PO DAILY 07/26/13 [History] Calcium Carbonate [Calci-Chew] 500 mg PO BID 07/26/13 [History] Escitalopram [Lexapro] 20 mg PO DAILY 07/26/13 [History] metFORMIN [Glucophage] 500 mg PO BID 07/26/13 [History] busPIRone [Buspar] 20 mg PO TID 02/12/15 [History] Triamcinolone Acetonide [Triamcinolone Acetonide 0.1% Crm] 15 gm TOP TID PRN 01/27 [History] Vitamin E 400 unit PO DAILY 03/18/15 [History] Albuterol [Ventolin HFA] 2 puff IH Q4HR PRN 02/28/18 [History] Calcitonin,[place],Synthetic [Miacalcin] 3.7 ml NS DAILY #1 spray.pump 10/10/18 [ Rx] Folic Acid 1 tab PO DAILY 08/22/19 [History] Furosemide [Lasix] 1 tab PO DAILY 08/22/19 [History] Lactulose 30 ml PO DAILY 08/22/19 [History] Mupirocin Oint [Bactroban Oint] 1 dose TOP BID 08/22/19 [History] Naproxen 1 tab PO BID PRN 08/22/19 [History] valACYclovir HCl [Valtrex] 500 mg PO DAILY 08/22/19 [History] Acetaminophen/HYDROcodone [[place] 325-5 MG] 1 - 2 tab PO Q6HR PRN 10/17/19 [ History] Loperamide [Imodium] 2 mg PO BID PRN 10/17/19 [History] rOPINIRole [Requip] 2 mg PO QID 10/17/19 [History] Menthol/Camphor [Sarna Anti-Itch] 1 gm TOP DAILY PRN 10/18/19 [History] Ciclopirox/Urea/Camph/Men/Euc [Ciclopirox 8% Treatment Kit] 34.6 ml TP DAILY [History] QUEtiapine [SEROquel] 1 - 2 tab PO BEDTIME 10/29/19 [History] Sulfamethoxazole/Trimethoprim [Sulfamethoxazole-Tmp Ds Tablet] 1 each PO BID 03/03 [History] Vitamin D3 20069 50,000 unit PO WEEKLY 03/19/20 [History] Azithromycin 500 mg PO DAILY #3 tablet 03/20/20 [Rx] Cefdinir 300 mg PO BID #6 capsule 03/20/20 [Rx] Past Medical History HEENT History: Reports: Impaired Vision Other HEENT History: dry eyes Cardiovascular History: Reports: Other (See Below) Other Cardiovascular History: hx stress test normal Respiratory History: Reports: COPD, SOB, Other (See Below) Other Respiratory History: O2 home, CPAP Gastrointestinal History: Reports: Hepatitis, Irritable Bowel Syndrome Genitourinary History: Reports: Urinary Incontinence, UTI, Recurrent 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 L foot pain Neurological History: Reports: Other (See Below) Other Neuro History: restless legs Psychiatric History: Reports: Addiction, Anxiety, Bipolar, Depression, Panic Attack, Schizophrenia Endocrine/Metabolic History: Reports: Diabetes, Type II, Obesity/BMI 30+ Immunologic History: Reports: Other (See Below) Other Immunologic History: herpes Dermatologic History: Reports: Urticaria - Infectious Disease History Infectious Disease History: Reports: Chicken Pox - Past Surgical History Head Surgeries/Procedures: Reports: None HEENT Surgical History: Reports: None Cardiovascular Surgical History: Reports: None Respiratory Surgical History: Reports: None GI Surgical History: Reports: None Female Surgical History: Reports: Hysterectomy, Salpingo-Oophorectomy Endocrine Surgical History: Reports: None Neurological Surgical History: Reports: None Musculoskeletal Surgical History: Reports: None Dermatological Surgical History: Reports: None Social & Family History - Family History Family Medical History: Noncontributory Oncologic: Reports: Breast, Pancreatic, Prostate - Tobacco Use Smoking Status *Q: Current Every Day Smoker Years of Tobacco use: 45 Packs/Tins Daily: 1 - Caffeine Use Caffeine Use: Reports: Coffee, Soda - Recreational Drug Use Recreational Drug Use: No ED ROS GENERAL - Review of Systems Review Of Systems: See Below Constitutional: Reports: Malaise, Decreased Appetite. Denies: Fever, Chills HEENT: Reports: No Symptoms Respiratory: Reports: Shortness of Breath, Cough Cardiovascular: Reports: Chest Pain GI/Abdominal: Denies: Diarrhea, Nausea, Vomiting : Reports: Frequency Musculoskeletal: Reports: Muscle Pain (Aches all over) Neurological: Reports: Dizziness. Denies: Headache ED EXAM, GENERAL - Physical Exam Exam: See Below Exam Limited By: No Limitations General Appearance: Alert, No Apparent Distress Eye Exam: Bilateral Eye: Normal Inspection Head: Atraumatic Respiratory/Chest: No Respiratory Distress, Other (Slight basilar crackles in the bases bilaterally slightly more on the right) Cardiovascular: Regular Rate, Rhythm GI/Abdominal: Soft, Non-Tender Extremities: Other (She does now have 1+ pitting edema in the lower extremities , symmetric) Neurological: Alert, Oriented, No Motor/Sensory Deficits Psychiatric: Normal Affect, Normal Mood Skin Exam: Warm, Dry Course - Vital Signs Last Recorded V/S: Last Vital Signs Temp 98.4 F 03/21/20 13:05 Pulse 87 03/21/20 13:05 Resp 18 03/21/20 13:07 BP 127/67 03/21/20 13:05 Pulse Ox 94 L 03/21/20 13:07 - Orders/Labs/Meds Orders: Active Orders 24 hr Category Date Time Status Chest 2V [CR] Routine Exams 03/21/20 13:27 Taken - Re-Assessments/Exams Free Text/Narrative Re-Assessment/Exam: 03/21/20 14:02 A 2 view chest x-ray was obtained, the patient urinated twice during her brief ER stay. I also discussed her condition with the hospitalist service and it was felt there was no reason for admission. She should just continue her current treatment. 03/21/20 14:34 Dr. Jennings of the hospitalist service did come down to talk with the patient for an extended period of time and she agreed to go home. She will return if worsening. Departure - Departure Time of Disposition: 14:47 Disposition: Home, Self-Care 01 Clinical Impression: Generalized weakness, Myalgia - Discharge Information Instructions: Weakness, [id number] Referrals: Kwaku Kang MD [Primary Care Provider] - Forms: ED Department Discharge Care Plan Goals: Continue all your current medications including pain medication if needed. Recheck in 2 to 3 days if not improving satisfactorily. Sepsis Event Note - Evaluation Sepsis Screening Result: No Definite Risk - Focused Exam Vital Signs: Vital Signs Temp Pulse Resp BP Pulse Ox 03/21/20 13:07 18 94 L 03/21/20 13:05 98.4 F 87 18 127/67 94 L Date Exam was Performed: 03/21/20 Time Exam was Performed: 14:58 - My Orders Last 24 Hours: My Active Orders 03/21/20 13:27 Chest 2V [CR] Routine - Assessment/Plan Last 24 Hours: My Active Orders 03/21/20 13:27 Chest 2V [CR] Routine
--- NOTE | 2020-03-21 14:42 | PCM.SN.2 ---
- Free Text/Narrative Note: Snehal is in the emergency room today with concerns of weakness. She felt well yesterday at the time of discharge but thinks she is weaker today. She said her arms feel heavy and her legs are not as strong as usual. No fevers. She is coughing but does not feel any more short of breath than usual. Appetite is good. She talked to her home health nurse who recommended she get checked out since she was feeling weaker today. Vitals are stable. Exam is benign. Repeat chest x-ray was clear. I talked to her for about 15 minutes reassuring her that she is getting better from this mild pneumonia that may be viral but could be bacterial. She is on good antibiotics. She does not have any wheezing. I encouraged her to continue to be active but try to avoid overdoing it and wearing herself out. She will follow-up with Dr. Kang if she does not continue to get better.
--- NOTE | 2020-03-22 10:02 | CR ---
CHEST: 2 view CLINICAL HISTORY:Dyspnea COMPARISON:03/19/2020 FINDINGS: The heart size, pulmonary vascularity and hilar structures are normal. No infiltrate effusion or pneumothorax is seen. Prescribed aorta. There is mild interstitial prominence. This is similar in prior studies. Some of this is chronic IMPRESSION: No acute cardiopulmonary process. Mild persistent prominence of the interstitial lung markings. Some of this is chronic
== END 2020-03-21 14:47 | disposition home or self-care (01) ==
LOC: JP.ED 12:42
DX: R53.1 Weakness (principal); M79.10 Myalgia, unspecified site; J44.9 Chronic obstructive pulmonary disease, unspecified; F41.9 Anxiety disorder, unspecified; F32.9 Major depressive disorder, single episode, unspecified; E11.9 Type 2 diabetes mellitus without complications; F41.0 Panic disorder [episodic paroxysmal anxiety]; E66.9 Obesity, unspecified; F17.210 Nicotine dependence, cigarettes, uncomplicated; Z68.31 Body mass index [BMI] 31.0-31.9, adult; Z88.1 Allergy status to other antibiotic agents; Z88.2 Allergy status to sulfonamides; Z88.8 Allergy status to other drugs, medicaments and biological substances; Z79.82 Long term (current) use of aspirin; Z79.899 Other long term (current) drug therapy
CPT/HCPCS: 71046; 71046-26; 99283; 99284-25

== ENCOUNTER 2020-03-29 08:27 | Day surgery (SDC) | payer MEDICARE, MEDICAID ==
[2020-03-29] MEDS ORDERED: Dextrose 5%-Lactated Ringers 1,000 ML IV SCH (08:45)
[2020-03-29] MEDS ORDERED: Propofol 200 MG/20 ML SDV ONE (10:09)
[2020-03-29] MEDS ORDERED: fentaNYL 100 MCG/2 ML SDV ONE (10:42)
[2020-03-29] MEDS ORDERED: Lactated Ringers 1,000 ML ONE (10:46)
[2020-03-29] MEDS ORDERED: Glycopyrrolate 0.2 MG/ML 2 ML SDV IVPUSH ONE (11:00)
[2020-03-29 11:48] VITALS: BP 143/83; PULSE 97
--- NOTE | 2020-03-31 18:58 | OR ---
DATE OF PROCEDURE: 03/29/2020 SURGEON: Saabs De La Garza MD PREOPERATIVE DIAGNOSIS: History of hepatic cirrhosis, rule out esophageal varices. POSTOPERATIVE DIAGNOSES: 1. History of hepatic cirrhosis with a single minimal esophageal varix. 2. Erosive antral gastritis. PROCEDURE PERFORMED: Esophagogastroduodenoscopy with antral biopsies for CLOtest. ANESTHESIA: IV sedation. INDICATIONS FOR PROCEDURE: This is a 70-year-old with known history of hepatic cirrhosis who was referred for an upper GI endoscopy to determine whether or not varices are present in the esophagus and/or stomach and if so what the extent of those are. The potential risks of procedure including bleeding and perforation were discussed, and the patient wishes to proceed. DETAILS OF PROCEDURE: The patient was taken to the operating room and placed in a left lateral decubitus position. IV sedation was administered after which the upper GI endoscope was passed orally through the length of esophagus into the stomach with retroflexion view of the fundus and thereafter through the pyloric channel and into the junction of 3rd and 4th portions of the duodenum. Findings included normal hypopharynx, larynx, upper esophageal sphincter, and esophageal body. Within the esophagus, there was one very minimal esophageal varix located anteriorly, extending upwards from the esophagogastric junction for few centimeters. This was obviously under quite low pressure and no other varices were seen in the esophagus or stomach. Otherwise, there was minimal inflammation, if any, at the area of esophagogastric junction and no significant hiatal hernia. In the stomach, there were some patchy erosions within the antrum without erosions or ulcers. Pyloric channel and visualized portion of the duodenum were unremarkable. At this point, biopsies were obtained from the antrum and sent for CLOtest for H. pylori. Minimal bleeding from the biopsy site was seen, and the procedure was then concluded. The patient apparently has an MRCP that is going to be scheduled, and then we will set the patient up to see Dr. Kang in followup to provide ongoing coordination of care and look at the cognitive issues at that point with the patient having had the lactulose dose cut into half earlier this week per Gastroenterology. Sabas De La Garza MD /[id number]
== END 2020-03-29 12:08 | disposition home or self-care (01) ==
LOC: JP.SDS 08:27
PROVIDERS: ATTEND Surgery
DX: K29.70 Gastritis, unspecified, without bleeding (principal); K25.9 Gastric ulcer, unspecified as acute or chronic, without hemorrhage or perforation; J44.9 Chronic obstructive pulmonary disease, unspecified; I85.10 Secondary esophageal varices without bleeding; F17.200 Nicotine dependence, unspecified, uncomplicated; E11.9 Type 2 diabetes mellitus without complications; Z87.19 Personal history of other diseases of the digestive system
CPT/HCPCS: 43239; 87081; J2704; J3010; J3490; J7120; J7121

== ENCOUNTER 2020-04-19 15:59 | Emergency (ER) | payer MEDICARE, MEDICAID, OTHER ==
--- NOTE | 2020-04-19 16:52 | EDM.PDOC ---
<DeniaEden M - Last Filed: 04/19/20 17:45> ED HPI GENERAL MEDICAL PROBLEM - General Chief Complaint: Respiratory Problem Stated Complaint: MEDICAL [facility]IA [facility] Time Seen by Provider: 04/19/20 16:02 Source of Information: Reports: Patient, EMS Notes Reviewed, Old Records, RN, RN Notes Reviewed History Limitations: Reports: No Limitations - History of Present Illness INITIAL COMMENTS - FREE TEXT/NARRATIVE: Patient arrives via EMS with continuing shortness of breath, cough, fever, n/v, and feeling unwell. Pt was on RA at home at arrival of EMS at 82% but per EMS report was able to get in ambulance on her own power. EMS applied 2L NC applied and O2 sats increased to 94%. Visual use of accessory muscle use. C/O sputum production of elizondo thick sputum. Positive for "lungs hurting". Positive 1 pk per day smoking. Indicates no use of home O2 as she smokes during the day. Does indicate O2 is applied for sleep at night.Pt indicates medication compliance is on and off with prescriber directions. Extensive history of COPD, home oxygen use, mental health etiologies, and other comorbidities. Skin is CDI. Warm to touch. Pulse in BLUE and BLLE +2 and bounding. +1 edema to BLLE. Pt is requesting to be "COVID tested" as she feels she is at a high risk. Was tested and was negative per chart. Onset: Gradual Onset Date: 04/02/20 Duration: Day(s):, Getting Worse Location: Reports: Chest Quality: Reports: Ache Severity: Moderate Improves with: Reports: None Worsens with: Reports: None Associated Symptoms: Reports: Cough, Diaphoresis, Fever/Chills, Headaches, Loss of Appetite, Malaise, Nausea/Vomiting, Shortness of Breath, Weakness - Related Data Allergies Allergy/AdvReac Type Severity Reaction Status Date / Time diclofenac potassium Allergy Mild unsure Verified 04/19/20 16:54 [From Cataflam] dicyclomine HCl [From Bentyl] Allergy Mild unsure Verified 04/19/20 16:54 paroxetine HCl [From Paxil] Allergy Mild unsure Verified 04/19/20 16:54 Influenza Virus Vaccines Allergy Unknown Other Verified 04/19/20 16:54 sulfamethoxazole Allergy Other Verified 04/19/20 16:54 [From Bactrim] trimethoprim [From Bactrim] Allergy Other Verified 04/19/20 16:54 Home Meds: Home Meds Aspirin [Ashley Chewable Aspirin] 81 mg PO DAILY 07/26/13 [History] Calcium Carbonate [Calci-Chew] 500 mg PO BID 07/26/13 [History] Escitalopram [Lexapro] 20 mg PO DAILY 07/26/13 [History] metFORMIN [Glucophage] 500 mg PO BID 07/26/13 [History] busPIRone [Buspar] 20 mg PO TID 02/12/15 [History] Triamcinolone Acetonide [Triamcinolone Acetonide 0.1% Crm] 15 gm TOP BID PRN 03/18/15 [History] Vitamin E 400 unit PO DAILY 03/18/15 [History] Albuterol [Ventolin HFA] 2 puff IH Q4HR PRN 02/28/18 [History] Calcitonin,Kake,Synthetic [Miacalcin] 3.7 ml NS DAILY #1 spray.pump 10/10/18 [Rx] Folic Acid 1 tab PO DAILY 08/22/19 [History] Furosemide [Lasix] 1 tab PO DAILY 08/22/19 [History] Lactulose 30 ml PO DAILY 08/22/19 [History] Mupirocin Oint [Bactroban Oint] 1 dose TOP BID 08/22/19 [History] Naproxen 1 tab PO BID PRN 08/22/19 [History] valACYclovir HCl [Valtrex] 500 mg PO DAILY 08/22/19 [History] Acetaminophen/HYDROcodone [[place] 325-5 MG] 1 - 2 tab PO Q6HR PRN 10/17/19 [History] Loperamide [Imodium] 2 mg PO QID 10/17/19 [History] rOPINIRole [Requip] 2 mg PO QID 10/17/19 [History] Menthol/Camphor [Sarna Anti-Itch] 1 gm TOP DAILY PRN 10/18/19 [History] Ciclopirox/Urea/Camph/Men/Euc [Ciclopirox 8% Treatment Kit] 34.6 ml TP DAILY 10/29/19 [History] QUEtiapine [SEROquel] 1 - 2 tab PO BEDTIME 10/29/19 [History] Vitamin D3 46859 50,000 unit PO WEEKLY 03/19/20 [History] Multivitamin 1 tab PO DAILY 03/25/20 [History] Nystatin [Nystatin Crm] 1 applic TOP BID 03/25/20 [History] Pramipexole Di-HCl [Mirapex] 0.125 mg PO DAILY 03/25/20 [History] Sofosbuvir/Velpatasvir [Sofosbuvir-Velpatasvir 400-100] 1 tab PO DAILY 03/25/20 [History] diazePAM [Valium] 5 mg PO DAILY 03/25/20 [History] lamoTRIgine [Lamictal] 25 mg PO DAILY 03/25/20 [History] Albuterol/Ipratropium [DuoNeb 3.0-0.5 MG/3 ML] 3 ml .XX Q4H PRN #90 neb 04/19/20 [Rx] Past Medical History HEENT History: Reports: Impaired Vision Other HEENT History: dry eyes Cardiovascular History: Reports: Other (See Below) Other Cardiovascular History: hx stress test normal Respiratory History: Reports: COPD, SOB, Other (See Below) Other Respiratory History: O2 home, CPAP Gastrointestinal History: Reports: Hepatitis, Irritable Bowel Syndrome Genitourinary History: Reports: Urinary Incontinence, UTI, Recurrent GRAIN GRADER History: Reports: Other GRAIN GRADER History: cysts Musculoskeletal History: Reports: Arthritis Other Musculoskeletal History: bilat knee pain. L foot pain Neurological History: Reports: Other (See Below) Other Neuro History: restless legs Psychiatric History: Reports: Addiction, Anxiety, Bipolar, Depression, Panic Attack, Schizophrenia Endocrine/Metabolic History: Reports: Diabetes, Type II, Obesity/BMI 30+ Immunologic History: Reports: Other (See Below) Other Immunologic History: herpes Dermatologic History: Reports: Urticaria - Infectious Disease History Infectious Disease History: Reports: Chicken Pox - Past Surgical History Head Surgeries/Procedures: Reports: None HEENT Surgical History: Reports: None Cardiovascular Surgical History: Reports: None Respiratory Surgical History: Reports: None GI Surgical History: Reports: None Female Surgical History: Reports: Hysterectomy, Salpingo-Oophorectomy Endocrine Surgical History: Reports: None Neurological Surgical History: Reports: None Musculoskeletal Surgical History: Reports: None Dermatological Surgical History: Reports: None Social & Family History - Family History Family Medical History: Noncontributory Oncologic: Reports: Breast, Pancreatic, Prostate - Tobacco Use Smoking Status *Q: Heavy Tobacco Smoker Years of Tobacco use: 57 Packs/Tins Daily: 0.9 - Caffeine Use Caffeine Use: Reports: Coffee, Soda - Recreational Drug Use Recreational Drug Use: No - Living Situation & Occupation Living situation: Reports: Single (Single dwelling home) ED ROS GENERAL - Review of Systems Review Of Systems: See Below Constitutional: Reports: Fever, Chills, Malaise, Weakness, Fatigue, Night Sweats, Decreased Appetite HEENT: Reports: Ear Pain (R ear itches ), Other (Pt states loss of smell and ta ste3 since 04-03-20) Respiratory: Reports: Shortness of Breath, Wheezing, Sputum Cardiovascular: Reports: Dyspnea on Exertion, Edema (Edema BLLE +1 ) Endocrine: Reports: Fatigue GI/Abdominal: Reports: Diarrhea, Decreased Appetite : Reports: No Symptoms Musculoskeletal: Reports: Foot Pain (R ankle twisted ) Skin: Reports: No Symptoms Neurological: Reports: Weakness Psychiatric: Reports: Anxiety, Mood Lability (Known mental health history) Hematologic/Lymphatic: Reports: No Symptoms Immunologic: Reports: No Symptoms ED EXAM, GENERAL - Physical Exam Exam: See Below Exam Limited By: No Limitations General Appearance: Alert, WD/WN, Anxious, Mild Distress Eye Exam: Bilateral Eye: Normal Inspection, PERRL Ears: Hearing Grossly Normal Ear Exam: Right Ear: Discharge (Clear scant amount from patient itching at ear), Erythema, Swelling (Ear lobe slight swollen ), Tenderness, Bilateral Ear: Auricle Normal, TM normal Nose: Normal Inspection, Normal Mucosa Throat/Mouth: Normal Inspection, Normal Lips, Normal Teeth, Normal Voice, No Airway Compromise Head: Normocephalic Neck: Normal Inspection Respiratory/Chest: Decreased Breath Sounds (SOB. Accessory muscle use. 2L NC. Home O2. ), Wheezing (BL lobes ) Cardiovascular: Normal Peripheral Pulses, Regular Rate, Rhythm, No Gallop, No JVD, No Murmur, No Rub Peripheral Pulses: 2+: Radial (L), Radial (R), Dorsalis Pedis (L), Dorsalis Pedis (R) GI/Abdominal: Normal Bowel Sounds, Soft, Non-Tender, No Distention (Female) Exam: Deferred Rectal (Female) Exam: Deferred Back Exam: Normal Inspection Extremities: Normal Inspection, Normal Capillary Refill Neurological: Alert, Oriented, CN II-XII Intact, Normal Cognition Psychiatric: Anxious Skin Exam: Warm, Dry, Intact, Normal Color, No Rash Lymphatic: No Adenopathy Course - Vital Signs Text/Narrative:: Patient exam completed. Pt lying on stretcher with 2L NC. 94% O2 sat. Use of accessory muscles and mild to moderate SOB. CXR and labs ordered. ABG resulted. Indicates low PO2 indicative of hypoxemia CBC WNL. Procalcitonin 1.4 and CXR pending dictation. Pt indicates Duo Neb helped alot. Will re-test for COVID. Procal negative. Pt will continue with anti itch cream at home for right ear as discussed and try to put on 3 times a day Spoke with pt about home duo nebs and medication compliance. Was agreeable to the fact she does not comply with all treatments. Departure - Departure Time of Disposition: 17:37 Disposition: Home, Self-Care 01 Condition: Good Clinical Impression: COPD exacerbation, Hypoxemia, Generalized weakness, Tobacco abuse COPD (chronic obstructive pulmonary disease) Qualifiers: COPD type: unspecified COPD Qualified Code(s): J44.9 - Chronic obstructive pulmonary disease, unspecified - Discharge Information *PRESCRIPTION DRUG MONITORING PROGRAM REVIEWED*: Not Applicable *COPY OF PRESCRIPTION DRUG MONITORING REPORT IN PATIENT JEN: Not Applicable Prescriptions: Albuterol/Ipratropium [DuoNeb 3.0-0.5 MG/3 ML] 3 ml .XX Q4H PRN #90 neb PRN Reason: Dyspnea Instructions: Shortness of Breath, Adult, [id number], Cough, Adult, [id number], Weakness, [id number], Chronic Obstructive Pulmonary Disease, [id number], Steps to Quit Smoking Referrals: PCP,None [Primary Care Provider] - Forms: ED Department Discharge Care Plan Goals: Please adhere to previous orders for the use of home oxygen as ordered. Refrain from smoking. Utilize the prescription for Duo Nebs with the machine that was given at this ER visit COVID testing will be completed and results will be provided Please take medications as prescribed by your provider. Sepsis Event Note (ED) - Evaluation Sepsis Screening Result: Possible Sepsis Risk - Problem List & Annotations (1) COPD (chronic obstructive pulmonary disease) SNOMED Code(s): 43141148 Code(s): J44.9 - CHRONIC OBSTRUCTIVE PULMONARY DISEASE, UNSPECIFIED Status: Chronic Priority: High Current Visit: Yes Qualifiers: COPD type: unspecified COPD Qualified Code(s): J44.9 - Chronic obstructive pulmonary disease, unspecified - Problem List Review Problem List Initiated/Reviewed/Updated: Yes - Assessment/Plan Assessment:: Please adhere to previous orders for the use of home oxygen as ordered. Refrain from smoking. Utilize the prescription for Duo Nebs with the machine that was given at this ER visit COVID testing will be completed and results will be provided Use anti itch cream for right ear itch as discussed at the time of discharge Please take medications as prescribed by your provider. Seek medical care if conditions worsens or shortness of breath becomes worse. Plan: Please adhere to previous orders for the use of home oxygen as ordered. Refrain from smoking. Utilize the prescription for Duo Nebs with the machine that was given at this ER visit COVID testing will be completed and results will be provided Please take medications as prescribed by your provider. <OfficerZaire - Last Filed: 04/19/20 17:54> ED EXAM, GENERAL - Physical Exam Free Text/Narrative:: Agree with above Course - Vital Signs Last Recorded V/S: Last Vital Signs Temp 96.3 F L 04/19/20 16:09 Pulse 62 04/19/20 17:09 Resp 14 04/19/20 17:09 BP 137/67 04/19/20 17:09 Pulse Ox 97 04/19/20 17:09 - Orders/Labs/Meds Orders: Active Orders 24 hr Category Date Time Status RT Aerosol Therapy [RC] ASDIRECTED Care 04/19/20 16:53 Active Chest 2V [CR] Stat Exams 04/19/20 16:34 Taken CORONAVIRUS COVID-19, KEYON Stat Lab 04/19/20 17:36 Ordered Labs: Laboratory Tests 04/19/20 04/19/20 04/19/20 Range/Units 16:54 16:54 16:54 WBC 10.2 (4.5-11.0) K/uL RBC 4.03 (3.30-5.50) M/uL Hgb 12.2 (12.0-15.0) g/dL Hct 36.9 (36.0-48.0) % MCV 92 (80-98) fL MCH 30 (27-31) pg MCHC 33 (32-36) % Plt Count 144 L (150-400) K/uL Neut % (Auto) 69 H (36-66) % Lymph % (Auto) 13 L (24-44) % [place] % (Auto) 12 H (2-6) % Eos % (Auto) 6 H (2-4) % Baso % (Auto) 0 (0-1) % Puncture Site ABG pH (7.350-7.450) ABG pCO2 (35.0-42.0) mmHg ABG pO2 (75.0-100.0) mmHg ABG HCO3 (22.0-26.0) mmol/L ABG Total CO2 (21.0-25.0) mmol/L ABG O2 Saturation (95.0-98.0) % ABG O2 Content (15.0-23.0) %vol ABG Base Excess mm/L ABG Hemoglobin (12.0-16.0) g/dL ABG Oxyhemoglobin % ABG Carboxyhemoglobin (0.0-1.6) % ABG Methemoglobin % Micky Test O2 Delivery Device Oxygen Flow Rate L Sodium 141 (140-148) mmol/L Potassium 3.6 (3.6-5.2) mmol/L Chloride 106 (100-108) mmol/L Carbon Dioxide 27 (21-32) mmol/L Anion Gap 7.9 (5.0-14.0) mmol/L BUN 15 D (7-18) mg/dL Creatinine 0.8 (0.6-1.0) mg/dL Est Cr Clr Drug Dosing 54.13 mL/min Estimated GFR (MDRD) > 60 (>60) Glucose 128 H (74-106) mg/dL Lactic Acid 1.4 (0.4-2.0) mmol/L Calcium 8.7 (8.5-10.1) mg/dL Total Bilirubin 0.7 (0.2-1.0) mg/dL AST 19 (15-37) U/L ALT 16 (12-78) U/L Alkaline Phosphatase 144 H (46-116) U/L Total Protein 6.1 L (6.4-8.2) g/dL Albumin 3.1 L (3.4-5.0) g/dL Globulin 3.0 (2.3-3.5) g/dL Albumin/Globulin Ratio 1.0 L (1.2-2.2) Procalcitonin ng/mL 04/19/20 04/19/20 Range/Units 16:54 17:02 WBC (4.5-11.0) K/uL RBC (3.30-5.50) M/uL Hgb (12.0-15.0) g/dL Hct (36.0-48.0) % MCV (80-98) fL MCH (27-31) pg MCHC (32-36) % Plt Count (150-400) K/uL Neut % (Auto) (36-66) % Lymph % (Auto) (24-44) % [place] % (Auto) (2-6) % Eos % (Auto) (2-4) % Baso % (Auto) (0-1) % Puncture Site Lt radial ABG pH 7.438 (7.350-7.450) ABG pCO2 36.7 (35.0-42.0) mmHg ABG pO2 66.5 L (75.0-100.0) mmHg ABG HCO3 24.4 (22.0-26.0) mmol/L ABG Total CO2 21.8 (21.0-25.0) mmol/L ABG O2 Saturation 93.4 L (95.0-98.0) % ABG O2 Content 15.7 (15.0-23.0) %vol ABG Base Excess 1.0 mm/L ABG Hemoglobin 12.4 (12.0-16.0) g/dL ABG Oxyhemoglobin 89.9 % ABG Carboxyhemoglobin 3.3 H (0.0-1.6) % ABG Methemoglobin 0.4 % Micky Test Pass O2 Delivery Device Nasal cannula Oxygen Flow Rate 2.0 L Sodium (140-148) mmol/L Potassium (3.6-5.2) mmol/L Chloride (100-108) mmol/L Carbon Dioxide (21-32) mmol/L Anion Gap (5.0-14.0) mmol/L BUN (7-18) mg/dL Creatinine (0.6-1.0) mg/dL Est Cr Clr Drug Dosing mL/min Estimated GFR (MDRD) (>60) Glucose (74-106) mg/dL Lactic Acid (0.4-2.0) mmol/L Calcium (8.5-10.1) mg/dL Total Bilirubin (0.2-1.0) mg/dL AST (15-37) U/L ALT (12-78) U/L Alkaline Phosphatase (46-116) U/L Total Protein (6.4-8.2) g/dL Albumin (3.4-5.0) g/dL Globulin (2.3-3.5) g/dL Albumin/Globulin Ratio (1.2-2.2) Procalcitonin 0.05 ng/mL Meds: Medications Discontinued Medications Generic Name Dose Route Start Last Admin Trade Name Freq PRN Reason Stop Dose Admin Albuterol/Ipratropium 3 ml 04/19/20 16:53 04/19/20 17:18 Duoneb 3.0-0.5 Mg/3 Ml NEB 04/19/20 16:54 3 ml ONETIME ONE Administration Sepsis Event Note (ED) - Focused Exam Vital Signs: Vital Signs Temp Pulse Resp BP Pulse Ox 04/19/20 17:09 62 14 137/67 97 04/19/20 16:09 96.3 F L 90 24 H 147/71 H 94 L 04/19/20 16:08 96.3 F L 90 24 H 147/71 H 94 L - My Orders Last 24 Hours: My Active Orders 04/19/20 17:36 CORONAVIRUS COVID-19, KEYON Stat - Assessment/Plan Last 24 Hours: My Active Orders 04/19/20 17:36 CORONAVIRUS COVID-19, KEYON Stat Plan: Assessment Acuity = acute Site and laterality = COPD Etiology = medical compliance Manifestations = dyspnea, hypoxia Location of injury = Home Lab values = CBC, CMP, ABG, within normal limits chest x-ray shows no acute process, Plan COVID test is pending at this was her primary concern she did have good improvement with a DuoNeb written for a nebulizer at home as well as medication of DuoNeb 90 vials keep her regular follow-up appointments with her primary care This note was dictated using [employer] voice recognition software please call with any questions on syntax or grammar. Zaire Sthal MD was personally available for consultation in the ED. I have reviewed the chart and agree with the documentation as recorded by the YOUTH PASTOR Student, including the assessment, treatment plan and disposition. Zaire Stahl MD personally saw and examined the patient. I have reviewed and agree with the YOUTH PASTOR Student's findings.
[2020-04-19] MEDS ORDERED: Albuterol/Ipratropium 3.0-0.5 MG/3 ML Neb Soln NEB ONE (16:53)
[2020-04-19 17:10] VITALS: BP 137/67; PULSE 62
--- NOTE | 2020-04-20 09:55 | CR ---
CHEST: 2 view CLINICAL HISTORY:SOB COMPARISON:03/21/2020 FINDINGS: Heart is enlarged. Pulmonary vascularity is mildly cephalized. This is similar to prior study. There is mild prominence to the interstitial lung markings. This is felt to be chronic. Impression: Mild cardiomegaly with mild vascular cephalization some of which is chronic. Generalized prominence the lung markings is been present prior study and is felt to represent some changes of COPD and bronchiectasis.
== END 2020-04-19 18:30 | disposition home or self-care (01) ==
LOC: JP.ED 15:59
DX: J44.1 Chronic obstructive pulmonary disease with (acute) exacerbation (principal); R09.02 Hypoxemia; R53.1 Weakness; M19.90 Unspecified osteoarthritis, unspecified site; F31.9 Bipolar disorder, unspecified; F41.0 Panic disorder [episodic paroxysmal anxiety]; F20.9 Schizophrenia, unspecified; E11.9 Type 2 diabetes mellitus without complications; E66.9 Obesity, unspecified; F17.210 Nicotine dependence, cigarettes, uncomplicated; Z88.8 Allergy status to other drugs, medicaments and biological substances; Z88.2 Allergy status to sulfonamides; Z88.7 Allergy status to serum and vaccine; Z79.82 Long term (current) use of aspirin; Z79.84 Long term (current) use of oral hypoglycemic drugs; Z79.899 Other long term (current) drug therapy; Z90.710 Acquired absence of both cervix and uterus; Z68.30 Body mass index [BMI] 30.0-30.9, adult; Z20.828 Contact with and (suspected) exposure to other viral communicable diseases
CPT/HCPCS: 36415; 36600; 71046; 80053; 81001; 82803; 83605; 84145; 85025; 87086; 94640; 99284; 99285; U0002; J7620-GY

== ENCOUNTER 2020-04-25 23:25 | Emergency (ER) | payer MEDICARE, MEDICAID ==
[2020-04-25 23:34] VITALS: BP 125/59; PULSE 102
[2020-04-25] MEDS ORDERED: Prochlorperazine 10 MG/2 ML SDV IVPUSH ONE (23:38)
[2020-04-25] MEDS ORDERED: Albuterol/Ipratropium 3.0-0.5 MG/3 ML Neb Soln NEB ONE (23:40)
[2020-04-25] MEDS ORDERED: Lactated Ringers 1,000 ML IV SCH (23:45)
[2020-04-25] MEDS ORDERED: Morphine 2 MG/ML SYRINGE IVPUSH ONE (23:54)
--- NOTE | 2020-04-25 23:56 | EDM.PDOC ---
ED HPI GENERAL MEDICAL PROBLEM - General Chief Complaint: General Stated Complaint: MEDICAL [facility] Time Seen by Provider: 04/25/20 23:45 Source of Information: Reports: Patient, Old Records History Limitations: Reports: No Limitations - History of Present Illness INITIAL COMMENTS - FREE TEXT/NARRATIVE: 70 yo female here with generalized weakness worse than usual, chest tightness and emesis x one. She has chronic lung dz, but her breathing is not worse than usual. No fever. Not able to walk due to her weakness. Lives in her own home with a home health aid visiting next tomorrow. Is still smoking, although she says less than before. Has incontinence of urine as her only urinary sx. Has loose stools that she attributes to the Lactulose syrup she is prescribed. Sx's worse since this morning, here via EMS. Lives alone. Has some left over TMP/SMZ that she has been taking for the past 2 days. Onset: Today, Gradual Onset Date: 04/25/20 Duration: Hour(s):, Getting Worse Location: Reports: Generalized Quality: Reports: Ache (R arm), Pressure (chest) Severity: Moderate Improves with: Reports: None Worsens with: Reports: Other (unknown) Context: Reports: Other (See HPI) Associated Symptoms: Reports: Chest Pain (tonight), Nausea/Vomiting (once tonight), Shortness of Breath (chronic, stable), Weakness (generalized), Other (R arm ache is new with numbness). 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: Reports: Other (see below) (none) right arm Pain Score (Numeric/FACES): 10 - Related Data Allergies Allergy/AdvReac Type Severity Reaction Status Date / Time diclofenac potassium Allergy Mild unsure Verified 04/25/20 23:38 [From Cataflam] dicyclomine HCl [From Bentyl] Allergy Mild unsure Verified 04/25/20 23:38 paroxetine HCl [From Paxil] Allergy Mild unsure Verified 04/25/20 23:38 Influenza Virus Vaccines Allergy Unknown Other Verified 04/25/20 23:38 sulfamethoxazole Allergy Other Verified 04/25/20 23:38 [From Bactrim] trimethoprim [From Bactrim] Allergy Other Verified 04/25/20 23:38 Home Meds: Home Meds Aspirin [[place] Chewable Aspirin] 81 mg PO DAILY 07/26/13 [History] Calcium Carbonate [Calci-Chew] 500 mg PO BID 07/26/13 [History] Escitalopram [Lexapro] 20 mg PO DAILY 07/26/13 [History] metFORMIN [Glucophage] 500 mg PO BID 07/26/13 [History] busPIRone [Buspar] 20 mg PO TID 02/12/15 [History] Triamcinolone Acetonide [Triamcinolone Acetonide 0.1% Crm] 15 gm TOP BID PRN 03/18/15 [History] Vitamin E 400 unit PO DAILY 03/18/15 [History] Albuterol [Ventolin HFA] 2 puff IH Q4HR PRN 02/28/18 [History] Calcitonin,Kent,Synthetic [Miacalcin] 3.7 ml NS DAILY #1 spray.pump 10/10/18 [Rx] Folic Acid 1 tab PO DAILY 08/22/19 [History] Furosemide [Lasix] 1 tab PO DAILY 08/22/19 [History] Lactulose 30 ml PO DAILY 08/22/19 [History] Mupirocin Oint [Bactroban Oint] 1 dose TOP BID 08/22/19 [History] Naproxen 1 tab PO BID PRN 08/22/19 [History] valACYclovir HCl [Valtrex] 500 mg PO DAILY 08/22/19 [History] Acetaminophen/HYDROcodone [[place] 325-5 MG] 1 - 2 tab PO Q6HR PRN 10/17/19 [History] Loperamide [Imodium] 2 mg PO QID 10/17/19 [History] rOPINIRole [Requip] 2 mg PO QID 10/17/19 [History] Menthol/Camphor [[place] Anti-Itch] 1 gm TOP DAILY PRN 10/18/19 [History] Ciclopirox/Urea/Camph/Men/Euc [Ciclopirox 8% Treatment Kit] 34.6 ml TP DAILY 10/29/19 [History] QUEtiapine [SEROquel] 1 - 2 tab PO BEDTIME 10/29/19 [History] Vitamin D3 35791 50,000 unit PO WEEKLY 03/19/20 [History] Multivitamin 1 tab PO DAILY 03/25/20 [History] Nystatin [Nystatin Crm] 1 applic TOP BID 03/25/20 [History] Pramipexole Di-HCl [Mirapex] 0.125 mg PO DAILY 03/25/20 [History] Sofosbuvir/Velpatasvir [Sofosbuvir-Velpatasvir 400-100] 1 tab PO DAILY 03/25/20 [History] diazePAM [Valium] 5 mg PO DAILY 03/25/20 [History] lamoTRIgine [Lamictal] 25 mg PO DAILY 03/25/20 [History] Albuterol/Ipratropium [DuoNeb 3.0-0.5 MG/3 ML] 3 ml .XX Q4H PRN #90 neb 04/19/20 [Rx] Past Medical History HEENT History: Reports: Impaired Vision Other HEENT History: dry eyes Cardiovascular History: Reports: Other (See Below) Other Cardiovascular History: hx stress test normal Respiratory History: Reports: COPD, SOB, Other (See Below) Other Respiratory History: O2 home, CPAP Gastrointestinal History: Reports: Hepatitis, Irritable Bowel Syndrome Genitourinary History: Reports: Urinary Incontinence, UTI, Recurrent BACK [employer]ER [employer]ING History: Reports: Other BACK TEND[employer] History: cysts Musculoskeletal History: Reports: Arthritis Other Musculoskeletal History: bilat knee pain. L foot pain Neurological History: Reports: Other (See Below) Other Neuro History: restless legs Psychiatric History: Reports: Addiction, Anxiety, Bipolar, Depression, Panic Attack, Schizophrenia Endocrine/Metabolic History: Reports: Diabetes, Type II, Obesity/BMI 30+ Immunologic History: Reports: Other (See Below) Other Immunologic History: herpes Dermatologic History: Reports: Urticaria - Infectious Disease History Infectious Disease History: Reports: Chicken Pox - Past Surgical History Head Surgeries/Procedures: Reports: None HEENT Surgical History: Reports: None Cardiovascular Surgical History: Reports: None Respiratory Surgical History: Reports: None GI Surgical History: Reports: None Female Surgical History: Reports: Hysterectomy, Salpingo-Oophorectomy Endocrine Surgical History: Reports: None Neurological Surgical History: Reports: None Musculoskeletal Surgical History: Reports: None Dermatological Surgical History: Reports: None Social & Family History - Family History Family Medical History: Noncontributory Oncologic: Reports: Breast, Pancreatic, Prostate - Caffeine Use Caffeine Use: Reports: Coffee, Soda - Living Situation & Occupation Living situation: Reports: Single (Single dwelling home) ED ROS GENERAL - Review of Systems Review Of Systems: See Below Constitutional: Reports: No Symptoms HEENT: Reports: No Symptoms Respiratory: Reports: Shortness of Breath (chronic, stable). Denies: Pleuritic Chest Pain, Cough, Sputum, Hemoptysis Cardiovascular: Reports: Chest Pain (tightness tonight), Dyspnea on Exertion (chronic). Denies: Edema, Lightheadedness, Palpitations, Syncope Endocrine: Reports: No Symptoms GI/Abdominal: Reports: Diarrhea (from her lactulose), Nausea, Vomiting (x one tonight). Denies: Black Stool, Bloody Stool, Constipation, Distension, Hematemesis, Hematochezia, Melena : Reports: Incontinence (not new). Denies: Dysuria Musculoskeletal: Reports: No Symptoms Skin: Reports: No Symptoms Neurological: Reports: Numbness (R arm onset tonight at arrival), Difficulty Walking (due to bilat. leg weakness). Denies: Headache ED EXAM, GENERAL - Physical Exam Exam: See Below Exam Limited By: No Limitations General Appearance: Alert, WD/WN, No Apparent Distress Eye Exam: Bilateral Eye: Normal Inspection, PERRL Ears: Normal External Exam, Normal Canal, Hearing Grossly Normal, Normal TMs Ear Exam: Bilateral Ear: Auricle Normal, Canal Normal Nose: Normal Inspection, No Blood Throat/Mouth: Normal Inspection, Normal Lips, Normal Oropharynx, Normal Voice, No Airway Compromise Head: Atraumatic, Normocephalic Neck: Normal Inspection Respiratory/Chest: No Respiratory Distress, Lungs Clear, Normal Breath Sounds, No Accessory Muscle Use Cardiovascular: Regular Rate, Rhythm, No Edema GI/Abdominal: Normal Bowel Sounds, Soft, Non-Tender, No Distention Extremities: Normal Inspection, Normal Range of Motion, Non-Tender, No Pedal Edema, Other (all extrems equally weak. ) Neurological: Alert, Oriented, CN II-XII Intact, Normal Cognition, No Motor/Sensory Deficits, Other (Has subjective R arm numbness) Psychiatric: Normal Affect, Normal Mood Skin Exam: Warm, Dry, Intact, Normal Color, No Rash EKG INTERPRETATION EKG Date: 04/26/20 Time: 00:10 Rhythm: NSR Rate (Beats/Min): 93 [place]: Normal P-Wave: Present QRS: Normal ST-T: Normal QT: Normal Comparison: NA - No Prior EKG Course - Vital Signs Last Recorded V/S: Last Vital Signs Temp 36.1 C 04/25/20 23:43 Pulse 102 H 04/25/20 23:43 Resp 20 04/25/20 23:43 BP 125/59 L 04/25/20 23:43 Pulse Ox 87 L 04/25/20 23:43 - Orders/Labs/Meds Orders: Active Orders 24 hr Category Date Time Status EKG Documentation Completion [RC] ASDIRECTED Care 04/25/20 23:50 Active Chest 2V [CR] Stat Exams 04/26/20 01:35 Taken Lactated Ringers [Ringers, Lactated] 1,000 ml Med 04/25/20 23:45 Active IV BOLUS EKG 12 Lead [EK] Routine Ther 04/25/20 23:50 Ordered Medication Orders Lactated Ringer's (Ringers, Lactated) 1,000 mls @ 1,000 mls/hr IV BOLUS ETTA Last Admin: 04/26/20 00:50 Dose: 1,000 mls/hr Documented by: BA Labs: Laboratory Tests 04/26/20 04/26/20 04/26/20 Range/Units 00:15 00:15 01:35 WBC 15.4 H (4.5-11.0) K/uL RBC 4.57 (3.30-5.50) M/uL Hgb 13.3 (12.0-15.0) g/dL Hct 40.0 (36.0-48.0) % MCV 88 (80-98) fL MCH 29 (27-31) pg MCHC 33 (32-36) % Plt Count 204 (150-400) K/uL Sodium 132 L (140-148) mmol/L Potassium 3.9 (3.6-5.2) mmol/L Chloride 98 L (100-108) mmol/L Carbon Dioxide 26 (21-32) mmol/L Anion Gap 11.9 (5.0-14.0) mmol/L BUN 16 (7-18) mg/dL Creatinine 1.2 H (0.6-1.0) mg/dL Est Cr Clr Drug Dosing 36.09 mL/min Estimated GFR (MDRD) 44 L (>60) Glucose 156 H (74-106) mg/dL Calcium 9.6 (8.5-10.1) mg/dL Total Bilirubin 0.9 (0.2-1.0) mg/dL AST 25 (15-37) U/L ALT 15 (12-78) U/L Alkaline Phosphatase 158 H (46-116) U/L Troponin I < 0.017 (0.000-0.056) ng/mL Total Protein 6.1 L (6.4-8.2) g/dL Albumin 2.9 L (3.4-5.0) g/dL Globulin 3.2 (2.3-3.5) g/dL Albumin/Globulin Ratio 0.9 L (1.2-2.2) Urine Color Yellow (YELLOW) Urine Appearance Clear (CLEAR) Urine pH 5.5 (5.0-8.0) Ur Specific [place] 1.015 (1.008-1.030) Urine Protein Negative (NEGATIVE) mg/dL Urine Glucose (UA) Negative (NEGATIVE) mg/dL Urine Ketones Negative (NEGATIVE) mg/dL Urine Occult Blood Negative (NEGATIVE) Urine Nitrite Negative (NEGATIVE) Urine Bilirubin Negative (NEGATIVE) Urine Urobilinogen 0.2 (0.2-1.0) EU/dL Ur Leukocyte Esterase Trace H (NEGATIVE) Urine RBC 0-5 (0-5) Urine WBC 5-10 H (0-5) Ur Epithelial Cells Moderate Amorphous Sediment Not seen Urine Bacteria Few Urine Mucus Not seen Urine Other Meds: Medications Generic Name Dose Route Start Last Admin Trade Name Freq PRN Reason Stop Dose Admin Lactated Ringer's 1,000 mls @ 1,000 mls/hr 04/25/20 23:45 04/26/20 00:50 Ringers, Lactated IV 1,000 mls/hr BOLUS ETTA Administration Discontinued Medications Generic Name Dose Route Start Last Admin Trade Name Freq PRN Reason Stop Dose Admin Albuterol/Ipratropium 3 ml 04/25/20 23:40 04/26/20 01:27 Duoneb 3.0-0.5 Mg/3 Ml NEB 04/25/20 23:41 Not Given ONETIME ONE Lorazepam 0.5 mg 04/26/20 01:19 04/26/20 01:33 Ativan IVPUSH 04/26/20 01:20 0.5 mg ONETIME ONE Administration Morphine Sulfate 2 mg 04/25/20 23:54 04/26/20 00:44 Morphine IVPUSH 04/25/20 23:55 2 mg ONETIME ONE Administration Prochlorperazine Edisylate 5 mg 04/25/20 23:38 04/26/20 00:39 Compazine IVPUSH 04/25/20 23:39 5 mg ONETIME ONE Administration - Radiology Interpretation Free Text/Narrative:: CXR-no acute changes - Re-Assessments/Exams Free Text/Narrative Re-Assessment/Exam: 04/26/20 01:30 Told us she was too weak to stand, but walks about in her room without difficulty. Departure - Departure Time of Disposition: 02:08 Disposition: Home, Self-Care 01 Condition: Fair Clinical Impression: Hyponatremia, Generalized weakness - Discharge Information *PRESCRIPTION DRUG MONITORING PROGRAM REVIEWED*: Not Applicable *COPY OF PRESCRIPTION DRUG MONITORING REPORT IN PATIENT JEN: Not Applicable Instructions: Weakness, [id number] Referrals: PCP,None [Primary Care Provider] - Forms: ED Department Discharge Additional Instructions: Continue your usual medications. See Dr. Carrillo for recheck soon. Sepsis Event Note (ED) - Evaluation Sepsis Screening Result: No Definite Risk - Focused Exam Vital Signs: Vital Signs Temp Pulse Resp BP Pulse Ox 04/25/20 23:43 36.1 C 102 H 20 125/59 L 87 L 04/25/20 23:32 36.1 C 102 H 20 125/59 L 87 L - My Orders Last 24 Hours: My Active Orders 04/25/20 23:45 Lactated Ringers [Ringers, Lactated] 1,000 ml IV BOLUS 04/25/20 23:50 EKG Documentation Completion [RC] ASDIRECTED EKG 12 Lead [EK] Routine 04/26/20 01:35 Chest 2V [CR] Stat - Assessment/Plan Last 24 Hours: My Active Orders 04/25/20 23:45 Lactated Ringers [Ringers, Lactated] 1,000 ml IV BOLUS 04/25/20 23:50 EKG Documentation Completion [RC] ASDIRECTED EKG 12 Lead [EK] Routine 04/26/20 01:35 Chest 2V [CR] Stat
[2020-04-26] MEDS ORDERED: LORazepam 2 MG/ML SDV IVPUSH ONE (01:19)
--- NOTE | 2020-04-26 11:19 | CR ---
CHEST: 2 view CLINICAL HISTORY:Leukocytosis, weakness COMPARISON:04/19/2020 FINDINGS: Heart size and pulmonary vascularity are normal. There is some generalized prominence to the lung markings. This is similar to prior studies. Heart size and pulmonary vascularity are normal. There are atherosclerotic changes in the aorta. Impression: Generalized prominence to the lung markings similar to prior study. This likely represents some chronic lung changes
== END 2020-04-26 02:25 | disposition home or self-care (01) ==
LOC: JP.ED 23:25
DX: E87.1 Hypo-osmolality and hyponatremia (principal); R53.1 Weakness; J44.9 Chronic obstructive pulmonary disease, unspecified; F41.9 Anxiety disorder, unspecified; F32.9 Major depressive disorder, single episode, unspecified; E11.9 Type 2 diabetes mellitus without complications; E66.9 Obesity, unspecified; Z88.6 Allergy status to analgesic agent; Z88.7 Allergy status to serum and vaccine; Z88.2 Allergy status to sulfonamides; Z79.82 Long term (current) use of aspirin; Z79.899 Other long term (current) drug therapy; Z79.84 Long term (current) use of oral hypoglycemic drugs; Z68.30 Body mass index [BMI] 30.0-30.9, adult
CPT/HCPCS: 36415; 71046; 80053; 81001; 84484; 85027; 93005; 96361; 96374; 96375; 99285; J0780; J2060; J2270; J7120; 93010; 99283

== ENCOUNTER 2020-04-30 00:23 | Emergency (ER) | payer MEDICARE, MEDICAID ==
--- NOTE | 2020-04-30 00:48 | EDM.PDOC ---
ED HPI GENERAL MEDICAL PROBLEM - General Chief Complaint: General Stated Complaint: [facility] Time Seen by Provider: 04/30/20 00:41 Source of Information: Reports: Patient, EMS History Limitations: Reports: No Limitations - History of Present Illness INITIAL COMMENTS - FREE TEXT/NARRATIVE: Patient presents by ambulance with a extended list of complaints but principal among them is weakness. She has been seen twice for the same complaint/set of complaints previous to this visit. She was in the emergency department on 26 April and before that on 19 April. On 27 April she was seen in the primary care clinic for evaluation of complaints. At that time, 27 April, she was felt to be having a COPD exacerbation and was prescribed 1 week of azithromycin and 1 week of prednisone 20 mg daily. Is difficult to know exactly what the patient has done or not done at home as she is an inconsistent historian at this time and also by other peoples previous notes. She thought she felt warm tonight but not necessarily having a fever. She feels chilled. She is supposed to use oxygen at home however when paramedics arrived she was not on it but was ambulating at home. No chest pressure or pain. No cough but she describes shortness of breath with exertion. She has nebulizer treatments available to her at home and it is unclear how often she may actually be using those. Onset: Gradual Duration: Week(s): Location: Reports: Generalized Severity: Mild Improves with: Reports: None Worsens with: Reports: Movement Associated Symptoms: Reports: Cough, Fever/Chills, Headaches, Loss of Appetite, Malaise, Shortness of Breath, Weakness. Denies: Nausea/Vomiting, Syncope Lower Back Pain Score (Numeric/FACES): 7 - Related Data Allergies Allergy/AdvReac Type Severity Reaction Status Date / Time diclofenac potassium Allergy Mild unsure Verified 04/25/20 23:38 [From Cataflam] dicyclomine HCl [From Bentyl] Allergy Mild unsure Verified 04/25/20 23:38 paroxetine HCl [From Paxil] Allergy Mild unsure Verified 04/25/20 23:38 Influenza Virus Vaccines Allergy Unknown Other Verified 04/25/20 23:38 sulfamethoxazole Allergy Other Verified 04/25/20 23:38 [From Bactrim] trimethoprim [From Bactrim] Allergy Other Verified 04/25/20 23:38 Home Meds: Home Meds Aspirin [Ashley Chewable Aspirin] 81 mg PO DAILY 07/26/13 [History] Calcium Carbonate [Calci-Chew] 500 mg PO BID 07/26/13 [History] Escitalopram [Lexapro] 20 mg PO DAILY 07/26/13 [History] metFORMIN [Glucophage] 500 mg PO BID 07/26/13 [History] busPIRone [Buspar] 20 mg PO TID 02/12/15 [History] Triamcinolone Acetonide [Triamcinolone Acetonide 0.1% Crm] 15 gm TOP BID PRN 03/18/15 [History] Vitamin E 400 unit PO DAILY 03/18/15 [History] Albuterol [Ventolin HFA] 2 puff IH Q4HR PRN 02/28/18 [History] Calcitonin,Waterflow,Synthetic [Miacalcin] 3.7 ml NS DAILY #1 spray.pump 10/10/18 [Rx] Folic Acid 1 tab PO DAILY 08/22/19 [History] Furosemide [Lasix] 1 tab PO DAILY 08/22/19 [History] Lactulose 30 ml PO DAILY 08/22/19 [History] Mupirocin Oint [Bactroban Oint] 1 dose TOP BID 08/22/19 [History] Naproxen 1 tab PO BID PRN 08/22/19 [History] valACYclovir HCl [Valtrex] 500 mg PO DAILY 08/22/19 [History] Acetaminophen/HYDROcodone [[place] 325-5 MG] 1 - 2 tab PO Q6HR PRN 10/17/19 [History] Loperamide [Imodium] 2 mg PO QID PRN 10/17/19 [History] rOPINIRole [Requip] 2 mg PO QID 10/17/19 [History] Menthol/Camphor [[place] Anti-Itch] 1 gm TOP DAILY PRN 10/18/19 [History] Ciclopirox/Urea/Camph/Men/Euc [Ciclopirox 8% Treatment Kit] 34.6 ml TP DAILY 10/29/19 [History] QUEtiapine [SEROquel] 1 tab PO BEDTIME 10/29/19 [History] Vitamin D3 25086 50,000 unit PO WEEKLY 03/19/20 [History] Multivitamin 1 tab PO DAILY 03/25/20 [History] Nystatin [Nystatin Crm] 1 applic TOP BID 03/25/20 [History] Pramipexole Di-HCl [Mirapex] 0.125 mg PO DAILY 03/25/20 [History] lamoTRIgine [Lamictal] 25 mg PO DAILY 03/25/20 [History] Albuterol/Ipratropium [DuoNeb 3.0-0.5 MG/3 ML] 3 ml .XX Q4H PRN #90 neb 04/19/20 [Rx] Azithromycin [Zithromax] 500 mg PO ASDIRECTED 04/30/20 [History] O2 2 l INH ASDIRECTED PRN 04/30/20 [History] Pantoprazole Sodium [Protonix] 40 mg PO DAILY 04/30/20 [History] diazePAM [Valium] 5 mg PO DAILY 04/30/20 [History] predniSONE [Prednisone] 20 mg PO ASDIRECTED 04/30/20 [History] Past Medical History HEENT History: Reports: Impaired Vision Other HEENT History: dry eyes Cardiovascular History: Reports: Other (See Below) Other Cardiovascular History: hx stress test normal Respiratory History: Reports: COPD, SOB, Other (See Below) Other Respiratory History: O2 home, CPAP Gastrointestinal History: Reports: Hepatitis, Irritable Bowel Syndrome Genitourinary History: Reports: Urinary Incontinence, UTI, Recurrent [employer] History: Reports: Other [employer] History: cysts Musculoskeletal History: Reports: Arthritis Other Musculoskeletal History: bilat knee pain. L foot pain Neurological History: Reports: Other (See Below) Other Neuro History: restless legs Psychiatric History: Reports: Addiction, Anxiety, Bipolar, Depression, Panic Attack, Schizophrenia Endocrine/Metabolic History: Reports: Diabetes, Type II, Obesity/BMI 30+ Immunologic History: Reports: Other (See Below) Other Immunologic History: herpes Dermatologic History: Reports: Urticaria - Infectious Disease History Infectious Disease History: Reports: Chicken Pox - Past Surgical History Head Surgeries/Procedures: Reports: None HEENT Surgical History: Reports: None Cardiovascular Surgical History: Reports: None Respiratory Surgical History: Reports: None GI Surgical History: Reports: None Female Surgical History: Reports: Hysterectomy, Salpingo-Oophorectomy Endocrine Surgical History: Reports: None Neurological Surgical History: Reports: None Musculoskeletal Surgical History: Reports: None Dermatological Surgical History: Reports: None Social & Family History - Family History Family Medical History: Noncontributory Oncologic: Reports: Breast, Pancreatic, Prostate - Caffeine Use Caffeine Use: Reports: Coffee, Soda - Living Situation & Occupation Living situation: Reports: Single (Single dwelling home) ED ROS GENERAL - Review of Systems Review Of Systems: See Below Constitutional: Reports: Chills, Malaise, Weakness, Decreased Appetite. Denies: Fever HEENT: Reports: Sinus Problem, Throat Pain Respiratory: Reports: Shortness of Breath, Wheezing, Cough Cardiovascular: Reports: Chest Pain, Dyspnea on Exertion Endocrine: Reports: Fatigue GI/Abdominal: Reports: Abdominal Pain, Diarrhea Musculoskeletal: Reports: Muscle Pain Psychiatric: Reports: Anxiety, Other ED EXAM, GENERAL - Physical Exam Exam: See Below Exam Limited By: Other (Almost continuous conversation. She can speak in full sentences.) General Appearance: Mild Distress Ears: Normal External Exam, Normal TMs Nose: Normal Inspection, Normal Mucosa Throat/Mouth: Normal Inspection Respiratory/Chest: Wheezing. No: Crackles, Rales Cardiovascular: Regular Rate, Rhythm GI/Abdominal: Soft, Non-Tender Extremities: No Pedal Edema, Other (Painful feet generalized.) Psychiatric: Other (Tangential/obsessive thought patterns.) Lymphatic: No Adenopathy Course - Vital Signs Last Recorded V/S: Last Vital Signs Temp 36.0 C L 04/30/20 00:33 Pulse 96 04/30/20 01:20 Resp 20 04/30/20 01:20 BP 128/78 04/30/20 01:20 Pulse Ox 91 L 04/30/20 01:20 - Orders/Labs/Meds Orders: Active Orders 24 hr Category Date Time Status RT Aerosol Therapy [RC] ASDIRECTED Care 04/30/20 01:10 Active Chest 1V Frontal [CR] Stat Exams 04/30/20 01:10 Taken Labs: Laboratory Tests 04/30/20 04/30/20 Range/Units 01:20 01:20 WBC 9.8 (4.5-11.0) K/uL RBC 4.32 (3.30-5.50) M/uL Hgb 12.7 (12.0-15.0) g/dL Hct 37.8 (36.0-48.0) % MCV 88 (80-98) fL MCH 29 (27-31) pg MCHC 34 (32-36) % Plt Count 228 (150-400) K/uL Neut % (Auto) 78 H (36-66) % Lymph % (Auto) 13 L (24-44) % [place] % (Auto) 6 (2-6) % Eos % (Auto) 3 (2-4) % Baso % (Auto) 0 (0-1) % Sodium 138 L (140-148) mmol/L Potassium 4.0 (3.6-5.2) mmol/L Chloride 102 (100-108) mmol/L Carbon Dioxide 28 (21-32) mmol/L Anion Gap 12.0 (5.0-14.0) mmol/L BUN 26 H D (7-18) mg/dL Creatinine 1.1 H (0.6-1.0) mg/dL Est Cr Clr Drug Dosing 39.37 mL/min Estimated GFR (MDRD) 49 L (>60) Glucose 143 H (74-106) mg/dL Calcium 10.8 H (8.5-10.1) mg/dL Total Bilirubin 0.5 (0.2-1.0) mg/dL AST 53 H D (15-37) U/L ALT 18 (12-78) U/L Alkaline Phosphatase 142 H (46-116) U/L C-Reactive Protein 3.76 H (0.0-0.3) mg/dL Total Protein 6.0 L (6.4-8.2) g/dL Albumin 2.8 L (3.4-5.0) g/dL Globulin 3.2 (2.3-3.5) g/dL Albumin/Globulin Ratio 0.9 L (1.2-2.2) Meds: Medications Discontinued Medications Generic Name Dose Route Start Last Admin Trade Name Nicole PRN Reason Stop Dose Admin Albuterol/Ipratropium 3 ml 04/30/20 01:09 04/30/20 01:29 Duoneb 3.0-0.5 Mg/3 Ml NEB 04/30/20 01:10 3 ml ONETIME ONE Administration - Re-Assessments/Exams Free Text/Narrative Re-Assessment/Exam: 04/30/20 01:47 Patient requested warm blankets on several occasions. She received a DuoNeb treatment for her wheezing. She still should have roughly half of her azithromycin and prednisone prescriptions available to take at home. Her chest x-ray tonight is actually improved from that obtained on 26 April. 04/30/20 02:01 I returned to review her test results which look better although the patient does not believe I am telling the truth. She lay quietly with her eyes mostly closed while talking to me and turning away from me until I said that if she was too weak to remain at home safely perhaps she should consider a senior care? At that point her eyes open wide she turned to me abruptly and said "I will never go to senior care!" I am living in the house that I drop-in and I like it. My son comes to visit me from his jail periodically and I like living where I am. I do not recommend any new medications and do not recommend changing doses or schedules of previously prescribed medications. She has nursing staff who assist with medication set up. Her primary care clinic note indicates that they would like to have her follow-up by 04 May. It is unclear if that is by telephone or in person visit but I recommend she follow through with their plan. 04/30/20 04:36 Later, despite her insistence that she was too weak and had too much pain in her feet to possibly be able to go home, she awoke from a nap and decided that she had stayed in the emergency department long enough. She contacted a friend by telephone, walked out to the lobby and waited for the friend and in fairly short order her ride arrived and she left for home in comfortable appearing condition ambulating without assistance. Departure - Departure Time of Disposition: 02:07 Disposition: Home, Self-Care 01 Condition: Good Clinical Impression: COPD exacerbation, Generalized weakness, Myalgia, Tobacco abuse - Discharge Information Instructions: Chronic Obstructive Pulmonary Disease Exacerbation, [id number] Referrals: PCP,None [Primary Care Provider] - Forms: ED Department Discharge Additional Instructions: Continue currently prescribed medications and oxygen as discussed. No new m edications were recommended tonight and we do not recommend changes to previously prescribed medications. Clinic note indicates that your primary care team wants to follow-up with you by 04 May. You should contact them tomorrow if you do not currently have a telephone follow-up set up or an actual in person visit arranged. Sepsis Event Note (ED) - Evaluation Sepsis Screening Result: No Definite Risk - Focused Exam Vital Signs: Vital Signs Temp Pulse Resp BP Pulse Ox 04/30/20 01:20 96 20 128/78 91 L 04/30/20 00:33 36.0 C L 94 22 H 125/72 88 L 04/30/20 00:29 36.0 C L 94 22 H 125/72 88 L - My Orders Last 24 Hours: My Active Orders 04/30/20 01:10 RT Aerosol Therapy [RC] ASDIRECTED Chest 1V Frontal [CR] Stat - Assessment/Plan Last 24 Hours: My Active Orders 04/30/20 01:10 RT Aerosol Therapy [RC] ASDIRECTED Chest 1V Frontal [CR] Stat
[2020-04-30] MEDS ORDERED: Albuterol/Ipratropium 3.0-0.5 MG/3 ML Neb Soln NEB ONE (01:09)
[2020-04-30 02:54] VITALS: BP 128/78; PULSE 96
--- NOTE | 2020-04-30 10:18 | CR ---
CHEST: Portable 04/30/2020 at 1:26 AM CLINICAL HISTORY:This and dyspnea COMPARISON:04/26/2020 FINDINGS: The heart size, pulmonary vascularity and hilar structures are normal.. There is some chronic interstitial disease in both lung bases some of this is chronic but this has increased slightly since prior study. Superimposed pneumonia is not excluded. IMPRESSION: Chronic lung field changes Slight increase in bibasal densities may represent superimposed pneumonic infiltrate
== END 2020-04-30 02:40 | disposition home or self-care (01) ==
LOC: JP.ED 00:23
DX: J44.1 Chronic obstructive pulmonary disease with (acute) exacerbation (principal); Z72.0 Tobacco use; E11.9 Type 2 diabetes mellitus without complications; E66.9 Obesity, unspecified; F32.9 Major depressive disorder, single episode, unspecified; F41.0 Panic disorder [episodic paroxysmal anxiety]; Z88.2 Allergy status to sulfonamides; Z88.7 Allergy status to serum and vaccine; Z79.82 Long term (current) use of aspirin; Z79.899 Other long term (current) drug therapy
CPT/HCPCS: 36415; 71045; 71045-26; 80053; 85025; 86140; 94640; 99283; 99285-25; J7620-GY

== ENCOUNTER 2020-05-29 07:16 | Emergency (ER) | payer MEDICARE, MEDICAID ==
[2020-05-29 07:36] VITALS: BP 153/67; PULSE 127
[2020-05-29] MEDS ORDERED: Polyethylene Glycol 3350 Powder 17 GM Packet PO ONE (07:56)
[2020-05-29] MEDS ORDERED: Nicotine 14 MG/24 Hr Patch TRDERM ONE (08:01)
--- NOTE | 2020-05-29 08:01 | EDM.PDOC ---
ED HPI GENERAL MEDICAL PROBLEM - General Chief Complaint: General Stated Complaint: NOT SLEEPING, LEG PAIN, ANXIOUS Time Seen by Provider: 05/29/20 07:40 Source of Information: Reports: Patient, Old Records, RN History Limitations: Reports: Other (poor historian) - History of Present Illness INITIAL COMMENTS - FREE TEXT/NARRATIVE: 70 yo female patient of Dr. Kang presents stating that she has not slept for 2 days due to abrupt worsening of her restless legs. She reports that the legs hurt. She has not attempted to reach her primary so far about this. She reports her stools are hard lately. No urinary sx's. She thinks she has had a fever recently. She is on home oxygen at 2 liters/min/nc chronically due to COPD and ongoing smoking. She is sweating more now than usual. Denies any recent antihistamine use. Onset: Sudden Onset Date: 05/27/20 Duration: Day(s): (2), Constant Location: Reports: Lower Extremity, Left, Lower Extremity, Right, Generalized Quality: Reports: Ache Severity: Moderate Improves with: Reports: Movement (of legs) Worsens with: Reports: Immobilization (of legs) Context: Reports: Other (has a pHx of chronic restless legs) Associated Symptoms: Reports: Cough (chronic), Diaphoresis (vs sweating), Fever/Chills (not today, ? recently), Shortness of Breath (chronic). 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 OFFICER: Reports: Other (see below) (none) Generalized Pain Score (Numeric/FACES): 10 - Related Data Allergies Allergy/AdvReac Type Severity Reaction Status Date / Time diclofenac potassium Allergy Mild unsure Verified 05/29/20 07:32 [From Cataflam] dicyclomine HCl [From Bentyl] Allergy Mild unsure Verified 05/29/20 07:32 paroxetine HCl [From Paxil] Allergy Mild unsure Verified 05/29/20 07:32 Influenza Virus Vaccines Allergy Unknown Other Verified 05/29/20 07:32 sulfamethoxazole Allergy Other Verified 05/29/20 07:32 [From Bactrim] trimethoprim [From Bactrim] Allergy Other Verified 05/29/20 07:32 Home Meds: Home Meds Aspirin [[place]ley Chewable Aspirin] 81 mg PO DAILY 07/26/13 [History] Calcium Carbonate [Calci-Chew] 500 mg PO BID PRN 07/26/13 [History] Escitalopram [Lexapro] 20 mg PO DAILY 07/26/13 [History] metFORMIN [Glucophage] 500 mg PO BID 07/26/13 [History] busPIRone [Buspar] 20 mg PO TID 02/12/15 [History] Triamcinolone Acetonide [Triamcinolone Acetonide 0.1% Crm] 15 gm TOP BID PRN 03/18/15 [History] Vitamin E 400 unit PO DAILY 03/18/15 [History] Albuterol [Ventolin HFA] 2 puff IH Q4HR PRN 02/28/18 [History] Folic Acid 1 tab PO DAILY 08/22/19 [History] Furosemide [Lasix] 1 tab PO DAILY 08/22/19 [History] Lactulose 30 ml PO DAILY 08/22/19 [History] Mupirocin Oint [Bactroban Oint] 1 dose TOP BID PRN 08/22/19 [History] Naproxen 1 tab PO BID PRN 08/22/19 [History] valACYclovir HCl [Valtrex] 500 mg PO DAILY 08/22/19 [History] Acetaminophen/HYDROcodone [[place] 325-5 MG] 1 - 2 tab PO Q6HR PRN 10/17/19 [History] Loperamide [Imodium] 2 mg PO QID PRN 10/17/19 [History] rOPINIRole [Requip] 2 mg PO QID 10/17/19 [History] Ciclopirox/Urea/Camph/Men/Euc [Ciclopirox 8% Treatment Kit] 34.6 ml TP DAILY 10/29/19 [History] QUEtiapine [SEROquel] 1 tab PO BEDTIME 10/29/19 [History] Vitamin D3 65698 50,000 unit PO WEEKLY 03/19/20 [History] Multivitamin 1 tab PO DAILY 03/25/20 [History] Nystatin [Nystatin Crm] 1 applic TOP BID PRN 03/25/20 [History] O2 2 l INH ASDIRECTED PRN 04/30/20 [History] Pantoprazole Sodium [Protonix] 40 mg PO DAILY 04/30/20 [History] Albuterol/Ipratropium [DuoNeb 3.0-0.5 MG/3 ML] 3 ml .XX Q6H PRN 05/29/20 [History] Ferrous Sulfate 325 mg PO DAILY #15 tablet 05/29/20 [Rx] Magnesium Oxide 400 mg PO ONETIME #30 tab 05/29/20 [Rx] diazePAM [Valium] 10 mg PO ASDIRECTED 05/29/20 [History] Past Medical History HEENT History: Reports: Impaired Vision Other HEENT History: dry eyes Cardiovascular History: Reports: Other (See Below) Other Cardiovascular History: hx stress test normal Respiratory History: Reports: COPD, SOB, Other (See Below) Other Respiratory History: O2 home, CPAP Gastrointestinal History: Reports: Hepatitis, Irritable Bowel Syndrome Genitourinary History: Reports: Urinary Incontinence, UTI, Recurrent RN OFFICE History: Reports: Other RN OFFICE History: cysts Musculoskeletal History: Reports: Arthritis Other Musculoskeletal History: bilat knee pain. L foot pain Neurological History: Reports: Other (See Below) Other Neuro History: restless legs Psychiatric History: Reports: Addiction, Anxiety, Bipolar, Depression, Panic Attack, Schizophrenia Endocrine/Metabolic History: Reports: Diabetes, Type II, Obesity/BMI 30+ Immunologic History: Reports: Other (See Below) Other Immunologic History: herpes Dermatologic History: Reports: Urticaria - Infectious Disease History Infectious Disease History: Reports: Chicken Pox - Past Surgical History Head Surgeries/Procedures: Reports: None HEENT Surgical History: Reports: None Cardiovascular Surgical History: Reports: None Respiratory Surgical History: Reports: None GI Surgical History: Reports: None Female Surgical History: Reports: Hysterectomy, Salpingo-Oophorectomy Endocrine Surgical History: Reports: None Neurological Surgical History: Reports: None Musculoskeletal Surgical History: Reports: None Dermatological Surgical History: Reports: None Social & Family History - Family History Family Medical History: Noncontributory Oncologic: Reports: Breast, Pancreatic, Prostate - Tobacco Use Years of Tobacco use: 57 Packs/Tins Daily: 1 Used Tobacco, but Quit: No - Caffeine Use Caffeine Use: Reports: Coffee, Soda, Tea - Recreational Drug Use Recreational Drug Use: No - Living Situation & Occupation Living situation: Reports: Single (Single dwelling home) ED ROS GENERAL - Review of Systems Review Of Systems: See Below Constitutional: Reports: Fever (not documented), Diaphoresis (vs sweating). Denies: Chills HEENT: Reports: Ear Pain (outer R ear anteriorly). Denies: Eye Discharge Respiratory: Reports: Shortness of Breath (chronic), Cough (chronic). Denies: Wheezing, Hemoptysis Cardiovascular: Reports: No Symptoms Endocrine: Reports: No Symptoms GI/Abdominal: Reports: Constipation (mild, stools harder than usual) : Reports: No Symptoms Musculoskeletal: Reports: Other (both legs hurt) Skin: Reports: No Symptoms Neurological: Reports: No Symptoms Psychiatric: Reports: Anxiety, Other (can't sleep) ED EXAM, GENERAL - Physical Exam Exam: See Below Exam Limited By: Other (is restless and pacing even during exam) General Appearance: Alert, WD/WN, Anxious, Mild Distress. No: Lethargic, Obtunded Eye Exam: Bilateral Eye: EOMI, Normal Inspection, PERRL Ears: Normal Canal, Hearing Grossly Normal, Normal TMs. No: Normal External Exam (R anterior auricle has some superficial appearing abrasions) Ear Exam: Left Ear: Auricle Normal, Bilateral Ear: Canal Normal, TM normal Nose: Normal Inspection Throat/Mouth: Normal Inspection, Normal Lips, Normal Oropharynx, Normal Voice, No Airway Compromise Head: Atraumatic, Normocephalic Neck: Normal Inspection Respiratory/Chest: No Respiratory Distress, Lungs Clear, No Accessory Muscle Use, Decreased Breath Sounds. No: Normal Breath Sounds Cardiovascular: Regular Rate, Rhythm, Tachycardia GI/Abdominal: Normal Bowel Sounds, Soft, Non-Tender, No Distention Extremities: Normal Inspection, Normal Range of Motion, Non-Tender, No Pedal Edema Neurological: Alert, Oriented, CN II-XII Intact, Normal Cognition, No Motor/Sensory Deficits Psychiatric: Anxious Skin Exam: Warm, Intact, Normal Color, No Rash. No: Dry (some facial sweating, ? from her mask) Course - Vital Signs Last Recorded V/S: Last Vital Signs Temp Pulse 127 H 05/29/20 07:34 Resp 20 05/29/20 07:34 BP 153/67 H 05/29/20 07:34 Pulse Ox 91 L 05/29/20 07:34 - Orders/Labs/Meds Orders: Active Orders 24 hr Category Date Time Status Cardiac Monitoring [RC] .As Directed Care 05/29/20 08:52 Active UA W/MICROSCOPIC [URIN] Stat Lab 05/29/20 07:55 Ordered Labs: Laboratory Tests 05/29/20 05/29/20 05/29/20 Range/Units 07:55 07:55 09:03 WBC 6.8 (4.5-11.0) K/uL RBC 4.27 (3.30-5.50) M/uL Hgb 11.7 L (12.0-15.0) g/dL Hct 36.8 (36.0-48.0) % MCV 86 (80-98) fL MCH 27 (27-31) pg MCHC 32 (32-36) % Plt Count 153 (150-400) K/uL Sodium 142 (140-148) mmol/L Potassium 4.2 (3.6-5.2) mmol/L Chloride 107 (100-108) mmol/L Carbon Dioxide 23 (21-32) mmol/L Anion Gap 11.6 (5.0-14.0) mmol/L BUN 24 H (7-18) mg/dL Creatinine 1.3 H (0.6-1.0) mg/dL Est Cr Clr Drug Dosing 33.31 mL/min Estimated GFR (MDRD) 40 L (>60) Glucose 127 H (74-106) mg/dL Calcium 9.3 (8.5-10.1) mg/dL Magnesium 1.5 L (1.8-2.4) mg/dL Ferritin (8-388) ng/ml Total Bilirubin 0.4 (0.2-1.0) mg/dL AST 27 (15-37) U/L ALT 11 L (12-78) U/L Alkaline Phosphatase 146 H (46-116) U/L Total Protein 6.6 (6.4-8.2) g/dL Albumin 3.8 (3.4-5.0) g/dL Globulin 2.8 (2.3-3.5) g/dL Albumin/Globulin Ratio 1.4 (1.2-2.2) 05/29/20 Range/Units 09:04 WBC (4.5-11.0) K/uL RBC (3.30-5.50) M/uL Hgb (12.0-15.0) g/dL Hct (36.0-48.0) % MCV (80-98) fL MCH (27-31) pg MCHC (32-36) % Plt Count (150-400) K/uL Sodium (140-148) mmol/L Potassium (3.6-5.2) mmol/L Chloride (100-108) mmol/L Carbon Dioxide (21-32) mmol/L Anion Gap (5.0-14.0) mmol/L BUN (7-18) mg/dL Creatinine (0.6-1.0) mg/dL Est Cr Clr Drug Dosing mL/min Estimated GFR (MDRD) (>60) Glucose (74-106) mg/dL Calcium (8.5-10.1) mg/dL Magnesium (1.8-2.4) mg/dL Ferritin 22 (8-388) ng/ml Total Bilirubin (0.2-1.0) mg/dL AST (15-37) U/L ALT (12-78) U/L Alkaline Phosphatase (46-116) U/L Total Protein (6.4-8.2) g/dL Albumin (3.4-5.0) g/dL Globulin (2.3-3.5) g/dL Albumin/Globulin Ratio (1.2-2.2) Meds: Medications Discontinued Medications Generic Name Dose Route Start Last Admin Trade Name Freq PRN Reason Stop Dose Admin Bacitracin 1 dose 05/29/20 08:03 05/29/20 08:08 Bacitracin Oint 1 Gm TOP 05/29/20 08:04 1 dose ONETIME ONE Administration Ferrous Sulfate 325 mg 05/29/20 09:44 05/29/20 10:07 Ferrous Sulfate PO 05/29/20 09:45 325 mg NOW STA Administration Lactated Ringer's 1,000 mls @ 1,000 mls/hr 05/29/20 08:29 05/29/20 08:47 Ringers, Lactated IV 05/29/20 09:28 1,000 mls/hr BOLUS ONE Administration Lorazepam 1 mg 05/29/20 08:09 05/29/20 08:15 Ativan PO 05/29/20 08:10 1 mg ONETIME ONE Administration Lorazepam 0.5 mg 05/29/20 08:59 05/29/20 09:14 Ativan IVPUSH 05/29/20 09:00 0.5 mg ONETIME ONE Administration Magnesium Oxide 800 mg 05/29/20 09:20 05/29/20 09:36 Magnesium Oxide PO 08/15/20 09:21 800 mg ONETIME ONE Administration Nicotine 14 mg 05/29/20 08:01 05/29/20 08:08 Habitrol TRDERM 05/29/20 08:02 14 mg ONETIME ONE Administration Oxycodone/Acetaminophen 1 tab 05/29/20 09:07 05/29/20 09:13 Percocet 325-5 Mg PO 05/29/20 09:08 1 tab ONETIME STA Administration Polyethylene Glycol 17 gm 05/29/20 07:56 05/29/20 08:08 Miralax PO 05/29/20 07:57 17 gm ONETIME ONE Administration - Re-Assessments/Exams Free Text/Narrative Re-Assessment/Exam: 05/29/20 08:01 Was in her room only briefly and asked to go outside(to smoke). A nicotine patch was offered and accepted. Departure - Departure Time of Disposition: 10:25 Disposition: Home, Self-Care 01 Condition: Fair Clinical Impression: RLS (restless legs syndrome), Hypomagnesemia, Low ferritin level, Mild dehydration Insomnia Qualifiers: Insomnia type: due to medical condition Qualified Code(s): G47.01 - Insomnia due to medical condition - Discharge Information *PRESCRIPTION DRUG MONITORING PROGRAM REVIEWED*: No *COPY OF PRESCRIPTION DRUG MONITORING REPORT IN PATIENT JEN: No Prescriptions: Ferrous Sulfate 325 mg PO DAILY #15 tablet Magnesium Oxide 400 mg PO ONETIME #30 tab Referrals: Kwaku Kang MD [Primary Care Provider] - Forms: ED Department Discharge Additional Instructions: Take the magnesium and ferrous sulfate as prescribed(sent to your pharmacy). Hold your Lexapro and your Protonix as Lexapro can make your restless legs worse and Protonix can contribute to anemia that in turn makes restless legs worse. Avoid caffeine and any antihistamines like diphenhydramine. Try to get some exercise each day and follow up with Dr. Kang as soon as possible to review how you are doing. Drink more fluids than you have been to prevent dehydration. You should have someone stay with you today to help you and to make sure you don't hurt yourself. Take a fiber supplement like Miralax or Citrucel or Metamucil to prevent or treat your mild constipation as needed. Sepsis Event Note (ED) - Evaluation Sepsis Screening Result: No Definite Risk - Focused Exam Vital Signs: Vital Signs Pulse Resp BP Pulse Ox 05/29/20 07:34 127 H 20 153/67 H 91 L - My Orders Last 24 Hours: My Active Orders 05/29/20 07:55 UA W/MICROSCOPIC [URIN] Stat 05/29/20 08:52 Cardiac Monitoring [RC] .As Directed - Assessment/Plan Last 24 Hours: My Active Orders 05/29/20 07:55 UA W/MICROSCOPIC [URIN] Stat 05/29/20 08:52 Cardiac Monitoring [RC] .As Directed
[2020-05-29] MEDS ORDERED: Bacitracin Oint 1 GM U/D Packet TOP ONE (08:03)
[2020-05-29] MEDS ORDERED: LORazepam 1 MG Tab PO ONE (08:09)
[2020-05-29] MEDS ORDERED: Lactated Ringers 1,000 ML IV ONE (08:29)
[2020-05-29] MEDS ORDERED: LORazepam 2 MG/ML SDV IVPUSH ONE (08:59)
[2020-05-29] MEDS ORDERED: Acetaminophen/oxyCODONE 325-5 MG Tab PO STA (09:07)
[2020-05-29] MEDS ORDERED: Magnesium Oxide 400 MG Tab PO ONE (09:20)
[2020-05-29] MEDS ORDERED: Ferrous Sulfate 325 MG Tab PO STA (09:44)
== END 2020-05-29 14:25 | disposition home or self-care (01) ==
LOC: JP.ED 07:16
DX: E86.0 Dehydration (principal); E83.42 Hypomagnesemia; G47.01 Insomnia due to medical condition; G25.81 Restless legs syndrome; M19.90 Unspecified osteoarthritis, unspecified site; F41.9 Anxiety disorder, unspecified; F31.9 Bipolar disorder, unspecified; E11.9 Type 2 diabetes mellitus without complications; E66.9 Obesity, unspecified; Z68.30 Body mass index [BMI] 30.0-30.9, adult; Z88.8 Allergy status to other drugs, medicaments and biological substances; Z88.7 Allergy status to serum and vaccine; Z88.2 Allergy status to sulfonamides; Z88.1 Allergy status to other antibiotic agents; Z79.82 Long term (current) use of aspirin; Z79.899 Other long term (current) drug therapy
CPT/HCPCS: 36415; 80053; 82728; 83735; 85027; 96361; 96374; 99283; A9270; J2060; J7120

== ENCOUNTER 2020-07-02 10:12 | Inpatient (IN) | payer MEDICARE, MEDICAID ==
[2020-07-02] MEDS ORDERED: Acetaminophen 325 MG Tab PO PRN (10:19)
[2020-07-02] MEDS ORDERED: Ondansetron 4 MG/2 ML SDV IV PRN (10:19)
[2020-07-02] MEDS ORDERED: Sodium Chloride 0.9% 10 ML Syringe FLUSH PRN (10:19)
[2020-07-02] MEDS ORDERED: Polyethylene Glycol 3350 Powder 17 GM Packet PO PRN (10:19)
[2020-07-02] MEDS ORDERED: Albuterol 0.083% 2.5 MG/3 ML Neb Soln NEB PRN (10:19)
[2020-07-02] MEDS ORDERED: Piperacillin/Tazobactam 3.375 GM in Sodium Chloride 0.9% 50 ML IV SCH (10:30)
[2020-07-02] MEDS ORDERED: Sodium Chloride 0.9% 1,000 ML IV SCH (10:30)
--- NOTE | 2020-07-02 10:31 | PCM.HP.2 ---
H&P History of Present Illness - General Date of Service: 07/02/20 Admit Problem/Dx: Admission Diagnosis/Problem Admission Diagnosis/Problem Pneumonia Source of Information: Patient, Family, Old Records, Provider, RN Notes Reviewed History Limitations: Reports: No Limitations - History of Present Illness Initial Comments - Free Text/Narative: Ms. Cadet is a 70-year-old woman who was admitted as a direct admission from the clinic with increased shortness of breath and question of bilateral pulmonary infiltrates. Snehal has had difficulty with shortness of breath for some time now and does use home oxygen infrequently. She reports over the last month at least she is noted increased shortness of breath and fatigue. She has had a chronic cough but has not had significant sputum production. She denies recent fevers or sweats. She was seen and evaluated in the clinic 2 days ago, chest x-ray report there suggested bilateral infiltrates. She was started on azithromycin and has taken that for the last 2 days but not noted significant improvement in symptoms. Evaluation after admission has shown a normal white blood cell count and normal normal procalcitonin level. Serology for influenza and COVID are negative. Chest x-ray showed evidence of interstitial fibrosis, no not obvious infiltrates. Blood gases obtained on supplemental oxygen appear to be adequate. CT scan of the chest with IV contrast showed no evidence of pulmonary emboli or significant infiltrate. There was significant interstitial process and question of possible pulmonary edema. - Related Data Allergies/Adverse Reactions: Allergies Allergy/AdvReac Type Severity Reaction Status Date / Time diclofenac potassium Allergy Mild unsure Verified 05/29/20 07:32 [From Cataflam] dicyclomine HCl [From Bentyl] Allergy Mild unsure Verified 05/29/20 07:32 paroxetine HCl [From Paxil] Allergy Mild unsure Verified 05/29/20 07:32 Influenza Virus Vaccines Allergy Unknown Other Verified 05/29/20 07:32 sulfamethoxazole Allergy Other Verified 05/29/20 07:32 [From Bactrim] trimethoprim [From Bactrim] Allergy Other Verified 05/29/20 07:32 Home Medications: Home Meds Aspirin [[place] Chewable Aspirin] 81 mg PO DAILY 07/26/13 [History] Calcium Carbonate [Calci-Chew] 500 mg PO BID PRN 07/26/13 [History] Escitalopram [Lexapro] 20 mg PO DAILY 07/26/13 [History] metFORMIN [Glucophage] 500 mg PO BID 07/26/13 [History] busPIRone [Buspar] 20 mg PO TID 02/12/15 [History] Triamcinolone Acetonide [Triamcinolone Acetonide 0.1% Crm] 15 gm TOP BID PRN 03/18/15 [History] Vitamin E 400 unit PO DAILY 03/18/15 [History] Albuterol [Ventolin HFA] 2 puff IH Q4HR PRN 02/28/18 [History] Folic Acid 1 tab PO DAILY 08/22/19 [History] Furosemide [Lasix] 1 tab PO DAILY 08/22/19 [History] Lactulose 30 ml PO DAILY 08/22/19 [History] Mupirocin Oint [Bactroban Oint] 1 dose TOP BID PRN 08/22/19 [History] Naproxen 1 tab PO BID PRN 08/22/19 [History] valACYclovir HCl [Valtrex] 500 mg PO DAILY 08/22/19 [History] Acetaminophen/HYDROcodone [[place] 325-5 MG] 1 - 2 tab PO Q6HR PRN 10/17/19 [History] Loperamide [Imodium] 2 mg PO QID PRN 10/17/19 [History] rOPINIRole [Requip] 2 mg PO QID 10/17/19 [History] Ciclopirox/Urea/Camph/Men/Euc [Ciclopirox 8% Treatment Kit] 34.6 ml TP DAILY 10/29/19 [History] QUEtiapine [SEROquel] 1 tab PO BEDTIME 10/29/19 [History] Vitamin D3 16146 50,000 unit PO WEEKLY 03/19/20 [History] Multivitamin 1 tab PO DAILY 03/25/20 [History] Nystatin [Nystatin Crm] 1 applic TOP BID PRN 03/25/20 [History] O2 2 l INH ASDIRECTED PRN 04/30/20 [History] Pantoprazole Sodium [Protonix] 40 mg PO DAILY 04/30/20 [History] Albuterol/Ipratropium [DuoNeb 3.0-0.5 MG/3 ML] 3 ml .XX Q6H PRN 05/29/20 [Histor y] Ferrous Sulfate 325 mg PO DAILY #15 tablet 05/29/20 [Rx] Magnesium Oxide 400 mg PO ONETIME #30 tab 05/29/20 [Rx] diazePAM [Valium] 10 mg PO ASDIRECTED 05/29/20 [History] Past Medical History HEENT History: Reports: Impaired Vision Other HEENT History: dry eyes Cardiovascular History: Reports: Other (See Below) Other Cardiovascular History: hx stress test normal Respiratory History: Reports: COPD, SOB, Other (See Below) Other Respiratory History: O2 home, CPAP Gastrointestinal History: Reports: Hepatitis, Irritable Bowel Syndrome Genitourinary History: Reports: Urinary Incontinence, UTI, Recurrent 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 L foot pain Neurological History: Reports: Other (See Below) Other Neuro History: restless legs Psychiatric History: Reports: Addiction, Anxiety, Bipolar, Depression, Panic Attack, Schizophrenia Endocrine/Metabolic History: Reports: Diabetes, Type II, Obesity/BMI 30+ Immunologic History: Reports: Other (See Below) Other Immunologic History: herpes Dermatologic History: Reports: Urticaria - Infectious Disease History Infectious Disease History: Reports: Chicken Pox - Past Surgical History Head Surgeries/Procedures: Reports: None HEENT Surgical History: Reports: None Cardiovascular Surgical History: Reports: None Respiratory Surgical History: Reports: None GI Surgical History: Reports: None Female Surgical History: Reports: Hysterectomy, Salpingo-Oophorectomy Endocrine Surgical History: Reports: None Neurological Surgical History: Reports: None Musculoskeletal Surgical History: Reports: None Dermatological Surgical History: Reports: None Social & Family History - Family History Family Medical History: Noncontributory Oncologic: Reports: Breast, Pancreatic, Prostate - Caffeine Use Caffeine Use: Reports: Coffee, Soda, Tea - Living Situation & Occupation Living situation: Reports: Single (Single dwelling home) H&P Review of Systems - Review of Systems: Review Of Systems: See Below General: Reports: Weakness, Fatigue, Decreased Appetite, Weight Loss. Denies: Fever, Chills HEENT: Reports: No Symptoms Pulmonary: Reports: Shortness of Breath, Cough, Sputum. Denies: Wheezing, Pleuritic Chest Pain, Hemoptysis Cardiovascular: Reports: Dyspnea on Exertion, Edema. Denies: Chest Pain, Palp itations, Orthopnea, PND, Lightheadedness Gastrointestinal: Reports: No Symptoms Genitourinary: Reports: No Symptoms Musculoskeletal: Reports: No Symptoms Skin: Reports: No Symptoms Psychiatric: Reports: No Symptoms Neurological: Reports: No Symptoms Hematologic/Lymphatic: Reports: No Symptoms Immunologic: Reports: No Symptoms Exam - Exam Exam: See Below - Exam Quality Assessment: Supplemental Oxygen, DVT Prophylaxis General: Alert, Oriented, Cooperative, Mild Distress HEENT: Conjunctiva Clear, Hearing Intact, Mucosa Moist & [place], Normal Nasal Septum, Posterior Pharynx Clear, Pupils Equal Neck: Supple, Trachea Midline, +2 Carotid Pulse wo Bruit Lungs: Decreased Breath Sounds, Rales (Dry inspiratory rales). No: Rhonchi, Wheezing Cardiovascular: Regular Rate, Regular Rhythm, Normal S1, Normal S2. No: Systolic Murmur, Diastolic Murmur GI/Abdominal Exam: Soft, Non-Tender, No Organomegaly, No Distention Back Exam: Normal Inspection, Full Range of Motion Extremities: Non-Tender, Pedal Edema Skin: Warm, Dry Neurological: Cranial Nerves Intact, Strength Equal Bilateral, Normal Speech, Normal Tone, Sensation Intact. No: Focal Deficit Neuro Extensive - Mental Status: Alert, Oriented x3, Normal Mood/Affect, Normal Cognition, Memory Intact - Patient Data Result Diagrams: 07/02/20 10:42 07/02/20 10:42 *Q Meaningful Use (ADM) - VTE Risk Assess *Q Each Risk Factor Represents 1 Point: Swollen Legs, Current, Obesity ( BMI > 25 kg/m2), Serious lung disease including pneumonia Total Score 1 Point Risk Factors: 3 Each Risk Factor Represents 2 Points: Age 60 - 74 Years Total Score 2 Point Risk Factors: 2 Each Risk Factor Represents 3 Points: None Total Score 3 Point Risk Factors: 0 Each Risk Factor Represents 5 Points: None Total Score 5 Point Risk Factors: 0 Venous Thromboembolism Risk Factor Score *Q: 5 Problem List Initiated/Reviewed/Updated: Yes Orders Last 24hrs: Active Orders 24 hr Category Date Time Status Patient Status [ADT] Routine ADT 07/02/20 10:20 Ordered Ambulate [] QID Care 07/02/20 10:20 Ordered Height and Weight [] DAILY Care 07/02/20 10:20 Ordered Intake and Output [RC] QSHIFT Care 07/02/20 10:20 Ordered Notify Provider Vital Signs [RC] ASDIRECTED Care 07/02/20 10:20 Ordered Oxygen Therapy [] PRN Care 07/02/20 10:20 Ordered Peripheral IV Care [RC] . DIRECTED Care 07/02/20 10:23 Ordered Pulse Oximetry [RC] CONTINUOUS Care 07/02/20 10:21 Ordered RT Aerosol Therapy [RC] ASDIRECTED Care 07/02/20 10:23 Ordered Up With Assistance [RC] ASDIRECTED Care 07/02/20 10:19 Ordered Up to Chair [RC] QID Care 07/02/20 10:20 Ordered VTE/DVT Education [RC] Per Unit Routine Care 07/02/20 10:20 Ordered Vital Signs [RC] Q4H Care 07/02/20 10:20 Ordered Regular Diet [DIET] Diet 07/02/20 Breakfast Ordered Chest 2V [CR] Stat Exams 07/02/20 10:28 Ordered BASIC METABOLIC PANEL,BMP [CHEM] Timed Lab 07/03/20 05:00 Ordered CBC WITH AUTO DIFF [HEME] AM Lab 07/03/20 05:11 Ordered CBC WITH AUTO DIFF [HEME] Stat Lab 07/02/20 10:19 Ordered COMPREHENSIVE METABOLIC PN,CMP [CHEM] AM Lab 07/03/20 05:11 Ordered CULTURE BLOOD [BC] Stat Lab 07/02/20 10:19 Ordered CULTURE BLOOD [BC] Stat Lab 07/02/20 10:19 Ordered CULTURE RESPIRATORY + SMEAR [RM] Stat Lab 07/02/20 10:19 Ordered INFLUENZA A+B AG SCREEN [RM] Stat Lab 07/02/20 10:26 Ordered MAGNESIUM [CHEM] Stat Lab 07/02/20 10:19 Ordered PROCALCITONIN [CHEM] Stat Lab 07/02/20 10:26 Ordered Acetaminophen [TylenoL] Med 07/02/20 10:19 Ordered 650 mg PO Q4H PRN Albuterol [Proventil Neb Soln] Med 07/02/20 10:19 Ordered 2.5 mg NEB Q4H PRN Enoxaparin [Lovenox] Med 07/02/20 10:30 Ordered 40 mg SUBCUT DAILY Lactobacillus Rhamnosus GG [Culturelle] Med 07/02/20 10:30 Ordered 1 cap PO BID Levofloxacin/Dextrose 5%-Water [Levaquin in D5W 750 MG/ Med 07/02/20 10:30 Ordered 150 ML] 750 mg Premix Bag 1 bag IV Q24H Ondansetron [Zofran] Med 07/02/20 10:19 Ordered 4 mg IV Q4H PRN Piperacillin/Tazobactam [Zosyn] 3.375 gm Med 07/02/20 10:30 Ordered Sodium Chloride 0.9% [Normal Saline] 50 ml IV Q6H Sodium Chloride 0.9% @ 125 MLS/HR (1000ml) Med 07/02/20 10:30 Ordered Sodium Chloride 0.9% [Normal Saline] 1,000 ml IV ASDIRECTED Sodium Chloride 0.9% [Saline Flush] Med 07/02/20 10:19 Ordered 10 ml FLUSH ASDIRECTED PRN polyethylene glycoL 3350 [MiraLAX] Med 07/02/20 10:19 Ordered 17 gm PO DAILY PRN Blood Culture x2 Reflex Set [OM.PC] Stat Oth 07/02/20 10:23 Ordered Peripheral IV Insertion Adult [OM.PC] Routine Oth 07/02/20 10:19 Ordered Resuscitation Status Routine Resus Stat 07/02/20 10:19 Ordered Medication Orders Acetaminophen (Tylenol) 650 mg PO Q4H PRN PRN Reason: Pain (Mild 1-3)/fever Albuterol (Proventil Neb Soln) 2.5 mg NEB Q4H PRN PRN Reason: Shortness Of Breath/wheezing Enoxaparin Sodium (Lovenox) 40 mg SUBCUT DAILY ETTA Sodium Chloride (Normal Saline) 1,000 mls @ 125 mls/hr IV ASDIRECTED ETTA Piperacillin Sod/Tazobactam (Sod 3.375 gm/ Sodium Chloride) 50 mls @ 100 mls/hr IV Q6H ETTA Levofloxacin/Dextrose 750 mg/ (Premix) 150 mls @ 100 mls/hr IV Q24H ETTA Lactobacillus Rhamnosus (Culturelle) 1 cap PO BID ETTA Ondansetron HCl (Zofran) 4 mg IV Q4H PRN PRN Reason: Nausea/Vomiting Polyethylene Glycol (Miralax) 17 gm PO DAILY PRN PRN Reason: Constipation Sodium Chloride (Saline Flush) 10 ml FLUSH ASDIRECTED PRN PRN Reason: Keep Vein Open Assessment/Plan Comment:: ASSESSMENT AND PLAN PULMONARY FIBROSIS-progressive symptoms of weakness, fatigue, and shortness of breath. Likely secondary to progression of this chronic disease process. There is also some question of pulmonary edema noted on CT scan. No evidence of significant underlying pulmonary infection. -Supplemental oxygen as needed -Hold on antibiotic therapy at this time PULMONARY EDEMA-may be a factor in recent shortness of breath, she readily admits she does not take most of her medications on a regular basis. -IV furosemide 40 mg today -Reassess in a.m. TYPE 2 DIABETES MELLITUS -Continue metformin -4 times daily glucometers -Low-dose sliding scale Humalog MAINTENANCE ISSUES -DVT prophylaxis; Lovenox -GI prophylaxis; continue outpatient PPI therapy -Chaudhary catheter; not indicated -Nutrition; 2 g sodium diet -Nicotine dependence; nicotine patch and nicotine gum CODE STATUS-FULL CODE ADMISSION STATUS-patient will be admitted to inpatient status, expect at least a 2 night hospital stay for evaluation and management of problems as outlined above. At the time of this admission I do not reasonably expected evaluation and management of this problem will require more than a 96 hour hospital stay. DISPOSITION-anticipate discharge to home after the hospital stay. PRIMARY CARE PROVIDER-Matilde Franco - Mortality Measure Prognosis:: Good
--- NOTE | 2020-07-02 11:22 | CR ---
CHEST: 2 view CLINICAL HISTORY:Dyspnea and weakness COMPARISON:04/30/2020 FINDINGS: Heart size and pulmonary vascularity appear normal. There is generalized interstitial prominence. This is seen on prior studies. No alveolar infiltrates are identified. There are no effusions Impression: Persistent diffuse interstitial prominence is felt to be chronic.
[2020-07-02] MEDS ORDERED: Levofloxacin/Dextrose 5%-Water 750 MG in Premix Bag 1 BAG IV SCH ×2 (11:30→12:00)
[2020-07-02] MEDS ORDERED: Piperacillin/Tazobactam/Dext 3.375 GM in Premix Bag 1 BAG IV SCH (11:30)
[2020-07-02] MEDS: Lactobacillus Rhamnosus GG (Probiotic) Cap PO SCH ×2 (11:36→21:30)
[2020-07-02] MEDS: Magnesium Oxide 400 MG Tab PO SCH ×2 (12:55→21:30)
[2020-07-02] MEDS: Enoxaparin 40 MG/0.4 ML Syringe SUBCUT SCH (12:55)
[2020-07-02] MEDS ORDERED: Potassium Chloride 20 MEQ Tab.ER PO ONE ×2 (13:01→15:13)
[2020-07-02] MEDS ORDERED: Iopamidol 755 Mg/ML 100 ML Bottle IV ONE (13:13)
[2020-07-02] MEDS ORDERED: Sodium Chloride 0.9% 100 ML IV SCH (13:15)
--- NOTE | 2020-07-02 15:06 | CT ---
Ang Chest CLINICAL HISTORY: Hypoxia TECHNIQUE: Thin section axial contiguous tomographic sections were taken through the chest after bolus IV iodinated contrast administration. Coronal and sagittal images were reconstructed. Auto dosage reduction and iterative reconstruction techniques employed. FINDINGS: There is diffuse interstitial prominence. This is described on prior chest x-rays. There are groundglass opacities in the dependent portions of both upper and lower lobes. This may represent some mild dependent edema there is hilar and mediastinal lymphadenopathy. There are some small lymph nodes in both axilla. The aorta is free of aneurysm or dissection. There is no evidence of pulmonary embolus. There are no pleural effusions. IMPRESSION: No evidence of pulmonary embolus Chronic diffuse interstitial prominence Moderate groundglass opacities in the dependent portions of the lungs. This has increased since the study from March 2020. This may represent some pulmonary edema superimposed over chronic interstitial changes. Moderate bilateral hilar and mediastinal lymphadenopathy is increased since the March study.
[2020-07-02] MEDS: Magnesium Sulfate/Water 2 GM in Premix Bag 1 BAG IV SCH ×2 (15:53→19:51)
[2020-07-02] MEDS ORDERED: Albuterol 8 GM Inhaler INH PRN (15:55)
[2020-07-02] MEDS ORDERED: Albuterol/Ipratropium 3.0-0.5 MG/3 ML Neb Soln INH PRN (15:55)
[2020-07-02] MEDS ORDERED: 50% Dextrose in Water 50 ML Syringe IV PRN (16:00)
[2020-07-02] MEDS ORDERED: Glucose Gel 15 GM in 37.5 GM Tube PO PRN (16:00)
[2020-07-02] MEDS ORDERED: Furosemide 40 MG/4 ML VIAL IVPUSH ONE (16:00)
[2020-07-02] MEDS ORDERED: Nicotine 14 MG/24 Hr Patch TRDERM SCH (16:15)
[2020-07-02] MEDS: Insulin Lispro 100 Unit/ML 3 ML KwikPen SUBCUT SCH ×2 (17:16→21:28)
[2020-07-02] MEDS: rOPINIRole 1 MG Tab PO SCH ×2 (17:24→21:31)
[2020-07-02] MEDS: metFORMIN 500 MG Tab PO SCH (17:24)
[2020-07-02] MEDS: Nicotine Polacrilex 2 MG Gum CHEW PRN ×4 (17:26→23:29)
[2020-07-02] MEDS: Acetaminophen/HYDROcodone 325-5 MG Tab PO PRN ×2 (17:37→22:28)
[2020-07-02] MEDS: busPIRone 10 MG Tab PO SCH (21:30)
[2020-07-02] MEDS: QUEtiapine 100 MG Tab PO SCH (21:31)
[2020-07-03] MEDS: Magnesium Sulfate/Water 2 GM in Premix Bag 1 BAG IV SCH (00:47)
[2020-07-03] MEDS: Nicotine Polacrilex 2 MG Gum CHEW PRN ×5 (03:54→16:54)
[2020-07-03] MEDS: Acetaminophen/HYDROcodone 325-5 MG Tab PO PRN ×3 (03:56→15:32)
[2020-07-03] MEDS: rOPINIRole 1 MG Tab PO SCH ×4 (05:23→21:07)
[2020-07-03] MEDS: Insulin Lispro 100 Unit/ML 3 ML KwikPen SUBCUT SCH ×4 (08:08→21:05)
[2020-07-03] MEDS: busPIRone 10 MG Tab PO SCH ×3 (08:10→20:30)
[2020-07-03] MEDS: Pantoprazole 40 MG Tab.CR PO SCH (08:10)
[2020-07-03] MEDS: Magnesium Oxide 400 MG Tab PO SCH ×2 (08:10→20:31)
[2020-07-03] MEDS: Escitalopram 20 MG Tab PO SCH (08:10)
[2020-07-03] MEDS: metFORMIN 500 MG Tab PO SCH ×2 (08:10→16:58)
[2020-07-03] MEDS: Aspirin 81 MG Tab.Chew PO SCH (08:10)
[2020-07-03] MEDS: Lactobacillus Rhamnosus GG (Probiotic) Cap PO SCH ×2 (08:12→20:31)
[2020-07-03] MEDS ORDERED: Potassium Chloride 20 MEQ Tab.ER PO ONE ×2 (10:00→17:00)
[2020-07-03] MEDS: Enoxaparin 40 MG/0.4 ML Syringe SUBCUT SCH (12:40)
--- NOTE | 2020-07-03 13:06 | PCM.PN ---
- General Info Date of Service: 07/03/20 Subjective Update: Ms. Cadet has been stable since admission, no fevers or significant respiratory compromise from baseline. She does report an episode of lightheadedness last night, similar to intermittent infrequent episodes that she is experienced over the past few months. She denies vertiginous symptoms but reports that she becomes very weak and lightheaded. Initial orthostatic vital signs show no [id number] drop in blood pressure. Functional Status: Reports: Tolerating Diet, Ambulating, Urinating - Review of Systems General: Reports: No Symptoms Pulmonary: Reports: Shortness of Breath. Denies: Pleuritic Chest Pain, Cough, Sputum, Hemoptysis, Wheezing Cardiovascular: Reports: Dyspnea on Exertion, Lightheadedness. Denies: Chest Pain, Palpitations, Orthopnea, PND, Edema Gastrointestinal: Reports: No Symptoms - Patient Data Vitals - Most Recent: Last Vital Signs Temp 96.8 F L 07/03/20 12:44 Pulse 82 07/03/20 08:01 Resp 18 07/03/20 12:44 BP 122/60 07/03/20 12:44 Pulse Ox 89 L 07/03/20 12:34 Orthostatic Blood Pressure [ 118/54 Standing] Orthostatic Blood Pressure [ 122/62 Sitting] Orthostatic Blood Pressure [ 116/49 Supine] Weight - Most Recent: 170 lb I&O - Last 24 Hours: Intake & Output 07/02/20 07/03/20 07/03/20 22:59 06:59 14:59 Intake Total 950 340 Balance 950 340 Lab Results Last 24 Hours: Laboratory Results - last 24 hr 07/02/20 07/02/20 07/03/20 Range/Units 16:18 20:39 03:46 WBC 6.1 (4.5-11.0) K/uL RBC 4.02 (3.30-5.50) M/uL Hgb 11.7 L (12.0-15.0) g/dL Hct 35.9 L (36.0-48.0) % MCV 89 (80-98) fL MCH 29 (27-31) pg MCHC 33 (32-36) % Plt Count 138 L (150-400) K/uL Neut % (Auto) 57 (36-66) % Lymph % (Auto) 24 (24-44) % Sutter % (Auto) 11 H (2-6) % Eos % (Auto) 7 H (2-4) % Baso % (Auto) 1 (0-1) % Sodium (140-148) mmol/L Potassium (3.6-5.2) mmol/L Chloride (100-108) mmol/L Carbon Dioxide (21-32) mmol/L Anion Gap (5.0-14.0) mmol/L BUN (7-18) mg/dL Creatinine (0.6-1.0) mg/dL Est Cr Clr Drug Dosing mL/min Estimated GFR (MDRD) (>60) Glucose (74-106) mg/dL POC Glucose 135 H 139 H (74-106) MG/DL Calcium (8.5-10.1) mg/dL Magnesium (1.8-2.4) mg/dL 07/03/20 07/03/20 07/03/20 Range/Units 03:46 07:22 11:24 WBC (4.5-11.0) K/uL RBC (3.30-5.50) M/uL Hgb (12.0-15.0) g/dL Hct (36.0-48.0) % MCV (80-98) fL MCH (27-31) pg MCHC (32-36) % Plt Count (150-400) K/uL Neut % (Auto) (36-66) % Lymph % (Auto) (24-44) % Sutter % (Auto) (2-6) % Eos % (Auto) (2-4) % Baso % (Auto) (0-1) % Sodium 143 (140-148) mmol/L Potassium 3.3 L (3.6-5.2) mmol/L Chloride 107 (100-108) mmol/L Carbon Dioxide 27 (21-32) mmol/L Anion Gap 12.3 (5.0-14.0) mmol/L BUN 13 (7-18) mg/dL Creatinine 0.9 (0.6-1.0) mg/dL Est Cr Clr Drug Dosing 50.23 mL/min Estimated GFR (MDRD) > 60 (>60) Glucose 116 H (74-106) mg/dL POC Glucose 156 H 82 (74-106) MG/DL Calcium 9.3 (8.5-10.1) mg/dL Magnesium 2.7 H D (1.8-2.4) mg/dL Alexx Results Last 24 Hours: Microbiology 07/02/20 10:42 Aerobic Blood Culture - Preliminary Blood - Arm, Left NO GROWTH AFTER 1 DAY Anaerobic Blood Culture - Preliminary NO GROWTH AFTER 1 DAY 07/02/20 10:36 Aerobic Blood Culture - Preliminary Blood - Venous - Iv Start NO GROWTH AFTER 1 DAY Anaerobic Blood Culture - Preliminary NO GROWTH AFTER 1 DAY 07/03/20 07:10 Gram Stain - Final Sputum - Expectorated 07/02/20 10:26 Influenza Type A Antigen Screen - Final Nasal, Unspecified NEGATIVE INFLUENZA A VIRUS AG REFERENCE RANGE: NEGATIVE Influenza Type B Antigen Screen - Final NEGATIVE INFLUENZA B VIRUS AG REFERENCE RANGE: NEGATIVE Med Orders - Current: Current Medications Acetaminophen (Tylenol) 650 mg PO Q4H PRN PRN Reason: Pain (Mild 1-3)/fever Hydrocodone Bitart/Acetaminophen ([place] 325-5 Mg) 1 tab PO Q4H PRN PRN Reason: Pain Last Admin: 07/03/20 08:07 Dose: 1 tab Documented by: Albuterol (Proventil Neb Soln) 2.5 mg NEB Q4H PRN PRN Reason: Shortness Of Breath/wheezing Last Admin: 07/02/20 11:56 Dose: 2.5 mg Documented by: Albuterol (Ventolin Hfa) 0 gm INH Q4H PRN PRN Reason: Shortness of Breath Albuterol/Ipratropium (Duoneb 3.0-0.5 Mg/3 Ml) 3 ml INH Q6H PRN PRN Reason: Dyspnea Aspirin (Aspirin) 81 mg PO DAILY [facility] Last Admin: 07/03/20 08:10 Dose: 81 mg Documented by: Buspirone HCl (Buspar) 20 mg PO TID [facility] Last Admin: 07/03/20 08:10 Dose: 20 mg Documented by: Dextrose (Glutose 15) 15 gm PO ONETIME PRN PRN Reason: Hypoglycemia Dextrose/Water (Dextrose 50% In Water) 50 ml IV ONETIME PRN PRN Reason: Hypoglycemia Enoxaparin Sodium (Lovenox) 40 mg SUBCUT Q24H [facility] Last Admin: 07/03/20 12:40 Dose: 40 mg Documented by: Escitalopram Oxalate (Lexapro) 20 mg PO DAILY [facility] Last Admin: 07/03/20 08:10 Dose: 20 mg Documented by: Furosemide (Lasix) 40 mg IVPUSH NOW ONE Stop: 07/03/20 13:03 Insulin Human Lispro (Humalog) 0 unit SUBCUT QIDACANDBED [facility]; Protocol Last Admin: 07/03/20 12:00 Dose: Not Given Documented by: Lactobacillus Rhamnosus (Culturelle) 1 cap PO BID [facility] Last Admin: 07/03/20 08:12 Dose: 1 cap Documented by: Magnesium Oxide (Magnesium Oxide) 400 mg PO BID [facility] Last Admin: 07/03/20 08:10 Dose: 400 mg Documented by: Metformin HCl (Glucophage) 500 mg PO BIDMEALS [facility] Last Admin: 07/03/20 08:10 Dose: 500 mg Documented by: Nicotine (Habitrol) 14 mg TRDERM Q24H ETTA Nicotine Polacrilex (Nicorelief) 2 mg CHEW Q1H PRN PRN Reason: Other Last Admin: 07/03/20 12:43 Dose: 2 mg Documented by: Ondansetron HCl (Zofran) 4 mg IV Q4H PRN PRN Reason: Nausea/Vomiting Pantoprazole Sodium (Protonix) 40 mg PO DAILY@0730 [facility] Last Admin: 07/03/20 08:10 Dose: 40 mg Documented by: Polyethylene Glycol (Miralax) 17 gm PO DAILY PRN PRN Reason: Constipation Potassium Chloride (Klor-Con M20) 40 meq PO ONETIME ONE Stop: 07/03/20 17:01 Quetiapine Fumarate (Seroquel) 200 mg PO BEDTIME [facility] Last Admin: 07/02/20 21:31 Dose: 200 mg Documented by: Ropinirole HCl (Requip) 2 mg PO QID [facility] Last Admin: 07/03/20 10:28 Dose: 2 mg Documented by: Sodium Chloride (Saline Flush) 10 ml FLUSH ASDIRECTED PRN PRN Reason: Keep Vein Open Discontinued Medications Furosemide (Lasix) 40 mg IVPUSH NOW ONE Stop: 07/02/20 16:01 Last Admin: 07/02/20 17:23 Dose: 40 mg Documented by: Sodium Chloride (Normal Saline) 1,000 mls @ 125 mls/hr IV ASDIRECTED [facility] Last Admin: 07/02/20 11:02 Dose: 125 mls/hr Documented by: Piperacillin/Tazobactam/ (Dextrose 3.375 gm/ Premix) 50 mls @ 100 mls/hr IV Q6H [facility] Last Admin: 07/02/20 11:35 Dose: 100 mls/hr Documented by: Levofloxacin/Dextrose 750 mg/ (Premix) 150 mls @ 100 mls/hr IV Q24H [facility] Last Admin: 07/02/20 12:54 Dose: 100 mls/hr Documented by: Magnesium Sulfate 2 gm/ Premix 50 mls @ 25 mls/hr IV Q6H [facility] Stop: 07/03/20 02:59 Last Admin: 07/03/20 00:47 Dose: 25 mls/hr Documented by: Sodium Chloride (Normal Saline) 100 mls @ 4 mls/sec IV ASDIRECTED [facility] Stop: 07/02/20 16:00 Last Admin: 07/02/20 14:00 Dose: 4 mls/sec Documented by: Iopamidol (Isovue-370 (76%)) 100 ml IV . DIRECTED ONE Stop: 07/02/20 13:14 Last Admin: 07/02/20 14:00 Dose: 100 ml Documented by: Nicotine (Habitrol) 14 mg TRDERM DAILY [facility] Last Admin: 07/02/20 17:26 Dose: 14 mg Documented by: Potassium Chloride (Klor-Con M20) 40 meq PO ONETIME ONE Stop: 07/02/20 13:02 Last Admin: 07/02/20 15:15 Dose: Not Given Documented by: Potassium Chloride (Klor-Con M20) 40 meq PO ONETIME ONE Stop: 07/02/20 15:14 Last Admin: 07/02/20 15:53 Dose: 40 meq Documented by: Potassium Chloride (Klor-Con M20) 40 meq PO ONETIME ONE Stop: 07/03/20 10:01 Last Admin: 07/03/20 10:29 Dose: 40 meq Documented by: - Exam Quality Assessment: Supplemental Oxygen, DVT Prophylaxis General: Alert, Oriented, Cooperative, Mild Distress Lungs: Clear to Auscultation, Normal Respiratory Effort, Decreased Breath Sounds, Rales Cardiovascular: Regular Rate, Regular Rhythm, No Murmurs GI/Abdominal Exam: Soft, Non-Tender, No Organomegaly, No Distention Extremities: Non-Tender, No Pedal Edema Sepsis Event Note - Evaluation Sepsis Screening Result: No Definite Risk - Focused Exam Vital Signs: Vital Signs Temp Pulse Resp BP Pulse Ox 07/03/20 12:44 96.8 F L 18 122/60 07/03/20 12:34 89 L 07/03/20 08:01 97 F 82 18 120/49 L 94 L 07/03/20 07:21 92 L 07/03/20 03:00 95.5 F L 86 16 120/55 L 90 L 07/03/20 02:10 94 L - Problem List Review Problem List Initiated/Reviewed/Updated: Yes - My Orders Last 24 Hours: My Active Orders 07/02/20 12:30 Magnesium Oxide 400 mg PO BID 07/02/20 15:55 Acetaminophen/HYDROcodone [[place]wick 325-5 MG] 1 tab PO Q4H PRN Albuterol [Ventolin HFA] 0 gm INH Q4H PRN Albuterol/Ipratropium [DuoNeb 3.0-0.5 MG/3 ML] 3 ml INH Q6H PRN 07/02/20 16:00 Communication Order [RC] STAT Diabetes Education [RC] Click to Edit Notify Provider [RC] PRN Dextrose 50% in Water 50 ml IV ONETIME PRN Dextrose [Glutose 15] 15 gm PO ONETIME PRN rOPINIRole [Requip] 2 mg PO QID 07/02/20 16:01 Nicotine Polacrilex [Nicorelief] 2 mg CHEW Q1H PRN 07/02/20 16:02 Convert IV to Saline Lock [OM.PC] Routine 07/02/20 17:00 Insulin Lispro [HumaLOG] See Protocol SUBCUT QIDACANDBED metFORMIN [Glucophage] 500 mg PO BIDMEALS 07/02/20 21:00 QUEtiapine [SEROqueL] 200 mg PO BEDTIME busPIRone [Buspar] 20 mg PO TID 07/03/20 07:10 CULTURE RESPIRATORY + SMEAR [RM] Stat 07/03/20 07:30 Pantoprazole [ProTONIX] 40 mg PO DAILY@0730 07/03/20 09:00 Aspirin 81 mg PO DAILY Escitalopram [Lexapro] 20 mg PO DAILY 07/03/20 09:56 Consult to Physical Therapy [PT Evaluation and Treatment] [CONS] Routine 07/03/20 10:26 Cardiac Monitoring [RC] .As Directed Orthostatic Vital Signs [RC] Q8H 07/03/20 13:02 Furosemide [Lasix] 40 mg IVPUSH NOW ONE 07/03/20 16:00 Nicotine [Habitrol] 14 mg TRDERM Q24H 07/03/20 16:30 GLUCOSE POC LAB TO COLLECT JPM [POC] QIDACANDBED 07/03/20 17:00 Potassium Chloride [Klor-Con M20] 40 meq PO ONETIME ONE 07/03/20 21:00 GLUCOSE POC LAB TO COLLECT JPM [POC] QIDACANDBED 07/04/20 05:11 POTASSIUM,K [CHEM] AM 07/04/20 07:30 GLUCOSE POC LAB TO COLLECT JPM [POC] QIDACANDBED 07/04/20 11:30 GLUCOSE POC LAB TO COLLECT JPM [POC] QIDACANDBED 07/04/20 16:30 GLUCOSE POC LAB TO COLLECT JPM [POC] QIDACANDBED 07/04/20 21:00 GLUCOSE POC LAB TO COLLECT JPM [POC] QIDACANDBED 07/05/20 07:30 GLUCOSE POC LAB TO COLLECT JPM [POC] QIDACANDBED 07/05/20 11:30 GLUCOSE POC LAB TO COLLECT JPM [POC] QIDACANDBED 07/05/20 16:30 GLUCOSE POC LAB TO COLLECT JPM [POC] QIDACANDBED 07/05/20 21:00 GLUCOSE POC LAB TO COLLECT JPM [POC] QIDACANDBED 07/06/20 07:30 GLUCOSE POC LAB TO COLLECT JPM [POC] QIDACANDBED 07/06/20 11:30 GLUCOSE POC LAB TO COLLECT JPM [POC] QIDACANDBED 07/06/20 16:30 GLUCOSE POC LAB TO COLLECT JPM [POC] QIDACANDBED 07/06/20 21:00 GLUCOSE POC LAB TO COLLECT JPM [POC] QIDACANDBED 07/07/20 07:30 GLUCOSE POC LAB TO COLLECT JPM [POC] QIDACANDBED 07/07/20 11:30 GLUCOSE POC LAB TO COLLECT JPM [POC] QIDACANDBED - Plan Plan:: ASSESSMENT AND PLAN PULMONARY FIBROSIS-progressive symptoms of weakness, fatigue, and shortness of breath. Likely secondary to progression of this chronic disease process. There is also some question of pulmonary edema noted on CT scan. No evidence of significant underlying pulmonary infection. -Supplemental oxygen as needed -Hold on antibiotic therapy at this time -Furosemide 40 mg IV today PULMONARY EDEMA-may be a factor in recent shortness of breath, she readily admits she does not take most of her medications on a regular basis. -IV furosemide 40 mg today -Reassess in a.m. EPISODIC LIGHTHEADEDNESS-specific etiology not apparent, denies vertiginous symptoms -Orthostatic vital signs every 8 hours -Cardiac monitoring TYPE 2 DIABETES MELLITUS -Continue metformin -4 times daily glucometers -Low-dose sliding scale Humalog MAINTENANCE ISSUES -DVT prophylaxis; Lovenox -GI prophylaxis; continue outpatient PPI therapy -Chaudhary catheter; not indicated -Nutrition; 2 g sodium diet -Nicotine dependence; nicotine patch and nicotine gum CODE STATUS-FULL CODE ADMISSION STATUS-patient will be admitted to inpatient status, expect at least a 2 night hospital stay for evaluation and management of problems as outlined above. At the time of this admission I do not reasonably expected evaluation and management of this problem will require more than a 96 hour hospital stay. DISPOSITION-anticipate discharge to home after the hospital stay. PRIMARY CARE PROVIDER-Matilde Franco
[2020-07-03] MEDS ORDERED: Furosemide 40 MG/4 ML VIAL IVPUSH ONE (13:30)
[2020-07-03] MEDS ORDERED: Nicotine 14 MG/24 Hr Patch TRDERM SCH (16:00)
[2020-07-03] MEDS: QUEtiapine 100 MG Tab PO SCH (20:31)
[2020-07-04] MEDS: Acetaminophen/HYDROcodone 325-5 MG Tab PO PRN ×2 (02:37→08:11)
[2020-07-04] MEDS: Nicotine Polacrilex 2 MG Gum CHEW PRN ×2 (02:42→08:11)
[2020-07-04] MEDS: rOPINIRole 1 MG Tab PO SCH ×2 (05:14→09:06)
[2020-07-04 08:08] VITALS: BP 117/52; PULSE 94
[2020-07-04] MEDS: Lactobacillus Rhamnosus GG (Probiotic) Cap PO SCH (08:13)
[2020-07-04] MEDS: busPIRone 10 MG Tab PO SCH (08:13)
[2020-07-04] MEDS: metFORMIN 500 MG Tab PO SCH (08:13)
[2020-07-04] MEDS: Magnesium Oxide 400 MG Tab PO SCH (08:13)
[2020-07-04] MEDS: Aspirin 81 MG Tab.Chew PO SCH (08:13)
[2020-07-04] MEDS: Insulin Lispro 100 Unit/ML 3 ML KwikPen SUBCUT SCH (08:14)
[2020-07-04] MEDS: Pantoprazole 40 MG Tab.CR PO SCH (08:14)
[2020-07-04] MEDS: Escitalopram 20 MG Tab PO SCH ×2 (09:06→09:09)
--- NOTE | 2020-07-04 10:48 | PCM.DCSUM1 ---
Discharge Summary - Hospital Course Brief History: Ms. Cadet is a 70-year-old woman who was admitted as a direct admission from the clinic with increased shortness of breath and hypoxia, secondary to underlying pulmonary fibrosis and pulmonary edema. - Discharge Data Discharge Date: 07/04/20 Discharge Disposition: Home, W Home Health Agency 06 Condition: Fair - Referral to Home Health Date of Face to Face Encounter: 07/04/20 Reason for Homebound Status: Hypoxia and shortness of breath, secondary to pulmonary fibrosis Primary Care Physician: Kwaku Kang MD Skilled Need: Nursing follow-up, home health aide, physical therapy and Occupational Therapy. - Discharge Diagnosis/Problem(s) (1) Pulmonary fibrosis SNOMED Code(s): 25800204 ICD Code: J84.10 - PULMONARY FIBROSIS, UNSPECIFIED Status: Acute Current Visit: Yes (2) Hypoxia SNOMED Code(s): 545272747 ICD Code: R09.02 - HYPOXEMIA Status: Acute Current Visit: Yes (3) Hypomagnesemia SNOMED Code(s): 363672827 ICD Code: E83.42 - HYPOMAGNESEMIA Status: Acute Current Visit: No (4) Type 2 diabetes mellitus SNOMED Code(s): 37314348 ICD Code: E11.9 - TYPE 2 DIABETES MELLITUS WITHOUT COMPLICATIONS Status: Chronic Current Visit: No (5) COPD (chronic obstructive pulmonary disease) SNOMED Code(s): 16654898 ICD Code: J44.9 - CHRONIC OBSTRUCTIVE PULMONARY DISEASE, UNSPECIFIED Status: Chronic Priority: High Current Visit: No Qualifiers: COPD type: unspecified COPD Qualified Code(s): J44.9 - Chronic obstructive pulmonary disease, unspecified - Patient Summary/Data Consults: Consultations 07/03/20 09:56 Consult to Physical Therapy [PT Evaluation and Treatment] [CONS] Routine Please Evaluate and Treat. PT Reason for Consult: weakness Pending Discharge: No Special Instructions: Pt is on This query below is only for informational purposes and is not editable. Admission Diagnosis/Problem: Pneumonia Hospital Course: Ms. Cadet is a 70-year-old woman who was admitted as a direct admission from the clinic with increased shortness of breath and question of bilateral pulmonary infiltrates. Snehal has had difficulty with shortness of breath for some time now and does use home oxygen infrequently. She reports over the last month at least she is noted increased shortness of breath and fatigue. She has had a chronic cough but has not had significant sputum production. She denies recent fevers or sweats. She was seen and evaluated in the clinic 2 days ago, chest x-ray report there suggested bilateral infiltrates. She was started on azithromycin and has taken that for the last 2 days but not noted significant improvement in symptoms. Evaluation after admission has shown a normal white blood cell count and normal normal procalcitonin level. Serology for influenza and COVID are negative. Chest x-ray showed evidence of interstitial fibrosis, but no obvious infiltrates. Blood gases obtained on supplemental oxygen appear to be adequate. CT scan of the chest with IV contrast showed no evidence of pulmonary emboli or significant infiltrate. There was significant interstitial process and question of possible pulmonary edema. On admission she was not treated with antibiotics as there was no evidence of acute bacterial infection. She did receive IV furosemide on the day of admission and the day after admission. She is inconsistent about using her home oxygen and this is felt to be a significant factor in her hypoxia. At the time of discharge she is been strongly encouraged to use her supplemental oxygen at all times. She did report symptoms of lightheadedness, orthostatic vital signs and telemetry monitoring showed no significant abnormalities. It did appear that during her hospitalization episodes of lightheadedness appeared to be related to her not using her supplemental oxygen. Blood glucose levels were monitored throughout hospital stay because of her diabetes and remained under good control during hospitalization. She was encouraged to make sure that she does take her home medication, especially her diuretic therapy. Would consider further outpatient evaluation including echocardiogram and referral to pulmonology. Activity will be as tolerated and she will resume her usual diet. Follow-up appointment has been scheduled with her primary care provider within 1 week. She will continue to receive home care services as previously scheduled. - Patient Instructions Diet: Low Sodium, Diabetic Diet Activity: As Tolerated Other/Special Instructions: Use home oxygen continuously. Please schedule follow-up appointment with primary care provider within 1 week. - Discharge Plan *PRESCRIPTION DRUG MONITORING PROGRAM REVIEWED*: Not Applicable *COPY OF PRESCRIPTION DRUG MONITORING REPORT IN PATIENT JEN: Not Applicable Prescriptions/Med Rec: Gentamicin [Garamycin 0.3% Ophth Soln] 5 ml EYEBOTH TID #1 bottle Home Medications: Home Meds Aspirin [Ashley Chewable Aspirin] 81 mg PO DAILY 07/26/13 [History] Calcium Carbonate [Calci-Chew] 500 mg PO BID PRN 07/26/13 [History] Escitalopram [Lexapro] 20 mg PO DAILY 07/26/13 [History] metFORMIN [Glucophage] 500 mg PO BID 07/26/13 [History] busPIRone [Buspar] 20 mg PO TID 02/12/15 [History] Triamcinolone Acetonide [Triamcinolone Acetonide 0.1% Crm] 15 gm TOP BID PRN 03/18/15 [History] Vitamin E 400 unit PO DAILY 03/18/15 [History] Albuterol [Ventolin HFA] 2 puff IH Q4HR PRN 02/28/18 [History] Folic Acid 1 tab PO DAILY 08/22/19 [History] Furosemide [Lasix] 1 tab PO DAILY 08/22/19 [History] Lactulose 30 ml PO DAILY 08/22/19 [History] Mupirocin Oint [Bactroban Oint] 1 dose TOP BID PRN 08/22/19 [History] Naproxen 1 tab PO BID PRN 08/22/19 [History] valACYclovir HCl [Valtrex] 500 mg PO DAILY 08/22/19 [History] Acetaminophen/HYDROcodone [[place] 325-5 MG] 1 - 2 tab PO Q6HR PRN 10/17/19 [History] Loperamide [Imodium] 2 mg PO QID PRN 10/17/19 [History] rOPINIRole [Requip] 2 mg PO QID 10/17/19 [History] Ciclopirox/Urea/Camph/Men/Euc [Ciclopirox 8% Treatment Kit] 34.6 ml TP DAILY 10/29/19 [History] QUEtiapine [SEROquel] 1 tab PO BEDTIME 10/29/19 [History] Vitamin D3 14325 50,000 unit PO WEEKLY 03/19/20 [History] Multivitamin 1 tab PO DAILY 03/25/20 [History] Nystatin [Nystatin Crm] 1 applic TOP BID PRN 03/25/20 [History] O2 2 l INH ASDIRECTED PRN 04/30/20 [History] Pantoprazole Sodium [Protonix] 40 mg PO DAILY 04/30/20 [History] Albuterol/Ipratropium [DuoNeb 3.0-0.5 MG/3 ML] 3 ml .XX Q6H PRN 05/29/20 [History] Ferrous Sulfate 325 mg PO DAILY #15 tablet 05/29/20 [Rx] Magnesium Oxide 400 mg PO ONETIME #30 tab 05/29/20 [Rx] diazePAM [Valium] 10 mg PO ASDIRECTED 05/29/20 [History] Gentamicin [Garamycin 0.3% Ophth Soln] 5 ml EYEBOTH TID #1 bottle 07/04/20 [Rx] Oxygen Therapy Mode: Nasal Cannula Oxygen Flow Rate (L/min): 2 Referrals: Princess Franco PA-C [Ordering Only Provider] - 07/08/20 1:30 pm (Please arrive 15 minutes early to register for your appointment.) - Discharge Summary/Plan Comment DC Time >30 min.: No - Patient Data Vitals - Most Recent: Last Vital Signs Temp 97.3 F 07/04/20 08:05 Pulse 94 07/04/20 08:05 Resp 18 07/04/20 08:05 BP 117/52 L 07/04/20 08:05 Pulse Ox 90 L 07/04/20 08:05 Orthostatic Blood Pressure [ 114/53 Standing] Orthostatic Blood Pressure [ 123/62 Sitting] Orthostatic Blood Pressure [ 125/56 Supine] Weight - Most Recent: 167 lb 12.8 oz I&O - Last 24 hours: Intake & Output 07/03/20 07/04/20 07/04/20 22:59 06:59 14:59 Intake Total 348 290 9932 Balance 297 310 4222 Lab Results - Last 24 hrs: Laboratory Results - last 24 hr 07/03/20 07/03/20 07/03/20 Range/Units 11:24 16:51 20:59 Potassium (3.6-5.2) mmol/L POC Glucose 82 104 130 H (74-106) MG/DL 07/04/20 07/04/20 Range/Units 05:11 07:30 Potassium 4.1 (3.6-5.2) mmol/L POC Glucose 142 H (74-106) MG/DL [place] Results - Last 24 hrs: Microbiology 07/03/20 07:10 Gram Stain - Final Sputum - Expectorated Respiratory Culture - Preliminary 07/02/20 10:42 Aerobic Blood Culture - Preliminary Blood - Arm, Left NO GROWTH AFTER 1 DAY Anaerobic Blood Culture - Preliminary NO GROWTH AFTER 1 DAY 07/02/20 10:36 Aerobic Blood Culture - Preliminary Blood - Venous - Iv Start NO GROWTH AFTER 1 DAY Anaerobic Blood Culture - Preliminary NO GROWTH AFTER 1 DAY Med Orders - Current: Current Medications Acetaminophen (Tylenol) 650 mg PO Q4H PRN PRN Reason: Pain (Mild 1-3)/fever Hydrocodone Bitart/Acetaminophen ([place] 325-5 Mg) 1 tab PO Q4H PRN PRN Reason: Pain Last Admin: 07/04/20 08:11 Dose: 1 tab Documented by: Albuterol (Proventil Neb Soln) 2.5 mg NEB Q4H PRN PRN Reason: Shortness Of Breath/wheezing Last Admin: 07/02/20 11:56 Dose: 2.5 mg Documented by: Albuterol (Ventolin Hfa) 0 gm INH Q4H PRN PRN Reason: Shortness of Breath Albuterol/Ipratropium (Duoneb 3.0-0.5 Mg/3 Ml) 3 ml INH Q6H PRN PRN Reason: Dyspnea Aspirin (Aspirin) 81 mg PO DAILY [facility] Last Admin: 07/04/20 08:13 Dose: 81 mg Documented by: Buspirone HCl (Buspar) 20 mg PO TID [facility] Last Admin: 07/04/20 08:13 Dose: 20 mg Documented by: Dextrose (Glutose 15) 15 gm PO ONETIME PRN PRN Reason: Hypoglycemia Dextrose/Water (Dextrose 50% In Water) 50 ml IV ONETIME PRN PRN Reason: Hypoglycemia Enoxaparin Sodium (Lovenox) 40 mg SUBCUT Q24H [facility] Last Admin: 07/03/20 12:40 Dose: 40 mg Documented by: Escitalopram Oxalate (Lexapro) 20 mg PO DAILY [facility] Last Admin: 07/04/20 09:09 Dose: 20 mg Documented by: Insulin Human Lispro (Humalog) 0 unit SUBCUT QIDACANDBED [facility]; Protocol Last Admin: 07/04/20 08:14 Dose: Not Given Documented by: Lactobacillus Rhamnosus (Culturelle) 1 cap PO BID [facility] Last Admin: 07/04/20 08:13 Dose: 1 cap Documented by: Magnesium Oxide (Magnesium Oxide) 400 mg PO BID [facility] Last Admin: 07/04/20 08:13 Dose: 400 mg Documented by: Metformin HCl (Glucophage) 500 mg PO BIDMEALS [facility] Last Admin: 07/04/20 08:13 Dose: 500 mg Documented by: Nicotine (Habitrol) 14 mg TRDERM Q24H [facility] Last Admin: 07/03/20 15:33 Dose: 14 mg Documented by: Nicotine Polacrilex (Nicorelief) 2 mg CHEW Q1H PRN PRN Reason: Other Last Admin: 07/04/20 08:11 Dose: 2 mg Documented by: Ondansetron HCl (Zofran) 4 mg IV Q4H PRN PRN Reason: Nausea/Vomiting Pantoprazole Sodium (Protonix) 40 mg PO DAILY@0730 [facility] Last Admin: 07/04/20 08:14 Dose: 40 mg Documented by: Polyethylene Glycol (Miralax) 17 gm PO DAILY PRN PRN Reason: Constipation Quetiapine Fumarate (Seroquel) 200 mg PO BEDTIME [facility] Last Admin: 07/03/20 20:31 Dose: 200 mg Documented by: Ropinirole HCl (Requip) 2 mg PO QID [facility] Last Admin: 07/04/20 09:06 Dose: 2 mg Documented by: Sodium Chloride (Saline Flush) 10 ml FLUSH ASDIRECTED PRN PRN Reason: Keep Vein Open Discontinued Medications Furosemide (Lasix) 40 mg IVPUSH NOW ONE Stop: 07/02/20 16:01 Last Admin: 07/02/20 17:23 Dose: 40 mg Documented by: Furosemide (Lasix) 40 mg IVPUSH NOW ONE Stop: 07/03/20 13:31 Last Admin: 07/03/20 14:03 Dose: 40 mg Documented by: Sodium Chloride (Normal Saline) 1,000 mls @ 125 mls/hr IV ASDIRECTED [facility] Last Admin: 07/02/20 11:02 Dose: 125 mls/hr Documented by: Piperacillin/Tazobactam/ (Dextrose 3.375 gm/ Premix) 50 mls @ 100 mls/hr IV Q6H [facility] Last Admin: 07/02/20 11:35 Dose: 100 mls/hr Documented by: Levofloxacin/Dextrose 750 mg/ (Premix) 150 mls @ 100 mls/hr IV Q24H [facility] Last Admin: 07/02/20 12:54 Dose: 100 mls/hr Documented by: Magnesium Sulfate 2 gm/ Premix 50 mls @ 25 mls/hr IV Q6H [facility] Stop: 07/03/20 02:59 Last Admin: 07/03/20 00:47 Dose: 25 mls/hr Documented by: Sodium Chloride (Normal Saline) 100 mls @ 4 mls/sec IV ASDIRECTED [facility] Stop: 07/02/20 16:00 Last Admin: 07/02/20 14:00 Dose: 4 mls/sec Documented by: Iopamidol (Isovue-370 (76%)) 100 ml IV . DIRECTED ONE Stop: 07/02/20 13:14 Last Admin: 07/02/20 14:00 Dose: 100 ml Documented by: Nicotine (Habitrol) 14 mg TRDERM DAILY [facility] Last Admin: 07/02/20 17:26 Dose: 14 mg Documented by: Potassium Chloride (Klor-Con M20) 40 meq PO ONETIME ONE Stop: 07/02/20 13:02 Last Admin: 07/02/20 15:15 Dose: Not Given Documented by: Potassium Chloride (Klor-Con M20) 40 meq PO ONETIME ONE Stop: 07/02/20 15:14 Last Admin: 07/02/20 15:53 Dose: 40 meq Documented by: Potassium Chloride (Klor-Con M20) 40 meq PO ONETIME ONE Stop: 07/03/20 10:01 Last Admin: 07/03/20 10:29 Dose: 40 meq Documented by: Potassium Chloride (Klor-Con M20) 40 meq PO ONETIME ONE Stop: 07/03/20 17:01 Last Admin: 07/03/20 16:58 Dose: 40 meq Documented by: - Exam Quality Assessment: Reports: Supplemental Oxygen, DVT Prophylaxis General: Reports: Alert, Oriented, Cooperative, No Acute Distress, Mild Distress Lungs: Reports: Normal Respiratory Effort, Decreased Breath Sounds, Rales. Denies: Rhonchi, Rub, Wheezing Cardiovascular: Reports: Regular Rate, Regular Rhythm, No Murmurs GI/Abdominal Exam: Soft, Non-Tender, No Organomegaly, No Distention Extremities: Non-Tender, No Pedal Edema
== END 2020-07-04 11:20 | disposition home health service (06) | DRG 198 ==
LOC: JP.MS 10:12
PROVIDERS: ADMIT Hospitalist; ATTEND Hospitalist
DX: J84.10 Pulmonary fibrosis, unspecified (principal); E83.42 Hypomagnesemia; E11.9 Type 2 diabetes mellitus without complications; J44.9 Chronic obstructive pulmonary disease, unspecified; H54.7 Unspecified visual loss; H04.123 Dry eye syndrome of bilateral lacrimal glands; R32 Unspecified urinary incontinence; M19.90 Unspecified osteoarthritis, unspecified site; G25.81 Restless legs syndrome; F32.9 Major depressive disorder, single episode, unspecified; F41.0 Panic disorder [episodic paroxysmal anxiety]; F20.9 Schizophrenia, unspecified; E66.9 Obesity, unspecified; Z88.1 Allergy status to other antibiotic agents; Z90.710 Acquired absence of both cervix and uterus; Z79.82 Long term (current) use of aspirin; Z79.84 Long term (current) use of oral hypoglycemic drugs; Z79.899 Other long term (current) drug therapy; Z87.440 Personal history of urinary (tract) infections; Z99.81 Dependence on supplemental oxygen; Z20.828 Contact with and (suspected) exposure to other viral communicable diseases
CPT/HCPCS: 36415; 71046; 71046-26; 71275; 71275-26; 80048; 80053; 82962; 83735; 84132; 84145; 85025; 87040; 87070; 87205; 87804; 87804-59; 94640; 94762; 97161-GP; 97530-GP; A9270-GY; J1650; J1940; J1956; J2543; J3475; J7030; J7050; Q9967; U0002

== ENCOUNTER 2021-02-10 17:15 | Emergency (ER) | payer MEDICARE, MEDICAID ==
[2021-02-10 17:21] VITALS: BP 119/60; PULSE 84
--- NOTE | 2021-02-10 17:52 | EDM.PDOC ---
ED HPI GENERAL MEDICAL PROBLEM - General Chief Complaint: ENT Problem Stated Complaint: [facility] Time Seen by Provider: 02/10/21 17:30 Source of Information: Reports: Patient, EMS, Old Records, RN History Limitations: Reports: No Limitations - History of Present Illness INITIAL COMMENTS - FREE TEXT/NARRATIVE: 70 yo female arrives via EMS for L sided nose bleed that began spontaneously. She is on ASA. Was seen in the clinic recently for the same problem but was not bleeding at that time and was referred to ENT with an appt in about 6 weeks. A nasal clamp was applied by EMS before arrival. Bleeding both from the front and down her throat since onset. Onset: Today Onset Date: 02/10/21 Duration: Minutes: Location: Reports: Face ( L nares) Quality: Reports: Other (none) Severity: Severe Improves with: Reports: Other (nose clamp) Worsens with: Reports: Other (? ASA) Context: Reports: Other (See HPI) Associated Symptoms: Reports: No Other Symptoms Treatments TOUR COORDINATOR: Reports: Other (see below) (EMS nose clamp) - Related Data Allergies Allergy/AdvReac Type Severity Reaction Status Date / Time diclofenac potassium Allergy Mild unsure Verified 02/10/21 17:19 [From Cataflam] dicyclomine HCl [From Bentyl] Allergy Mild unsure Verified 02/10/21 17:19 paroxetine HCl [From Paxil] Allergy Mild unsure Verified 02/10/21 17:19 Influenza Virus Vaccines Allergy Unknown Other Verified 02/10/21 17:19 sulfamethoxazole Allergy Other Verified 02/10/21 17:19 [From Bactrim] trimethoprim [From Bactrim] Allergy Other Verified 02/10/21 17:19 Home Meds: Home Meds Aspirin [Ashley Chewable Aspirin] 81 mg PO DAILY 07/26/13 [History] Calcium Carbonate [Calci-Chew] 500 mg PO BID PRN 07/26/13 [History] Escitalopram [Lexapro] 20 mg PO DAILY 07/26/13 [History] metFORMIN [Glucophage] 500 mg PO BID 07/26/13 [History] busPIRone [Buspar] 20 mg PO TID 02/12/15 [History] Triamcinolone Acetonide [Triamcinolone Acetonide 0.1% Crm] 15 gm TOP BID PRN 03/18/15 [History] Albuterol [Ventolin HFA] 2 puff IH Q4HR PRN 02/28/18 [History] Folic Acid 1 tab PO DAILY 08/22/19 [History] Furosemide [Lasix] 1 tab PO DAILY 08/22/19 [History] Lactulose 30 ml PO DAILY 08/22/19 [History] Mupirocin Oint [Bactroban Oint] 1 dose TOP BID PRN 08/22/19 [History] Naproxen 1 tab PO BID PRN 08/22/19 [History] valACYclovir HCl [Valtrex] 500 mg PO DAILY 08/22/19 [History] Acetaminophen/HYDROcodone [[place] 325-5 MG] 1 - 2 tab PO Q6HR PRN 10/17/19 [History] rOPINIRole [Requip] 2 mg PO QID 10/17/19 [History] QUEtiapine [SEROquel] 1 tab PO BEDTIME 10/29/19 [History] Vitamin D3 34229 50,000 unit PO WEEKLY 03/19/20 [History] Multivitamin 1 tab PO DAILY 03/25/20 [History] Nystatin [Nystatin Crm] 1 applic TOP BID PRN 03/25/20 [History] O2 2 l INH ASDIRECTED PRN 04/30/20 [History] Albuterol/Ipratropium [DuoNeb 3.0-0.5 MG/3 ML] 3 ml .XX Q6H PRN 05/29/20 [History] Hydrocortisone [Hydrocortisone 1% Crm] 1 dose TOP BID 02/10/21 [History] Vitamin E 400 unit PO DAILY 02/10/21 [History] traZODone 50 mg PO BEDTIME 02/10/21 [History] Past Medical History HEENT History: Reports: Impaired Vision Other HEENT History: dry eyes Cardiovascular History: Reports: Other (See Below) Other Cardiovascular History: hx stress test normal Respiratory History: Reports: COPD, SOB, Other (See Below) Other Respiratory History: O2 home, CPAP Gastrointestinal History: Reports: Hepatitis, Irritable Bowel Syndrome Genitourinary History: Reports: Urinary Incontinence, UTI, Recurrent CERTIFIED LOW VISION THERAPIST History: Reports: Other CERTIFIED LOW VISION THERAPIST History: cysts Musculoskeletal History: Reports: Arthritis, Fracture Other Musculoskeletal History: bilat knee pain. L foot pain Neurological History: Reports: Other (See Below) Other Neuro History: restless legs Psychiatric History: Reports: Addiction, Anxiety, Bipolar, Depression, Panic Attack, Schizophrenia Endocrine/Metabolic History: Reports: Diabetes, Type II, Obesity/BMI 30+ Immunologic History: Reports: Other (See Below) Other Immunologic History: herpes Dermatologic History: Reports: Urticaria - Infectious Disease History Infectious Disease History: Reports: Chicken Pox - Past Surgical History Head Surgeries/Procedures: Reports: None Female Surgical History: Reports: Hysterectomy, Salpingo-Oophorectomy Social & Family History - Family History Family Medical History: No Pertinent Family History Oncologic: Reports: Breast, Pancreatic, Prostate - Tobacco Use Tobacco Use Status *Q: Light Tobacco User Years of Tobacco use: 57 Packs/Tins Daily: 0.5 - Caffeine Use Caffeine Use: Reports: Coffee - Recreational Drug Use Recreational Drug Use: No - Living Situation & Occupation Living situation: Reports: Single (Single dwelling home) ED ROS ENT - Review of Systems Review Of Systems: See Below Constitutional: Reports: No Symptoms HEENT: Reports: Nosebleed Respiratory: Reports: No Symptoms ED EXAM, ENT - Physical Exam Exam: See Below Exam Limited By: No Limitations General Appearance: Alert, WD/WN, No Apparent Distress Eye Exam: Bilateral Eye: Normal Inspection Nose: Active Bleeding, Dried Blood, Other (bleeding resumed as soon as the nose clamp was removed. ) ED ENT PROCEDURES - Epistaxis Procedure Indication: Epistaxis Recent anticoagulants/antiplatlets: Yes (asa) Uncontrolled HTN: No Recent septal/nasal surgery: No Site of bleeding: Left Nare, Anterior Clearing of clots: Patient Blew Nose Ice pack to area: No Anterior Packing: Nasal Tampon (Rhino Rocket 7.5 cm) Complications: No Course - Vital Signs Last Recorded V/S: Last Vital Signs Temp 36.6 C 02/10/21 17:16 Pulse 84 02/10/21 17:16 Resp 14 02/10/21 17:16 BP 119/60 02/10/21 17:16 Pulse Ox 93 L 02/10/21 17:16 Departure - Departure Time of Disposition: 18:05 Disposition: Home, Self-Care 01 Condition: Fair Clinical Impression: Epistaxis - Discharge Information *PRESCRIPTION DRUG MONITORING PROGRAM REVIEWED*: Not Applicable *COPY OF PRESCRIPTION DRUG MONITORING REPORT IN PATIENT JEN: Not Applicable Instructions: Nosebleed, [id number] Referrals: PCP,None [Primary Care Provider] - Additional Instructions: Hold your aspirin. F/U in clinic or here on Sunday late morning for removal of your nose device. Sepsis Event Note (ED) - Evaluation Sepsis Screening Result: No Definite Risk - Focused Exam Vital Signs: Vital Signs Temp Pulse Resp BP Pulse Ox 02/10/21 17:16 36.6 C 84 14 119/60 93 L
== END 2021-02-10 18:12 | disposition home or self-care (01) ==
LOC: JP.ED 17:15
DX: R04.0 Epistaxis (principal); E11.9 Type 2 diabetes mellitus without complications; E66.9 Obesity, unspecified; Z72.0 Tobacco use; J44.9 Chronic obstructive pulmonary disease, unspecified; Z68.32 Body mass index [BMI] 32.0-32.9, adult; Z88.1 Allergy status to other antibiotic agents; Z88.2 Allergy status to sulfonamides; Z88.7 Allergy status to serum and vaccine; Z88.6 Allergy status to analgesic agent; Z88.8 Allergy status to other drugs, medicaments and biological substances; Z88.5 Allergy status to narcotic agent; Z79.82 Long term (current) use of aspirin
CPT/HCPCS: 30903; 99283-25

== ENCOUNTER 2021-09-03 17:59 | Emergency (ER) | payer MEDICARE, MEDICAID ==
[2021-09-03 18:29] VITALS: BP 130/70; PULSE 94
--- NOTE | 2021-09-03 18:44 | EDM.PDOC ---
ED HPI GENERAL MEDICAL PROBLEM - General Chief Complaint: Genitourinary Problem Stated Complaint: possible bladder infection Time Seen by Provider: 09/03/21 18:35 Source of Information: Reports: Patient History Limitations: Reports: No Limitations - History of Present Illness INITIAL COMMENTS - FREE TEXT/NARRATIVE: 71-year-old female has had some lower abdominal pressure, bloating, and increased lower back pain for the past week. She is also had an increase in her rash in the groin and had a recent change in a topical medication for this. She took a home urinary tract infection test earlier today and it indicated a possible UTI so she came in to have it checked. She has no dysuria or increased urinary frequency. No fevers or chills. No nausea or vomiting. She just feels like "something is wrong". Onset: Gradual Duration: Waxing/Waning (Symptoms have been waxing and waning for the past 7 days) Location: Reports: Abdomen (Abdominal bloating and lower back discomfort) Associated Symptoms: Reports: Malaise, Other (Increased redness and rash in the groin). Denies: Cough, Fever/Chills, Loss of Appetite, Shortness of Breath Lower Back Pain Score (Numeric/FACES): 9 - Related Data Allergies Allergy/AdvReac Type Severity Reaction Status Date / Time diclofenac potassium Allergy Mild unsure Verified 02/10/21 17:19 [From Cataflam] dicyclomine HCl [From Bentyl] Allergy Mild unsure Verified 02/10/21 17:19 paroxetine HCl [From Paxil] Allergy Mild unsure Verified 02/10/21 17:19 Influenza Virus Vaccines Allergy Unknown Other Verified 02/10/21 17:19 sulfamethoxazole Allergy Other Verified 02/10/21 17:19 [From Bactrim] trimethoprim [From Bactrim] Allergy Other Verified 02/10/21 17:19 Home Meds: Home Meds Aspirin [Ashley Chewable Aspirin] 81 mg PO DAILY 07/26/13 [History] Calcium Carbonate [Calci-Chew] 500 mg PO BID PRN 07/26/13 [History] Escitalopram [Lexapro] 20 mg PO DAILY 07/26/13 [History] metFORMIN [Glucophage] 500 mg PO BID 07/26/13 [History] busPIRone [Buspar] 20 mg PO TID 02/12/15 [History] Triamcinolone Acetonide [Triamcinolone Acetonide 0.1% Crm] 15 gm TOP BID PRN 03/18/15 [History] Albuterol [Ventolin HFA] 2 puff IH Q4HR PRN 02/28/18 [History] Folic Acid 1 tab PO DAILY 08/22/19 [History] Furosemide [Lasix] 1 tab PO DAILY 08/22/19 [History] Lactulose 30 ml PO DAILY 08/22/19 [History] Mupirocin Oint [Bactroban Oint] 1 dose TOP BID PRN 08/22/19 [History] Naproxen 1 tab PO BID PRN 08/22/19 [History] valACYclovir HCl [Valtrex] 500 mg PO DAILY 08/22/19 [History] Acetaminophen/HYDROcodone [HYDROcodone-Acetaminophen 5-325 MG *] 1 - 2 tab PO Q6HR PRN 10/17/19 [History] rOPINIRole [Requip] 2 mg PO QID 10/17/19 [History] QUEtiapine [SEROquel] 1 tab PO BEDTIME 10/29/19 [History] Multivitamin 1 tab PO DAILY 03/25/20 [History] Nystatin [Nystatin Crm] 1 applic TOP BID PRN 03/25/20 [History] O2 2 l INH ASDIRECTED PRN 04/30/20 [History] Albuterol/Ipratropium [DuoNeb 3.0-0.5 MG/3 ML] 3 ml .XX Q6H PRN 05/29/20 [History] Hydrocortisone [Hydrocortisone 1% Crm] 1 dose TOP BID 02/10/21 [History] Vitamin E 400 unit PO DAILY 02/10/21 [History] traZODone 50 mg PO BEDTIME 02/10/21 [History] Past Medical History HEENT History: Reports: Impaired Vision Other HEENT History: dry eyes Cardiovascular History: Reports: Other (See Below) Other Cardiovascular History: hx stress test normal Respiratory History: Reports: COPD, SOB, Other (See Below) Other Respiratory History: O2 home, CPAP Gastrointestinal History: Reports: Hepatitis, Irritable Bowel Syndrome Genitourinary History: Reports: Urinary Incontinence, UTI, Recurrent AQUARIST History: Reports: Other AQUARIST History: cysts Musculoskeletal History: Reports: Arthritis, Fracture Other Musculoskeletal History: bilat knee pain. L foot pain Neurological History: Reports: Other (See Below) Other Neuro History: restless legs Psychiatric History: Reports: Addiction, Anxiety, Bipolar, Depression, Panic Attack, Schizophrenia Endocrine/Metabolic History: Reports: Diabetes, Type II, Obesity/BMI 30+ Immunologic History: Reports: Other (See Below) Other Immunologic History: herpes Dermatologic History: Reports: Urticaria - Infectious Disease History Infectious Disease History: Reports: Chicken Pox - Past Surgical History Head Surgeries/Procedures: Reports: None HEENT Surgical History: Reports: None Cardiovascular Surgical History: Reports: None Respiratory Surgical History: Reports: None GI Surgical History: Reports: None Female Surgical History: Reports: Hysterectomy, Salpingo-Oophorectomy Endocrine Surgical History: Reports: None Neurological Surgical History: Reports: None Musculoskeletal Surgical History: Reports: None Dermatological Surgical History: Reports: None Social & Family History - Family History Family Medical History: No Pertinent Family History Oncologic: Reports: Breast, Pancreatic, Prostate - Tobacco Use Tobacco Use Status *Q: Current Every Day Tobacco User Years of Tobacco use: 58 Packs/Tins Daily: 0.5 - Caffeine Use Caffeine Use: Reports: Coffee, Soda - Recreational Drug Use Recreational Drug Use: No - Living Situation & Occupation Living situation: Reports: Single (Single dwelling home) ED ROS GENERAL - Review of Systems Review Of Systems: See Below Constitutional: Denies: Fever, Chills Respiratory: Reports: No Symptoms Cardiovascular: Reports: No Symptoms GI/Abdominal: Reports: Abdominal Pain (Mild abdominal pressure and distention, bloating). Denies: Nausea, Vomiting Skin: Reports: Other (Increased erythema and rash in the groin area, using topicals) Neurological: Reports: No Symptoms ED EXAM, GENERAL - Physical Exam Exam: See Below Exam Limited By: No Limitations General Appearance: Alert, No Apparent Distress Head: Atraumatic Respiratory/Chest: No Respiratory Distress, Lungs Clear Cardiovascular: Regular Rate, Rhythm GI/Abdominal: Soft, Tender (Mild discomfort with palpation across the lower abdomen but no guarding or rebound, no focal tenderness) Neurological: Alert, Oriented Psychiatric: Normal Affect, Normal Mood Skin Exam: Warm, Dry, Other (Rash in groin was not reexamined) Course - Vital Signs Last Recorded V/S: Last Vital Signs Temp 97.9 F 09/03/21 18:33 Pulse 94 09/03/21 18:33 Resp 18 09/03/21 18:33 BP 130/70 09/03/21 18:33 Pulse Ox 94 L 09/03/21 18:33 - Orders/Labs/Meds Orders: Active Orders 24 hr Category Date Time Status CULTURE URINE [RM] Stat Lab 09/03/21 19:06 Received Labs: Laboratory Tests 09/03/21 Range/Units 18:42 Urine Color Yellow (YELLOW) Urine Appearance Clear (CLEAR) Urine pH 6.0 (5.0-8.0) Ur Specific [place] 1.015 (1.008-1.030) Urine Protein Negative (NEGATIVE) mg/dL Urine Glucose (UA) Negative (NEGATIVE) mg/dL Urine Ketones Negative (NEGATIVE) mg/dL Urine Occult Blood Negative (NEGATIVE) Urine Nitrite Negative (NEGATIVE) Urine Bilirubin Negative (NEGATIVE) Urine Urobilinogen 0.2 (0.2-1.0) EU/dL Ur Leukocyte Esterase Trace H (NEGATIVE) Urine RBC 0-5 (0-5) Urine WBC 0-5 (0-5) Ur Epithelial Cells Occasional Amorphous Sediment Occasional Urine Bacteria Occasional Urine Mucus Not seen - Re-Assessments/Exams Free Text/Narrative Re-Assessment/Exam: 09/03/21 18:53 A clean-catch urinary sample was obtained. 09/03/21 19:06 Despite the home test testing positive for nitrite, this is not confirmed with our test. There is some bacteria but no WBCs. A culture was ordered, the patient was very uncomfortable not being on an antibiotic and I have seen her before, she tends to be very somatic. We will start her on Macrobid twice daily pending the culture results. Departure - Departure Time of Disposition: 19:15 Disposition: Home, Self-Care 01 Clinical Impression: UTI, Urinary tract infectious disease - Discharge Information Instructions: Urinary Tract Infection, Adult Referrals: Kwaku Kang MD [Primary Care Provider] - Forms: ED Department Discharge Care Plan Goals: Take antibiotic twice a day for at least 5 days, and we will be in touch with you with culture results if a change in treatment is necessary. Return if worsening such as fever or increased pain. Sepsis Event Note (ED) - Evaluation Sepsis Screening Result: No Definite Risk - Focused Exam Vital Signs: Vital Signs Temp Pulse Resp BP Pulse Ox 09/03/21 18:33 97.9 F 94 18 130/70 94 L 09/03/21 18:25 97.9 F 94 18 130/70 94 L - My Orders Last 24 Hours: My Active Orders 09/03/21 19:06 CULTURE URINE [] Stat - Assessment/Plan Last 24 Hours: My Active Orders 09/03/21 19:06 CULTURE URINE [] Stat
== END 2021-09-03 19:15 | disposition home or self-care (01) ==
LOC: JP.ED 17:59
DX: N39.0 Urinary tract infection, site not specified (principal); J44.9 Chronic obstructive pulmonary disease, unspecified; M19.90 Unspecified osteoarthritis, unspecified site; E11.9 Type 2 diabetes mellitus without complications; E66.9 Obesity, unspecified; Z68.35 Body mass index [BMI] 35.0-35.9, adult; Z72.0 Tobacco use; Z88.8 Allergy status to other drugs, medicaments and biological substances; Z88.7 Allergy status to serum and vaccine; Z88.2 Allergy status to sulfonamides; Z79.82 Long term (current) use of aspirin; Z79.84 Long term (current) use of oral hypoglycemic drugs; Z79.899 Other long term (current) drug therapy
CPT/HCPCS: 81001; 87086; 99284

== ENCOUNTER 2022-01-26 13:10 | Emergency (ER) | payer MEDICARE, MEDICAID ==
[2022-01-26 13:18] VITALS: BP 110/55; PULSE 73
== END 2022-01-26 15:43 | disposition home or self-care (01) ==
LOC: JP.ED 13:10
DX: R20.2 Paresthesia of skin (principal); H60.501 Unspecified acute noninfective otitis externa, right ear; J44.9 Chronic obstructive pulmonary disease, unspecified; E11.9 Type 2 diabetes mellitus without complications; E66.9 Obesity, unspecified; Z68.31 Body mass index [BMI] 31.0-31.9, adult; Z88.7 Allergy status to serum and vaccine; Z88.8 Allergy status to other drugs, medicaments and biological substances; Z88.1 Allergy status to other antibiotic agents; Z72.0 Tobacco use
CPT/HCPCS: 36415; 80048; 84443; 85027; 99283; 99284

== ENCOUNTER 2022-02-16 07:43 | Day surgery (SDC) | payer MEDICARE, MEDICAID ==
[2022-02-16] MEDS ORDERED: Acetaminophen 500 MG Tab PO ONE (08:00)
[2022-02-16] MEDS ORDERED: fentaNYL 250 MCG/5 ML SDV ONE (08:27)
[2022-02-16] MEDS ORDERED: Propofol 200 MG/20 ML SDV ONE (08:30)
[2022-02-16] MEDS ORDERED: Neostigmine Methylsulfate 1 MG/ML 5 ML Syringe ONE (08:30)
[2022-02-16] MEDS ORDERED: Succinylcholine 200 MG/10 ML MDV ONE (08:30)
[2022-02-16] MEDS ORDERED: Ondansetron 4 MG/2 ML SDV ONE (08:30)
[2022-02-16] MEDS ORDERED: Rocuronium 50 MG/5 ML Vial ONE (08:30)
[2022-02-16] MEDS ORDERED: Glycopyrrolate 0.2 MG/ML 5 ML MDV ONE (08:30)
[2022-02-16] MEDS ORDERED: Dexamethasone 4 MG/ML SDV ONE (08:30)
[2022-02-16] MEDS ORDERED: busPIRone 10 MG Tab PO ONE (08:41)
[2022-02-16] MEDS ORDERED: Albuterol/Ipratropium 3.0-0.5 MG/3 ML Neb Soln NEB ONE (09:00)
[2022-02-16] MEDS ORDERED: cefOXitin 2 GM in Sodium Chloride 0.9% 50 ML IV ONE (09:00)
[2022-02-16] MEDS ORDERED: busPIRone 10 MG, busPIRone 5 MG PO ONE ×2 (09:00)
[2022-02-16] MEDS ORDERED: Lidocaine 1% with EPINEPHrine 1:100,000 50 ML MDV ONE (09:24)
[2022-02-16] MEDS ORDERED: Bupivacaine 0.5% 50 ML MDV ONE (09:24)
[2022-02-16] MEDS ORDERED: Ketamine 17 MG in Sodium Chloride 0.9% 19.83 ML IV SCH (09:30)
[2022-02-16] MEDS ORDERED: Ketamine 500 MG/5 ML MDV IV SCH (09:30)
[2022-02-16] MEDS: Dextrose 5%-Lactated Ringers 1,000 ML IV SCH ×2 (09:43→13:29)
[2022-02-16] MEDS ORDERED: Labetalol 20 MG/4 ML Syringe ONE (11:07)
[2022-02-16] MEDS ORDERED: Sugammadex Sodium 200 MG/2 ML VIAL ONE (11:17)
[2022-02-16] MEDS ORDERED: HYDROmorphone 0.5 MG/0.5 ML Syringe IVPUSH PRN (13:00)
[2022-02-16] MEDS ORDERED: HYDROmorphone 1 MG/ML Syringe IV PRN (13:00)
[2022-02-16] MEDS ORDERED: Ondansetron 4 MG/2 ML SDV IVPUSH PRN (13:00)
[2022-02-16] MEDS ORDERED: Albuterol/Ipratropium 3.0-0.5 MG/3 ML Neb Soln INH PRN (13:25)
[2022-02-16] MEDS: HYDROmorphone 2 MG Tab PO PRN ×3 (13:28→22:00)
[2022-02-16] MEDS: Albuterol/Ipratropium 3.0-0.5 MG/3 ML Neb Soln INH SCH ×2 (14:29→21:09)
[2022-02-16] MEDS ORDERED: Pantoprazole 40 MG Vial IVPUSH SCH (14:30)
[2022-02-16] MEDS: cefOXitin 2 GM in Sodium Chloride 0.9% 50 ML IV SCH ×2 (16:28→21:10)
[2022-02-16] MEDS: busPIRone 10 MG, busPIRone 5 MG PO SCH ×4 (16:29→21:09)
[2022-02-16] MEDS: rOPINIRole 1 MG Tab PO SCH ×2 (16:30→21:09)
[2022-02-16] MEDS: metFORMIN 500 MG Tab PO SCH (16:30)
[2022-02-16] MEDS: Acetaminophen 500 MG Tab PO SCH (16:45)
[2022-02-16] MEDS: Nicotine Polacrilex 2 MG Gum CHEW PRN ×2 (18:41→21:18)
[2022-02-16] MEDS ORDERED: QUETIAPINE 200 MG PO SCH (21:00)
[2022-02-16] MEDS: Budesonide 0.5 MG/2 ML Neb Susp INH SCH (21:10)
[2022-02-17] MEDS: HYDROmorphone 2 MG Tab PO PRN ×2 (02:11→06:11)
[2022-02-17] MEDS: cefOXitin 2 GM in Sodium Chloride 0.9% 50 ML IV SCH (03:55)
[2022-02-17] MEDS: rOPINIRole 1 MG Tab PO SCH (06:06)
[2022-02-17] MEDS: Albuterol/Ipratropium 3.0-0.5 MG/3 ML Neb Soln INH SCH (07:15)
[2022-02-17] MEDS: Budesonide 0.5 MG/2 ML Neb Susp INH SCH (07:22)
[2022-02-17 08:20] VITALS: BP 125/62; PULSE 90
[2022-02-17] MEDS: metFORMIN 500 MG Tab PO SCH (08:25)
[2022-02-17] MEDS: Lactulose Soln 10 GM/15 ML 15 ML UD Cup PO SCH ×2 (08:25→08:35)
[2022-02-17] MEDS: Acetaminophen 500 MG Tab PO SCH ×2 (08:26)
[2022-02-17] MEDS: busPIRone 10 MG, busPIRone 5 MG PO SCH ×2 (08:26)
[2022-02-17] MEDS ORDERED: Escitalopram 20 MG Tab PO SCH (09:00)
[2022-02-17] MEDS ORDERED: valACYclovir 1,000 MG Tab PO SCH (09:00)
[2022-02-17] MEDS ORDERED: Furosemide 40 MG Tab PO SCH (09:00)
== END 2022-02-17 09:50 | disposition home or self-care (01) ==
LOC: JP.SDS 07:43 → JP.MS 11:25 → JP.SDS 02-17 09:50
PROVIDERS: ATTEND Surgery
DX: K80.10 Calculus of gallbladder with chronic cholecystitis without obstruction (principal); K42.0 Umbilical hernia with obstruction, without gangrene; R59.0 Localized enlarged lymph nodes; K74.60 Unspecified cirrhosis of liver; K76.0 Fatty (change of) liver, not elsewhere classified; J44.9 Chronic obstructive pulmonary disease, unspecified; E11.42 Type 2 diabetes mellitus with diabetic polyneuropathy; F17.210 Nicotine dependence, cigarettes, uncomplicated; G25.81 Restless legs syndrome; Z79.899 Other long term (current) drug therapy; Z88.8 Allergy status to other drugs, medicaments and biological substances; Z88.2 Allergy status to sulfonamides; Z98.890 Other specified postprocedural states
CPT/HCPCS: 36415; 80053; 83735; 84100; 85027; 85610; 85730; 88304; 88305; 88307; 88313; 94640; A9270-GY; C9113; J0171; J0330; J0694; J1100; J1170; J2405; J2704; J2710; J2795; J3010; J3490; J7121; J7620

== ENCOUNTER 2022-05-06 23:49 | Emergency (ER) | payer MEDICARE, MEDICAID ==
[2022-05-07 00:54] LABS: ESTIMATED GFR 60 mL/min (>60)
[2022-05-07 01:12] VITALS: BP 131/60; PULSE 83
== END 2022-05-07 02:57 | disposition home or self-care (01) ==
LOC: JP.ED 23:49
DX: A08.4 Viral intestinal infection, unspecified (principal); J44.9 Chronic obstructive pulmonary disease, unspecified; F41.9 Anxiety disorder, unspecified; I10 Essential (primary) hypertension; E11.9 Type 2 diabetes mellitus without complications; F17.210 Nicotine dependence, cigarettes, uncomplicated; E66.9 Obesity, unspecified; Z68.32 Body mass index [BMI] 32.0-32.9, adult; Z88.8 Allergy status to other drugs, medicaments and biological substances; Z88.7 Allergy status to serum and vaccine; Z88.1 Allergy status to other antibiotic agents; Z79.84 Long term (current) use of oral hypoglycemic drugs; Z20.822 Contact with and (suspected) exposure to COVID-19
CPT/HCPCS: 36415; 71046; 80053; 85025; 86140; 99282; 99285; U0002

== ENCOUNTER 2022-06-18 06:51 | Emergency (ER) | payer MEDICARE, MEDICAID ==
[2022-06-18 07:02] VITALS: BP 144/62; PULSE 94
[2022-06-18] MEDS ORDERED: Albuterol/Ipratropium 3.0-0.5 MG/3 ML Neb Soln NEB ONE (07:31)
== END 2022-06-18 09:19 | disposition home or self-care (01) ==
LOC: JP.ED 06:51
DX: U07.1 COVID-19 (principal); J44.9 Chronic obstructive pulmonary disease, unspecified; I10 Essential (primary) hypertension; E11.9 Type 2 diabetes mellitus without complications; F17.210 Nicotine dependence, cigarettes, uncomplicated; E66.9 Obesity, unspecified; Z68.34 Body mass index [BMI] 34.0-34.9, adult; Z88.8 Allergy status to other drugs, medicaments and biological substances; Z88.7 Allergy status to serum and vaccine; Z88.2 Allergy status to sulfonamides; Z79.899 Other long term (current) drug therapy; Z79.84 Long term (current) use of oral hypoglycemic drugs; Z90.710 Acquired absence of both cervix and uterus
CPT/HCPCS: 71046; 94640; 99285; U0002; J7620

== ENCOUNTER 2022-06-22 21:06 | Inpatient (IN) | payer MEDICARE, MEDICAID ==
[2022-06-22] MEDS ORDERED: Nicotine 14 MG/24 Hr Patch TRDERM SCH (22:30)
[2022-06-22] MEDS ORDERED: oxyCODONE 5 MG Tab PO PRN (22:36)
[2022-06-22] MEDS ORDERED: Acetaminophen 325 MG Tab PO PRN ×2 (22:36)
[2022-06-22] MEDS ORDERED: Albuterol 90 MCG/6.7 GM Inhaler INH PRN (22:36)
[2022-06-22] MEDS ORDERED: LORazepam 2 MG/ML SDV IV PRN (22:36)
[2022-06-22] MEDS ORDERED: REMDESIVIR 200 MG in Sodium Chloride 0.9% 250 ML IV ONE (22:36)
[2022-06-22] MEDS ORDERED: Enoxaparin 40 MG/0.4 ML Syringe SUBCUT SCH (22:36)
[2022-06-22] MEDS ORDERED: Bisacodyl 5 MG Tab PO PRN (22:36)
[2022-06-22] MEDS ORDERED: Triamcinolone Acetonide 0.1% Crm 15 GM Tube TOP PRN (22:36)
[2022-06-22] MEDS ORDERED: Acetaminophen/HYDROcodone 325-5 MG Tab PO PRN (22:36)
[2022-06-22] MEDS ORDERED: Morphine 2 MG/ML SYRINGE IVPUSH PRN (22:36)
[2022-06-22] MEDS ORDERED: Docusate Sodium 100 MG Cap PO PRN (22:36)
[2022-06-22] MEDS ORDERED: Dexamethasone 4 MG/ML SDV IVPUSH SCH (22:36)
[2022-06-22 23:57] LABS: ESTIMATED GFR 78 mL/min (>60)
[2022-06-23] MEDS: QUEtiapine 100 MG Tab PO SCH ×2 (03:22→21:48)
[2022-06-23] MEDS: rOPINIRole 1 MG Tab PO SCH ×5 (06:20→21:48)
[2022-06-23] MEDS: busPIRone 5 MG Tab PO SCH ×3 (08:28→21:46)
[2022-06-23] MEDS: Furosemide 40 MG Tab PO SCH (08:28)
[2022-06-23] MEDS: Escitalopram 20 MG Tab PO SCH (08:28)
[2022-06-23] MEDS: Folic Acid 1 MG Tab PO SCH (08:28)
[2022-06-23] MEDS: valACYclovir 1,000 MG Tab PO SCH (08:28)
[2022-06-23] MEDS: Insulin Lispro 100 Unit/ML 3 ML KwikPen SUBCUT SCH ×2 (08:53→12:03)
[2022-06-23] MEDS: metFORMIN 500 MG Tab PO SCH (16:11)
[2022-06-23] MEDS: LORazepam 0.5 MG Tab PO PRN (16:12)
[2022-06-23] MEDS ORDERED: metFORMIN 500 MG Tab PO SCH (16:30)
[2022-06-23] MEDS ORDERED: Nicotine 14 MG/24 Hr Patch TRDERM SCH (21:00)
[2022-06-23] MEDS ORDERED: Dexamethasone 4 MG/ML SDV IVPUSH SCH (21:00)
[2022-06-23] MEDS ORDERED: Enoxaparin 40 MG/0.4 ML Syringe SUBCUT SCH (21:00)
[2022-06-23] MEDS ORDERED: REMDESIVIR 100 MG in Sodium Chloride 0.9% 100 ML IV SCH (22:00)
[2022-06-24] MEDS: LORazepam 0.5 MG Tab PO PRN (04:28)
[2022-06-24] MEDS: rOPINIRole 1 MG Tab PO SCH ×3 (04:35→10:09)
[2022-06-24 05:28] LABS: ESTIMATED GFR 68 mL/min (>60)
[2022-06-24] MEDS: metFORMIN 500 MG Tab PO SCH (08:23)
[2022-06-24] MEDS: Folic Acid 1 MG Tab PO SCH (08:24)
[2022-06-24] MEDS: Furosemide 40 MG Tab PO SCH (08:24)
[2022-06-24] MEDS: busPIRone 5 MG Tab PO SCH (08:24)
[2022-06-24] MEDS: valACYclovir 1,000 MG Tab PO SCH (08:24)
[2022-06-24] MEDS: Escitalopram 20 MG Tab PO SCH (08:24)
[2022-06-24] MEDS ORDERED: Nystatin Crm 15 GM Tube TOP SCH (09:15)
[2022-06-24 10:55] VITALS: BP 121/67; PULSE 72
== END 2022-06-24 12:45 | disposition home or self-care (01) | DRG 189 ==
LOC: JP.ED 21:06 → JP.MS 22:05
PROVIDERS: ADMIT Internal Medicine; ATTEND Internal Medicine
PROC: 8E0ZXY6 Isolation (ICD-10-PCS; principal; 2022-06-22)
PROC: XW033E5 Introduction of Remdesivir Anti-infective into Peripheral Vein, Percutaneous Approach, New Technology Group 5 (ICD-10-PCS; 2022-06-22)
PROC: 3E0333Z Introduction of Anti-inflammatory into Peripheral Vein, Percutaneous Approach (ICD-10-PCS; 2022-06-22)
DX: J96.21 Acute and chronic respiratory failure with hypoxia (principal); J12.82 Pneumonia due to coronavirus disease 2019; U07.1 COVID-19; F31.12 Bipolar disorder, current episode manic without psychotic features, moderate; J44.0 Chronic obstructive pulmonary disease with (acute) lower respiratory infection; E87.1 Hypo-osmolality and hyponatremia; J84.10 Pulmonary fibrosis, unspecified; Z28.310 Unvaccinated for COVID-19; H54.7 Unspecified visual loss; F41.9 Anxiety disorder, unspecified; M19.90 Unspecified osteoarthritis, unspecified site; F41.0 Panic disorder [episodic paroxysmal anxiety]; F31.9 Bipolar disorder, unspecified; K59.09 Other constipation; F17.210 Nicotine dependence, cigarettes, uncomplicated; R32 Unspecified urinary incontinence; F20.9 Schizophrenia, unspecified; I10 Essential (primary) hypertension; J44.9 Chronic obstructive pulmonary disease, unspecified; K21.9 Gastro-esophageal reflux disease without esophagitis; E11.42 Type 2 diabetes mellitus with diabetic polyneuropathy; Z90.710 Acquired absence of both cervix and uterus; Z88.2 Allergy status to sulfonamides; Z88.7 Allergy status to serum and vaccine; Z88.8 Allergy status to other drugs, medicaments and biological substances; Z79.84 Long term (current) use of oral hypoglycemic drugs; Z79.899 Other long term (current) drug therapy
CPT/HCPCS: 36415; 36600; 71045; 80053; 82728; 82803; 82947; 83605; 83615; 84145; 85025; 85379; 86140; 99285; A9270-GY; J1100; J1650; J1815; J2060; J3490; J7050

== ENCOUNTER 2023-02-06 06:36 | Day surgery (SDC) | payer MEDICARE, MEDICAID ==
[2023-02-06] MEDS ORDERED: Dextrose 5%-Lactated Ringers 1,000 ML IV SCH (07:00)
[2023-02-06] MEDS ORDERED: Propofol 200 MG/20 ML SDV ONE ×2 (07:11→07:46)
[2023-02-06 10:03] VITALS: BP 101/59; PULSE 99
== END 2023-02-06 09:50 | disposition home or self-care (01) ==
LOC: JP.SDS 06:36
PROVIDERS: ATTEND Family Medicine
DX: K63.5 Polyp of colon (principal); K64.8 Other hemorrhoids; J44.9 Chronic obstructive pulmonary disease, unspecified; K74.60 Unspecified cirrhosis of liver; E11.9 Type 2 diabetes mellitus without complications; I27.20 Pulmonary hypertension, unspecified; F20.9 Schizophrenia, unspecified; F17.200 Nicotine dependence, unspecified, uncomplicated; Z88.8 Allergy status to other drugs, medicaments and biological substances; Z88.7 Allergy status to serum and vaccine
CPT/HCPCS: 88305; J2704; J7121

== ENCOUNTER 2024-01-16 16:34 | Emergency (ER) | payer MEDICARE, MEDICAID ==
[2024-01-16 16:42] VITALS: BP 109/44; PULSE 80
[2024-01-16 17:54] LABS: BASOPHILS ABSOLUTE AUTO 0.06 K/uL (0.00-0.10); BASOPHILS PERCENT AUTO 0.8 % (0.1-1.3); EOSINOPHILS ABSOLUTE AUTO 0.19 K/uL (0.00-0.40); EOSINOPHILS PERCENT AUTO 2.5 % (0.0-5.4); HEMATOCRIT 39.7 % (34.3-46.0); HEMOGLOBIN 13.9 g/dL (11.2-15.5); IMMATURE GRAN PERCENT AUTO 0.1 % (0.0-0.7); LYMPHOCYTES PERCENT AUTO 25.1 % (11.4-47.7); MEAN CORPUSCULAR HEMOGLOBIN 32.9 pg (31.6-35.5); MEAN CORPUSCULAR VOLUME 93.9 fL (81.4-99.0); MONOCYTES PERCENT AUTO 7.9 % (3.3-12.6); NEUTROPHILS ABSOLUTE AUTO 4.81 K/uL (1.0-7.6); NEUTROPHILS PERCENT AUTO 63.6 % (40.0-78.1); PLATELET COUNT,PLT 155 K/uL (130-375); RED BLOOD CELL COUNT 4.23 M/uL (3.77-5.24); WHITE BLOOD CELL COUNT,WBC 7.6 K/uL (3.2-11.0)
[2024-01-16 17:55] LABS: IMMATURE GRAN ABSOLUTE AUTO 0.01 K/uL (0.00-0.23)
[2024-01-16 18:18] LABS: A/G RATIO 1.3 (1.2-2.2); ALANINE AMINOTRANSFERASE,ALT 13 U/L (12-78); ALBUMIN 3.9 g/dL (3.4-5.0); ALKALINE PHOSPHATASE 106 U/L (46-116); ANION GAP 13.5 mmol/L (5.0-14.0); ASPARTATE AMNIOTRANSFERASE,AST 20 U/L (15-37); BILIRUBIN TOTAL 0.4 mg/dL (0.2-1.0); BLOOD UREA NITROGEN,BUN 23 mg/dL (7-18); C-REACTIVE PROTEIN < 0.50 mg/dL (<0.50); CARBON DIOXIDE,CO2 27 mmol/L (21-32); CHLORIDE,CL 106 mmol/L (100-108); CREATININE 0.9 mg/dL (0.6-1.0); EST CRCL DRUG DOSING (CG) 43.65 mL/min; ESTIMATED GFR 68 mL/min (>60); GLUCOSE RANDOM 132 mg/dL (74-106); MAGNESIUM 1.6 mg/dL (1.8-2.4); POTASSIUM,K 3.5 mmol/L (3.6-5.2); SODIUM,NA 143 mmol/L (140-148); TROPONIN I HIGH SENSITIVITY 4.5 pg/mL (<=60.3)
[2024-01-16] MEDS: Magnesium Oxide 400 MG Tab PO ONE (18:44)
== END 2024-01-16 18:55 | disposition home or self-care (01) ==
LOC: JP.ED 16:34
DX: R19.5 Other fecal abnormalities (principal); R10.13 Epigastric pain; I10 Essential (primary) hypertension; J44.9 Chronic obstructive pulmonary disease, unspecified; E11.9 Type 2 diabetes mellitus without complications; Z86.16 Personal history of COVID-19; F17.210 Nicotine dependence, cigarettes, uncomplicated; Z79.84 Long term (current) use of oral hypoglycemic drugs; Z88.6 Allergy status to analgesic agent; Z88.7 Allergy status to serum and vaccine; Z88.2 Allergy status to sulfonamides; Z88.8 Allergy status to other drugs, medicaments and biological substances; Z79.899 Other long term (current) drug therapy; Z79.51 Long term (current) use of inhaled steroids
CPT/HCPCS: 36415; 80053; 82272; 83690; 83735; 84484; 85025; 86140; 93005; 99284; A9270; 93010; 99283

== ENCOUNTER 2024-02-07 08:50 | Day surgery (SDC) | payer MEDICARE, MEDICAID ==
[2024-02-07 10:10] VITALS: BP 114/56; PULSE 78
[2024-02-07] MEDS: Sodium Chloride 0.9% 10 ML Syringe FLUSH PRN (10:11)
== END 2024-02-07 10:10 | disposition home or self-care (01) ==
LOC: JP.SDS 08:50
PROVIDERS: ATTEND Ophthalmology
DX: H26.9 Unspecified cataract (principal); H57.03 Miosis; J44.9 Chronic obstructive pulmonary disease, unspecified; K21.9 Gastro-esophageal reflux disease without esophagitis; E11.9 Type 2 diabetes mellitus without complications
CPT/HCPCS: 66982; J3490; V2632

== ENCOUNTER 2024-02-23 14:17 | Emergency (ER) | payer MEDICARE, MEDICAID ==
[2024-02-23 14:55] LABS: APPEARANCE,URINE CLEAR (CLEAR); BILIRUBIN,URINE NEGATIVE (NEGATIVE); COLOR,URINE YELLOW (YELLOW); GLUCOSE,URINE NEGATIVE (NEGATIVE); KETONES,URINE NEGATIVE (NEGATIVE); LEUKOCYTE ESTERASE,URINE NEGATIVE (NEGATIVE); NITRITE,URINE NEGATIVE (NEGATIVE); OCCULT BLOOD,URINE NEGATIVE (NEGATIVE); PROTEIN,URINE NEGATIVE (NEGATIVE); UROBILINOGEN,URINE 0.2 EU/dL (0.2-1.0)
[2024-02-23 15:01] LABS: AMORPHOUS SEDIMENT,URINE NOT SEEN; BACTERIA,URINE NOT SEEN; EPITHELIAL CELLS,URINE RARE; MUCUS,URINE NOT SEEN; RBC,URINE 0-5 (0-5); WBC,URINE 0-5 (0-5)
[2024-02-23 15:33] LABS: BASOPHILS ABSOLUTE AUTO 0.05 K/uL (0.00-0.10); BASOPHILS PERCENT AUTO 0.6 % (0.1-1.3); EOSINOPHILS ABSOLUTE AUTO 0.25 K/uL (0.00-0.40); EOSINOPHILS PERCENT AUTO 3.2 % (0.0-5.4); HEMATOCRIT 39.3 % (34.3-46.0); HEMOGLOBIN 14.1 g/dL (11.2-15.5); IMMATURE GRAN ABSOLUTE AUTO 0.03 K/uL (0.00-0.23); IMMATURE GRAN PERCENT AUTO 0.4 % (0.0-0.7); LYMPHOCYTES ABSOLUTE AUTO 2.27 K/uL (0.8-3.3); LYMPHOCYTES PERCENT AUTO 28.9 % (11.4-47.7); MEAN CORPUSCULAR HEMOGLOBIN 33.3 pg (31.6-35.5); MEAN CORPUSCULAR HGB CONC 35.9 g/dL (31.6-35.5); MEAN CORPUSCULAR VOLUME 92.7 fL (81.4-99.0); MONOCYTES ABSOLUTE AUTO 0.76 K/uL (0.20-0.90); MONOCYTES PERCENT AUTO 9.7 % (3.3-12.6); NEUTROPHILS PERCENT AUTO 57.2 % (40.0-78.1); PLATELET COUNT,PLT 171 K/uL (130-375); RED BLOOD CELL COUNT 4.24 M/uL (3.77-5.24); WHITE BLOOD CELL COUNT,WBC 7.9 K/uL (3.2-11.0)
[2024-02-23 15:40] VITALS: BP 132/66; PULSE 77
[2024-02-23 15:48] LABS: CORONAVIRUS COVID-19 NAA NEGATIVE (NEGATIVE); INFLUENZA A NAA NEGATIVE (NEGATIVE); INFLUENZA B NAA NEGATIVE (NEGATIVE); RESPIRATORY SYNCYTIAL VIR NAA NEGATIVE (NEGATIVE)
[2024-02-23 15:53] LABS: A/G RATIO 1.2 (1.2-2.2); ALANINE AMINOTRANSFERASE,ALT 12 U/L (12-78); ALKALINE PHOSPHATASE 94 U/L (46-116); ASPARTATE AMNIOTRANSFERASE,AST 20 U/L (15-37); BILIRUBIN TOTAL 0.4 mg/dL (0.2-1.0); BLOOD UREA NITROGEN,BUN 21 mg/dL (7-18); CALCIUM 9.3 mg/dL (8.5-10.1); CARBON DIOXIDE,CO2 28 mmol/L (21-32); CHLORIDE,CL 100 mmol/L (100-108); CREATININE 0.8 mg/dL (0.6-1.0); EST CRCL DRUG DOSING (CG) 49.53 mL/min; ESTIMATED GFR 78 mL/min (>60); GLUCOSE RANDOM 91 mg/dL (74-106); POTASSIUM,K 3.6 mmol/L (3.6-5.2); PROTEIN TOTAL,TP 7.3 g/dL (6.4-8.2); SODIUM,NA 137 mmol/L (140-148)
[2024-02-23 15:54] LABS: ANION GAP 12.6 mmol/L (5.0-14.0)
== END 2024-02-23 16:58 | disposition home or self-care (01) ==
LOC: JP.ED 14:17
DX: J42 Unspecified chronic bronchitis (principal); R53.83 Other fatigue; I10 Essential (primary) hypertension; E11.9 Type 2 diabetes mellitus without complications; F17.210 Nicotine dependence, cigarettes, uncomplicated; Z88.7 Allergy status to serum and vaccine; Z88.2 Allergy status to sulfonamides; Z88.8 Allergy status to other drugs, medicaments and biological substances; Z79.84 Long term (current) use of oral hypoglycemic drugs; Z79.51 Long term (current) use of inhaled steroids; Z79.899 Other long term (current) drug therapy; Z86.16 Personal history of COVID-19; Z90.710 Acquired absence of both cervix and uterus
CPT/HCPCS: 0241U; 36415; 80053; 81001; 85025; 99284

== ENCOUNTER 2024-02-28 09:51 | Day surgery (SDC) | payer MEDICARE, MEDICAID ==
[2024-02-28] MEDS: Sodium Chloride 0.9% 1,000 ML IV SCH (10:15)
[2024-02-28] MEDS ORDERED: Propofol 200 MG/20 ML SDV ONE ×2 (10:27→10:46)
[2024-02-28] MEDS ORDERED: fentaNYL 100 MCG/2 ML SDV ONE (10:27)
[2024-02-28 12:06] VITALS: BP 127/55; PULSE 74
== END 2024-02-28 12:20 | disposition home or self-care (01) ==
LOC: JP.SDS 09:51
PROVIDERS: ATTEND Surgery
DX: Z12.11 Encounter for screening for malignant neoplasm of colon (principal); D12.3 Benign neoplasm of transverse colon; K29.50 Unspecified chronic gastritis without bleeding; J44.9 Chronic obstructive pulmonary disease, unspecified; E11.9 Type 2 diabetes mellitus without complications
CPT/HCPCS: 00813-QZ; 88305; J2704; J3010; J7030

== ENCOUNTER 2024-04-20 14:21 | Emergency (ER) | payer MEDICARE, MEDICAID ==
[2024-04-20 15:41] VITALS: BP 114/45; PULSE 89
[2024-04-20 17:00] LABS: BASOPHILS ABSOLUTE AUTO 0.05 K/uL (0.00-0.10); BASOPHILS PERCENT AUTO 0.4 % (0.1-1.3); EOSINOPHILS ABSOLUTE AUTO 0.07 K/uL (0.00-0.40); EOSINOPHILS PERCENT AUTO 0.6 % (0.0-5.4); HEMATOCRIT 38.2 % (34.3-46.0); HEMOGLOBIN 13.5 g/dL (11.2-15.5); IMMATURE GRAN ABSOLUTE AUTO 0.04 K/uL (0.00-0.23); IMMATURE GRAN PERCENT AUTO 0.3 % (0.0-0.7); LYMPHOCYTES ABSOLUTE AUTO 1.67 K/uL (0.8-3.3); LYMPHOCYTES PERCENT AUTO 14.3 % (11.4-47.7); MEAN CORPUSCULAR HEMOGLOBIN 32.5 pg (31.6-35.5); MEAN CORPUSCULAR HGB CONC 35.3 g/dL (31.6-35.5); MEAN CORPUSCULAR VOLUME 91.8 fL (81.4-99.0); MONOCYTES ABSOLUTE AUTO 0.92 K/uL (0.20-0.90); MONOCYTES PERCENT AUTO 7.9 % (3.3-12.6); NEUTROPHILS PERCENT AUTO 76.5 % (40.0-78.1); PLATELET COUNT,PLT 142 K/uL (130-375); RED BLOOD CELL COUNT 4.16 M/uL (3.77-5.24); WHITE BLOOD CELL COUNT,WBC 11.7 K/uL (3.2-11.0)
[2024-04-20 17:01] LABS: BASE EXCESS VENOUS 3.3 mm/L; BICARBONATE,VENOUS 27.5 mmol/L; CARBOXYHEMOGLOBIN 6.9 % (0.0-1.6); METHEMOGLOBIN 0.9 %; O2 SATURATION VENOUS 79.7; OXYHEMOGLOBIN 73.5 %; PCO2 VENOUS 41.8 mm/Hg; PH,VENOUS 7.433 (7.350-7.450); PO2 VENOUS 42.3 mm/Hg
[2024-04-20 17:22] LABS: A/G RATIO 1.1 (1.2-2.2); ALANINE AMINOTRANSFERASE,ALT 12 U/L (12-78); ALBUMIN 3.5 g/dL (3.4-5.0); ALKALINE PHOSPHATASE 98 U/L (46-116); ASPARTATE AMNIOTRANSFERASE,AST 17 U/L (15-37); BILIRUBIN TOTAL 0.6 mg/dL (0.2-1.0); BLOOD UREA NITROGEN,BUN 16 mg/dL (7-18); CALCIUM 8.6 mg/dL (8.5-10.1); CARBON DIOXIDE,CO2 28 mmol/L (21-32); CHLORIDE,CL 101 mmol/L (100-108); CREATININE 0.9 mg/dL (0.6-1.0); EST CRCL DRUG DOSING (CG) 43.37 mL/min; ESTIMATED GFR 67 mL/min (>60); GLUCOSE RANDOM 112 mg/dL (74-106); POTASSIUM,K 3.8 mmol/L (3.6-5.2); PROTEIN TOTAL,TP 6.7 g/dL (6.4-8.2); SODIUM,NA 138 mmol/L (140-148)
[2024-04-20 17:40] LABS: ANION GAP 12.8 mmol/L (5.0-14.0)
[2024-04-20 18:09] LABS: LYME AB IgG Negative (Negative); LYME AB IgM Negative (Negative)
[2024-04-20 18:32] LABS: CORONAVIRUS COVID-19 NAA NEGATIVE (NEGATIVE); INFLUENZA A NAA NEGATIVE (NEGATIVE); INFLUENZA B NAA NEGATIVE (NEGATIVE); RESPIRATORY SYNCYTIAL VIR NAA NEGATIVE (NEGATIVE)
== END 2024-04-20 18:12 | disposition home or self-care (01) ==
LOC: JP.ED 14:21
DX: J44.9 Chronic obstructive pulmonary disease, unspecified (principal); I10 Essential (primary) hypertension; E11.40 Type 2 diabetes mellitus with diabetic neuropathy, unspecified; F17.210 Nicotine dependence, cigarettes, uncomplicated; Z88.8 Allergy status to other drugs, medicaments and biological substances; Z88.7 Allergy status to serum and vaccine; Z79.84 Long term (current) use of oral hypoglycemic drugs; Z79.51 Long term (current) use of inhaled steroids; Z79.899 Other long term (current) drug therapy; Z90.710 Acquired absence of both cervix and uterus
CPT/HCPCS: 0241U; 36415; 71045; 80053; 82803; 83605; 84145; 85025; 86618; 99285

== ENCOUNTER 2024-07-03 16:57 | Emergency (ER) | payer MEDICARE, MEDICAID ==
[2024-07-03 17:41] LABS: BASOPHILS ABSOLUTE AUTO 0.05 K/uL (0.00-0.10); BASOPHILS PERCENT AUTO 0.8 % (0.1-1.3); EOSINOPHILS ABSOLUTE AUTO 0.23 K/uL (0.00-0.40); EOSINOPHILS PERCENT AUTO 3.7 % (0.0-5.4); HEMATOCRIT 36.3 % (34.3-46.0); HEMOGLOBIN 12.6 g/dL (11.2-15.5); IMMATURE GRAN PERCENT AUTO 0.2 % (0.0-0.7); LYMPHOCYTES ABSOLUTE AUTO 1.83 K/uL (0.8-3.3); LYMPHOCYTES PERCENT AUTO 29.5 % (11.4-47.7); MEAN CORPUSCULAR HEMOGLOBIN 31.4 pg (31.6-35.5); MEAN CORPUSCULAR HGB CONC 34.7 g/dL (31.6-35.5); MEAN CORPUSCULAR VOLUME 90.5 fL (81.4-99.0); MONOCYTES ABSOLUTE AUTO 0.58 K/uL (0.20-0.90); MONOCYTES PERCENT AUTO 9.4 % (3.3-12.6); NEUTROPHILS PERCENT AUTO 56.4 % (40.0-78.1); PLATELET COUNT,PLT 164 K/uL (130-375); RED BLOOD CELL COUNT 4.01 M/uL (3.77-5.24); WHITE BLOOD CELL COUNT,WBC 6.2 K/uL (3.2-11.0)
[2024-07-03 17:42] LABS: IMMATURE GRAN ABSOLUTE AUTO 0.01 K/uL (0.00-0.23)
[2024-07-03 18:05] LABS: A/G RATIO 1.3 (1.2-2.2); ALANINE AMINOTRANSFERASE,ALT 8 U/L (12-78); ALBUMIN 3.9 g/dL (3.4-5.0); ALKALINE PHOSPHATASE 98 U/L (46-116); ANION GAP 7.4 mmol/L (5.0-14.0); ASPARTATE AMNIOTRANSFERASE,AST 20 U/L (15-37); BILIRUBIN TOTAL 0.4 mg/dL (0.2-1.0); BLOOD UREA NITROGEN,BUN 18 mg/dL (7-18); CARBON DIOXIDE,CO2 29 mmol/L (21-32); CHLORIDE,CL 104 mmol/L (100-108); CREATININE 0.8 mg/dL (0.6-1.0); ESTIMATED GFR 77 mL/min (>60); GLUCOSE RANDOM 123 mg/dL (74-106); POTASSIUM,K 3.7 mmol/L (3.6-5.2); PROTEIN TOTAL,TP 6.9 g/dL (6.4-8.2); SODIUM,NA 140 mmol/L (140-148)
[2024-07-03 18:10] LABS: CALCIUM 9.3 mg/dL (8.5-10.1)
[2024-07-03] MEDS: Nicotine Polacrilex 2 MG Gum CHEW PRN (18:36)
[2024-07-03] MEDS: OLANZapine 5 MG Tab PO ONE (20:22)
[2024-07-03] MEDS: Escitalopram 10 MG Tab PO ONE (20:31)
[2024-07-03] MEDS: busPIRone 10 MG Tab PO ONE (20:33)
[2024-07-03] MEDS: rOPINIRole 1 MG Tab PO SCH (20:34)
[2024-07-03 21:04] LABS: CORONAVIRUS COVID-19 NAA NEGATIVE (NEGATIVE); INFLUENZA A NAA NEGATIVE (NEGATIVE); INFLUENZA B NAA NEGATIVE (NEGATIVE); RESPIRATORY SYNCYTIAL VIR NAA NEGATIVE (NEGATIVE)
[2024-07-03 22:36] LABS: BILIRUBIN,URINE NEGATIVE (NEGATIVE); COLOR,URINE YELLOW (YELLOW); GLUCOSE,URINE NEGATIVE (NEGATIVE); KETONES,URINE NEGATIVE (NEGATIVE); LEUKOCYTE ESTERASE,URINE TRACE (NEGATIVE); NITRITE,URINE NEGATIVE (NEGATIVE); OCCULT BLOOD,URINE NEGATIVE (NEGATIVE); PROTEIN,URINE NEGATIVE (NEGATIVE); UROBILINOGEN,URINE 0.2 EU/dL (0.2-1.0)
[2024-07-03 22:42] LABS: AMORPHOUS SEDIMENT,URINE NOT SEEN; AMPHETAMINES SCREEN, URINE NEGATIVE (NEGATIVE); APPEARANCE,URINE SLIGHTLY CLOUDY (CLEAR); BACTERIA,URINE FEW; BARBITURATE SCREEN,URINE NEGATIVE (NEGATIVE); BENZODIAZEPINES SCREEN,URINE NEGATIVE (NEGATIVE); EPITHELIAL CELLS,URINE FEW; METHADONE SCREEN, URINE NEGATIVE (NEGATIVE); METHAMPHETAMINES SCREEN, URINE NEGATIVE (NEGATIVE); MUCUS,URINE NOT SEEN; OXYCODONE SCREEN,URINE NEGATIVE (NEGATIVE); PROPOXYPHENE SCREEN,URINE NEGATIVE (NEGATIVE); RBC,URINE 0-5 (0-5); THC SCREEN,URINE 50 NG/ML NEGATIVE (NEGATIVE)
[2024-07-04] MEDS: Acetaminophen/HYDROcodone 325-5 MG Tab PO ONE (01:29)
[2024-07-04] MEDS: rOPINIRole 1 MG Tab PO SCH ×2 (01:30→10:43)
[2024-07-04] MEDS ORDERED: Acetaminophen/HYDROcodone 325-5 MG Tab PO PRN (09:48)
[2024-07-04] MEDS ORDERED: Triamcinolone Acetonide 0.1% Crm 15 GM Tube TOP PRN (09:48)
[2024-07-04] MEDS ORDERED: CALCIUM CARBONATE 500 MG PO PRN (09:48)
[2024-07-04] MEDS ORDERED: Albuterol/Ipratropium 3.0-0.5 MG/3 ML Neb Soln INH PRN (09:48)
[2024-07-04] MEDS ORDERED: Albuterol 6.7 GM Inhaler INH PRN (09:48)
[2024-07-04] MEDS ORDERED: Non-Formulary Medication 1 Each (Multivitamin [Multivitamin] 1 EACH Tablet) PO SCH (10:00)
[2024-07-04] MEDS ORDERED: Non-Formulary Medication 1 Each (Vitamin E [Vitamin E] 400 UNIT Capsule) PO SCH (10:00)
[2024-07-04] MEDS ORDERED: Non-Formulary Medication 1 Each (Escitalopram [Lexapro] 20 MG Tablet) PO SCH (10:00)
[2024-07-04] MEDS ORDERED: ROPINIROLE 2 MG PO SCH (10:00)
[2024-07-04] MEDS ORDERED: Calcium Carbonate 500 MG Tab.Chew PO PRN (10:12)
[2024-07-04 10:15] VITALS: BP 115/65; PULSE 79
[2024-07-04] MEDS: Fluticasone NASAL Spray 16 GM Bottle NASBOTH SCH (10:38)
[2024-07-04] MEDS: Hydrocortisone 1% Crm 30 GM Tube TOP SCH (10:39)
[2024-07-04] MEDS: Escitalopram 10 MG Tab PO SCH (10:40)
[2024-07-04] MEDS: Folic Acid 1 MG Tab PO SCH (10:41)
[2024-07-04] MEDS: valACYclovir 500 MG Tab PO SCH (10:41)
[2024-07-04] MEDS: Furosemide 40 MG Tab PO SCH (10:41)
[2024-07-04] MEDS: metFORMIN 500 MG Tab PO SCH (10:42)
[2024-07-04] MEDS: Multivitamins with Iron/Calcium/Folic Acid/Minerals Tab PO SCH (10:43)
[2024-07-04] MEDS: busPIRone 10 MG, busPIRone 5 MG PO SCH (10:55)
[2024-07-04] MEDS: Nystatin Crm 15 GM Tube TOP SCH (10:56)
[2024-07-04] MEDS ORDERED: Nystatin Crm 15 GM Tube TOP SCH (11:00)
[2024-07-04] MEDS: Bacitracin Oint 1 GM U/D Packet TOP ONE (13:16)
[2024-07-04] MEDS: Acetaminophen/HYDROcodone 325-5 MG Tab PO PRN (13:17)
[2024-07-04] MEDS ORDERED: busPIRone 5 MG Tab PO SCH (14:00)
== END 2024-07-04 15:17 | disposition home or self-care (01) ==
LOC: JP.ED 16:57
DX: F20.0 Paranoid schizophrenia (principal); I10 Essential (primary) hypertension; E11.9 Type 2 diabetes mellitus without complications; Z88.2 Allergy status to sulfonamides; Z88.8 Allergy status to other drugs, medicaments and biological substances; Z79.84 Long term (current) use of oral hypoglycemic drugs; Z79.899 Other long term (current) drug therapy; Z86.16 Personal history of COVID-19; Z90.49 Acquired absence of other specified parts of digestive tract; Z90.710 Acquired absence of both cervix and uterus
CPT/HCPCS: 0241U; 36415; 71045; 80053; 80305; 80307; 81001; 84443; 85025; 99285; A9270

== ENCOUNTER 2025-02-18 15:49 | Emergency (ER) | payer MEDICAID, MEDICARE ==
[2025-02-18 16:14] LABS: BASOPHILS ABSOLUTE AUTO 0.04 K/uL (0.00-0.10); BASOPHILS PERCENT AUTO 0.7 % (0.1-1.3); EOSINOPHILS ABSOLUTE AUTO 0.21 K/uL (0.00-0.40); EOSINOPHILS PERCENT AUTO 3.5 % (0.0-5.4); HEMATOCRIT 35.7 % (34.3-46.0); HEMOGLOBIN 11.8 g/dL (11.2-15.5); IMMATURE GRAN PERCENT AUTO 0.2 % (0.0-0.7); LYMPHOCYTES ABSOLUTE AUTO 1.45 K/uL (0.8-3.3); LYMPHOCYTES PERCENT AUTO 24.2 % (11.4-47.7); MEAN CORPUSCULAR HEMOGLOBIN 29.6 pg (31.6-35.5); MEAN CORPUSCULAR HGB CONC 33.1 g/dL (31.6-35.5); MEAN CORPUSCULAR VOLUME 89.5 fL (81.4-99.0); MONOCYTES ABSOLUTE AUTO 0.62 K/uL (0.20-0.90); MONOCYTES PERCENT AUTO 10.4 % (3.3-12.6); NEUTROPHILS ABSOLUTE AUTO 3.66 K/uL (1.0-7.6); PLATELET COUNT,PLT 172 K/uL (130-375); RED BLOOD CELL COUNT 3.99 M/uL (3.77-5.24)
[2025-02-18 16:22] LABS: IMMATURE GRAN ABSOLUTE AUTO 0.01 K/uL (0.00-0.23)
[2025-02-18] MEDS: Albuterol/Ipratropium 3.0-0.5 MG/3 ML Neb Soln NEB ONE (16:24)
[2025-02-18 16:29] VITALS: BP 108/52; PULSE 85
[2025-02-18 16:33] LABS: CALCIUM 9.2 mg/dL (8.5-10.1); CREATININE 0.9 mg/dL (0.6-1.0); EST CRCL DRUG DOSING (CG) 43.37 mL/min; POTASSIUM,K 3.6 mmol/L (3.6-5.2)
== END 2025-02-18 17:16 | disposition home or self-care (01) ==
LOC: JP.ED 15:49
DX: J44.1 Chronic obstructive pulmonary disease with (acute) exacerbation (principal); J40 Bronchitis, not specified as acute or chronic; I10 Essential (primary) hypertension; E11.9 Type 2 diabetes mellitus without complications; F17.210 Nicotine dependence, cigarettes, uncomplicated; M19.90 Unspecified osteoarthritis, unspecified site; Z88.2 Allergy status to sulfonamides; Z88.8 Allergy status to other drugs, medicaments and biological substances; Z88.7 Allergy status to serum and vaccine; Z79.899 Other long term (current) drug therapy; Z79.84 Long term (current) use of oral hypoglycemic drugs; Z79.51 Long term (current) use of inhaled steroids; Z86.16 Personal history of COVID-19; Z90.49 Acquired absence of other specified parts of digestive tract; Z90.710 Acquired absence of both cervix and uterus
CPT/HCPCS: 36415; 71046; 80048; 85025; 86140; 87635; 94640; 99285; J7620; A9270-GY; U0002

== ENCOUNTER 2025-04-11 18:11 | Emergency (ER) | payer MEDICAID, MEDICARE ==
[2025-04-11 20:23] VITALS: BP 117/97; PULSE 77
[2025-04-11] MEDS: Ketorolac 15 MG/ML SDV IM ONE (21:45)
== END 2025-04-11 21:55 | disposition home or self-care (01) ==
LOC: JP.ED 18:11
DX: M54.50 Low back pain, unspecified (principal); G89.29 Other chronic pain; I10 Essential (primary) hypertension; J44.9 Chronic obstructive pulmonary disease, unspecified; E11.9 Type 2 diabetes mellitus without complications; Z88.7 Allergy status to serum and vaccine; Z88.8 Allergy status to other drugs, medicaments and biological substances; Z79.899 Other long term (current) drug therapy; Z88.2 Allergy status to sulfonamides; Z79.51 Long term (current) use of inhaled steroids; Z86.16 Personal history of COVID-19; Z87.891 Personal history of nicotine dependence
CPT/HCPCS: 96372; 99283; J1885

== ENCOUNTER 2025-05-06 07:30 | Emergency (ER) | payer MEDICARE ==
[2025-05-06] MEDS: Acetaminophen/HYDROcodone 325-10 MG Tab PO ONE (08:05)
[2025-05-06 08:43] VITALS: BP 106/77
[2025-05-06 09:57] VITALS: PULSE 79
[2025-05-06 10:11] LABS: APPEARANCE,URINE CLEAR (CLEAR); GLUCOSE,URINE NEGATIVE (NEGATIVE); OCCULT BLOOD,URINE NEGATIVE (NEGATIVE)
[2025-05-06 10:12] LABS: SQUAMOUS EPITHELIAL CELLS,UR RARE /HPF; UROTHELIAL CELLS,URINE NOT SEEN /HPF
== END 2025-05-06 09:57 | disposition home or self-care (01) ==
LOC: JP.ED 07:30
DX: M54.50 Low back pain, unspecified (principal); I10 Essential (primary) hypertension; J44.9 Chronic obstructive pulmonary disease, unspecified; E11.9 Type 2 diabetes mellitus without complications; Z86.16 Personal history of COVID-19; Z88.8 Allergy status to other drugs, medicaments and biological substances; Z88.7 Allergy status to serum and vaccine; Z79.84 Long term (current) use of oral hypoglycemic drugs; Z79.899 Other long term (current) drug therapy; Z79.51 Long term (current) use of inhaled steroids
CPT/HCPCS: 72100; 81001; 99284; A9270

== ENCOUNTER 2025-06-12 07:02 | Emergency (ER) | payer MEDICARE ==
[2025-06-12 08:28] VITALS: BP 116/53; PULSE 88
== END 2025-06-12 08:30 | disposition home or self-care (01) ==
LOC: JP.ED 07:02
DX: M54.41 Lumbago with sciatica, right side (principal); M62.830 Muscle spasm of back; I10 Essential (primary) hypertension; J44.9 Chronic obstructive pulmonary disease, unspecified; E11.9 Type 2 diabetes mellitus without complications; F17.210 Nicotine dependence, cigarettes, uncomplicated; Z88.8 Allergy status to other drugs, medicaments and biological substances; Z88.7 Allergy status to serum and vaccine; Z79.84 Long term (current) use of oral hypoglycemic drugs; Z79.51 Long term (current) use of inhaled steroids; Z79.899 Other long term (current) drug therapy
CPT/HCPCS: 99284; A9270

== ENCOUNTER 2025-07-14 02:44 | Emergency (ER) | payer MEDICARE ==
[2025-07-14 03:10] LABS: BASOPHILS ABSOLUTE AUTO 0.05 K/uL (0.00-0.10); BASOPHILS PERCENT AUTO 0.8 % (0.1-1.3); EOSINOPHILS ABSOLUTE AUTO 0.21 K/uL (0.00-0.40); EOSINOPHILS PERCENT AUTO 3.5 % (0.0-5.4); IMMATURE GRAN PERCENT AUTO 0.2 % (0.0-0.7); LYMPHOCYTES ABSOLUTE AUTO 1.59 K/uL (0.8-3.3); LYMPHOCYTES PERCENT AUTO 26.4 % (11.4-47.7); MONOCYTES ABSOLUTE AUTO 0.60 K/uL (0.20-0.90); MONOCYTES PERCENT AUTO 10.0 % (3.3-12.6); NEUTROPHILS ABSOLUTE AUTO 3.57 K/uL (1.0-7.6); NEUTROPHILS PERCENT AUTO 59.1 % (40.0-78.1); PLATELET COUNT,PLT 199 K/uL (130-375); RED BLOOD CELL COUNT 3.73 M/uL (3.77-5.24); WHITE BLOOD CELL COUNT,WBC 6.0 K/uL (3.2-11.0)
[2025-07-14 03:12] LABS: IMMATURE GRAN ABSOLUTE AUTO 0.01 K/uL (0.00-0.23)
[2025-07-14 03:31] LABS: A/G RATIO 1.3 (1.2-2.2); ALANINE AMINOTRANSFERASE,ALT 14 U/L (12-78); ASPARTATE AMNIOTRANSFERASE,AST 18 U/L (15-37); BILIRUBIN TOTAL 0.3 mg/dL (0.2-1.0); BLOOD UREA NITROGEN,BUN 20 mg/dL (7-18); CARBON DIOXIDE,CO2 29 mmol/L (21-32); CHLORIDE,CL 108 mmol/L (100-108); CREATININE 0.8 mg/dL (0.6-1.0); ESTIMATED GFR 77 mL/min (>60); GLUCOSE RANDOM 107 mg/dL (74-106); POTASSIUM,K 4.3 mmol/L (3.6-5.2); PROTEIN TOTAL,TP 6.6 g/dL (6.4-8.2); SODIUM,NA 146 mmol/L (140-148)
[2025-07-14 04:25] LABS: APPEARANCE,URINE SLIGHTLY CLOUDY (CLEAR); GLUCOSE,URINE NEGATIVE (NEGATIVE); OCCULT BLOOD,URINE NEGATIVE (NEGATIVE)
[2025-07-14 04:33] LABS: SQUAMOUS EPITHELIAL CELLS,UR FEW /HPF; UROTHELIAL CELLS,URINE NOT SEEN /HPF
[2025-07-14 04:34] LABS: METHADONE SCREEN, URINE NEGATIVE (NEGATIVE); METHAMPHETAMINES SCREEN, URINE NEGATIVE (NEGATIVE); OXYCODONE SCREEN,URINE NEGATIVE (NEGATIVE); PROPOXYPHENE SCREEN,URINE NEGATIVE (NEGATIVE); THC SCREEN,URINE 50 NG/ML NEGATIVE (NEGATIVE)
[2025-07-14 04:51] VITALS: BP 123/53; PULSE 86
[2025-07-14 06:14] LABS: AMPHETAMINES SCREEN, URINE NEGATIVE (NEGATIVE)
== END 2025-07-14 04:49 | disposition home or self-care (01) ==
LOC: JP.ED 02:44
DX: F41.9 Anxiety disorder, unspecified (principal); B37.9 Candidiasis, unspecified; I10 Essential (primary) hypertension; E11.9 Type 2 diabetes mellitus without complications; Z88.2 Allergy status to sulfonamides; Z88.7 Allergy status to serum and vaccine; Z88.8 Allergy status to other drugs, medicaments and biological substances; Z79.84 Long term (current) use of oral hypoglycemic drugs; Z79.899 Other long term (current) drug therapy; Z90.49 Acquired absence of other specified parts of digestive tract; Z90.710 Acquired absence of both cervix and uterus
CPT/HCPCS: 36415; 80053; 80305-QW; 80307; 81001; 85025; 87086; 99284

== ENCOUNTER 2025-08-03 04:16 | Emergency (ER) | payer MEDICARE ==
[2025-08-03 04:50] LABS: BASOPHILS ABSOLUTE AUTO 0.04 K/uL (0.00-0.10); BASOPHILS PERCENT AUTO 0.7 % (0.1-1.3); EOSINOPHILS ABSOLUTE AUTO 0.25 K/uL (0.00-0.40); EOSINOPHILS PERCENT AUTO 4.2 % (0.0-5.4); IMMATURE GRAN PERCENT AUTO 0.3 % (0.0-0.7); LYMPHOCYTES ABSOLUTE AUTO 1.10 K/uL (0.8-3.3); LYMPHOCYTES PERCENT AUTO 18.5 % (11.4-47.7); MONOCYTES ABSOLUTE AUTO 0.64 K/uL (0.20-0.90); MONOCYTES PERCENT AUTO 10.8 % (3.3-12.6); NEUTROPHILS ABSOLUTE AUTO 3.89 K/uL (1.0-7.6); NEUTROPHILS PERCENT AUTO 65.5 % (40.0-78.1); PLATELET COUNT,PLT 201 K/uL (130-375); RED BLOOD CELL COUNT 4.01 M/uL (3.77-5.24); WHITE BLOOD CELL COUNT,WBC 5.9 K/uL (3.2-11.0)
[2025-08-03 04:55] LABS: IMMATURE GRAN ABSOLUTE AUTO 0.02 K/uL (0.00-0.23)
[2025-08-03 05:10] LABS: BLOOD UREA NITROGEN,BUN 13.0 mg/dL (7-18); CARBON DIOXIDE,CO2 28.0 mmol/L (21-32); CHLORIDE,CL 103.0 mmol/L (100-108); CREATININE 0.7 mg/dL (0.6-1.0); EST CRCL DRUG DOSING (CG) 52.4 mL/min; ESTIMATED GFR 90.0 mL/min (>60); GLUCOSE RANDOM 105.0 mg/dL (74-106); POTASSIUM,K 3.5 mmol/L (3.6-5.2); SODIUM,NA 139.0 mmol/L (140-148)
[2025-08-03] MEDS: methylPREDNISolone Sodium Succinate 40 MG/1 ML SDV IVPUSH ONE (06:02)
[2025-08-03 06:15] VITALS: BP 131/68; PULSE 81
== END 2025-08-03 07:11 | disposition home or self-care (01) ==
LOC: JP.ED 04:16
DX: J40 Bronchitis, not specified as acute or chronic (principal); I10 Essential (primary) hypertension; E11.9 Type 2 diabetes mellitus without complications; F17.200 Nicotine dependence, unspecified, uncomplicated; Z88.2 Allergy status to sulfonamides; Z88.7 Allergy status to serum and vaccine; Z88.8 Allergy status to other drugs, medicaments and biological substances; Z79.84 Long term (current) use of oral hypoglycemic drugs; Z79.899 Other long term (current) drug therapy; Z90.49 Acquired absence of other specified parts of digestive tract; Z90.710 Acquired absence of both cervix and uterus
CPT/HCPCS: 36415; 71045; 80048; 83605; 85025; 87428; 94640; 96361; 96374; 99285; A9270; J2919; J7040

== ENCOUNTER 2025-08-09 06:41 | Emergency (ER) | payer MEDICAID, MEDICARE ==
[2025-08-09 08:15] VITALS: BP 120/53; PULSE 94
[2025-08-09] MEDS: Fluticasone NASAL Spray 16 GM Bottle NASBOTH ONE (08:24)
[2025-08-09 10:31] LABS: CORONAVIRUS COVID-19 NAA NEGATIVE (NEGATIVE); INFLUENZA A NAA NEGATIVE (NEGATIVE); INFLUENZA B NAA NEGATIVE (NEGATIVE); RESPIRATORY SYNCYTIAL VIR NAA NEGATIVE (NEGATIVE)
== END 2025-08-09 10:57 | disposition home or self-care (01) ==
LOC: JP.ED 06:41
DX: J44.9 Chronic obstructive pulmonary disease, unspecified (principal); Z72.0 Tobacco use; I10 Essential (primary) hypertension; E11.9 Type 2 diabetes mellitus without complications; Z88.2 Allergy status to sulfonamides; Z88.7 Allergy status to serum and vaccine; Z88.8 Allergy status to other drugs, medicaments and biological substances; Z79.84 Long term (current) use of oral hypoglycemic drugs; Z79.899 Other long term (current) drug therapy; Z90.49 Acquired absence of other specified parts of digestive tract; Z90.710 Acquired absence of both cervix and uterus
CPT/HCPCS: 87637; 94640; 99285; A9270